=== PATIENT | female | born 1990 | race Caucasian/White ===

== ENCOUNTER 2016-08-24 02:24 | Emergency (ER) | payer MEDICAID ==
[~2016-08-24] VITALS: Ht 157.5 cm; Wt 104.3 kg
[~2016-08-24 02:24] MED LIST: AMPH20TA2 PO; BUSP15TA60 PO; CHOL10007 PO; DIPH25CA79 PO; GABA-486 PO; HYDR-3820 PO; HYDR-87 PO; PRAZ2CAP2 PO; QUET100T PO; RT-ALBUINH IH; SERT100T PO
--- OUTSIDE RECORDS SUMMARY | 2016-08-24 02:33 | XMS REPORT | Continuity of Care Document ---
Author Author [facility] Organization [facility] Address Unknown Phone Unavailable Care Team Providers Care Associate Marketing Manager Name Role Phone NO, LOCAL PHYSICIAN PCP Unavailable Insurance Providers Payer Name Policy Number Subscriber Name Relationship Medicaid Out Of State [id number] Arvind Bowie 17 Self / Same As Patient Advance Directives Directive Response Recorded Date/Time Advance Directives No 08/03/16 8:25am Organ Donor Yes 08/03/16 8:25am Resuscitation Status Full Code 08/03/16 8:25am Chief Complaint and Reason for Visit Chief Complaint -Female Reason for Visit [id number] Chronic pelvic pain in female [id number] Problems Active Problems Medical Problem Onset Date Status Chronic pelvic pain in female Unknown Acute IUD (intrauterine device) in place Unknown Acute Pilonidal fistula Unknown Acute Medications Current Home Medications Medication Dose Units Route Directions Days/Qty Instructions Start Date Quetiapine Fumarate 100 Mg 100 Mg Oral Bedtime 07/31/16 Cholecalciferol (Vitamin D3) 1,000 Unit 1,000 Unit Oral Twice A Day 07/31/16 Diphenhydramine Hcl 25 Mg 25 Mg Oral Twice A Day 07/31/16 Buspirone Hcl 15 Mg 15 Mg Oral Three Times A Day 07/31/16 Sertraline Hcl 100 Mg 150 Mg Oral Daily TAKES 1 & 1/2 (100MG) TABLET 07/31/16 Gabapentin 100 Mg 100 Mg Oral Three Times A Day 07/31/16 Albuterol Sulfate 18 Gm 1-2 Puff Inhalation As Needed 07/31/16 Dextroamphetamine/Amphetamine 20 Mg 20 Mg Oral Daily 07/31/16 Dextroamphetamine/Amphetamine 20 Mg 30 Mg Oral 1500 07/31/16 Prazosin Hcl 2 Mg 2 Mg Oral Bedtime as needed for Nightmares Hydrocodone/Acetaminophen 1 Each 1 Tab Oral Every 6 Hours for Pain 30 08/01/16 Hydrocodone/Ibuprofen 1 Each 1 Each Oral Every 4HRS as needed for Pelvic Pain 20 08/03/16 Social History Social History Problem Response Recorded Date/Time Alcohol Use Denies Use 08/03/2016 8:25am Recreational Drug Use No 08/03/2016 8:25am Recent Foreign Travel No 08/03/2016 8:10am Recent Infectious Disease Exposure No 08/03/2016 8:10am Hospitalization with Isolation Denies 08/03/2016 8:10am Smoking Status Current Everyday Smoker 08/03/2016 8:25am Type Used Cigarettes 08/03/2016 8:25am Recent Hopitalizations No 08/03/2016 8:25am Hospitalization with Isolation Denies 08/03/2016 8:10am Query Response Start Date Stop Date Smoking Status Current Everyday Smoker Hospital Discharge Instructions No hospital discharge instructions. Plan of Care Discharge Date 08/03/16 10:55am Disposition 01 HOME, SELF-CARE Condition at Discharge Stable Instructions/Education Provided Constipation, Adult (DC) Chronic Pelvic Pain (DC) Pilonidal Cyst (DC) Prescriptions See Medication Section Referrals AYSHA RODRIGUEZ ERIC B DO - Additional Instructions/Education NEED TO FOLLOW UP WITH COPY HOLDER RICHARD FOR DEFINITIVE TREATMENT OF YOUR CONDITION. Functional Status No functional status results. Allergies, Adverse Reactions, Alerts Allergen Type Severity Reaction Status Last Updated Prochlorperazine Adverse Reaction Unknown Active 07/31/16 Tramadol Adverse Reaction Unknown Active 07/31/16 ketorolac ([id number]) Adverse Reaction Unknown Active 07/31/16 Immunizations No immunization records. Vital Signs Acute Vital Signs Vital Response Date/Time Temperature (Fahrenheit) 97.8 degrees F (97.6 - 99.5) 08/03/2016 8:10am Temperature (Calculated Celsius) 36.46775 degrees C (36.4 - 37.5) 08/03/2016 8:10am Temperature Source Temporal 08/03/2016 8:10am Pulse Rate (adult) 80 bpm (60 - 90) 08/03/2016 8:10am Respiratory Rate 18 bpm (12 - 24) 08/03/2016 8:10am O2 Sat by Pulse Oximetry 94 % (88 - 100) 08/03/2016 8:10am Blood Pressure 128/86 mm Hg 08/03/2016 8:10am Blood Pressure Mean 100 mm Hg 08/03/2016 8:10am Pain Numeric Pain Scale 8 08/03/2016 10:41am Pain Intensity 4 08/01/2016 8:35am Height (Feet) 5 feet 08/03/2016 8:10am Height (Inches) 0.00 inches 07/31/2016 10:30pm Height (Calculated Centimeters) 152.478738 cm 08/03/2016 8:10am Weight (Pounds) 245 pounds 08/03/2016 8:10am Weight (Ounces) 0.0 oz 07/31/2016 10:30pm Weight (Calculated Grams) 842692.72 gm 07/31/2016 10:30pm Weight (Calculated Kilograms) 111.595015 kilograms 08/03/2016 8:10am Calculated BMI 48.0 07/31/2016 10:30pm Capillary Refill Capillary Refill Less Than 3 Seconds 08/03/2016 8:10am Results Laboratory Results Test Name Result Units Flags Reference Collection Date/Time Result Date/ Time Comments White Blood Count 11.6 10^3/uL H 4.3-11.0 08/01/2016 4:25am 08/01/2016 5: 17am Red Blood Count 4.64 10^6/uL 4.35-5.85 08/01/2016 4:2508/01/2016 5: 17am Hemoglobin 14.6 G/DL 11.5-16.0 08/01/2016 4:2508/01/2016 5:17am Hematocrit 44 % 35-52 08/01/2016 4:2508/01/2016 5:17am Mean Corpuscular Volume 94 FL 80-99 08/01/2016 4:2508/01/2016 5: 17am Mean Corpuscular Hemoglobin 32 PG 25-34 08/01/2016 4:2508/01/2016 5: 17am Mean Corpuscular Hemoglobin Concent 33 G/DL 32-36 08/01/2016 4:25 5:17am Red Cell Distribution Width 13.1 % 10.0-14.5 08/01/2016 4:2015 5:17am Platelet Count 290 10^3/uL 130-400 08/01/2016 4:08/01/2016 5:17am Mean Platelet Volume 10.8 FL H 7.4-10.4 08/01/2016 4:08/01/2016 5: 17am Neutrophils (%) (Auto) 56 % 42-75 08/01/2016 4:08/01/2016 5:17am Lymphocytes (%) (Auto) 34 % 12-44 08/01/2016 4:08/01/2016 5:17am Monocytes (%) (Auto) 6 % 0-12 08/01/2016 4:08/01/2016 5:17am Eosinophils (%) (Auto) 3 % 0-10 08/01/2016 4:08/01/2016 5:17am Basophils (%) (Auto) 0 % 0-10 08/01/2016 4:08/01/2016 5:17am Neutrophils # (Auto) 6.5 X 10^3 1.8-7.8 08/01/2016 4:08/01/2016 5: 17am Lymphocytes # (Auto) 4.0 X 10^3 1.0-4.0 08/01/2016 4:08/01/2016 5: 17am Monocytes # (Auto) 0.7 X 10^3 0.0-1.0 08/01/2016 4:08/01/2016 5: 17am Eosinophils # (Auto) 0.3 10^3/uL 0.0-0.3 08/01/2016 4:08/01/2016 5 :17am Basophils # (Auto) 0.1 10^3/uL 0.0-0.1 08/01/2016 4:08/01/2016 5: 17am Urine Color YELLOW 07/31/2016 7:25pm 07/31/2016 7:48pm Urine Clarity SLIGHTLY CLOUDY 07/31/2016 7:2507/31/2016 7:48pm Urine pH 5 5-9 07/31/2016 7:2507/31/2016 7:48pm Urine Specific [place] 1.030 * 1.016-1.022 07/31/2016 7:2015 7:48pm Urine Protein 2+ * NEGATIVE 07/31/2016 7:07/31/2016 7:48pm Urine Glucose (UA) NEGATIVE NEGATIVE 07/31/2016 7:07/31/2016 7: 48pm Urine RBC (Auto) 2+ * NEGATIVE 07/31/2016 7:07/31/2016 7:48pm Urine Ketones NEGATIVE NEGATIVE 07/31/2016 7:07/31/2016 7:48pm Urine Nitrite NEGATIVE NEGATIVE 07/31/2016 7:07/31/2016 7:48pm Urine Bilirubin NEGATIVE NEGATIVE 07/31/2016 7:07/31/2016 7: 48pm Urine Urobilinogen 1 MG/DL NORMAL 07/31/2016 7:07/31/2016 7:48pm Urine Leukocyte Esterase NEGATIVE NEGATIVE 07/31/2016 7:2015 7:48pm Urine RBC 2-5 /HPF * 07/31/2016 7:07/31/2016 7:48pm Urine WBC RARE /HPF 07/31/2016 7:07/31/2016 7:48pm Urine Bacteria NEGATIVE /HPF 07/31/2016 7:07/31/2016 7:48pm Urine Squamous Epithelial Cells 10-25 /HPF * 07/31/2016 7:2015 7:48pm Urine Crystals NONE /LPF 07/31/2016 7:07/31/2016 7:48pm Urine Casts NONE /LPF 07/31/2016 7:07/31/2016 7:48pm Urine Mucus LARGE /LPF * 07/31/2016 7:07/31/2016 7:48pm Urine Culture Indicated NO 07/31/2016 7:07/31/2016 7:48pm Sodium Level 140 MMOL/L 135-145 08/01/2016 4:am 08/01/2016 5:40am Potassium Level 4.0 MMOL/L 3.6-5.0 08/01/2016 4:08/01/2016 5:40am Chloride Level 107 MMOL/L 98-107 08/01/2016 4:08/01/2016 5:40am Carbon Dioxide Level 24 MMOL/L 21-32 08/01/2016 4:08/01/2016 5: 40am Anion Gap 9 MMOL/L 5-14 08/01/2016 4:08/01/2016 5:40am Blood Urea Nitrogen 9 MG/DL 7-18 08/01/2016 4:08/01/2016 5:40am Creatinine 0.73 MG/DL 0.60-1.30 08/01/2016 4:08/01/2016 5:40am BUN/Creatinine Ratio 08/01/2016 4:08/01/2016 5:40am Estimat Glomerular Filtration Rate > 60 08/01/2016 4:2015 5:40am GFR INTERPRETIVE DATA UNITS FOR ESTIMATED GFR (eGFR): mL/min/1.73 M2 REFERENCE RANGE FOR ESTIMATED GFR (eGFR) eGFR NORMAL eGFR >60 MODERATELY DECREASED eGFR 30-59 SEVERLY DECREASED eGFR 15-29 KIDNEY FAILURE <15 (OR DIALYSIS) Glucose Level 92 MG/DL 70-105 08/01/2016 4:08/01/2016 5:40am Calcium Level 8.7 MG/DL 8.5-10.1 08/01/2016 4:08/01/2016 5:40am Total Bilirubin 0.3 MG/DL 0.1-1.0 08/01/2016 4:08/01/2016 5:40am Alkaline Phosphatase 69 U/L 40-136 08/01/2016 4:08/01/2016 5:40am Aspartate Amino Transf (AST/SGOT) 14 U/L 5-34 08/01/2016 4:2015 5:40am Alanine Aminotransferase (ALT/SGPT) 17 U/L 0-55 08/01/2016 4:08/01 5:40am Total Protein 6.3 G/DL L 6.4-8.2 08/01/2016 4:08/01/2016 5:40am Albumin 3.9 G/DL 3.2-4.5 08/01/2016 4:08/01/2016 5:40am Amylase Level 29 U/L 25-125 08/01/2016 4:08/01/2016 5:40am Lipase 14 U/L 8-78 08/01/2016 4:25am 08/01/2016 5:40am Pending Laboratory Results Test Name Collection Date/Time Procedures No known history of procedures. Encounters Encounter Location Arrival/Admit Date Discharge/Depart Date Attending Provider Departed Emergency Room [facility] 08/03/16 8:05am 08/03 10:55am APRIL CROOK DO Discharged Inpatient (obs) [facility] 07/31/16 10:00pm 08/01/16 12:36pm PEDRO IRWIN DO Recent Diagnosis
[2016-08-24 02:45] LABS: BILIRUBIN,URINE NEGATIVE (NEGATIVE); KETONES,URINE NEGATIVE (NEGATIVE); LEUKOCYTE ESTERASE ,URINE 3+ (NEGATIVE); NITRITE,URINE NEGATIVE (NEGATIVE); PH,URINE 6 (5-9); PROTEIN,URINE 2+ (NEGATIVE); UROBILINOGEN,URINE NORMAL (NORMAL)
[2016-08-24] MEDS ORDERED: IBUPROFEN TABLET 200 MG TAB PO ONE (03:00)
[2016-08-24 03:18] LABS: BASOPHILS # (AUTO) 0.1 10^3/uL (0.0-0.1); BASOPHILS % (AUTO) 1 % (0-10); EOSINOPHILS # (AUTO) 0.3 10^3/uL (0.0-0.3); EOSINOPHILS % (AUTO) 3 % (0-10); LYMPHOCYTES # (AUTO) 3.7 X 10^3 (1.0-4.0); LYMPHOCYTES % (AUTO) 42 % (12-44); MEAN CORPUSCULAR HEMOGLOBIN 32 PG (25-34); MEAN CORPUSCULAR HGB CONC 34 G/DL (32-36); MEAN CORPUSCULAR VOLUME 92 FL (80-99); MEAN PLATELET VOLUME 10.6 FL (7.4-10.4); MONOCYTES # (AUTO) 0.5 X 10^3 (0.0-1.0); MONOCYTES % (AUTO) 6 % (0-12); NEUTROPHILS # (AUTO) 4.3 X 10^3 (1.8-7.8); NEUTROPHILS % (AUTO) 48 % (42-75); PLATELET COUNT 294 10^3/uL (130-400); RED BLOOD COUNT 4.69 10^6/uL (4.35-5.85); RED CELL DISTRIBUTION WIDTH 12.9 % (10.0-14.5); WHITE BLOOD COUNT 8.9 10^3/uL (4.3-11.0)
[2016-08-24 03:37] LABS: ALANINE AMINOTRANSFERASE 16 U/L (0-55); ALBUMIN 3.9 G/DL (3.2-4.5); ANION GAP 10 MMOL/L (5-14); ASPARTATE AMINO TRANSFERASE 12 U/L (5-34); BILIRUBIN,TOTAL 0.2 MG/DL (0.1-1.0); BLOOD UREA NITROGEN 9 MG/DL (7-18); BUN/CREATININE RATIO 13; CALCIUM 8.8 MG/DL (8.5-10.1); CARBON DIOXIDE 22 MMOL/L (21-32); CHLORIDE 106 MMOL/L (98-107); GFR ESTIMATED > 60; GLUCOSE 87 MG/DL (70-105); SODIUM 138 MMOL/L (135-145); TOTAL PROTEIN 6.1 G/DL (6.4-8.2); hs C REACTIVE PROTEIN 0.29 MG/DL (0.00-0.50)
[2016-08-24] MEDS ORDERED: CEPHALEXIN 250 MG (KEFLEX) CAP PO ONE (04:00)
[2016-08-24] MEDS ORDERED: CEPH-507 PO (04:03)
--- NOTE | 2016-08-24 04:03 | ED Abdominal Pain ---
General Chief Complaint: Abdominal/GI Problems Stated Complaint: RT SIDE PAIN Nursing Triage Note: pt reports that at approx 2300 she had severe right lower quadrant abd pain, felt as if a cyst on her ovary was bursting. states hx of pcos. also reports she passed a large blood clot vaginally a couple of days ago. Sepsis Screen: No Definite Risk Source of Information: Patient Exam Limitations: No Limitations History of Present Illness Time Seen By Provider: 02:30 Initial Comments This 26-year-old woman presents to the emergency room with complaints of fairly sudden onset of right lower quadrant pain that started around 23:00. She states this pain is similar to pain she experienced with ruptured ovarian cyst in the past. She denies any vaginal symptoms, constipation, or diarrhea. She had some more mild pain in this location yesterday for which she took Vicodin. Tonight however she had a "bursting sensation" that led to the ER visit. She took 200 mg of ibuprofen at 22:30. She took Tylenol earlier in the day. She still has pain. No fever. Allergies and Home Medications Allergies Coded Allergies: ketorolac (Unverified Adverse Reaction, Unknown, 07/31/16) prochlorperazine (Unverified Adverse Reaction, Unknown, 07/31/16) tramadol (Unverified Adverse Reaction, Unknown, 07/31/16) Home Medications Albuterol Sulfate 18 Gm Hfa.aer.ad 1-2 PUFF IH PRN (Reported) Buspirone HCl 15 Mg Tablet 15 MG PO TID (Reported) Cephalexin 500 Mg Capsule #28 500 MG PO QID Prescribed by: ANGY MARTINS on 08/24/16 0403 Cholecalciferol (Vitamin D3) 1,000 Unit Capsule 1,000 UNIT PO BID (Reported) Dextroamphetamine/Amphetamine 20 Mg Tablet 20 MG PO DAILY (Reported) Dextroamphetamine/Amphetamine 20 Mg Tablet 30 MG PO 1500 (Reported) Diphenhydramine HCl 25 Mg Capsule 25 MG PO BID (Reported) Gabapentin 100 Mg Capsule 100 MG PO TID (Reported) Hydrocodone/Acetaminophen 1 Each Tablet #30 1 TAB PO q6 Prescribed by: PEDRO IRWIN on 08/01/16 1236 Hydrocodone/Ibuprofen 1 Each Tablet #20 1 EACH PO Q4H PRN PRN pelvic pain Prescribed by: APRIL CROOK on 08/03/16 1039 Prazosin HCl 2 Mg Capsule 2 MG PO HS PRN PRN NIGHTMARES (Reported) Quetiapine Fumarate 100 Mg Tablet 100 MG PO HS (Reported) Sertraline HCl 100 Mg Tablet 150 MG PO DAILY (Reported) TAKES 1 & 1/2 (100MG) TABLET Review of Systems Constitutional: no symptoms reported EENTM: No Symptoms Reported Respiratory: No Symptoms Reported Cardiovascular: No Symptoms Reported Gastrointestinal: See HPI Genitourinary: See HPI Musculoskeletal: no symptoms reported Skin: no symptoms reported Psychiatric/Neurological: No Symptoms Reported Endocrine: No Symptoms Reported Past Fsmndes-Jldkzz-Brtpna Hx Patient Social History Alcohol Use: Rarely Uses Recreational Drug Use: No Smoking Status: Current Everyday Smoker Type Used: Cigarettes Recent Foreign Travel: No Contact w/Someone Who Travel: No Recent Infectious Disease Expo: No Recent Hopitalizations: No Physical Abuse Screen: No Sexual Abuse: No Immunizations Up To Date Tetanus Booster (TDap): Unknown Date of Influenza Vaccine: May 20, 2016 Seasonal Allergies Seasonal Allergies: Yes Surgeries HX Surgeries: Yes ( X --07/2013) Surgeries: Section, Tonsillectomy Respiratory Hx Respiratory Disorders: Yes Respiratory Disorders: Asthma Cardiovascular Hx Cardiac Disorders: Yes Neurological Hx Neurological Disorders: No Reproductive System Hx Reproductive Disorders: Yes Female Reproductive Disorders: Menstrual Problems, Ovarian Cyst, Polycystic Ovarian Dis 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 Genitourinary Hx Genitourinary Disorders: Yes Genitourinary Disorders: Bladder Infection, UTI-Chronic Gastrointestinal Hx Gastrointestinal Disorders: Yes Gastrointestinal Disorders: Gastroesophageal Reflux Musculoskeletal Hx Musculoskeletal Disorders: Yes Musculoskeletal Disorders: Fibromyalgia Endocrine Hx Endocrine Disorders: Yes (VITAMIN D DEFICIENCY; OBESITY) HEENT HX ENT Disorders: No Cancer Hx Cancer: No Psychosocial Hx Psychiatric Problems: Yes (EXTENSIVE PSYCH ISSUES) Behavioral Health Disorders: ADD/ADHD, Sleep Difficulties, Anxiety, PTSD, Bipolar, Personality Disorder, Depression Integumentary HX Skin/Integumentary Disorder: No Blood Transfusions Hx Blood Disorders: No Family Medical History Significant Family History: Hypertension Family Medial History: Alcoholism 19 FATHER Asthma 19 MOTHER Completed stroke 19 FATHER DVT 19 FATHER Dementia 19 FATHER Diabetes mellitus 19 MOTHER FH: multiple sclerosis G8 SISTER Headache disorder G8 BROTHER Hypertension 19 FATHER 19 MOTHER Myocardial infarction 19 FATHER Seizure disorder 19 FATHER Physical Exam Vital Signs Capillary Refill : Less Than 3 Seconds General Appearance: WD/WN no apparent distress obese HEENT: PERRL/EOMI normal ENT inspection Respiratory: lungs clear normal breath sounds no respiratory distress no accessory muscle use Cardiovascular: regular rate, rhythm no edema no murmur Gastrointestinal: normal bowel sounds softNo distended, No guarding, No rebound, tenderness (Mild tenderness in the right lower quadrant) Extremities: normal inspection no pedal edema Neurologic/Psychiatric: special education teachers II-XII nml as tested no motor/sensory deficits alert normal mood/affect oriented x 3 Skin: normal color warm/dry Progress/Results/Core Measures Results/Orders Lab Results Laboratory Tests Test 08/24/16 02:35 08/24/16 03:10 Range/Units Urine Bacteria MODERATE H /HPF Urine Bilirubin NEGATIVE NEGATIVE Urine Casts NONE /LPF Urine Clarity SLIGHTLY CLOUDY Urine Color YELLOW Urine Crystals NONE /LPF Urine Culture Indicated YES Urine Glucose (UA) NEGATIVE NEGATIVE Urine Ketones NEGATIVE NEGATIVE Urine Leukocyte Esterase 3+ H NEGATIVE Urine Mucus NEGATIVE /LPF Urine Nitrite NEGATIVE NEGATIVE Urine Protein 2+ H NEGATIVE Urine RBC 2-5 H /HPF Urine RBC (Auto) NEGATIVE NEGATIVE Urine Specific [place] 1.020 1.016-1.022 Urine Squamous Epithelial Cells 10-25 H /HPF Urine Urobilinogen NORMAL NORMAL MG/DL Urine WBC 5-10 H /HPF Urine pH 6 5-9 Alanine Aminotransferase (ALT/SGPT) 16 0-55 U/L Albumin 3.9 3.2-4.5 G/DL Alkaline Phosphatase 68 40-136 U/L Anion Gap 10 5-14 MMOL/L Aspartate Amino Transf (AST/SGOT) 12 5-34 U/L BUN/Creatinine Ratio 13 Basophils # (Auto) 0.1 0.0-0.1 10^3/uL Basophils (%) (Auto) 1 0-10 % Blood Urea Nitrogen 9 7-18 MG/DL C-Reactive Protein High Sensitivity 0.29 0.00-0.50 MG/DL Calcium Level 8.8 8.5-10.1 MG/DL Carbon Dioxide Level 22 21-32 MMOL/L Chloride Level 106 98-107 MMOL/L Creatinine 0.70 0.60-1.30 MG/DL Eosinophils # (Auto) 0.3 0.0-0.3 10^3/uL Eosinophils (%) (Auto) 3 0-10 % Estimat Glomerular Filtration Rate > 60 Glucose Level 87 70-105 MG/DL Hematocrit 43 35-52 % Hemoglobin 14.8 11.5-16.0 G/DL Lymphocytes # (Auto) 3.7 1.0-4.0 X 10^3 Lymphocytes (%) (Auto) 42 12-44 % Mean Corpuscular Hemoglobin 32 25-34 PG Mean Corpuscular Hemoglobin Concent 34 32-36 G/DL Mean Corpuscular Volume 92 80-99 FL Mean Platelet Volume 10.6 H 7.4-10.4 FL Monocytes # (Auto) 0.5 0.0-1.0 X 10^3 Monocytes (%) (Auto) 6 0-12 % Neutrophils # (Auto) 4.3 1.8-7.8 X 10^3 Neutrophils (%) (Auto) 48 42-75 % Platelet Count 294 130-400 10^3/uL Potassium Level 4.0 3.6-5.0 MMOL/L Red Blood Count 4.69 4.35-5.85 10^6/uL Red Cell Distribution Width 12.9 10.0-14.5 % Sodium Level 138 135-145 MMOL/L Total Bilirubin 0.2 0.1-1.0 MG/DL Total Protein 6.1 L 6.4-8.2 G/DL White Blood Count 8.9 4.3-11.0 10^3/uL Micro Results Microbiology 08/24/16 Urine Culture - Final, Complete My Orders Orders-ANGY WOLF MD Ua Culture If Indicated (08/24/16 02:26) Ibuprofen Tablet (Motrin Tablet) (08/24/16 03:00) Cbc With Automated Diff (08/24/16 02:48) Comprehensive Metabolic Panel (08/24/16 02:48) Hs C Reactive Protein (08/24/16 02:48) Urine Culture (08/24/16 02:35) Cephalexin Capsule (Keflex Capsule) (08/24/16 04:00) Medications Given in ED Vital Signs/I&O Blood Pressure Mean: 108 Progress Note : Progress Note Workup was unremarkable except for urinary tract infection. Patient was treated with ibuprofen and Keflex. Departure Impression Impression: Primary Impression: Lower abdominal pain Additional Impression: Urinary tract infection Qualified Code: N39.0 - Urinary tract infection, site not specified Disposition: 01 HOME, SELF-CARE Condition: Improved Departure-Patient Inst. Decision time for Depature: 03:45 Referrals: NO,LOCAL PHYSICIAN (PCP/Family) Primary Care Physician Patient Instructions: Acute Abdomen (Belly Pain), Adult (DC), Ovarian Cysts, Urinary Tract Infections in Adults Add. Discharge Instructions: You may take ibuprofen up to 800 mg every 8 hours as needed for pain. Add Tylenol (acetaminophen) up to 1000 mg every 6 hours for additional pain relief. Return to emergency room if symptoms worsen. Follow up with your primary care provider or gynecologic provider. Complete the antibiotics as prescribed. Follow-up with your primary care provider after 48 hours to review urine culture and ensure the antibiotics prescribed are appropriate for the type of infection you have. All discharge instructions reviewed with patient and/or family. Voiced understanding. Scripts Cephalexin (Keflex)500 Mg [id number] Mg PO QID #28 CAP Prov:ANGY WOLF MD 08/24/16 ANGY WOLF MD Aug 24, 2016 04:03
[2016-08-24 04:06] VITALS: BP 134/82
[2016-10-23] MEDS ORDERED: DOCU-143 PO (07:35)
[2016-10-23] MEDS ORDERED: IBUP-1773 PO (07:35)
[2016-10-23] MEDS ORDERED: ACET-789 PO (07:35)
== END 2016-08-24 04:08 | disposition home or self-care (01) ==
LOC: EDUNIT# 02:24 → ER 02:28
DX: R10.30 Lower abdominal pain, unspecified (principal); N39.0 Urinary tract infection, site not specified; E28.2 Polycystic ovarian syndrome; F17.210 Nicotine dependence, cigarettes, uncomplicated
CPT/HCPCS: 36415; 80053; 81000; 85025; 86141; 87088; 99283

== ENCOUNTER 2016-10-11 14:35 | Outpatient (CLI) | payer SELFPAY ==
[~2016-10-11] VITALS: Ht 157.5 cm; Wt 108.9 kg
[~2016-10-11 14:35] MED LIST changes: +CEPH-507 PO
--- OUTSIDE RECORDS SUMMARY | 2016-10-11 14:39 | XMS REPORT | Continuity of Care Document ---
Author Author [facility] Organization [facility] Address Unknown Phone Unavailable Care Team Providers Care Catalyst Concentration Operator Name Role Phone NO, LOCAL PHYSICIAN PCP Unavailable Insurance Providers Payer Name Policy Number Subscriber Name Relationship Medicaid Out Of State [id number] Arvind Bowie 18 Self / Same As Patient Advance Directives Directive Response Recorded Date/Time Advance Directives No 08/24/16 2:49am Organ Donor Yes 08/24/16 2:49am Resuscitation Status Full Code 08/24/16 2:49am Chief Complaint and Reason for Visit Chief Complaint Abdominal/GI Problems Reason for Visit Urinary tract infection Lower abdominal pain Problems Active Problems Medical Problem Onset Date Status Chronic pelvic pain in female Unknown Acute IUD (intrauterine device) in place Unknown Acute Lower abdominal pain Unknown Acute Pilonidal fistula Unknown Acute Urinary tract infection Unknown Acute Medications Current Home Medications Medication [...] as needed for Pelvic Pain 20 08/03/16 Cephalexin 500 Mg 500 Mg Oral Four Times Daily 28 08/24/16 Social History Social History Problem Response Recorded Date/Time Alcohol Use Rarely Uses 08/24/2016 2:49am Recreational Drug Use No 08/24/2016 2:49am Recent Foreign Travel No 08/24/2016 2:30am Recent Infectious Disease Exposure No 08/24/2016 2:30am Smoking Status Current Everyday Smoker 08/24/2016 2:49am Type Used Cigarettes 08/24/2016 2:49am Recent Hopitalizations No 08/24/2016 2:49am Query Response Start Date Stop Date Smoking Status Current Everyday Smoker Hospital Discharge Instructions No hospital discharge instructions. Plan of Care Discharge Date 08/24/16 4:08am Disposition 01 HOME, SELF-CARE Condition at Discharge Improved Instructions/Education Provided Urinary Tract Infections in Adults Ovarian Cysts Acute Abdomen (Belly Pain), Adult (DC) Prescriptions See Medication Section Referrals NO,LOCAL PHYSICIAN - Primary Care Physician Additional Instructions/Education You may take ibuprofen up to 800 mg every 8 hours as needed for pain. Add Tylenol (acetaminophen) up to 1000 mg every 6 hours for additional pain relief. Return to emergency room if symptoms worsen. Follow up with your primary care provider or gynecologic provider. Complete the antibiotics as prescribed. Follow-up with your primary care provider after 48 hours to review urine culture and ensure the antibiotics prescribed are appropriate for the type of infection you have. All discharge instructions reviewed with patient and/or family. Voiced understanding. Functional Status No functional status results. Allergies, Adverse Reactions, Alerts Allergen Type Severity Reaction Status Last Updated Prochlorperazine Adverse Reaction Unknown Active 07/31/16 Tramadol Adverse Reaction Unknown Active 07/31/16 ketorolac ([id number]) Adverse Reaction Unknown Active 07/31/16 Immunizations No immunization records. Vital Signs Acute Vital Signs Vital Response Date/Time Temperature (Fahrenheit) 97.9 degrees F (97.6 - 99.5) 08/24/2016 2:30am Temperature (Calculated Celsius) 36.58536 degrees C (36.4 - 37.5) 08/24/2016 2:30am Temperature Source Temporal 08/24/2016 2:30am Pulse Rate (adult) 97 bpm (60 - 90) 08/24/2016 2:30am Respiratory Rate 18 bpm (12 - 24) 08/24/2016 2:30am O2 Sat by Pulse Oximetry 98 % (88 - 100) 08/03/2016 10:51am Blood Pressure 139/92 mm Hg 08/24/2016 2:30am Blood Pressure Mean 108 mm Hg 08/24/2016 2:30am Pain Numeric Pain Scale 8 08/24/2016 3:13am Pain Intensity 4 08/01/2016 8:35am Height (Feet) 5 feet 08/24/2016 2:30am Height (Inches) 2 inches 08/24/2016 2:30am Height (Calculated Centimeters) 157.311286 cm 08/24/2016 2:30am Weight (Pounds) 230 pounds 08/24/2016 2:30am Weight (Ounces) 0.0 oz 07/31/2016 10:30pm Weight (Calculated Grams) 524952.72 gm 07/31/2016 10:30pm Weight (Calculated Kilograms) 104.373677 kilograms 08/24/2016 2:30am Calculated BMI 48.0 07/31/2016 10:30pm Capillary Refill Capillary Refill Less Than 3 Seconds 08/24/2016 2:30am Results Laboratory Results Test Name Result Units Flags Reference Collection Date/Time Result Date/ Time Comments White Blood Count 11.6 10^3/uL H 4.3-11.0 08/01/2016 4:25am 08/01/2016 5: 17am Red Blood Count 4.64 10^6/uL 4.35-5.85 08/01/2016 4:25am 08/01/2016 5: 17am Hemoglobin 14.6 G/DL 11.5-16.0 08/01/2016 4:25am 08/01/2016 5:17am Hematocrit 44 % 35-52 08/01/2016 4:25am 08/01/2016 5:17am Mean Corpuscular Volume 94 FL 80-99 08/01/2016 4:25am 08/01/2016 5: 17am Mean Corpuscular Hemoglobin 32 PG 25-34 08/01/2016 4:08/01/2016 5: 17am Mean Corpuscular Hemoglobin Concent 33 G/DL 32-36 08/01/2016 4: 5:17am Red Cell Distribution Width 13.1 % [...] 4:08/01/2016 5: 17am Urine Color YELLOW 07/31/2016 7:07/31/2016 7:48pm Urine Clarity SLIGHTLY CLOUDY 07/31/2016 7:07/31/2016 7:48pm Urine pH 5 5-9 07/31/2016 7:07/31/2016 7:48pm Urine Specific [place] 1.030 * 1.016-1.022 07/31/2016 7:2015 7:48pm Urine [...] 7:48pm Sodium Level 140 MMOL/L 135-145 08/01/2016 4:08/01/2016 5:40am Potassium Level 4.0 MMOL/L 3.6-5.0 08/01/2016 [...] 4:08/01/2016 5:40am Albumin 3.9 G/DL 3.2-4.5 08/01/2016 4:25am 08/01/2016 5:40am Amylase Level 29 U/L 25-125 08/01/2016 4:25am 08/01/2016 5:40am Lipase 14 U/L 8-78 08/01/2016 4:25am 08/01/2016 5:40am Pending Laboratory Results Test Name Collection Date/Time Procedures No known history of procedures. Encounters Encounter Location Arrival/Admit Date Discharge/Depart Date Attending Provider Departed Emergency Room [facility] 08/24/16 2:28am 08/24 4:08am ANGY WOLF MD Departed Emergency Room [facility] 08/03/16 8:05am 08/03 10:55am APRIL CROOK DO Discharged Inpatient (obs) [facility] 07/31/16 10:00pm 08/01/16 12:36pm PEDRO IRWIN DO Recent Diagnosis
[2016-10-11] MEDS ORDERED: CINN500C2 PO (14:44)
[2016-10-11] MEDS ORDERED: CRAN500T2 PO (14:44)
[2016-10-11 14:46] VITALS: BP 127/85
== END 2016-10-11 15:12 | disposition home or self-care (01) ==
LOC: PREOP 14:35
PROVIDERS: ATTEND Obstetrics & Gynecology
DX: Z01.818 Encounter for other preprocedural examination (principal); Z11.2 Encounter for screening for other bacterial diseases; Z30.432 Encounter for removal of intrauterine contraceptive device
CPT/HCPCS: 87081

== ENCOUNTER 2016-10-23 07:25 | Day surgery (SDC) | payer OTHER ==
[~2016-10-23] VITALS: Ht 157.5 cm; Wt 108.9 kg
[~2016-10-23 07:25] MED LIST changes: +CINN500C2 PO; +CRAN500T2 PO
--- OUTSIDE RECORDS SUMMARY | 2016-10-23 07:28 | XMS REPORT | Continuity of Care Document ---
Author Author [facility] Organization [facility] Address Unknown Phone Unavailable Care Team Providers Care Polysomnographic Technologist Name Role Phone NO, LOCAL PHYSICIAN PCP Unavailable Insurance Providers Payer Name Policy Number Subscriber Name Relationship Medicaid Out Of State [id number] Arvind Bowie 17 Self / Same As [...] Tramadol Adverse Reaction Unknown Active 07/31/16 ketorolac ([id number]) Adverse Reaction Unknown Active 07/31/16 Immunizations No immunization records. Vital Signs Acute Vital Signs Vital Response Date/Time Temperature (Fahrenheit) 97.9 degrees F (97.6 - 99.5) 08/24/2016 2:30am Temperature (Calculated Celsius) 36.20334 degrees C (36.4 - 37.5) 08/24/2016 2:30am [...] 2 inches 08/24/2016 2:30am Height (Calculated Centimeters) 157.085975 cm 08/24/2016 2:30am Weight (Pounds) 230 pounds 08/24/2016 2:30am Weight (Ounces) 0.0 oz 07/31/2016 10:30pm Weight (Calculated Grams) 043110.72 gm 07/31/2016 10:30pm Weight (Calculated Kilograms) 104.460534 kilograms 08/24/2016 2:30am Calculated BMI 48.0 07/31/2016 [...] 5 5-9 07/31/2016 7:07/31/2016 7:48pm Urine Specific [place] 1.030 * 1.016-1.022 07/31/2016 7:2015 7:48pm Urine [...] Date Attending Provider Departed Emergency Room [facility] 08/24/16 2:28am 08/24 4:08am ANGY WOLF MD Departed Emergency Room [facility] 08/03/16 8:05am 08/03 10:55am APRIL CROOK DO Discharged Inpatient (obs) [facility] 07/31/16 10:00pm 08/01/16 12:36pm PEDRO IRWIN DO Recent Diagnosis
--- OUTSIDE RECORDS SUMMARY | 2016-10-23 07:30 | XMS REPORT | Continuity of Care Document ---
Author Author [facility] Organization [facility] Address Unknown Phone Unavailable Care Team Providers Care Hospital Unit Clerk Name Role Phone NO, LOCAL PHYSICIAN PCP Unavailable Insurance Providers Payer Name Policy Number Subscriber Name Relationship Medicaid Out Of State [id number] Arvind Bowie 17 Self / Same As [...] Tramadol Adverse Reaction Unknown Active 07/31/16 ketorolac ([id number]) Adverse Reaction Unknown Active 07/31/16 Immunizations No immunization records. Vital Signs Acute Vital Signs Vital Response Date/Time Temperature (Fahrenheit) 97.9 degrees F (97.6 - 99.5) 08/24/2016 2:30am Temperature (Calculated Celsius) 36.54528 degrees C (36.4 - 37.5) 08/24/2016 2:30am [...] 2 inches 08/24/2016 2:30am Height (Calculated Centimeters) 157.753176 cm 08/24/2016 2:30am Weight (Pounds) 230 pounds 08/24/2016 2:30am Weight (Ounces) 0.0 oz 07/31/2016 10:30pm Weight (Calculated Grams) 864133.72 gm 07/31/2016 10:30pm Weight (Calculated Kilograms) 104.914545 kilograms 08/24/2016 2:30am Calculated BMI 48.0 07/31/2016 [...] 5 5-9 07/31/2016 7:07/31/2016 7:48pm Urine Specific [place] 1.030 * 1.016-1.022 07/31/2016 7:2015 7:48pm Urine [...] Date Attending Provider Departed Emergency Room [facility] 08/24/16 2:28am 08/24 4:08am ANGY WOLF MD Departed Emergency Room [facility] 08/03/16 8:05am 08/03 10:55am APRIL CROOK DO Discharged Inpatient (obs) [facility] 07/31/16 10:00pm 08/01/16 12:36pm PEDRO IRWIN DO Recent Diagnosis
--- NOTE | 2016-10-23 07:32 | Progress Note-Pre Operative ---
Pre-Operative Progress Note H&P Reviewed The H&P was reviewed, patient examined and no changes noted. Date H&P Reviewed: Oct 23, 2016 Time H&P Reviewed: 07:30 Pre-Operative Diagnosis: Malpositioned intrauterine device, abnormal uterine bleeding AILYN VERGARA MD Oct 23, 2016 07:31
[2016-10-23] MEDS ORDERED: DOCU-143 PO (07:35)
[2016-10-23] MEDS ORDERED: ACET-789 PO (07:35)
[2016-10-23] MEDS ORDERED: IBUP-1773 PO (07:35)
--- NOTE | 2016-10-23 07:36 | Discharge Inst-Women's Service ---
Discharge Inst-Women's Serv Depart Medication/Instructions New, Converted or Re-Newed RX: RX on Chart (and transmitted to pharmacy) Final Diagnosis Malpositioned intrauterine device ([place] of state [place] another provider), abnormal uterine bleeding, chronic pelvic pain Consults/Follow Up Additional Follow Up: Yes Orders/Referrals 3-[address] Thrasher Activity Activity: Activity as Tolerated Driving Instructions: No Driving for 24 Hours (or while taking narcotic pain medications) NO SMOKING: NO SMOKING Nothing Inside Vagina: No Douching, No [place], No Tampons Other Activity Nothing in the vagina for 2 weeks Diet Discharge Diet: No Restrictions Symptoms to Report to : Bleeding Excessive, Pain Increased, Fever Over 101 Degrees F, Pain/Pressure in Chest, Vaginal Bleeding Increase, Dizziness/Fainting , Nausea/Vomiting, Shortness of Breath For Any Problems or Questions: Contact Your Physician, Go to Emergency Room AILYN THRASHER MD Oct 23, 2016 07:36
--- NOTE | 2016-10-23 07:43 | OB/GYN Operative Report ---
Operative Report Date of Procedure: October 23, 2016 Preoperative Diagnosis: Abnormal uterine bleeding, chronic pelvic pain, malpositioned intrauterine device Postoperative Diagnosis: Same plus likely expelled intrauterine device Procedure: Hysteroscopy, removal of retained intrauterine device Surgeon: Ailyn Thrasher MD Anesthesia: General Estimated Blood Loss: None Specimens: None Indications for Procedure: This is a 26 y/o female who had an intrauterine device placed by another provider out of state. She complained of pelvic pain and an ultrasound was performed showing a malpositioned intrauterine device and she presented to [place]. Due to her abnormal uterine bleeding, chronic pelvic pain and request for removal, we attempted this in office, however she was unable to tolerate this despite a paracervical block. She was counseled on risks/benefits /alternatives to proceeding to the OR for removal. She had a CT scan as well as ultrasound which showed intrauterine placement of the intrauterine device less than three months ago. Findings: Normal appearing endometrial cavity with bilateral tubal ostia visualized, no intrauterine device seen. Procedure: The patient was taken to the operating room where sequential compression devices were placed on the bilateral lower extremities. Intravenous fluids were running. General anesthesia was obtained without difficulty. She was repositioned in the dorsal lithotomy position with the use of Yellofin stirrups. She was prepped and draped in the typical sterile fashion. The bladder was emptied with a straight catheterization yielding 200 cc of clear yellow urine. A weighted speculum was placed in the vagina. A right angle was utilized to elevate the vaginal tissue anteriorly. An Allis was placed on the anterior lip of the cervix. The uterus was sounded to 8cm. Humphreys dilators were used to dilate the cervix to 17mm. The Truclear 5 mm hysteroscope was then advanced into the uterine cavity under direct visualization. The aforementioned findings were noted; no intrinsic lesions were seen. The hysteroscope was removed. A KUB was performed and no intrauterine device was seen; Dr. Brown agreed with this finding via phone consultation. All instruments were removed from the vagina; the anterior lip of the cervix was hemostatic after Allis removal. The patient tolerated the procedure well. Instrument counts were correct. The patient was taken to recovery in stable condition. Complications: None Disposition: Home, stable AILYN THRASHER MD Oct 23, 2016 07:43
[2016-10-23] MEDS ORDERED: MIDAZOLAM 2 MG/2 ML (VERSED) VIAL ONE (07:45)
[2016-10-23] MEDS ORDERED: FAMOTIDINE 20MG/2ML IV (PEPCID) IV ONE (07:45)
[2016-10-23] MEDS ORDERED: fentaNYL INJECTION 100 MCG/2 ML AMP ONE (07:45)
[2016-10-23] MEDS ORDERED: LACTATED RINGERS 1,000 ML IV PRN (07:45)
[2016-10-23] MEDS ORDERED: LIDOCAINE 1% 10 MG/ML 0.2 ML SYR (FOR IV START) ONE ×2 (07:55→08:06)
[2016-10-23 08:00] VITALS: BP 128/94
[2016-10-23] MEDS ORDERED: proPOfol 200 MG/20 ML (DIPRIVAN) VIAL IV ONE (08:50)
[2016-10-23] MEDS ORDERED: DEXAMETHASONE PF 10 MG/ML (DECADRON) VIAL ONE (08:50)
[2016-10-23] MEDS ORDERED: LIDOCAINE PF 2% 10 ML (XYLOCAINE) AMP ONE (08:50)
[2016-10-23] MEDS ORDERED: SEVOFLURANE (ULTANE) 15 ML INHAL SOLN ONE (08:50)
[2016-10-23] MEDS ORDERED: D5 LR IV SOLUTION 1,000 ML IV SCH (08:51)
--- NOTE | 2016-10-23 08:53 | Diagnostic Imaging Report ---
Portable supine KUB at 8:42 AM. INDICATION: IUD check. The previous CT abdomen/pelvis exam of 08/03/2016, noted that there was an IUD in place. The IUD appeared to be near the cervix. On this study the IUD is not identified. There is a metallic surgical instrument overlying the pubic symphysis. There is some gas in both the large and small bowel in a nonspecific fashion. There is no mass or organomegaly identified. The osseous structures are intact. IMPRESSION: 1. The IUD seen on the previous exam cannot be identified on this study. 2. These results were discussed with Dr. Kimo Thrasher. Dictated by: Dictated on workstation # [id number]
[2016-10-23] MEDS ORDERED: ONDANSETRON 4 MG/2 ML (SDV) Z0FRAN IVP PRN (09:00)
[2016-10-23] MEDS ORDERED: fentaNYL INJECTION 100 MCG/2 ML AMP IV PRN (09:15)
[2016-10-23] MEDS ORDERED: morphine INJ 10 MG/ML 1ML (SYR OR VIAL) IV PRN (09:15)
[2016-10-23] MEDS ORDERED: ONDANSETRON 4 MG/2 ML (SDV) Z0FRAN IV ONE (09:15)
[2016-10-23 09:50] VITALS: BP 111/75
[2016-10-23 10:20] VITALS: BP 112/80
[2016-10-23 10:45] VITALS: BP 112/80
== END 2016-10-23 10:45 | disposition home or self-care (01) ==
LOC: SDC 07:25
PROVIDERS: ATTEND Obstetrics & Gynecology
DX: N93.9 Abnormal uterine and vaginal bleeding, unspecified (principal); R10.2 Pelvic and perineal pain
CPT/HCPCS: 74000; 84703

== ENCOUNTER 2017-04-21 08:32 | Emergency (ER) | payer OTHER ==
[~2017-04-21] VITALS: Ht 152.4 cm; Wt 112.5 kg
[~2017-04-21 08:32] MED LIST changes: +ACET-789 PO; +DOCU-143 PO; +IBUP-1773 PO
--- OUTSIDE RECORDS SUMMARY | 2017-04-21 08:36 | XMS REPORT ---
Author [facility] Address [address] [place] [address] Care Team Providers Care Headlight Assembler Name Role Phone BETTYE HUMPHREY Unavailable PROBLEMS Type Condition ICD9-CM Code QCY66-JM Code Onset Dates Condition Status SNOMED Code Problem Mild intermittent asthma without complication J45.20 Active 936586766 Problem Reflux gastritis K29.60 Active 07651821 Problem Morbid obesity due to excess calories E66.01 Active 488921282 Problem Non morbid obesity due to excess calories E66.09 Active 390098230 Problem IUD (intrauterine device) in place Z97.5 Active 344756301 Problem Severe episode of recurrent major depressive disorder, without psychotic features F33.2 Active 18988069 Problem PCOS (polycystic ovarian syndrome) E28.2 Active 31986622 Problem Borderline personality disorder F60.3 Active 36167683 ALLERGIES Substance Reaction Event Type Date Status Compazine Unknown Drug Allergy Jul, Active Triaminic Cold Unknown Drug Allergy Jul, Active Tramadol HCl Unknown Drug Allergy Jul, Active Ketorolac Tromethamine Unknown Drug Allergy Jul, Active [place] Dye in medications Unknown Non Drug Allergy Jul, Active SOCIAL HISTORY No smoking Hx information available PLAN OF CARE Activity Details Follow Up 4 Weeks Reason: VITAL SIGNS Height 60 in 2016-08-04 Weight 242.3 lbs 2016-08-04 Heart Rate 92 bpm 2016-08-04 Respiratory Rate 20 2016-08-04 BMI 47.32 kg/m2 2016-08-04 Blood pressure systolic 130 mmHg 2016-08-04 Blood pressure diastolic 71 mmHg 2016-08-04 MEDICATIONS Medication Instructions Dosage Frequency Start Date End Date Duration Status Prazosin HCl 1 MG Orally Once a day 1 capsule at bedtime 24h Active Seroquel 100 MG Orally Once a day 1 tablet 24h Active Sertraline HCl 100 MG Orally twice a day 1 tablet 12h Active Benadryl Allergy 25 MG Orally 2 times a day 12h Active Famotidine 20 mg Orally 2 times a day 1 tablet 12h 1 month Active Advair Diskus 250-50 MCG/DOSE Inhalation Twice a day 1 puff 12h 1 month Active Vicoprofen 7.5-200 MG Orally every 4-6 hours as needed 1 tablet as needed Active Gabapentin 100 MG Orally 3 times a day 1 tab 8h 1 month Active Albuterol Sulfate HFA 108 (90 Base) MCG/ACT Inhalation every 4 hrs 2 puffs as needed 4h 1 month Active BusPIRone HCl 15 MG Orally 3 times a day 1 tablet 8h Active Vitamin D 1000 UNIT Orally twice a day 1 tablet 12h Active RESULTS Name Result Date Reference Range TEST, URINE (IN HOUSE) 2016-08-04 RESULTS Negative Lot # [id number] Control + Exp date URINE DRUG SCREEN (IN HOUSE) 2016-08-04 Lot # [id number] Exp date 02/2018 Control + COCAINE NEG AMPH NEG MTD THC NEG OPIATE POS BENZO NEG PCP NEG BAR NEG OXY POS MAMP POS TCA NEG BUP NEG MDMA NEG PROCEDURES Procedure Date Ordered Related Diagnosis Body Site DRUG SCREEN NON TLC DEVICES Aug 04, 2016 URINE TEST Aug 04, 2016 Office Visit, Est Pt., Level 3 Aug 04, 2016 IMMUNIZATIONS No Known Immunizations
--- OUTSIDE RECORDS SUMMARY | 2017-04-21 08:37 | XMS REPORT ---
Author Author HERON JOE [facility] [place] [employer] Address Unknown Phone Unavailable Care Team Providers Care Dry Ice Maker Name Role Phone HERON JOE CP Unavailable Allergies, Adverse Reactions, Alerts Substance Reaction Event Type N.K.D.A. Info Not Available Non Drug Allergy Problems Problem Type Condition Code Onset Dates Condition Status Problem Severe episode of recurrent major depressive disorder, without psychotic features F33.2 Active Problem Mild intermittent asthma without complication J45.20 Active Problem IUD (intrauterine device) in place Z97.5 Active Assessment Mild intermittent asthma without complication J45.20 Active Assessment Reflux gastritis K29.60 Active Problem Reflux gastritis K29.60 Active Assessment Severe episode of recurrent major depressive disorder, without psychotic features F33.2 Active Medications Medication Code System Code Instructions Start Date End Date Status Dosage Advair Diskus [facility] [address]-51 250-50 MCG/DOSE Inhalation Twice a day 1 puff Gabapentin [facility] [address]-13 100 MG Orally 3 times a day 1 tab Adderall [facility] [address]-68 20 mg Orally 1.5 tablet in the morning and 1 tablet in the afternoon Benadryl Allergy [facility] [address]-05 25 MG Orally 2 times a day not defined Albuterol Sulfate HFA [facility] [address]-69 108 (90 Base) MCG/ACT Inhalation every 4 hrs 2 puffs as needed Sertraline HCl [facility] [address]-30 100 MG Orally twice a day 1 tablet Prazosin HCl [facility] [address]-39 1 MG Orally Once a day 1 capsule at bedtime Vitamin D [facility] [address]-58 Orally twice a day 1 tablet BusPIRone HCl [facility] [address]-22 15 MG Orally 3 times a day 1 tablet Clonazepam [facility] [address]-27 1 MG Orally Twice a day 1 tablet Famotidine [facility] [address]-61 20 mg Orally 2 times a day 1 tablet Seroquel [facility] [address]-40 100 MG Orally Once a day 1 tablet Procedures Procedure Coding System Code Date Office Visit, New Pt., Level 3 CPT-4 67694 Jul 18, 2016 Vital Signs Date/Time: Jul 18, 2016 Cardiac Monitoring Heart Rate 82 bpm Weight 238.3 lbs Height 60 in BMI 46.53 Index Blood Pressure Diastolic 76 mmHg Blood Pressure Systolic 124 mmHg Results No Known Results Summary Purpose eClinicalWorks Submission
[2017-04-21] MEDS ORDERED: NS IV 1000 ML 1,000 ML IV ONE (08:47)
[2017-04-21] MEDS ORDERED: HYDR-87 (08:47)
[2017-04-21 08:54] LABS: BILIRUBIN,URINE 1+ (NEGATIVE); KETONES,URINE 1+ (NEGATIVE); LEUKOCYTE ESTERASE ,URINE 1+ (NEGATIVE); NITRITE,URINE NEGATIVE (NEGATIVE); PH,URINE 5 (5-9); PROTEIN,URINE 3+ (NEGATIVE); UROBILINOGEN,URINE 1 MG/DL (NORMAL)
[2017-04-21] MEDS ORDERED: ONDANSETRON 4 MG/2 ML (SDV) Z0FRAN IVP ONE (09:00)
[2017-04-21] MEDS ORDERED: fentaNYL INJECTION 100 MCG/2 ML AMP IVP ONE ×2 (09:00→10:00)
[2017-04-21 09:04] LABS: SQUAMOUS EPITHELIAL CELL,UR 0-2 /HPF
[2017-04-21 09:31] LABS: ALANINE AMINOTRANSFERASE 13 U/L (0-55); ALBUMIN 3.6 GM/DL (3.2-4.5); ANION GAP 10 MMOL/L (5-14); ASPARTATE AMINO TRANSFERASE 11 U/L (5-34); BILIRUBIN,TOTAL 0.3 MG/DL (0.1-1.0); BLOOD UREA NITROGEN 10 MG/DL (7-18); BUN/CREATININE RATIO 14; CALCIUM 8.9 MG/DL (8.5-10.1); CARBON DIOXIDE 23 MMOL/L (21-32); CHLORIDE 106 MMOL/L (98-107); CREATININE SERUM 0.71 MG/DL (0.60-1.30); GFR ESTIMATED > 60; GLUCOSE 127 MG/DL (70-105); POTASSIUM 3.9 MMOL/L (3.6-5.0); SODIUM 139 MMOL/L (135-145); TOTAL PROTEIN 5.9 GM/DL (6.4-8.2)
[2017-04-21 09:35] LABS: BASOPHILS # (AUTO) 0.1 10^3/uL (0.0-0.1); BASOPHILS % (AUTO) 1 % (0-10); EOSINOPHILS # (AUTO) 0.4 10^3/uL (0.0-0.3); EOSINOPHILS % (AUTO) 4 % (0-10); LYMPHOCYTES # (AUTO) 2.5 X 10^3 (1.0-4.0); LYMPHOCYTES % (AUTO) 29 % (12-44); MEAN CORPUSCULAR HEMOGLOBIN 31 PG (25-34); MEAN CORPUSCULAR HGB CONC 34 G/DL (32-36); MEAN CORPUSCULAR VOLUME 93 FL (80-99); MEAN PLATELET VOLUME 10.4 FL (7.4-10.4); MONOCYTES # (AUTO) 0.5 X 10^3 (0.0-1.0); MONOCYTES % (AUTO) 6 % (0-12); NEUTROPHILS # (AUTO) 5.1 X 10^3 (1.8-7.8); NEUTROPHILS % (AUTO) 60 % (42-75); PLATELET COUNT 307 10^3/uL (130-400); RED BLOOD COUNT 4.64 10^6/uL (4.35-5.85); RED CELL DISTRIBUTION WIDTH 12.6 % (10.0-14.5); WHITE BLOOD COUNT 8.5 10^3/uL (4.3-11.0)
[2017-04-21] MEDS ORDERED: NS 100 ML (IVPB) BAG IV ONE (09:45)
[2017-04-21] MEDS ORDERED: IOHEXOL 350 MG/ML 100 ML (OMNIPAQUE 350) VIAL IV ONE (09:45)
--- NOTE | 2017-04-21 10:37 | Diagnostic Imaging Report ---
Clinical indication: Patient complains right lower quadrant pain radiating to back approximately 1 week. Patient's history of 4 years ago. Exam: CT scan of the abdomen and pelvis performed with 100 cc of Omnipaque 350 IV contrast. Portal venous and delayed phase were obtained. Coronal reformatted images were created. Comparison: CT scan abdomen and pelvis without contrast dated 08/03/2016. Findings: There is mild atelectasis in both lung bases. There is slight increased bronchiectasis of a bronchial tree the medial right lung base. Bones show no significant abnormality. The liver, spleen, pancreas and adrenal glands are unremarkable. Gallbladder is decompressed with no significant abnormality as visualized. Both kidneys are unremarkable with no mass, stones, or hydronephrosis. There is excretion of contrast from both kidneys which would limit evaluation for stones. There is no intra-abdominal free air or free fluid. There is subcentimeter multiple mesenteric lymph nodes seen. The appendix is unremarkable. There are no enlarged lymph nodes in the periappendiceal region. A few sigmoid colon diverticula are seen. The stomach, small bowel, and colon are otherwise unremarkable. There is no intestinal obstruction. There is no CT evidence of diverticulitis. The bladder is partially fluid distended with no gross abnormality. The uterus and bilateral adnexa regions are unremarkable. The extra abdominal and extrapelvic soft tissue structures are unremarkable. Impression: 1: There is no evidence of acute abdominal or pelvic process. The appendix is unremarkable. 2: There is nonspecific multiple subcentimeter mesenteric lymph nodes seen. 3: Several sigmoid colon diverticula with no CT evidence of diverticulitis. Dictated by: Dictated on workstation # [id number]
--- NOTE | 2017-04-21 10:48 | ED Abdominal Pain ---
General Chief Complaint: Abdominal/GI Problems Stated Complaint: R LOWER ABD/BACK PAIN Nursing Triage Note: AMB TO ROOM C/O R FLANK PAIN X 1 WEEK Sepsis Screen: No Definite Risk Source of Information: Patient Exam Limitations: No Limitations History of Present Illness Time Seen By Provider: 08:35 Initial Comments This 26-year-old young lady presents to the emergency room with complaints of right flank pain 1 week. It has been worsening and she now is quite tender. She first thought the pain was likely related to a ruptured ovarian cyst because she has PCOS and has experienced several ruptured cysts in the past. She also has a history of an ovarian torsion. Pain radiates to the lower back. LMP was 2 days ago. She denies any dysuria or hematuria. She has experienced nausea without vomiting. Pain is rated as 8/10. It is constant. It hurts to walk. Patient is obviously uncomfortable. She is afebrile. Allergies and Home Medications Allergies Coded Allergies: ketorolac (Unverified Adverse Reaction, Unknown, 07/31/16) prochlorperazine (Unverified Adverse Reaction, Unknown, 07/31/16) tramadol (Unverified Adverse Reaction, Unknown, 07/31/16) Home Medications Acetaminophen with Codeine 1 Each Tablet, 1 EACH PO Q4H PRN for PAIN, #15 Prescribed by: AILYN VERGARA on 10/23/16 0735 Albuterol Sulfate 18 Gm Hfa.aer.ad, 1-2 PUFF IH PRN, (Reported) Buspirone HCl 15 Mg Tablet, 15 MG PO TID, (Reported) Cholecalciferol (Vitamin D3) 1,000 Unit Capsule, 1,000 UNIT PO BID, (Reported) Cinnamon Bark 500 Mg Capsule, 500 MG PO BID, (Reported) Cranberry Extract 500 Mg Tablet, 1,000 MG PO BID, (Reported) Diphenhydramine HCl 25 Mg Capsule, 25 MG PO BID, (Reported) Docusate Sodium 100 Mg Capsule, 100 MG PO BID PRN for CONSTIPATION, #60 Prescribed by: AILYN VERGARA on 10/23/16 0735 Hydrocodone/Acetaminophen 1 Each Tablet, 1 EACH PO Q4H PRN for PAIN, #8 Prescribed by: ANGY MARTINS on 04/21/17 1100 Hydrocodone/Ibuprofen 1 Each Tablet, (Reported) Ibuprofen 600 Mg Tablet, 600 MG PO Q6H, #30 Prescribed by: AILYN VERGARA on 10/23/16 0735 Ondansetron 4 Mg Tab.rapdis, 4 MG SL Q4H, #10 Prescribed by: ANGY MARTINS on 04/21/17 1100 Prazosin HCl 2 Mg Capsule, 2 MG PO HS PRN for NIGHTMARES, (Reported) Quetiapine Fumarate 100 Mg Tablet, 100 MG PO HS, (Reported) Sertraline HCl 100 Mg Tablet, 100 MG PO BID, (Reported) TAKES 1 & 1/2 (100MG) TABLET Review of Systems Constitutional: no symptoms reported EENTM: No Symptoms Reported Respiratory: No Symptoms Reported Cardiovascular: No Symptoms Reported Gastrointestinal: See HPI Genitourinary: See HPI Musculoskeletal: no symptoms reported Skin: no symptoms reported Psychiatric/Neurological: No Symptoms Reported Endocrine: No Symptoms Reported Hematologic/Lymphatic: No Symptoms Reported Past Qrkreww-Izebsd-Ezgsta Hx Patient Social History Alcohol Use: Denies Use Recreational Drug Use: No Smoking Status: Current Everyday Smoker Type Used: Cigarettes Recent Foreign Travel: No Contact w/Someone Who Travel: No Recent Infectious Disease Expo: No Recent Hopitalizations: Yes (THIS FALL-PELVIC PAIN) Immunizations Up To Date Tetanus Booster (TDap): Unknown Date of Influenza Vaccine: May 20, 2016 Seasonal Allergies Seasonal Allergies: Yes Surgeries History of Surgeries: Yes ( X 1 --07/2013, dental) Surgeries: Section, Tonsillectomy Respiratory History of Respiratory Disorde: Yes Respiratory Disorders: Asthma Cardiovascular History of Cardiac Disorders: No Neurological History of Neurological Disord: No Reproductive System Hx Reproductive Disorders: Yes (RETAINED IUD) Sexually Transmitted Disease: No HIV/AIDS: No Female Reproductive Disorders: Menstrual Problems, Ovarian Cyst, Polycystic Ovarian Dis 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 Genitourinary History of Genitourinary Disor: Yes Genitourinary Disorders: Bladder Infection, UTI-Chronic Gastrointestinal History of Gastrointestinal Di: Yes Gastrointestinal Disorders: Gastroesophageal Reflux, Chronic Diarrhea Musculoskeletal History of Musculoskeletal Dis: Yes Musculoskeletal Disorders: Fibromyalgia Endocrine History of Endocrine Disorders: Yes (VITAMIN D DEFICIENCY; OBESITY) HEENT History of HEENT Disorders: Yes Loss of Vision: Bilateral Hearing Impairment: Denies Cancer History of Cancer: No Psychosocial History of Psychiatric Problem: Yes (EXTENSIVE PSYCH ISSUES-PT STABLE ) Behavioral Health Disorders: ADD/ADHD, Sleep Difficulties, Anxiety, PTSD, Bipolar, Personality Disorder, Depression Integumentary History of Skin or Integumenta: No Blood Transfusions History of Blood Disorders: No Adverse Reaction to a Blood Tr: No Family Medical History Significant Family History: Hypertension Family Medial History: Alcoholism 19 FATHER Asthma 19 MOTHER Completed stroke 19 FATHER DVT 19 FATHER Dementia 19 FATHER Diabetes mellitus 19 MOTHER FH: multiple sclerosis G8 SISTER Headache disorder G8 BROTHER Hypertension 19 FATHER 19 MOTHER Myocardial infarction 19 FATHER Seizure disorder 19 FATHER Physical Exam Vital Signs VS - Last 72 Hours, by Label 04/21/17 04/21/17 08:33 11:10 Temp 98.2 Pulse 109 91 Resp 18 18 B/P (MAP) 142/98 Pulse Ox 92 98 O2 Delivery Room Air Room Air Capillary Refill : Less Than 3 Seconds General Appearance: WD/WN, no apparent distress HEENT: PERRL/EOMI, normal ENT inspection, pharynx normal Neck: normal inspection Respiratory: lungs clear, normal breath sounds, no respiratory distress, no accessory muscle use Cardiovascular: regular rate, rhythm, no edema, no murmur Gastrointestinal: normal bowel sounds, soft, guarding, rebound, tenderness ( Right lower quadrant), other (Positive Rovsing, positive psoas) Extremities: normal inspection, no pedal edema Back: CVA tenderness (R) Neurologic/Psychiatric: hazardous substances engineer II-XII nml as tested, no motor/sensory deficits, alert, normal mood/affect, oriented x 3 Skin: normal color, warm/dry Progress/Results/Core Measures Results/Orders Lab Results Laboratory Tests Test 04/21/17 08:41 04/21/17 09:05 Range/Units Urine Color YELLOW Urine Clarity CLEAR Urine pH 5 5-9 Urine Specific [place] 1.030 H 1.016-1.022 Urine Protein 3+ H NEGATIVE Urine Glucose (UA) NEGATIVE NEGATIVE Urine Ketones 1+ H NEGATIVE Urine Nitrite NEGATIVE NEGATIVE Urine Bilirubin 1+ H NEGATIVE Urine Urobilinogen 1 NORMAL MG/DL Urine Leukocyte Esterase 1+ H NEGATIVE Urine RBC (Auto) 5+ H NEGATIVE Urine RBC TNTC H /HPF Urine WBC NONE /HPF Urine Squamous Epithelial Cells 0-2 /HPF Urine Crystals NONE /LPF Urine Bacteria LARGE H /HPF Urine Casts NONE /LPF Urine Mucus NEGATIVE /LPF Urine Culture Indicated NO White Blood Count 8.5 4.3-11.0 10^3/uL Red Blood Count 4.64 4.35-5.85 10^6/uL Hemoglobin 14.5 11.5-16.0 G/DL Hematocrit 43 35-52 % Mean Corpuscular Volume 93 80-99 FL Mean Corpuscular Hemoglobin 31 25-34 PG Mean Corpuscular Hemoglobin Concent 34 32-36 G/DL Red Cell Distribution Width 12.6 10.0-14.5 % Platelet Count 307 130-400 10^3/uL Mean Platelet Volume 10.4 7.4-10.4 FL Neutrophils (%) (Auto) 60 42-75 % Lymphocytes (%) (Auto) 29 12-44 % Monocytes (%) (Auto) 6 0-12 % Eosinophils (%) (Auto) 4 0-10 % Basophils (%) (Auto) 1 0-10 % Neutrophils # (Auto) 5.1 1.8-7.8 X 10^3 Lymphocytes # (Auto) 2.5 1.0-4.0 X 10^3 Monocytes # (Auto) 0.5 0.0-1.0 X 10^3 Eosinophils # (Auto) 0.4 H 0.0-0.3 10^3/uL Basophils # (Auto) 0.1 0.0-0.1 10^3/uL Sodium Level 139 135-145 MMOL/L Potassium Level 3.9 3.6-5.0 MMOL/L Chloride Level 106 98-107 MMOL/L Carbon Dioxide Level 23 21-32 MMOL/L Anion Gap 10 5-14 MMOL/L Blood Urea Nitrogen 10 7-18 MG/DL Creatinine 0.71 0.60-1.30 MG/DL Estimat Glomerular Filtration Rate > 60 BUN/Creatinine Ratio 14 Glucose Level 127 H 70-105 MG/DL Calcium Level 8.9 8.5-10.1 MG/DL Total Bilirubin 0.3 0.1-1.0 MG/DL Aspartate Amino Transf (AST/SGOT) 11 5-34 U/L Alanine Aminotransferase (ALT/SGPT) 13 0-55 U/L Alkaline Phosphatase 79 40-136 U/L Total Protein 5.9 L 6.4-8.2 GM/DL Albumin 3.6 3.2-4.5 GM/DL Serum Test, Qualitative NEGATIVE NEGATIVE My Orders Orders - ANGY WOLF MD Ua Culture If Indicated (04/21/17 08:32) Cbc With Automated Diff (04/21/17 08:47) Comprehensive Metabolic Panel (04/21/17 08:47) Hcg,Qualitative Serum (04/21/17 08:47) Ondansetron Injection (Zofran Injectio (04/21/17 09:00) Fentanyl Injection (Sublimaze Injection (04/21/17 09:00) Saline Lock/Iv-Start (04/21/17 08:47) Ns Iv 1000 Ml (Sodium Chloride 0.9%) (04/21/17 08:47) Ct Abd/Pelv W (Appendicitis) (04/21/17 09:30) Iohexol Injection (Omnipaque 350 Mg/Ml 1 (04/21/17 09:45) Ns (Ivpb) (Sodium Chloride 0.9% Ivpb Bag (04/21/17 09:45) Fentanyl Injection (Sublimaze Injection (04/21/17 10:00) Medications Given in ED Vital Signs/I&O Vital Sign - Last 12Hours 04/21/17 04/21/17 08:33 11:10 Temp 98.2 Pulse 109 91 Resp 18 18 B/P (MAP) 142/98 Pulse Ox 92 98 O2 Delivery Room Air Room Air Blood Pressure Mean: 113 Progress Note #1: Time: 09:30 Progress Note Patient's workup was relatively unremarkable. Blood in the urine is likely due to menstruation. Because of the signs of peritonitis, CT of the abdomen and pelvis was ordered. Risks and benefits were discussed with the patient and she is a agreeable to CT imaging. Fentanyl and Zofran have been administered for symptom management. IV fluids are infusing. Progress Note #2: Time: 10:[address] report reviewed. Mesenteric adenitis is suspected based on CT results. Toradol is being ordered for additional pain management. Diagnostic Imaging Diagonstic Imaging: CT Plain Films/CT/US/NM/MRI: abdomen, pelvis Comments CT abdomen and pelvis viewed by me and report reviewed. See report below: NAME: ARVIND BOWIE [facility] REC#: [id number] PT STATUS: REG ER : 1990 PHYSICIAN: ANGY WOLF MD ADMIT DATE: 09/02/17/ER Draft Date of Exam:04/21/17 CT ABD/PELV W (APPENDICITIS) Clinical indication: Patient complains right lower quadrant pain radiating to back approximately 1 week. Patient's history of 4 years ago. Exam: CT scan of the abdomen and pelvis performed with 100 cc of Omnipaque 350 IV contrast. Portal venous and delayed phase were obtained. Coronal reformatted images were created. Comparison: CT scan abdomen and pelvis without contrast dated 08/03/2016. Findings: There is mild atelectasis in both lung bases. There is slight increased bronchiectasis of a bronchial tree the medial right lung base. Bones show no significant abnormality. The liver, spleen, pancreas and adrenal glands are unremarkable. Gallbladder is decompressed with no significant abnormality as visualized. Both kidneys are unremarkable with no mass, stones, or hydronephrosis. There is excretion of contrast from both kidneys which would limit evaluation for stones. There is no intra-abdominal free air or free fluid. There is subcentimeter multiple mesenteric lymph nodes seen. The appendix is unremarkable. There are no enlarged lymph nodes in the periappendiceal region. A few sigmoid colon diverticula are seen. The stomach, small bowel, and colon are otherwise unremarkable. There is no intestinal obstruction. There is no CT evidence of diverticulitis. The bladder is partially fluid distended with no gross abnormality. The uterus and bilateral adnexa regions are unremarkable. The extra abdominal and extrapelvic soft tissue structures are unremarkable. Impression: 1: There is no evidence of acute abdominal or pelvic process. The appendix is unremarkable. 2: There is nonspecific multiple subcentimeter mesenteric lymph nodes seen. 3: Several sigmoid colon diverticula with no CT evidence of diverticulitis. Dictated on workstation # [id number] Dict: 04/21/17 0959 Trans: 04/21/17 1039 JIMMY [id number] Interpreted by: SHASHNAK RUELAS MD Departure Impression Impression: Primary Impression: Right lower quadrant pain Additional Impressions: Nausea Mesenteric adenitis Disposition: 01 HOME, SELF-CARE Condition: Improved Departure-Patient Inst. Decision time for Depature: 10:58 Referrals: [facility] (PCP/Family) Primary Care Physician Patient Instructions: Acute Abdomen (Belly Pain), Adult (DC) Add. Discharge Instructions: You may take ibuprofen up to 800 mg every 8 hours as needed for pain. Add Tylenol (acetaminophen) or hydrocodone as prescribed for pain not relieved by ibuprofen. Drink plenty of clear liquids. Gradually advance your diet with small quantities of bland food as tolerated. Return to care if symptoms worsen. All discharge instructions reviewed with patient and/or family. Voiced understanding. Scripts Hydrocodone/Acetaminophen (Hydrocodon -Acetaminophen 5-325) 1 Each Tablet 1 EACH PO Q4H Y for PAIN, #8 TAB Prov: ANGY WOLF MD 04/21/17 Ondansetron (Zofran Odt) 4 Mg Tab.rapdis 4 MG SL Q4H, #10 TAB Prov: ANGY WOLF MD 04/21/17 ANGY WOLF MD Apr 21, 2017 10:48
[2017-04-21] MEDS ORDERED: ONDA4TAB8 SL (11:00)
[2017-04-21] MEDS ORDERED: HYDR-3812 PO (11:00)
[2017-04-21 11:10] VITALS: BP 145/105
== END 2017-04-21 11:10 | disposition home or self-care (01) ==
LOC: ER 08:32
DX: I88.0 Nonspecific mesenteric lymphadenitis (principal); J45.909 Unspecified asthma, uncomplicated; E66.9 Obesity, unspecified; F90.9 Attention-deficit hyperactivity disorder, unspecified type; F41.9 Anxiety disorder, unspecified; F43.10 Post-traumatic stress disorder, unspecified; F31.9 Bipolar disorder, unspecified; K21.9 Gastro-esophageal reflux disease without esophagitis; F17.210 Nicotine dependence, cigarettes, uncomplicated; Z68.42 Body mass index [BMI] 45.0-49.9, adult; Z97.5 Presence of (intrauterine) contraceptive device; Z82.49 Family history of ischemic heart disease and other diseases of the circulatory system; Z87.448 Personal history of other diseases of urinary system; Z90.89 Acquired absence of other organs; Z87.440 Personal history of urinary (tract) infections
CPT/HCPCS: 36415; 74177; 80053; 81000; 84703; 85025; 96361; 96374; 96375; 96376

== ENCOUNTER 2017-05-31 13:09 | Emergency (ER) | payer OTHER ==
[~2017-05-31] VITALS: Ht 157.5 cm; Wt 112.5 kg
[~2017-05-31 13:09] MED LIST changes: +HYDR-3812 PO; +HYDR-87; +ONDA4TAB8 SL
--- OUTSIDE RECORDS SUMMARY | 2017-05-31 13:15 | XMS REPORT ---
Author Author HERON JOE Organization [facility] Address [address] [place] [address] Care Team Providers Care Fiber Picker Name Role Phone HERON JOE Unavailable PROBLEMS Type Condition ICD9-CM Code [id number] Code Onset Dates Condition Status SNOMED Code Problem Severe episode of recurrent major depressive disorder, without psychotic features F33.2 Active 70663008 Problem Reflux gastritis K29.60 Active 21707305 Problem Mild intermittent asthma without complication J45.20 Active 073456978 Problem Mild intermittent asthma with acute exacerbation J45.21 Active 510883922 Problem Morbid obesity due to excess calories E66.01 Active 517264277 Problem Borderline personality disorder F60.3 Active 96076182 Problem IUD (intrauterine device) in place Z97.5 Active 890067161 Problem Non morbid obesity due to excess calories E66.09 Active 212564114 Problem PCOS (polycystic ovarian syndrome) E28.2 Active 66404620 ALLERGIES Unknown Allergies SOCIAL HISTORY No smoking Hx information available PLAN OF CARE VITAL SIGNS MEDICATIONS Unknown Medications RESULTS No Results PROCEDURES No Known procedures IMMUNIZATIONS No Known Immunizations
--- OUTSIDE RECORDS SUMMARY | 2017-05-31 13:15 | XMS REPORT ---
Author Author [facility] Address [address] [place] [address] Care Team Providers Care Drafter Topographical Name Role Phone MARTINEZ HUMPHREYJUAN CARLOS Unavailable PROBLEMS Type Condition ICD9-CM Code [id number] Code Onset Dates Condition Status SNOMED Code Problem Severe episode of recurrent major depressive disorder, without psychotic features F33.2 Active 71713589 Problem Reflux gastritis K29.60 Active 28418485 Problem Mild intermittent asthma without complication J45.20 Active 901258068 Problem Mild intermittent asthma with acute exacerbation J45.21 Active 642359603 Problem Morbid obesity due to excess calories E66.01 Active 210965745 Problem Borderline personality disorder F60.3 Active 53654794 Problem IUD (intrauterine device) in place Z97.5 Active 642699211 Problem Non morbid obesity due to excess calories E66.09 Active 043939941 Problem PCOS (polycystic ovarian syndrome) E28.2 Active 59944406 ALLERGIES Substance Reaction Event Type Date Status Compazine Unknown Drug Allergy Aug, Active Triaminic Cold Unknown Drug Allergy Aug, Active Tramadol HCl Unknown Drug Allergy Aug, Active Ketorolac Tromethamine Unknown Drug Allergy Aug, Active [place]ye in medications Unknown Non Drug Allergy Aug, Active SOCIAL HISTORY No smoking Hx information available PLAN OF CARE Activity Details Follow Up 2 Months Reason: VITAL SIGNS Height 60 in 2016-09-05 Weight 244.1 lbs 2016-09-05 Heart Rate 108 bpm 2016-09-05 Respiratory Rate 20 2016-09-05 BMI 47.67 kg/m2 2016-09-05 Blood pressure systolic 139 mmHg 2016-09-05 Blood pressure diastolic 90 mmHg 2016-09-05 MEDICATIONS Medication Instructions Dosage Frequency Start Date End Date Duration Status Vitamin D 1000 UNIT Orally twice a day 1 tablet 12h Active Famotidine 20 mg Orally 2 times a day 1 tablet 12h 1 month Active Albuterol Sulfate HFA 108 (90 Base) MCG/ACT Inhalation every 4 hrs 2 puffs as needed 4h 1 month Active Seroquel 100 MG Orally Once a day 1 tablet 24h Active Benadryl Allergy 25 MG Orally 2 times a day 12h Active Advair Diskus 250-50 MCG/DOSE Inhalation Twice a day 1 puff 12h 1 month Active Sertraline HCl 100 MG Orally twice a day 1 tablet 12h Active Gabapentin 100 MG Orally 3 times a day 1 tab 8h 1 month Active Vicoprofen 7.5-200 MG Orally every 6 hrs 1 tablet as needed 6h 10 Aug, 2016 Active Prazosin HCl 1 MG Orally Once a day 1 capsule at bedtime 24h Active BusPIRone HCl 15 MG Orally 3 times a day 1 tablet 8h Active RESULTS No Results PROCEDURES Procedure Date Ordered Related Diagnosis Body Site Office Visit, Est Pt., Level 2 Sep 05, 2016 IMMUNIZATIONS No Known Immunizations
--- OUTSIDE RECORDS SUMMARY | 2017-05-31 13:15 | XMS REPORT ---
Author Author HERON JOE Organization [facility] Address [address] [place] [address] Care Team Providers Care Pt Escort Name Role Phone HERON JOE Unavailable PROBLEMS Type Condition ICD9-CM Code [id number] Code Onset Dates Condition Status SNOMED Code Problem Severe episode of recurrent major depressive disorder, without psychotic features F33.2 Active 32004293 Problem Reflux gastritis K29.60 Active 49635811 Problem Mild intermittent asthma without complication J45.20 Active 027080837 Problem Mild intermittent asthma with acute exacerbation J45.21 Active 013118675 Problem Morbid obesity due to excess calories E66.01 Active 649695836 Problem Borderline personality disorder F60.3 Active 12792457 Problem IUD (intrauterine device) in place Z97.5 Active 854593477 Problem Non morbid obesity due to excess calories E66.09 Active 772969732 Problem PCOS (polycystic ovarian syndrome) E28.2 Active 71241000 ALLERGIES Unknown Allergies SOCIAL HISTORY No smoking Hx information available PLAN OF CARE VITAL SIGNS MEDICATIONS Medication Instructions Dosage Frequency Start Date End Date Duration Status Vicoprofen 7.5-200 MG Orally every 6 hrs 1 tablet as needed 6h 10 Aug, 2016 Active RESULTS No Results PROCEDURES No Known procedures IMMUNIZATIONS No Known Immunizations
--- OUTSIDE RECORDS SUMMARY | 2017-05-31 13:15 | XMS REPORT ---
Author Author HERON JOE Organization [facility] Address [address] [place] [address] Care Team Providers Care Physical Therapy Resident Name Role Phone HERON JOE Unavailable PROBLEMS Type Condition ICD9-CM Code GUZ38-SI Code Onset Dates Condition Status SNOMED Code Problem Severe episode of recurrent major depressive disorder, without psychotic features F33.2 Active 36015356 Problem Reflux gastritis K29.60 Active 39654532 Problem Mild intermittent asthma without complication J45.20 Active 024123983 Problem Mild intermittent asthma with acute exacerbation J45.21 Active 019845073 Problem Morbid obesity due to excess calories E66.01 Active 434390471 Problem Borderline personality disorder F60.3 Active 57634255 Problem IUD (intrauterine device) in place Z97.5 Active 916066899 Problem Non morbid obesity due to excess calories E66.09 Active 329452034 Problem PCOS (polycystic ovarian syndrome) E28.2 Active 71246393 ALLERGIES No Information SOCIAL HISTORY Never Assessed PLAN OF CARE VITAL SIGNS MEDICATIONS Medication Instructions Dosage Frequency Start Date End Date Duration Status Vicoprofen 7.5-200 MG Orally every 6 hrs PRN 1 tablet as needed Aug, Active RESULTS No Results PROCEDURES No Known procedures IMMUNIZATIONS No Known Immunizations MEDICAL (GENERAL) HISTORY Type Description Date Medical History Bipolar Disorder Medical History ADHD Medical History Fibromyalgia Medical History Asthma Medical History Anxiety/Depression Medical History Borderline Personality Disorder Medical History Acid Reflux Medical History Vitamin D Deficient Medical History PCOS Surgical History tonsillectomy Surgical History wisdom teeth extraction Surgical History section Surgical History IUD removal Hospitalization History 72 Hour Holds (Suicidal Ideation) x5 Hospitalization History [facility] Cysts on Ovaries 07/2016
--- OUTSIDE RECORDS SUMMARY | 2017-05-31 13:15 | XMS REPORT ---
Author Author HERON JOE Organization [facility] Address [address] [place] [address] Care Team Providers Care Inspector Cold Working Name Role Phone HERON JOE Unavailable PROBLEMS Type Condition ICD9-CM Code [id number] Code Onset Dates Condition Status SNOMED Code Problem Severe episode of recurrent major depressive disorder, without psychotic features F33.2 Active 88231211 Problem Reflux gastritis K29.60 Active 05773334 Problem Mild intermittent asthma without complication J45.20 Active 747809645 Problem Mild intermittent asthma with acute exacerbation J45.21 Active 623102534 Problem Morbid obesity due to excess calories E66.01 Active 094705644 Problem Borderline personality disorder F60.3 Active 70366185 Problem IUD (intrauterine device) in place Z97.5 Active 054095785 Problem Non morbid obesity due to excess calories E66.09 Active 631418669 Problem PCOS (polycystic ovarian syndrome) E28.2 Active 26849433 ALLERGIES Substance Reaction Event Type Date Status Compazine Unknown Drug Allergy Aug, Active Triaminic Cold Unknown Drug Allergy Aug, Active Tramadol HCl Unknown Drug Allergy Aug, Active Ketorolac Tromethamine Unknown Drug Allergy Aug, Active [place] Dye in medications Unknown Non Drug Allergy Aug, Active SOCIAL HISTORY Never Assessed PLAN OF CARE Activity Details Follow Up after 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 Reason: VITAL SIGNS Height 60 in 2016-08-29 Weight 245 lbs 2016-08-29 Temperature 97.9 degrees Fahrenheit 2016-08-29 Heart Rate 80 bpm 2016-08-29 Respiratory Rate 20 2016-08-29 BMI 47.84 kg/m2 2016-08-29 Blood pressure systolic 110 mmHg 2016-08-29 Blood pressure diastolic 80 mmHg 2016-08-29 MEDICATIONS Medication Instructions Dosage Frequency Start Date End Date Duration Status Albuterol Sulfate HFA 108 (90 Base) MCG/ACT Inhalation every 4 hrs 2 puffs as needed 4h 1 month Active Gabapentin 100 MG Orally 3 times a day 1 tab 8h 1 month Active Famotidine 20 mg Orally 2 times a day 1 tablet 12h 1 month Active BusPIRone HCl 15 MG Orally 3 times a day 1 tablet 8h Active Benadryl Allergy 25 MG Orally 2 times a day 12h Active Vitamin D 1000 UNIT Orally twice a day 1 tablet 12h Active Advair Diskus 250-50 MCG/DOSE Inhalation Twice a day 1 puff 12h 1 month Active Prazosin HCl 1 MG Orally Once a day 1 capsule at bedtime 24h Active Vicoprofen 7.5-200 MG Orally every 6 hrs 1 tablet as needed 6h 10 Aug, 2016 Active Seroquel 100 MG Orally Once a day 1 tablet 24h Active Sertraline HCl 100 MG Orally twice a day 1 tablet 12h Active RESULTS No Results PROCEDURES No Known [...]
[2017-05-31 13:36] LABS: BILIRUBIN,URINE NEGATIVE (NEGATIVE); KETONES,URINE NEGATIVE (NEGATIVE); LEUKOCYTE ESTERASE ,URINE 1+ (NEGATIVE); NITRITE,URINE NEGATIVE (NEGATIVE); PH,URINE 5 (5-9); PROTEIN,URINE 2+ (NEGATIVE); UROBILINOGEN,URINE NORMAL (NORMAL)
[2017-05-31 13:44] LABS: SQUAMOUS EPITHELIAL CELL,UR TNTC /HPF; WBC,URINE RARE /HPF
[2017-05-31 13:44] LABS: BASOPHILS % (AUTO) 0 % (0-10); EOSINOPHILS # (AUTO) 0.1 10^3/uL (0.0-0.3); EOSINOPHILS % (AUTO) 1 % (0-10); LYMPHOCYTES # (AUTO) 2.8 X 10^3 (1.0-4.0); LYMPHOCYTES % (AUTO) 30 % (12-44); MEAN CORPUSCULAR HEMOGLOBIN 31 PG (25-34); MEAN CORPUSCULAR HGB CONC 34 G/DL (32-36); MEAN CORPUSCULAR VOLUME 93 FL (80-99); MEAN PLATELET VOLUME 10.6 FL (7.4-10.4); MONOCYTES # (AUTO) 0.4 X 10^3 (0.0-1.0); MONOCYTES % (AUTO) 5 % (0-12); NEUTROPHILS # (AUTO) 5.8 X 10^3 (1.8-7.8); NEUTROPHILS % (AUTO) 63 % (42-75); PLATELET COUNT 309 10^3/uL (130-400); RED BLOOD COUNT 5.04 10^6/uL (4.35-5.85); RED CELL DISTRIBUTION WIDTH 12.9 % (10.0-14.5); WHITE BLOOD COUNT 9.2 10^3/uL (4.3-11.0)
[2017-05-31] MEDS: NS IV 1000 ML 1,000 ML IV ONE (13:45)
[2017-05-31 14:02] LABS: ALANINE AMINOTRANSFERASE 15 U/L (0-55); ANION GAP 7 MMOL/L (5-14); ASPARTATE AMINO TRANSFERASE 12 U/L (5-34); BILIRUBIN,TOTAL 0.2 MG/DL (0.1-1.0); BLOOD UREA NITROGEN 9 MG/DL (7-18); BUN/CREATININE RATIO 11; CALCIUM 9.2 MG/DL (8.5-10.1); CARBON DIOXIDE 25 MMOL/L (21-32); CHLORIDE 105 MMOL/L (98-107); GFR ESTIMATED > 60; GLUCOSE 115 MG/DL (70-105); POTASSIUM 3.8 MMOL/L (3.6-5.0); SODIUM 137 MMOL/L (135-145); TOTAL PROTEIN 7.1 GM/DL (6.4-8.2)
[2017-05-31] MEDS: HYDROcodone/APAP 7.5 MG/325 MG (LORTAB, LORCET PLUS) TABLET PO STA (14:47)
[2017-05-31] MEDS: ONDANSETRON 4 MG/2 ML (SDV) Z0FRAN IVP ONE (14:47)
[2017-05-31] MEDS ORDERED: HYDR-3812 PO (15:01)
--- NOTE | 2017-05-31 15:01 | ED Abdominal Pain ---
General Chief Complaint: Abdominal/GI Problems Stated Complaint: LOWER ABD PAIN Nursing Triage Note: C/O LOW ABD PAIN ONSET YESTERDAY. Sepsis Screen: No Definite Risk History of Present Illness Time Seen By Provider: 13:20 Initial Comments Evaluation for right lower quadrant pain. The patient states it's similar to the symptoms she had April 21, 2017 when evaluated in the emergency department. She attempted be seen at [facility] but was told she could not be seen by Braden Conner APRN until June. They are referring her to a REGIONAL CLINICAL DIRECTOR, she has an appointment next week for that. She also reports that she cannot afford the co-pay at the [facility] walk-in clinic. Timing/Duration: Intermittent Severity/Quality: Mild Radiation: RLQ Activities at Onset: None Modifying Factors: Improves With Analgesics, Improves With Resting Associated Symptoms: Denies Symptoms Allergies and Home Medications Allergies Coded Allergies: ketorolac (Unverified Adverse Reaction, Unknown, 07/31/16) prochlorperazine (Unverified Adverse Reaction, Unknown, 07/31/16) tramadol (Unverified Adverse Reaction, Unknown, 07/31/16) Home Medications Acetaminophen with Codeine 1 Each Tablet, 1 EACH PO Q4H PRN for PAIN, #15 Prescribed by: AILYN VERGARA on 10/23/16 0735 Albuterol Sulfate 18 Gm Hfa.aer.ad, 1-2 PUFF IH PRN, (Reported) Buspirone HCl 15 Mg Tablet, 15 MG PO TID, (Reported) Cholecalciferol (Vitamin D3) 1,000 Unit Capsule, 1,000 UNIT PO BID, (Reported) Cinnamon Bark 500 Mg Capsule, 500 MG PO BID, (Reported) Cranberry Extract 500 Mg Tablet, 1,000 MG PO BID, (Reported) Diphenhydramine HCl 25 Mg Capsule, 25 MG PO BID, (Reported) Docusate Sodium 100 Mg Capsule, 100 MG PO BID PRN for CONSTIPATION, #60 Prescribed by: AILYN VERGARA on 10/23/16 0735 Hydrocodone/Acetaminophen 1 Each Tablet, 1 EACH PO Q4H PRN for PAIN, #8 Prescribed by: ANGY MARTINS on 04/21/17 1100 Hydrocodone/Acetaminophen 1 Each Tablet, 1 EACH PO Q6H PRN for PAIN, #12 Ref 0 Prescribed by: YENNIFER HAMLIN on 05/31/17 1501 Hydrocodone/Ibuprofen 1 Each Tablet, (Reported) Ibuprofen 600 Mg Tablet, 600 MG PO Q6H, #30 Prescribed by: AILYN VERGARA on 10/23/16 0735 Ondansetron 4 Mg Tab.rapdis, 4 MG SL Q4H, #10 Prescribed by: ANGY MARTINS on 04/21/17 1100 Prazosin HCl 2 Mg Capsule, 2 MG PO HS PRN for NIGHTMARES, (Reported) Quetiapine Fumarate 100 Mg Tablet, 100 MG PO HS, (Reported) Sertraline HCl 100 Mg Tablet, 100 MG PO BID, (Reported) TAKES 1 & 1/2 (100MG) TABLET Review of Systems Constitutional: no symptoms reported, see HPI Gastrointestinal: See HPI, Abdominal Pain All Other Systems Reviewed Negative Unless Noted: Yes Past Epevtvc-Nnczlq-Bwdpky Hx Patient Social History Alcohol Use: Denies Use Recreational Drug Use: No Smoking Status: Current Everyday Smoker Type Used: Cigarettes 2nd Hand Smoke Exposure: No Recent Foreign Travel: No Contact w/Someone Who Travel: No Recent Infectious Disease Expo: No Recent Hopitalizations: Yes (THIS FALL-PELVIC PAIN) Immunizations Up To Date Tetanus Booster (TDap): Unknown Date of Influenza Vaccine: May 20, 2016 Seasonal Allergies Seasonal Allergies: Yes Surgeries History of Surgeries: Yes ( X 1 --07/2013, dental) Surgeries: Section, Tonsillectomy Respiratory History of Respiratory Disorde: Yes Respiratory Disorders: Asthma Cardiovascular History of Cardiac Disorders: No Neurological History of Neurological Disord: No Reproductive System Hx Reproductive Disorders: Yes (RETAINED IUD) Sexually Transmitted Disease: No HIV/AIDS: No Female Reproductive Disorders: Menstrual Problems, Ovarian Cyst, Polycystic Ovarian Dis REGIONAL CLINICAL DIRECTOR History: IUD Genitourinary History of Genitourinary Disor: Yes Genitourinary Disorders: Bladder Infection, UTI-Chronic Gastrointestinal History of Gastrointestinal Di: Yes Gastrointestinal Disorders: Gastroesophageal Reflux, Chronic Diarrhea Musculoskeletal History of Musculoskeletal Dis: Yes Musculoskeletal Disorders: Fibromyalgia Endocrine History of Endocrine Disorders: Yes (VITAMIN D DEFICIENCY; OBESITY) HEENT History of HEENT Disorders: Yes Loss of Vision: Bilateral Hearing Impairment: Denies Cancer History of Cancer: No Psychosocial History of Psychiatric Problem: Yes (EXTENSIVE PSYCH ISSUES-PT STABLE ) Behavioral Health Disorders: ADD/ADHD, Sleep Difficulties, Anxiety, PTSD, Bipolar, Personality Disorder, Depression Integumentary History of Skin or Integumenta: No Blood Transfusions History of Blood Disorders: No Adverse Reaction to a Blood Tr: No Reviewed Nursing Assessment Reviewed/Agree w Nursing PMH: Yes Family Medical History Significant Family History: Hypertension Family Medial History: Alcoholism 19 FATHER Asthma 19 MOTHER Completed stroke 19 FATHER DVT 19 FATHER Dementia 19 FATHER Diabetes mellitus 19 MOTHER FH: multiple sclerosis G8 SISTER Headache disorder G8 BROTHER Hypertension 19 FATHER 19 MOTHER Myocardial infarction 19 FATHER Seizure disorder 19 FATHER Physical Exam Vital Signs VS - Last 72 Hours, by Label 05/31/17 05/31/17 13:19 15:11 Temp 96.7 96.7 Pulse 100 100 Resp 18 18 B/P (MAP) 140/101 Pulse Ox 9 9 O2 Delivery Room Air Capillary Refill : Less Than 3 Seconds General Appearance: WD/WN, no apparent distress Neck: non-tender, full range of motion, supple, normal inspection Respiratory: chest non-tender, lungs clear, normal breath sounds Cardiovascular: normal peripheral pulses, regular rate, rhythm Gastrointestinal: normal bowel sounds, soft, distended, No guarding, No rebound , tenderness (right lower quadrant, almost to the anterior iliac crest. Negative psoas and obturator sign.), No mass Extremities: normal range of motion, non-tender, normal inspection Back: normal inspection, no CVA tenderness, no vertebral tenderness Neurologic/Psychiatric: no motor/sensory deficits, alert, normal mood/affect, oriented x 3 Skin: normal color, warm/dry Progress/Results/Core Measures Results/Orders Lab Results Laboratory Tests Test 05/31/17 13:25 05/31/17 13:27 Range/Units White Blood Count 9.2 4.3-11.0 10^3/uL Red Blood Count 5.04 4.35-5.85 10^6/uL Hemoglobin 15.8 11.5-16.0 G/DL Hematocrit 47 35-52 % Mean Corpuscular Volume 93 80-99 FL Mean Corpuscular Hemoglobin 31 25-34 PG Mean Corpuscular Hemoglobin Concent 34 32-36 G/DL Red Cell Distribution Width 12.9 10.0-14.5 % Platelet Count 309 130-400 10^3/uL Mean Platelet Volume 10.6 H 7.4-10.4 FL Neutrophils (%) (Auto) 63 42-75 % Lymphocytes (%) (Auto) 30 12-44 % Monocytes (%) (Auto) 5 0-12 % Eosinophils (%) (Auto) 1 0-10 % Basophils (%) (Auto) 0 0-10 % Neutrophils # (Auto) 5.8 1.8-7.8 X 10^3 Lymphocytes # (Auto) 2.8 1.0-4.0 X 10^3 Monocytes # (Auto) 0.4 0.0-1.0 X 10^3 Eosinophils # (Auto) 0.1 0.0-0.3 10^3/uL Basophils # (Auto) 0.0 0.0-0.1 10^3/uL Sodium Level 137 135-145 MMOL/L Potassium Level 3.8 3.6-5.0 MMOL/L Chloride Level 105 98-107 MMOL/L Carbon Dioxide Level 25 21-32 MMOL/L Anion Gap 7 5-14 MMOL/L Blood Urea Nitrogen 9 7-18 MG/DL Creatinine 0.80 0.60-1.30 MG/DL Estimat Glomerular Filtration Rate > 60 BUN/Creatinine Ratio 11 Glucose Level 115 H 70-105 MG/DL Calcium Level 9.2 8.5-10.1 MG/DL Total Bilirubin 0.2 0.1-1.0 MG/DL Aspartate Amino Transf (AST/SGOT) 12 5-34 U/L Alanine Aminotransferase (ALT/SGPT) 15 0-55 U/L Alkaline Phosphatase 78 40-136 U/L Total Protein 7.1 6.4-8.2 GM/DL Albumin 4.0 3.2-4.5 GM/DL Urine Color YELLOW Urine Clarity SLIGHTLY CLOUDY Urine pH 5 5-9 Urine Specific [place] 1.020 1.016-1.022 Urine Protein 2+ H NEGATIVE Urine Glucose (UA) NEGATIVE NEGATIVE Urine Ketones NEGATIVE NEGATIVE Urine Nitrite NEGATIVE NEGATIVE Urine Bilirubin NEGATIVE NEGATIVE Urine Urobilinogen NORMAL NORMAL MG/DL Urine Leukocyte Esterase 1+ H NEGATIVE Urine RBC (Auto) NEGATIVE NEGATIVE Urine RBC NONE /HPF Urine WBC RARE /HPF Urine Squamous Epithelial Cells TNTC H /HPF Urine Crystals NONE /LPF Urine Bacteria FEW H /HPF Urine Casts NONE /LPF Urine Mucus LARGE H /LPF Urine Culture Indicated NO My Orders Orders - YENNIFER HAMLIN Cbc With Automated Diff (05/31/17 13:27) Comprehensive Metabolic Panel (05/31/17 13:27) Ua Culture If Indicated (05/31/17 13:27) Urine Bedside (05/31/17 13:27) Saline Lock/Iv-Start (05/31/17 13:27) Ns Iv 1000 Ml (Sodium Chloride 0.9%) (05/31/17 13:27) Ondansetron Injection (Zofran Injectio (05/31/17 14:15) Hydrocodone/Apap 7.5/325 Tab (Lortab 7. (05/31/17 14:12) Medications Given in ED Current Medications Medications Dose Ordered Sig/Hina Route Start Time Stop Time Status Last Admin Dose Admin Ondansetron HCl 4 mg ONCE ONCE IVP 05/31/17 14:15 05/31/17 14:16 DC 05/31/17 14:47 4 MG Sodium Chloride 1,000 ml @ 0 mls/hr Q0M ONCE IV 05/31/17 13:27 05/31/17 13:30 DC 05/31/17 13:45 1,000 MLS/HR Vital Signs/I&O Vital Sign - Last 12Hours 05/31/17 05/31/17 13:19 15:11 Temp 96.7 96.7 Pulse 100 100 Resp 18 18 B/P (MAP) 140/101 Pulse Ox 9 9 O2 Delivery Room Air Intake and Output 06/01/17 00:00 Intake Total 1000 ml Balance 1000 ml Blood Pressure Mean: 114 Point of Care Testing Urine -Bedside: Negative Progress Note : Time: 13:20 Progress Note Initial evaluation completed, recommended CBC, CMP and UA. Pending those results will determine if any diagnostic studies need to be completed. 1400 labs essentially normal with no elevation of the WBC. Recommended normal saline 1 L IV, Zofran 4 mg IV for nausea and hydrocodone/APAP 7.5/325 mg. 1445 patient reports that her pain and nausea are improved. Discussed the importance with her to follow up with REGIONAL CLINICAL DIRECTOR next week for her PCOS. She verbalized understanding of this and precautions of when to return to the emergency department. Departure Impression Impression: Primary Impression: Polycystic ovarian syndrome Additional Impression: Pain, abdominal, RLQ Disposition: 01 HOME, SELF-CARE Condition: Improved Departure-Patient Inst. Decision time for Depature: 14:50 Referrals: NO,LOCAL PHYSICIAN (PCP/Family) Primary Care Physician Patient Instructions: Acute Abdomen (Belly Pain), Adult (DC), Polycystic Ovary Syndrome Add. Discharge Instructions: Clear liquid fluids for 4 hours then progress diet as tolerated with bland food. Keep appointment with REGIONAL CLINICAL DIRECTOR for next week. Follow-up at [facility] if symptoms are not improving. Return to emergency department for symptoms not resolved with medication, fever greater than 101, nausea and vomiting, or new problems. All discharge instructions reviewed with patient and/or family. Voiced understanding. Scripts Hydrocodone/Acetaminophen (Hydrocodon -Acetaminophen 5-325) 1 Each Tablet 1 EACH PO Q6H Y for PAIN, #12 TAB 0 Refills Prov: YENNIFER HAMLIN 05/31/17 YENNIFER HAMLIN May 31, 2017 15:01
[2017-05-31 15:11] VITALS: BP 134/101
== END 2017-05-31 15:10 | disposition home or self-care (01) ==
LOC: EDUNIT# 13:09 → ER 13:11
DX: E28.2 Polycystic ovarian syndrome (principal); J45.909 Unspecified asthma, uncomplicated; E66.9 Obesity, unspecified; F90.9 Attention-deficit hyperactivity disorder, unspecified type; F31.9 Bipolar disorder, unspecified; F43.10 Post-traumatic stress disorder, unspecified; F41.9 Anxiety disorder, unspecified; K21.9 Gastro-esophageal reflux disease without esophagitis; F17.210 Nicotine dependence, cigarettes, uncomplicated; Z97.5 Presence of (intrauterine) contraceptive device; Z87.19 Personal history of other diseases of the digestive system; Z87.440 Personal history of urinary (tract) infections; Z87.448 Personal history of other diseases of urinary system; Z87.59 Personal history of other complications of pregnancy, childbirth and the puerperium; Z82.49 Family history of ischemic heart disease and other diseases of the circulatory system; Z90.89 Acquired absence of other organs; Z68.41 Body mass index [BMI] 40.0-44.9, adult
CPT/HCPCS: 36415; 80053; 81000; 84703; 85025

== ENCOUNTER 2017-08-09 22:02 | Emergency (ER) | payer SELFPAY ==
[~2017-08-09] VITALS: Ht 157.5 cm; Wt 106.6 kg
--- OUTSIDE RECORDS SUMMARY | 2017-08-09 22:09 | XMS REPORT ---
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 Phone BETTYE HUMPHREY Unavailable PROBLEMS Type Condition ICD9-CM Code [id number] Code Onset Dates Condition Status SNOMED Code Problem Severe episode of recurrent major depressive disorder, without psychotic features F33.2 Active 15484892 Problem Reflux gastritis K29.60 Active 47153522 Problem Mild intermittent asthma without complication J45.20 Active 408810350 Problem Mild intermittent asthma with acute exacerbation J45.21 Active 323116326 Problem Morbid obesity due to excess calories E66.01 Active 448528137 Problem Borderline personality disorder F60.3 Active 00974306 Problem IUD (intrauterine device) in place Z97.5 Active 540950482 Problem Non morbid obesity due to excess calories E66.09 Active 825612288 Problem PCOS (polycystic ovarian syndrome) E28.2 Active 90316486 ALLERGIES No Information SOCIAL HISTORY Never Assessed PLAN OF CARE VITAL SIGNS MEDICATIONS Unknown [...]
--- OUTSIDE RECORDS SUMMARY | 2017-08-09 22:09 | XMS REPORT ---
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 Name Role Phone HERON JOE Unavailable PROBLEMS Type Condition ICD9-CM Code [id number] Code Onset Dates Condition Status SNOMED Code Problem Severe episode of recurrent major depressive disorder, without psychotic features F33.2 Active 68618682 Problem Reflux gastritis K29.60 Active 07472975 Problem Mild intermittent asthma without complication J45.20 Active 171939611 Problem Mild intermittent asthma with acute exacerbation J45.21 Active 050845275 Problem Morbid obesity due to excess calories E66.01 Active 358073680 Problem Borderline personality disorder F60.3 Active 12735871 Problem IUD (intrauterine device) in place Z97.5 Active 261505576 Problem Non morbid obesity due to excess calories E66.09 Active 474609551 Problem PCOS (polycystic ovarian syndrome) E28.2 Active 56959066 ALLERGIES Substance Reaction Event Type Date Status Compazine Unknown Drug Allergy Sep, Active Triaminic Cold Unknown Drug Allergy Sep, Active Tramadol HCl Unknown Drug Allergy Sep, Active Ketorolac Tromethamine Unknown Drug Allergy Sep, Active [place] Dye in medications Unknown Non Drug Allergy Sep, Active SOCIAL HISTORY Never Assessed PLAN OF CARE Activity Details Follow Up 3 Months with Jakob f/monserrat diarrhea Reason: VITAL SIGNS Height 60 in 2016-10-02 Weight 242.7 lbs 2016-10-02 Temperature 98.4 degrees Fahrenheit 2016-10-02 Heart Rate 88 bpm 2016-10-02 Respiratory Rate 20 2016-10-02 BMI 47.39 kg/m2 2016-10-02 Blood pressure systolic 112 mmHg 2016-10-02 Blood pressure diastolic 84 mmHg 2016-10-02 MEDICATIONS Medication Instructions Dosage Frequency Start Date End Date Duration Status Seroquel 100 MG Orally Once a day 1 tablet 24h Active Benadryl Allergy 25 MG Orally 2 times a day 12h Active Vitamin D 1000 UNIT Orally twice a day 1 tablet 12h Active Famotidine 20 mg Orally 2 times a day 1 tablet 12h 1 month Active Cinnamon 500 MG Orally 2 times a day 1 tablet 12h Active Cranberry Active Vicoprofen 7.5-200 MG Orally every 6 hrs PRN 1 tablet as needed Aug, Oct, 28 days Active Sertraline HCl 100 MG Orally twice a day 1 tablet 12h Active Albuterol Sulfate HFA 108 (90 Base) MCG/ACT Inhalation every 4 hrs 2 puffs as needed 4h 1 month Active BusPIRone HCl 15 MG Orally 3 times a day 1 tablet 8h Active Combivent Respimat 20-100 MCG/ACT 1 puff Sep, Active Advair Diskus 250-50 MCG/DOSE Inhalation Twice a day 1 puff 12h 1 month Active Prazosin HCl 1 MG Orally Once a day 1 capsule at bedtime 24h Active RESULTS Name Result Date Reference Range A1C 2016-10-02 Hemoglobin A1c 5.7 4.8-5.6 TSH 2016-10-02 TSH 2.780 0.450-4.500 CBC 2016-10-02 WBC 10.2 3.4-10.8 RBC 4.67 3.77-5.28 Hemoglobin 14.4 11.1-15.9 Hematocrit 42.6 34.0-46.6 MCV 91 79-97 MCH 30.8 26.6-33.0 MCHC 33.8 31.5-35.7 RDW 13.2 12.3-15.4 Platelets 329 150-379 Neutrophils 61 Lymphs 32 Monocytes 4 Eos 2 Basos 1 Neutrophils (Absolute) 6.3 1.4-7.0 Lymphs (Absolute) 3.3 0.7-3.1 Monocytes(Absolute) 0.4 0.1-0.9 Eos (Absolute) 0.2 0.0-0.4 Baso (Absolute) 0.1 0.0-0.2 Immature Granulocytes 0 Immature Grans (Abs) 0.0 0.0-0.1 LIPID PANEL 2016-10-02 Cholesterol, Total 192 100-199 Triglycerides 180 0-149 HDL Cholesterol 44 >39 VLDL Cholesterol Kris 36 5-40 LDL Cholesterol Calc 112 0-99 CMP 2016-10-02 Glucose, Serum 98 65-99 BUN 8 6-20 Creatinine, Serum 0.78 0.57-1.00 eGFR If NonAfricn Am 105 >59 eGFR If Africn Am 120 >59 BUN/Creatinine Ratio 10 8-20 Sodium, Serum 140 134-144 Potassium, Serum 4.5 3.5-5.2 Chloride, Serum 100 96-106 Carbon Dioxide, Total 21 18-29 Calcium, Serum 9.1 8.7-10.2 Protein, Total, Serum 6.9 6.0-8.5 Albumin, Serum 4.3 3.5-5.5 Globulin, Total 2.6 1.5-4.5 A/G Ratio 1.7 1.1-2.5 Bilirubin, Total <0.2 0.0-1.2 Alkaline Phosphatase, S 74 39-117 AST (SGOT) 11 0-40 ALT (SGPT) 12 0-32 URINE DRUG SCREEN (IN HOUSE) 2016-10-02 Lot # [id number] Exp date Control + COCAINE Negative AMPH Negative MTD Negative THC Negative OPIATE Positive` BENZO Negative PCP Negative BAR Negative OXY Positive MAMP Negative TCA Negative BUP Negative MDMA Negative PROCEDURES Procedure Date Ordered Result Body Site ASSAY THYROID STIM HORMONE Oct 02, 2016 COMPLETE CBC W/AUTO DIFF WBC Oct 02, 2016 VENIPUNCT, ROUTINE* Oct 02, 2016 COMPREHEN METABOLIC PANEL Oct 02, 2016 LIPID PANEL Oct 02, 2016 DRUG TEST PRSMV DIR OPT OBS Oct 02, 2016 GLYCATED HEMOGLOBIN TEST Oct 02, 2016 IMMUNIZATIONS No Known Immunizations MEDICAL (GENERAL) HISTORY [...]
--- NOTE | 2017-08-09 22:49 | ED General ---
General Chief Complaint: Cough/Cold/Flu Symptoms Stated Complaint: CHILLS,CONGESTION Nursing Triage Note: Pt c/o head/sinus pressure, productive cough, body aches and chills. Nursing Sepsis Screen: No Definite Risk Source of Information: Patient Exam Limitations: No Limitations History of Present Illness Time Seen by Provider: 22:05 Initial Comments Patient presents with several days of flulike symptoms including myalgias, cough , congestion, and chest discomfort with inspiration and cough. She is afebrile and vital signs are stable. Allergies and Home Medications Allergies Coded Allergies: ketorolac (Unverified Adverse Reaction, Unknown, 07/31/16) prochlorperazine (Unverified Adverse Reaction, Unknown, 07/31/16) tramadol (Unverified Adverse Reaction, Unknown, 07/31/16) Home Medications Acetaminophen with Codeine 1 Each Tablet, 1 EACH PO Q4H PRN for PAIN, #15 Prescribed by: AILYN VERGARA on 10/23/16 0735 Albuterol Sulfate 18 Gm Hfa.aer.ad, 1-2 PUFF IH PRN, (Reported) Buspirone HCl 15 Mg Tablet, 15 MG PO TID, (Reported) Cholecalciferol (Vitamin D3) 1,000 Unit Capsule, 1,000 UNIT PO BID, (Reported) Cinnamon Bark 500 Mg Capsule, 500 MG PO BID, (Reported) Cranberry Extract 500 Mg Tablet, 1,000 MG PO BID, (Reported) Diphenhydramine HCl 25 Mg Capsule, 25 MG PO BID, (Reported) Docusate Sodium 100 Mg Capsule, 100 MG PO BID PRN for CONSTIPATION, #60 Prescribed by: AILYN VERGARA on 10/23/16 0735 Hydrocodone/Acetaminophen 1 Each Tablet, 1 EACH PO Q4H PRN for PAIN, #8 Prescribed by: ANGY MARTINS on 04/21/17 1100 Hydrocodone/Acetaminophen 1 Each Tablet, 1 EACH PO Q6H PRN for PAIN, #12 Ref 0 Prescribed by: YENNIFER HAMLIN on 05/31/17 1501 Hydrocodone/Ibuprofen 1 Each Tablet, (Reported) Ibuprofen 600 Mg Tablet, 600 MG PO Q6H, #30 Prescribed by: AILYN VERGARA on 10/23/16 0735 Ondansetron 4 Mg Tab.rapdis, 4 MG SL Q4H, #10 Prescribed by: ANGY MARTINS on 04/21/17 1100 Prazosin HCl 2 Mg Capsule, 2 MG PO HS PRN for NIGHTMARES, (Reported) Quetiapine Fumarate 100 Mg Tablet, 100 MG PO HS, (Reported) Sertraline HCl 100 Mg Tablet, 100 MG PO BID, (Reported) TAKES 1 & 1/2 (100MG) TABLET Constitutional: no symptoms reported EENTM: see HPI Respiratory: see HPI Cardiovascular: no symptoms reported Gastrointestinal: no symptoms reported Genitourinary: no symptoms reported : No Musculoskeletal: see HPI, muscle pain Skin: no symptoms reported Psychiatric/Neurological: No Symptoms Reported Hematologic/Lymphatic: No Symptoms Reported Immunological/Allergic: no symptoms reported Past Mljsfsm-Cgxknc-Pzcquc Hx Patient Social History Alcohol Use: Denies Use Recreational Drug Use: No Smoking Status: Current Everyday Smoker Type Used: Cigarettes 2nd Hand Smoke Exposure: No Recent Foreign Travel: No Contact w/Someone Who Travel: No Recent Infectious Disease Expo: No Recent Hopitalizations: No Physical Abuse: No Sexual Abuse: No Mistreated: No Fear: No Immunizations Up To Date Tetanus Booster (TDap): Unknown Date of Influenza Vaccine: May 20, 2016 Seasonal Allergies Seasonal Allergies: Yes Surgeries History of Surgeries: Yes ( X --07/2013, dental) Surgeries: Section, Tonsillectomy Respiratory History of Respiratory Disorde: Yes (Tobaccoism) Respiratory Disorders: Asthma, Pneumonia Cardiovascular History of Cardiac Disorders: No Neurological History of Neurological Disord: No Reproductive System Last Menstrual Period: Jul 31, 2017 Hx Reproductive Disorders: Yes (RETAINED IUD) Sexually Transmitted Disease: No HIV/AIDS: No Female Reproductive Disorders: Menstrual Problems, Ovarian Cyst, 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 Genitourinary History of Genitourinary Disor: Yes Genitourinary Disorders: Bladder Infection, UTI-Chronic Gastrointestinal History of Gastrointestinal Di: Yes Gastrointestinal Disorders: Gastroesophageal Reflux, Chronic Diarrhea Musculoskeletal History of Musculoskeletal Dis: Yes Musculoskeletal Disorders: Fibromyalgia Endocrine History of Endocrine Disorders: Yes (VITAMIN D DEFICIENCY; OBESITY) HEENT History of HEENT Disorders: Yes Loss of Vision: Bilateral Hearing Impairment: Denies Cancer History of Cancer: No Psychosocial History of Psychiatric Problem: Yes (EXTENSIVE PSYCH ISSUES-PT STABLE ) Behavioral Health Disorders: ADD/ADHD, Sleep Difficulties, Anxiety, PTSD, Bipolar, Personality Disorder, Depression Suicide Risk Score: 1 Integumentary History of Skin or Integumenta: No Blood Transfusions History of Blood Disorders: No Adverse Reaction to a Blood Tr: No Family Medical History Significant Family History: Hypertension Family Medial History: Alcoholism 19 FATHER Asthma 19 MOTHER Completed stroke 19 FATHER DVT 19 FATHER Dementia 19 FATHER Diabetes mellitus 19 MOTHER FH: multiple sclerosis G8 SISTER Headache disorder G8 BROTHER Hypertension 19 FATHER 19 MOTHER Myocardial infarction 19 FATHER Seizure disorder 19 FATHER Physical Exam Vital Signs Vital Sign - Last 12Hours 08/09/17 22:06 Temp 98.2 Pulse 93 Resp 18 B/P (MAP) 144/125 (131) Pulse Ox 98 O2 Delivery Room Air Capillary Refill : Less Than 3 Seconds General Appearance: No Apparent Distress, WD/WN HEENT: PERRL/EOMI, TMs Normal, Normal ENT Inspection, Pharynx Normal Neck: Normal Inspection Respiratory: Lungs Clear, Normal Breath Sounds, No Accessory Muscle Use, No Respiratory Distress Cardiovascular: Regular Rate, Rhythm, No Edema, No Murmur Gastrointestinal: Non Tender, Soft Extremity: Normal Inspection, No Pedal Edema Neurologic/Psychiatric: Alert, Oriented x3, No Motor/Sensory Deficits, Normal 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/Affect, 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 Norm as Tested Skin: Normal Color, Warm/Dry Progress/Results/Core Measures Suspected Sepsis Recent Fever Within 48 Hours: No Infection Criteria Present: Suspected New Infection New/Unexplained Altered Menta: No Sepsis Screen: No Definite Risk Sepsis Diagnosis: SIRS Temperature:98.2 Pulse: 93 Respiratory Rate: 18 Blood Pressure 144 /125 Mean: 131 Results/Orders Micro Results Microbiology 08/09/17 Influenza Types A,B Antigen (GALINA) - Final, Complete My Orders Orders - ANGY WOLF MD Chest Pa/Lat (2 View) (08/09/17 22:12) Influenza A And B Antigens (08/09/17 22:12) Vital Signs/I&O Capillary Refill : Less Than 3 Seconds Blood Pressure Mean: 131 Progress Note : Progress Note Chest x-ray and influenza screen were negative. Patient was advised symptomatic management. Diagnostic Imaging Diagonstic Imaging: Xray Plain Films/CT/US/NM/MRI: chest Comments Two-view chest x-ray viewed by me. Report not yet available. No acute abnormalities appreciated. Departure Impression Impression: Primary Impression: Viral syndrome Additional Impression: Upper respiratory infection Qualified Codes: J06.9 - Acute upper respiratory infection, unspecified; B97.89 - Other viral agents as the cause of diseases classified elsewhere Disposition: 01 HOME, SELF-CARE Condition: Stable Departure-Patient Inst. Decision time for Depature: 22:40 Referrals: [facility] (PCP/Family) Primary Care Physician Patient Instructions: Viral Upper Respiratory Infection, Adult (DC) Add. Discharge Instructions: Drink plenty of clear liquids. Avoid cigarette smoke. You may take ibuprofen up to 600 mg every 6 hours as needed for pain or fever. Add Tylenol ( acetaminophen) up to 1000 mg every 6 hours as needed for additional relief. Jhxb-cdu-usqlzwn cough and cold medications are also acceptable. Look at the active ingredients to ensure you are not taking too much of any particular ingredient when taking multiple medications. If symptoms persist beyond 10 days , follow-up with your primary care provider. You may return if symptoms worsen. All discharge instructions reviewed with patient and/or family. Voiced understanding. Work/School Note: Work Release Form Date Seen in the Emergency Department: Aug 09, 2017 Return to Work: Aug 11, 2017 Restrictions: No Restrictions ANGY WOLF MD Aug 09, 2017 22:49
[2017-08-09 22:55] VITALS: BP 138/86
--- NOTE | 2017-08-14 10:57 | Diagnostic Imaging Report ---
PA and lateral views of the chest Indication: Cough and congestion Findings: The lungs are clear. The heart size is normal. There is no effusion or pneumothorax The mediastinum and altaf appear unremarkable. Impression: Unremarkable study. Dictated by: Dictated on workstation # [id number]
== END 2017-08-09 22:54 | disposition home or self-care (01) ==
LOC: EDUNIT# 22:02 → ER 22:04
DX: J06.9 Acute upper respiratory infection, unspecified (principal); J45.909 Unspecified asthma, uncomplicated; K21.9 Gastro-esophageal reflux disease without esophagitis; E66.9 Obesity, unspecified; F90.9 Attention-deficit hyperactivity disorder, unspecified type; F41.9 Anxiety disorder, unspecified; F43.10 Post-traumatic stress disorder, unspecified; F31.9 Bipolar disorder, unspecified; F17.210 Nicotine dependence, cigarettes, uncomplicated; Z87.01 Personal history of pneumonia (recurrent); Z87.448 Personal history of other diseases of urinary system; Z97.5 Presence of (intrauterine) contraceptive device; Z82.49 Family history of ischemic heart disease and other diseases of the circulatory system; Z87.440 Personal history of urinary (tract) infections; Z87.19 Personal history of other diseases of the digestive system; Z87.59 Personal history of other complications of pregnancy, childbirth and the puerperium; Z90.89 Acquired absence of other organs
CPT/HCPCS: 71020; 87804; 99282

== ENCOUNTER 2017-08-20 10:46 | Emergency (ER) | payer SELFPAY ==
[~2017-08-20] VITALS: Ht 152.4 cm; Wt 108.9 kg
[~2017-08-20 10:46] MED LIST changes: +ACHD5005 PO; -HYDR-3812 PO
[2017-08-20] MEDS ORDERED: DEXAMETHASONE PF 10 MG/ML (DECADRON) VIAL IM STA (14:08)
[2017-08-20] MEDS ORDERED: ONDANSETRON 4 MG (ZOFRAN) ORAL DISSOLVE TAB SL STA (14:08)
[2017-08-20] MEDS ORDERED: IBUPROFEN 800 MG (MOTRIN) TAB PO STA (14:08)
[2017-08-20] MEDS ORDERED: DEXAMETHASONE 10 MG/ML (DECADRON) 1 ML VIAL ONE (14:13)
[2017-08-20] MEDS ORDERED: PRED10TA22 PO (14:46)
--- NOTE | 2017-08-20 14:46 | ED Cough/URI ---
General Chief Complaint: Cough/Cold/Flu Symptoms Stated Complaint: COUGH;CONGESTION Nursing Triage Note: pt c/o cough and congestion x2-3days History of Present Illness Time seen by provider: 14:00 Initial Comments 26-year-old female presents for respiratory congestion. She has a history of asthma and used her albuterol per nebulizer last evening. She reports a productive cough. Timing/Duration: getting worse Severity/Quality: productive cough Prior Episodes/Possible Cause: frequent episodes Modifying Factors: Improves With Albuterol Nebulizer Associated Symptoms: cough, fever/chills, headache, muscle aches, nasal congestion Allergies and Home Medications Allergies Coded Allergies: ketorolac (Unverified Adverse Reaction, Unknown, 07/31/16) prochlorperazine (Unverified Adverse Reaction, Unknown, 07/31/16) tramadol (Unverified Adverse Reaction, Unknown, 07/31/16) Home Medications Acetaminophen with Codeine 1 Each Tablet, 1 EACH PO Q4H PRN for PAIN, #15 Prescribed by: AILYN VERGARA on 10/23/16 0735 Albuterol Sulfate 18 Gm Hfa.aer.ad, 1-2 PUFF IH PRN, (Reported) Buspirone HCl 15 Mg Tablet, 15 MG PO TID, (Reported) Cholecalciferol (Vitamin D3) 1,000 Unit Capsule, 1,000 UNIT PO BID, (Reported) Cinnamon Bark 500 Mg Capsule, 500 MG PO BID, (Reported) Cranberry Extract 500 Mg Tablet, 1,000 MG PO BID, (Reported) Diphenhydramine HCl 25 Mg Capsule, 25 MG PO BID, (Reported) Docusate Sodium 100 Mg Capsule, 100 MG PO BID PRN for CONSTIPATION, #60 Prescribed by: AILYN VERGARA on 10/23/16 0735 Hydrocodone Bit/Acetaminophen 1 Each Tablet, 1 EACH PO Q4H PRN for PAIN, #8 Prescribed by: ANGY MARTINS on 04/21/17 1100 Hydrocodone Bit/Acetaminophen 1 Each Tablet, 1 EACH PO Q6H PRN for PAIN, #12 Ref 0 Prescribed by: YENNIFER HAMLIN on 05/31/17 1501 Hydrocodone/Ibuprofen 1 Each Tablet, (Reported) Ibuprofen 600 Mg Tablet, 600 MG PO Q6H, #30 Prescribed by: AILYN VERGARA on 10/23/16 0735 Ondansetron 4 Mg Tab.rapdis, 4 MG SL Q4H, #10 Prescribed by: ANGY MARTINS on 04/21/17 1100 Prazosin HCl 2 Mg Capsule, 2 MG PO HS PRN for NIGHTMARES, (Reported) Prednisone 10 Mg Tab.ds.pk, 10 MG PO UD, #1 Ref 0 Prescribed by: YENNIFER HAMLIN on 08/20/17 1446 Quetiapine Fumarate 100 Mg Tablet, 100 MG PO HS, (Reported) Sertraline HCl 100 Mg Tablet, 100 MG PO BID, (Reported) TAKES 1 & 1/2 (100MG) TABLET Constitutional: no symptoms reported, see HPI Respiratory: see HPI, cough Gastrointestinal: see HPI, nausea All Other Systems Reviewed Negative Unless Noted: Yes Past Zaxtwlb-Pulqfh-Vrrwda Hx Patient Social History Alcohol Use: Denies Use Recreational Drug Use: No Smoking Status: Current Everyday Smoker Type Used: Cigarettes 2nd Hand Smoke Exposure: No Recent Foreign Travel: No Contact w/Someone Who Travel: No Recent Infectious Disease Expo: No Recent Hopitalizations: No Physical Abuse: No Sexual Abuse: No Immunizations Up To Date Tetanus Booster (TDap): Unknown Date of Influenza Vaccine: May 20, 2016 Seasonal Allergies Seasonal Allergies: Yes Surgeries History of Surgeries: Yes ( X --07/2013, dental) Surgeries: Section, Tonsillectomy Respiratory History of Respiratory Disorde: Yes (Tobaccoism) Respiratory Disorders: Asthma, Pneumonia Cardiovascular History of Cardiac Disorders: No Neurological History of Neurological Disord: No Reproductive System Hx Reproductive Disorders: Yes (RETAINED IUD) Sexually Transmitted Disease: No HIV/AIDS: No Female Reproductive Disorders: Menstrual Problems, Ovarian Cyst, Polycystic Ovarian Dis 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 Genitourinary History of Genitourinary Disor: Yes Genitourinary Disorders: Bladder Infection, UTI-Chronic Gastrointestinal History of Gastrointestinal Di: Yes Gastrointestinal Disorders: Gastroesophageal Reflux, Chronic Diarrhea Musculoskeletal History of Musculoskeletal Dis: Yes Musculoskeletal Disorders: Fibromyalgia Endocrine History of Endocrine Disorders: Yes (VITAMIN D DEFICIENCY; OBESITY) HEENT History of HEENT Disorders: Yes Loss of Vision: Bilateral Hearing Impairment: Denies Cancer History of Cancer: No Psychosocial History of Psychiatric Problem: Yes (EXTENSIVE PSYCH ISSUES-PT STABLE ) Behavioral Health Disorders: ADD/ADHD, Sleep Difficulties, Anxiety, PTSD, Bipolar, Personality Disorder, Depression Suicide Risk Score: 0 Integumentary History of Skin or Integumenta: No Blood Transfusions History of Blood Disorders: No Adverse Reaction to a Blood Tr: No Reviewed Nursing Assessment Reviewed/Agree w Nursing PMH: Yes Family Medical History Significant Family History: Hypertension Family Medial History: Alcoholism 19 FATHER Asthma 19 MOTHER Completed stroke 19 FATHER DVT 19 FATHER Dementia 19 FATHER Diabetes mellitus 19 MOTHER FH: multiple sclerosis G8 SISTER Headache disorder G8 BROTHER Hypertension 19 FATHER 19 MOTHER Myocardial infarction 19 FATHER Seizure disorder 19 FATHER Physical Exam Vital Signs Vital Sign - Last 12Hours 08/20/17 12:01 Temp 97.5 Pulse 80 Resp 16 B/P (MAP) 137/79 (98) Pulse Ox 96 Capillary Refill : Less Than 3 Seconds General Appearance: WD/WN, no apparent distress Eyes: Bilateral Eye Normal Inspection, Bilateral Eye PERRL, Bilateral Eye EOMI HEENT: PERRL/EOMI, normal ENT inspection, TMs normal, pharynx normal Neck: non-tender, full range of motion Respiratory: chest non-tender, lungs clear, normal breath sounds Cardiovascular: normal peripheral pulses, regular rate, rhythm Gastrointestinal: normal bowel sounds, non tender, soft Extremities: normal range of motion, non-tender, no pedal edema, normal capillary refill Neurologic/Psychiatric: no motor/sensory deficits, alert, normal mood/affect, oriented x 3 Skin: normal color, warm/dry Progress/Results/Core Measures Suspected Sepsis Recent Fever Within 48 Hours: No Infection Criteria Present: Suspected New Infection New/Unexplained Altered Menta: No Sepsis Screen: No Definite Risk Sepsis Diagnosis: SIRS Temperature:97.5 Pulse: 80 Respiratory Rate: 16 Blood Pressure 137 /79 Mean: 98 Results/Orders Micro Results Microbiology 08/20/17 Influenza Types A,B Antigen (GALINA) - Final, Complete My Orders Orders - YENNIFER HAMLIN Influenza A And B Antigens (08/20/17 13:56) Ondansetron Oral Dissolve Tab (Zofran (08/20/17 14:08) Dexamethasone Pf Injection (Decadron Pf (08/20/17 14:08) Ibuprofen Tablet (Motrin Tablet) (08/20/17 14:08) Dexamethasone Injection (Decadron Inject (08/20/17 14:13) Medications Given in ED Current Medications Medications Dose Ordered Sig/Hina Route Start Time Stop Time Status Last Admin Dose Admin Dexamethasone Sodium Phosphate 10 mg STK-MED ONCE .ROUTE 08/20/17 14:13 08/20/17 14:16 DC 08/20/17 14:18 10 MG Vital Signs/I&O Vital Sign - Last 12Hours 08/20/17 08/20/17 12:01 14:49 Temp 97.5 97.5 Pulse 80 82 Resp 16 16 B/P (MAP) 137/79 (98) Pulse Ox 96 96 Capillary Refill : Less Than 3 Seconds Blood Pressure Mean: 98 Departure Impression Impression: Primary Impression: Upper respiratory infection Qualified Codes: J06.9 - Acute upper respiratory infection, unspecified; B97.89 - Other viral agents as the cause of diseases classified elsewhere Disposition: HOME, SELF-CARE Condition: Stable Departure-Patient Inst. Decision time for Depature: 14:45 Referrals: [facility] (PCP/Family) Primary Care Physician Patient Instructions: Cough, Adult (DC), Viral Upper Respiratory Infection, Adult (DC) Add. Discharge Instructions: Use breathing treatments every 4 hours. Alternate Tylenol 650 mg and ibuprofen 600 mg every 4 hours for fever or pain. Start Mucinex intake one tablet twice daily with a full glass of water. Take Prednisone as directed. Follow-up with your primary care provider in 2-3 days if symptoms are not improving or worsen. Return to emergency department for difficulty breathing, fever greater than 101 not relieved with ibuprofen and Tylenol, new problems or concerns. All discharge instructions reviewed with patient and/or family. Voiced understanding. Scripts Prednisone (Prednisone) 10 Mg Tab.ds.pk 10 MG PO UD, #1 PKG 0 Refills Prov: YENNIFER HAMLIN 08/20/17 Work/School Note: Work Release Form Date Seen in the Emergency Department: Aug 20, 2017 Return to Work: Aug 21, 2017 Restrictions: No Restrictions YENNIFER HAMLIN Aug 20, 2017 14:46
[2017-08-20 14:49] VITALS: BP 135/76
== END 2017-08-20 14:49 | disposition home or self-care (01) ==
LOC: EDUNIT# 10:46 → ER 10:48
DX: J06.9 Acute upper respiratory infection, unspecified (principal); J45.909 Unspecified asthma, uncomplicated; F17.210 Nicotine dependence, cigarettes, uncomplicated; K21.9 Gastro-esophageal reflux disease without esophagitis; E66.9 Obesity, unspecified; F41.9 Anxiety disorder, unspecified; F31.9 Bipolar disorder, unspecified; F90.9 Attention-deficit hyperactivity disorder, unspecified type; F43.10 Post-traumatic stress disorder, unspecified; F60.9 Personality disorder, unspecified; Z82.49 Family history of ischemic heart disease and other diseases of the circulatory system; Z68.42 Body mass index [BMI] 45.0-49.9, adult
CPT/HCPCS: 87804; 99284

== ENCOUNTER 2017-08-24 18:58 | Emergency (ER) | payer SELFPAY ==
[~2017-08-24] VITALS: Ht 152.4 cm; Wt 110.2 kg
[~2017-08-24 18:58] MED LIST changes: +PRED10TA22 PO
[2017-08-24 19:29] LABS: BILIRUBIN,URINE NEGATIVE (NEGATIVE); CLARITY,URINE CLEAR; COLOR,URINE YELLOW; GLUCOSE, URINE (UA) NEGATIVE (NEGATIVE); KETONES,URINE NEGATIVE (NEGATIVE); LEUKOCYTE ESTERASE ,URINE 1+ (NEGATIVE); NITRITE,URINE NEGATIVE (NEGATIVE); PH,URINE 6 (5-9); PROTEIN,URINE 2+ (NEGATIVE); UROBILINOGEN,URINE NORMAL (NORMAL)
[2017-08-24 19:35] LABS: BACTERIA,URINE NEGATIVE /HPF; RBC,URINE RARE /HPF; WBC,URINE RARE /HPF
[2017-08-24 19:36] LABS: SQUAMOUS EPITHELIAL CELL,UR 25-50 /HPF
[2017-08-24 19:50] LABS: AMPHETAMINE SCREEN, URINE NEGATIVE (NEGATIVE); BARBITURATE SCREEN URINE NEGATIVE (NEGATIVE); BENZODIAZEPINES SCREEN URINE NEGATIVE (NEGATIVE); CANNABINOID SCREEN, URINE NEGATIVE (NEGATIVE); COCAINE SCREEN URINE NEGATIVE (NEGATIVE); METHADONE STAT NEGATIVE (NEGATIVE); METHAMPHETAMINE SCREEN URINE S NEGATIVE (NEGATIVE); OPIATE SCREEN URINE POSITIVE (NEGATIVE); OXYCODONE STAT NEGATIVE (NEGATIVE); PROPOXYPHENE STAT NEGATIVE (NEGATIVE); TRICYCLIC ANTIDEPRESSANTS SCRE NEGATIVE (NEGATIVE)
[2017-08-24 20:10] LABS: BASOPHILS # (AUTO) 0.1 10^3/uL (0.0-0.1); BASOPHILS % (AUTO) 0 % (0-10); EOSINOPHILS # (AUTO) 0.1 10^3/uL (0.0-0.3); EOSINOPHILS % (AUTO) 0 % (0-10); HEMATOCRIT 39 % (35-52); HEMOGLOBIN 14.9 G/DL (11.5-16.0); LYMPHOCYTES # (AUTO) 3.9 X 10^3 (1.0-4.0); LYMPHOCYTES % (AUTO) 21 % (12-44); MEAN CORPUSCULAR HEMOGLOBIN 32 PG (25-34); MEAN CORPUSCULAR HGB CONC 38 G/DL (32-36); MEAN CORPUSCULAR VOLUME 84 FL (80-99); MEAN PLATELET VOLUME 9.6 FL (7.4-10.4); MONOCYTES % (AUTO) 5 % (0-12); NEUTROPHILS # (AUTO) 13.9 X 10^3 (1.8-7.8); NEUTROPHILS % (AUTO) 73 % (42-75); PLATELET COUNT 389 10^3/uL (130-400); RED BLOOD COUNT 4.69 10^6/uL (4.35-5.85); RED CELL DISTRIBUTION WIDTH 12.3 % (10.0-14.5); WHITE BLOOD COUNT 18.9 10^3/uL (4.3-11.0)
[2017-08-24 20:25] LABS: BAND NEUTROPHILS 0 %; BASOPHILS % (MANUAL) 1 %; EOSINOPHILS % (MANUAL) 1 %; LYMPHOCYTES % (MANUAL) 31 %; MONOCYTES % (MANUAL) 5 %; NEUTROPHILS % (MANUAL) 62 %; RBC MORPH NORMAL
--- NOTE | 2017-08-24 20:29 | Diagnostic Imaging Report ---
PROCEDURE: CT urinary tract, rule out kidney stone. TECHNIQUE: Multiple contiguous axial images were obtained through the abdomen and pelvis without the use of intravenous contrast. INDICATION: Hematuria and nausea. Comparison is made with prior CT from 04/21/2017. FINDINGS: The visualized lung bases demonstrates no focal infiltrate or effusion. Noncontrast appearance of the liver unremarkable. The gallbladder is nondistended. There is no radiodense gallstone or biliary dilatation. The spleen is normal in size. Pancreas unremarkable. There is no adrenal mass. There is no evidence of hydronephrosis. There is no stone evident within the urinary bladder or within the ureters. There are no renal calculi evident. Small and large bowel normal in caliber without obstruction. There is moderate stool within the colon. There is no abnormal bowel thickening. There are a few uncomplicated diverticula. The appendix is normal. The uterus and adnexa had an unremarkable CT appearance. There are some tiny mesenteric lymph nodes. No pathologic lymph node enlargement demonstrated. There is no acute or suspicious osseous abnormality. IMPRESSION: 1. No CT evidence of an acute inflammatory or obstructive process within the abdomen or pelvis. 2. No evidence of hydronephrosis or urolithiasis. Dictated by: Dictated on workstation # [id number]
[2017-08-24 20:32] LABS: ALANINE AMINOTRANSFERASE 20 U/L (0-55); ALBUMIN 3.8 GM/DL (3.2-4.5); ALKALINE PHOSPHATASE 57 U/L (40-136); AMYLASE 40 U/L (25-125); BILIRUBIN,TOTAL 0.1 MG/DL (0.1-1.0); BUN/CREATININE RATIO 18; CALCIUM 8.9 MG/DL (8.5-10.1); CARBON DIOXIDE 23 MMOL/L (21-32); CHLORIDE 105 MMOL/L (98-107); CREATININE SERUM 0.68 MG/DL (0.60-1.30); GFR ESTIMATED > 60; GLUCOSE 103 MG/DL (70-105); LIPASE 37 U/L (8-78); POTASSIUM 4.2 MMOL/L (3.6-5.0); SODIUM 139 MMOL/L (135-145); TOTAL PROTEIN 6.4 GM/DL (6.4-8.2)
--- NOTE | 2017-08-24 20:34 | Diagnostic Imaging Report ---
INDICATION: Hematuria. FINDINGS: Bowel gas pattern appears nonobstructed. There is moderate stool within the colon. There are no abdominal calcifications evident. There is no osseous abnormality. IMPRESSION: Unremarkable radiographs of the abdomen and pelvis. Dictated by: Dictated on workstation # [id number]
--- NOTE | 2017-08-24 22:02 | Diagnostic Imaging Report ---
EXAMINATION: Right-sided pelvic pain. COMPARISON: Correlation made with a CT examination performed earlier the same day. FINDINGS: The uterus is normal in size without evidence of a focal myometrial abnormality. There is no abnormal thickening of the endometrial bilayer or fluid within the endometrial canal. Both ovaries are normal in size and contain small follicles. Both ovaries demonstrate normal Doppler flow. There is no torsion. There is no free fluid. There is no adnexal mass. IMPRESSION: Unremarkable pelvic sonogram. Dictated by: Dictated on workstation # [id number]
[2017-08-24] MEDS ORDERED: NITR-65 PO (22:06)
[2017-08-24] MEDS ORDERED: MELO15TA14 PO (22:06)
--- NOTE | 2017-08-24 22:06 | ED Abdominal Pain ---
General Chief Complaint: -Female Stated Complaint: PAIN FROM OVARIAN CYSTS Nursing Triage Note: pt presents to ed with complaint of right side ovary pain. states she has pcos and has pain on and off. states the last time her pain was this severe, she was "admitted to the hospital for ovary twisted". Sepsis Screen: No Definite Risk Source of Information: Patient History of Present Illness Time Seen By Provider: 19:25 Initial Comments C/O RIGHT PELVIC/GROIN PAIN THAT RADIATES TO GENITAL AREA X 2 HOURS,BUT HAS HAD IT OFF AND ON FOR A FEW DAYS, BUT NOT THIS BAD, AND NOT LASTED THIS LONG PT STATES PAIN IS SEVERE AND SHARP THIS IS A FREQUENT PROBLEM, STATES SHE HAS PCOS AND WAS ADMITTED ONCE FOR QUESTIONABLE TORSION, BUT SYMPTOMS SELF-RESOLVED AND NO SURGERY WAS DONE PT STATES SHE HAS ONLY TAKEN TYLENOL AND MOTRIN FOR PAIN NO URINARY SYMPTOMS NO VAGINAL DISCHARGE LMP 2 WEEKS AGO, NORMAL. ON OCP'S PT MOVED HERE 07/2016 AND HAS HAD 9 VISITS FOR THIS SAME/SIMILAR COMPLAINTS Allergies and Home Medications Allergies Coded Allergies: ketorolac (Unverified Adverse Reaction, Unknown, 08/24/17) prochlorperazine (Unverified Adverse Reaction, Unknown, 08/24/17) tramadol (Unverified Adverse Reaction, Unknown, 08/24/17) Home Medications Acetaminophen with Codeine 1 Each Tablet, 1 EACH PO Q4H PRN for PAIN, #15 Prescribed by: AILYN VERGARA on 10/23/16 0735 Albuterol Sulfate 18 Gm Hfa.aer.ad, 1-2 PUFF IH PRN, (Reported) Buspirone HCl 15 Mg Tablet, 15 MG PO TID, (Reported) Cholecalciferol (Vitamin D3) 1,000 Unit Capsule, 1,000 UNIT PO BID, (Reported) Cinnamon Bark 500 Mg Capsule, 500 MG PO BID, (Reported) Cranberry Extract 500 Mg Tablet, 1,000 MG PO BID, (Reported) Diphenhydramine HCl 25 Mg Capsule, 25 MG PO BID, (Reported) Docusate Sodium 100 Mg Capsule, 100 MG PO BID PRN for CONSTIPATION, #60 Prescribed by: AILYN VERGARA on 10/23/16 0735 Hydrocodone Bit/Acetaminophen 1 Each Tablet, 1 EACH PO Q4H PRN for PAIN, #8 Prescribed by: ANGY MARTINS on 04/21/17 1100 Hydrocodone Bit/Acetaminophen 1 Each Tablet, 1 EACH PO Q6H PRN for PAIN, #12 Ref 0 Prescribed by: YENNIFER HAMLIN on 05/31/17 1501 Hydrocodone/Ibuprofen 1 Each Tablet, (Reported) Ibuprofen 600 Mg Tablet, 600 MG PO Q6H, #30 Prescribed by: AILYN VERGARA on 10/23/16 0735 Meloxicam 15 Mg Tablet, 15 MG PO DAILY, #10 Prescribed by: THOMPSON FITCH on 08/24/17 2206 Nitrofurantoin Monohyd/M-Cryst 100 Mg Capsule, 100 MG PO BID, #20 Prescribed by: THOMPSON FITCH on 08/24/17 2206 Ondansetron 4 Mg Tab.rapdis, 4 MG SL Q4H, #10 Prescribed by: ANGY MARTINS on 04/21/17 1100 Prazosin HCl 2 Mg Capsule, 2 MG PO HS PRN for NIGHTMARES, (Reported) Prednisone 10 Mg Tab.ds.pk, 10 MG PO UD, #1 Ref 0 Prescribed by: YENNIFER HAMLIN on 08/20/17 1446 Quetiapine Fumarate 100 Mg Tablet, 100 MG PO HS, (Reported) Sertraline HCl 100 Mg Tablet, 100 MG PO BID, (Reported) TAKES 1 & 1/2 (100MG) TABLET Review of Systems Constitutional: no symptoms reported Cardiovascular: No Symptoms Reported Gastrointestinal: See HPI Genitourinary: See HPI Musculoskeletal: no symptoms reported, No back pain Skin: no symptoms reported Psychiatric/Neurological: No Symptoms Reported Past Tekmglo-Lyruvi-Prbkbn Hx Patient Social History Alcohol Use: Denies Use Recreational Drug Use: No Smoking Status: Current Everyday Smoker Type Used: Cigarettes 2nd Hand Smoke Exposure: No Recent Foreign Travel: No Contact w/Someone Who Travel: No Recent Infectious Disease Expo: No Recent Hopitalizations: No Physical Abuse: No Sexual Abuse: No Immunizations Up To Date Tetanus Booster (TDap): Unknown Date of Influenza Vaccine: May 20, 2016 Seasonal Allergies Seasonal Allergies: Yes Surgeries History of Surgeries: Yes ( X 1 --07/2013, DENTAL l) Surgeries: Section, Tonsillectomy Respiratory History of Respiratory Disorde: Yes (Tobaccoism) Respiratory Disorders: Asthma, Pneumonia Cardiovascular History of Cardiac Disorders: No Neurological History of Neurological Disord: No Reproductive System Hx Reproductive Disorders: Yes (RETAINED IUD) Sexually Transmitted Disease: No HIV/AIDS: No Female Reproductive Disorders: Menstrual Problems, Ovarian Cyst, 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 Genitourinary History of Genitourinary Disor: Yes Genitourinary Disorders: Bladder Infection, UTI-Chronic Gastrointestinal History of Gastrointestinal Di: Yes Gastrointestinal Disorders: Gastroesophageal Reflux, Chronic Diarrhea Musculoskeletal History of Musculoskeletal Dis: Yes Musculoskeletal Disorders: Fibromyalgia Endocrine History of Endocrine Disorders: Yes (VITAMIN D DEFICIENCY; OBESITY) HEENT History of HEENT Disorders: Yes Loss of Vision: Bilateral Hearing Impairment: Denies Cancer History of Cancer: No Psychosocial History of Psychiatric Problem: Yes (EXTENSIVE PSYCH ISSUES-PT STABLE ) Behavioral Health Disorders: ADD/ADHD, Sleep Difficulties, Anxiety, PTSD, Bipolar, Personality Disorder, Depression Suicide Risk Score: 0 Integumentary History of Skin or Integumenta: No Blood Transfusions History of Blood Disorders: No Adverse Reaction to a Blood Tr: No Family Medical History Significant Family History: Hypertension Family Medial History: Alcoholism 19 FATHER Asthma 19 MOTHER Completed stroke 19 FATHER DVT 19 FATHER Dementia 19 FATHER Diabetes mellitus 19 MOTHER FH: multiple sclerosis G8 SISTER Headache disorder G8 BROTHER Hypertension 19 FATHER 19 MOTHER Myocardial infarction 19 FATHER Seizure disorder 19 FATHER Physical Exam Vital Signs VS - Last 72 Hours, by Label 08/24/17 08/24/17 19:22 22:19 Temp 97.1 98.0 Pulse 92 90 Resp 20 20 B/P (MAP) 129/91 (104) Pulse Ox 95 97 O2 Delivery Room Air Room Air Capillary Refill : Less Than 3 Seconds General Appearance: no apparent distress, obese, other (DRAMATIC, REEKS OF CIGARETTES) Respiratory: normal breath sounds, no respiratory distress, no accessory muscle use Cardiovascular: regular rate, rhythm, no murmur Gastrointestinal: normal bowel sounds, soft, no organomegaly, no pulsatile mass , No distended, No guarding, No rebound, tenderness (RIGHT LOWER ABDOMEN/GROIN AREA) Extremities: normal inspection Back: no CVA tenderness 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, no motor/sensory deficits, alert, oriented x 3 Skin: normal color, warm/dry Progress/Results/Core Measures Results/Orders Lab Results Laboratory Tests Test 08/24/17 19:16 08/24/17 20:04 Range/Units Urine Color YELLOW Urine Clarity CLEAR Urine pH 6 5-9 Urine Specific [place] 1.020 1.016-1.022 Urine Protein 2+ H NEGATIVE Urine Glucose (UA) NEGATIVE NEGATIVE Urine Ketones NEGATIVE NEGATIVE Urine Nitrite NEGATIVE NEGATIVE Urine Bilirubin NEGATIVE NEGATIVE Urine Urobilinogen NORMAL NORMAL MG/DL Urine Leukocyte Esterase 1+ H NEGATIVE Urine RBC (Auto) 1+ H NEGATIVE Urine RBC RARE /HPF Urine WBC RARE /HPF Urine Squamous Epithelial Cells 25-50 H /HPF Urine Crystals NONE /LPF Urine Bacteria NEGATIVE /HPF Urine Casts NONE /LPF Urine Mucus NEGATIVE /LPF Urine Culture Indicated NO Urine Opiates Screen POSITIVE H NEGATIVE Urine Oxycodone Screen NEGATIVE NEGATIVE Urine Methadone Screen NEGATIVE NEGATIVE Urine Propoxyphene Screen NEGATIVE NEGATIVE Urine Barbiturates Screen NEGATIVE NEGATIVE Ur Tricyclic Antidepressants Screen NEGATIVE NEGATIVE Urine Phencyclidine Screen NEGATIVE NEGATIVE Urine Amphetamines Screen NEGATIVE NEGATIVE Urine Methamphetamines Screen NEGATIVE NEGATIVE Urine Benzodiazepines Screen NEGATIVE NEGATIVE Urine Cocaine Screen NEGATIVE NEGATIVE Urine Cannabinoids Screen NEGATIVE NEGATIVE White Blood Count 18.9 H 4.3-11.0 10^3/uL Red Blood Count 4.69 4.35-5.85 10^6/uL Hemoglobin 14.9 11.5-16.0 G/DL Hematocrit 39 35-52 % Mean Corpuscular Volume 84 80-99 FL Mean Corpuscular Hemoglobin 32 25-34 PG Mean Corpuscular Hemoglobin Concent 38 H 32-36 G/DL Red Cell Distribution Width 12.3 10.0-14.5 % Platelet Count 389 130-400 10^3/uL Mean Platelet Volume 9.6 7.4-10.4 FL Neutrophils (%) (Auto) 73 42-75 % Lymphocytes (%) (Auto) 21 12-44 % Monocytes (%) (Auto) 5 0-12 % Eosinophils (%) (Auto) 0 0-10 % Basophils (%) (Auto) 0 0-10 % Neutrophils # (Auto) 13.9 H 1.8-7.8 X 10^3 Lymphocytes # (Auto) 3.9 1.0-4.0 X 10^3 Monocytes # (Auto) 1.0 0.0-1.0 X 10^3 Eosinophils # (Auto) 0.1 0.0-0.3 10^3/uL Basophils # (Auto) 0.1 0.0-0.1 10^3/uL Neutrophils % (Manual) 62 % Lymphocytes % (Manual) 31 % Monocytes % (Manual) 5 % Eosinophils % (Manual) 1 % Basophils % (Manual) 1 % Band Neutrophils 0 % Blood Morphology Comment NORMAL Sodium Level 139 135-145 MMOL/L Potassium Level 4.2 3.6-5.0 MMOL/L Chloride Level 105 98-107 MMOL/L Carbon Dioxide Level 23 21-32 MMOL/L Anion Gap 11 5-14 MMOL/L Blood Urea Nitrogen 12 7-18 MG/DL Creatinine 0.68 0.60-1.30 MG/DL Estimat Glomerular Filtration Rate > 60 BUN/Creatinine Ratio 18 Glucose Level 103 70-105 MG/DL Calcium Level 8.9 8.5-10.1 MG/DL Total Bilirubin 0.1 0.1-1.0 MG/DL Aspartate Amino Transf (AST/SGOT) 11 5-34 U/L Alanine Aminotransferase (ALT/SGPT) 20 0-55 U/L Alkaline Phosphatase 57 40-136 U/L Total Protein 6.4 6.4-8.2 GM/DL Albumin 3.8 3.2-4.5 GM/DL Amylase Level 40 25-125 U/L Lipase 37 8-78 U/L My Orders Orders - THOMPSON FITCH DO Urine Bedside (08/24/17 19:24) Ua Culture If Indicated (08/24/17 19:24) Drug Screen Stat (Urine) (08/24/17 19:28) Saline Lock/Iv-Start (08/24/17 19:53) Ct Abd/Pelvis Wo(Kidney Stone) (08/24/17 19:53) Amylase (08/24/17 19:53) Cbc With Automated Diff (08/24/17 19:53) Comprehensive Metabolic Panel (08/24/17 19:53) Lipase (08/24/17 19:53) Abdomen/Kub 1view (08/24/17 19:53) Manual Differential (08/24/17 20:04) Us Non Ob Transvaginal [id number] (08/24/17 20:34) Vital Signs/I&O Vital Sign - Last 12Hours 08/24/17 08/24/17 19:22 22:19 Temp 97.1 98.0 Pulse 92 90 Resp 20 20 B/P (MAP) 129/91 (104) Pulse Ox 95 97 O2 Delivery Room Air Room Air Blood Pressure Mean: 104 Point of Care Testing Urine -Bedside: Negative Diagnostic Imaging Comments KUB--NO ACUTE PROCESS CT ABDOMEN/PELVIS--NO ACUTE PROCESS PER RADIOLOGIST REPORTS ULTRASOUND--NORMAL, NO SIGNIFICANT CYSTS--PER TECH REPORT @ 2206 AND LATER BY RADIOLOGIST REPORT Reviewed: Reviewed by Me Departure Impression Impression: Primary Impression: RLQ abdominal pain Additional Impressions: Chronic pelvic pain in female Urinary tract infection Disposition: HOME, SELF-CARE Condition: Stable Departure-Patient Inst. Referrals: [facility] (PCP/Family) Primary Care Physician Patient Instructions: Acute Abdomen (Belly Pain), Adult (DC), Chronic Pelvic Pain (DC), Urinary Tract Infection, Adult (DC) Add. Discharge Instructions: FOLLOW UP WITH [facility] AND / OR YOUR [facility]ER THIS WEEK FOR FURTHER CARE All discharge instructions reviewed with patient and/or family. Voiced understanding. Scripts Meloxicam (Mobic) 15 Mg Tablet 15 MG PO DAILY, #10 TAB Prov: THOMPSON FITCH DO 08/24/17 Nitrofurantoin Monohyd/M-Cryst (Macrobid 100 mg Capsule) 100 Mg Capsule 100 MG PO BID, #20 CAP Prov: THOMPSON FITCH DO 08/24/17 THOMPSON FITCH DO Aug 24, 2017 22:06
[2017-08-24 22:19] VITALS: BP 134/92
== END 2017-08-24 22:19 | disposition home or self-care (01) ==
LOC: EDUNIT# 18:58 → ER 19:00
DX: N39.0 Urinary tract infection, site not specified (principal); J45.909 Unspecified asthma, uncomplicated; K21.9 Gastro-esophageal reflux disease without esophagitis; E66.9 Obesity, unspecified; F90.9 Attention-deficit hyperactivity disorder, unspecified type; F41.9 Anxiety disorder, unspecified; F43.10 Post-traumatic stress disorder, unspecified; F31.9 Bipolar disorder, unspecified; Z87.19 Personal history of other diseases of the digestive system; Z97.5 Presence of (intrauterine) contraceptive device; Z87.440 Personal history of urinary (tract) infections; Z82.49 Family history of ischemic heart disease and other diseases of the circulatory system; Z87.59 Personal history of other complications of pregnancy, childbirth and the puerperium; Z90.89 Acquired absence of other organs; Z87.01 Personal history of pneumonia (recurrent)
CPT/HCPCS: 36415; 74018; 74176; 76830; 80053; 80306; 81000; 82150; 83690; 84703; 85007; 85027

== ENCOUNTER 2017-11-20 18:46 | Emergency (ER) | payer SELFPAY ==
[~2017-11-20] VITALS: Ht 152.4 cm; Wt 115.2 kg
[~2017-11-20 18:46] MED LIST changes: +MELO15TA14 PO; +NITR-65 PO
--- NOTE | 2017-11-20 19:39 | ED GU-Female ---
General Chief Complaint: Abdominal/GI Problems Stated Complaint: PELVIC PAIN Nursing Triage Note: PT REPORTS LOWER PELVIC PAIN SINCE LAST NIGHT. REPORTS HX OF PCOS. PT ALSO REPORTS BLOOD ON TISSUE WHEN SHE WIPES AFTER USING RR. Nursing Sepsis Screen: No Definite Risk Source: patient Exam Limitations: no limitations History of Present Illness Date Seen by Provider: Nov 20, 2017 Time Seen by Provider: 19:30 Initial Comments The patient presents to the ER by private conveyance with a chief complaint of 24 hours progressively worsening pain in her suprapubic and right inguinal region. She has a history of ovarian torsion that spontaneously reduced a few months ago on the right side. She also has polycystic ovarian syndrome which she describes as being a very bad variant because as many cysts on her ovaries. She is not diabetic. She had an IUD they became displaced spontaneously so she is now on Sprintec and she says she's been taking it appropriately and has not missed any doses recently. She says her pain was not bothering her since she's had cysts and pelvic pain in the past but when she wiped tonight she noticed some blood on the toilet paper from the vagina that concerned her. She has used Tylenol at 4:00 and she's been using Mobic twice a day as well as ibuprofen twice a day for chronic issues. The patient states she has a appointment coming up in the next week with Dr. ANDRADE, gynecology. Allergies and Home Medications Allergies Coded Allergies: ketorolac (Unverified Adverse Reaction, Unknown, 08/24/17) prochlorperazine (Unverified Adverse Reaction, Unknown, 08/24/17) tramadol (Unverified Adverse Reaction, Unknown, 08/24/17) Home Medications Acetaminophen with Codeine 1 Each Tablet, 1 EACH PO Q4H PRN for PAIN Prescribed by: AILYN VERGARA on 10/23/16 0735 Albuterol Sulfate 18 Gm Hfa.aer.ad, 1-2 PUFF IH PRN, (Reported) Buspirone HCl 15 Mg Tablet, 15 MG PO TID, (Reported) Cholecalciferol (Vitamin D3) 1,000 Unit Capsule, 1,000 UNIT PO BID, (Reported) Cinnamon Bark 500 Mg Capsule, 500 MG PO BID, (Reported) Cranberry Extract 500 Mg Tablet, 1,000 MG PO BID, (Reported) Diphenhydramine HCl 25 Mg Capsule, 25 MG PO BID, (Reported) Docusate Sodium 100 Mg Capsule, 100 MG PO BID PRN for CONSTIPATION Prescribed by: AILYN VERGARA on 10/23/16 0735 Hydrocodone Bit/Acetaminophen 1 Each Tablet, 1 EACH PO Q4H PRN for PAIN Prescribed by: ANGY MARTINS on 04/21/17 1100 Hydrocodone Bit/Acetaminophen 1 Each Tablet, 1 EACH PO Q6H PRN for PAIN Prescribed by: YENNIFER HAMLIN on 05/31/17 1501 Ibuprofen 600 Mg Tablet, 600 MG PO Q6H Prescribed by: AILYN VERGARA on 10/23/16 0735 Meloxicam 15 Mg Tablet, 15 MG PO DAILY Prescribed by: THOMPSON FITCH on 08/24/17 220 Nitrofurantoin Monohyd/M-Cryst 100 Mg Capsule, 100 MG PO BID Prescribed by: THOMPSON FITCH on 08/24/17 220 Ondansetron 4 Mg Tab.rapdis, 4 MG SL Q4H Prescribed by: ANGY MARTINS on 04/21/17 1100 Prazosin HCl 2 Mg Capsule, 2 MG PO HS PRN for NIGHTMARES, (Reported) Prednisone 10 Mg Tab.ds.pk, 10 MG PO UD Prescribed by: YENNIFER HAMLIN on 08/20/17 1446 Quetiapine Fumarate 100 Mg Tablet, 100 MG PO HS, (Reported) Sertraline HCl 100 Mg Tablet, 100 MG PO BID, (Reported) TAKES 1 & 1/2 (100MG) TABLET Patient Home Medication List Home Medication List Reviewed: Yes Constitutional: No chills, diaphoresis, No fever, No malaise EENTM: No ear discharge, No ear pain Respiratory: No cough, No phlegm, No short of breath Cardiovascular: No chest pain, No palpitations Gastrointestinal: see HPI, abdominal pain, nausea, No vomiting Genitourinary: denies discharge, denies dysuria : No (Sprintec) Musculoskeletal: No back pain, No joint pain Past Dfvdqik-Zmuiom-Apspbc Hx Patient Social History Alcohol Use: Denies Use Number of Drinks Today: AA Recreational Drug Use: No Smoking Status: Current Everyday Smoker Type Used: Cigarettes 2nd Hand Smoke Exposure: No Recent Foreign Travel: No Contact w/Someone Who Travel: No Recent Infectious Disease Expo: No Recent Hopitalizations: No Physical Abuse: No Sexual Abuse: No Mistreated: No Fear: No Immunizations Up To Date Tetanus Booster (TDap): Unknown Date of Influenza Vaccine: May 20, 2016 Seasonal Allergies Seasonal Allergies: Yes Surgeries History of Surgeries: Yes ( X 1 --07/2013, DENTAL l) Surgeries: Section, Tonsillectomy Respiratory History of Respiratory Disorde: Yes (Tobaccoism) Respiratory Disorders: Asthma, Pneumonia Cardiovascular History of Cardiac Disorders: No Neurological History of Neurological Disord: No Reproductive System Hx Reproductive Disorders: Yes (RETAINED IUD) Sexually Transmitted Disease: No HIV/AIDS: No Female Reproductive Disorders: Menstrual Problems, Ovarian Cyst, Polycystic Ovarian Dis 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 Genitourinary History of Genitourinary Disor: Yes Genitourinary Disorders: Bladder Infection, UTI-Chronic Gastrointestinal History of Gastrointestinal Di: Yes Gastrointestinal Disorders: Gastroesophageal Reflux, Chronic Diarrhea Musculoskeletal History of Musculoskeletal Dis: Yes Musculoskeletal Disorders: Fibromyalgia Endocrine History of Endocrine Disorders: Yes (VITAMIN D DEFICIENCY; OBESITY) HEENT History of HEENT Disorders: Yes Loss of Vision: Bilateral Hearing Impairment: Denies Cancer History of Cancer: No Psychosocial History of Psychiatric Problem: Yes (EXTENSIVE PSYCH ISSUES-PT STABLE ) Behavioral Health Disorders: ADD/ADHD, Sleep Difficulties, Anxiety, PTSD, Bipolar, Personality Disorder, Depression Suicide Risk Score: 0 Integumentary History of Skin or Integumenta: No Blood Transfusions History of Blood Disorders: No Adverse Reaction to a Blood Tr: No Family Medical History Significant Family History: Hypertension Family Medial History: Alcoholism 19 FATHER Asthma 19 MOTHER Completed stroke 19 FATHER DVT 19 FATHER Dementia 19 FATHER Diabetes mellitus 19 MOTHER FH: multiple sclerosis G8 SISTER Headache disorder G8 BROTHER Hypertension 19 FATHER 19 MOTHER Myocardial infarction 19 FATHER Seizure disorder 19 FATHER Physical Exam Vital Signs Vital Signs - First Documented 11/20/17 19:05 Temp 97.6 Pulse 98 Resp 18 B/P (MAP) 177/120 (139) Pulse Ox 97 Capillary Refill : Less Than 3 Seconds General Appearance: WD/WN, mild distress HEENT: PERRL/EOMI, pharynx normal Neck: non-tender, normal inspection Cardiovascular: normal peripheral pulses, regular rate, rhythm Respiratory: chest non-tender, lungs clear, normal breath sounds, no respiratory distress, no accessory muscle use Gastrointestinal: normal bowel sounds, soft, No guarding, No rebound, tenderness (and right lower quadrant), No mass, other (no tenderness over McBurney's point.) Back: normal inspection, no CVA tenderness, no vertebral tenderness Extremities: normal range of motion, non-tender Neurologic/Psychiatric: alert, oriented x 3 Skin: normal color, warm/dry Progress/Results/Core Measures Suspected Sepsis Recent Fever Within 48 Hours: No Infection Criteria Present: None New/Unexplained Altered Menta: No Sepsis Screen: No Definite Risk Sepsis Diagnosis: SIRS Temperature:97.6 Pulse: 98 Respiratory Rate: 18 Laboratory Tests 11/20/17 19:57: White Blood Count 11.9H Blood Pressure 177 /120 Mean: 139 Laboratory Tests 11/20/17 19:57: Creatinine 0.79, Platelet Count 294, Total Bilirubin 0.1 Results/Orders Lab Results Laboratory Tests Test 11/20/17 19:12 11/20/17 19:57 Range/Units Urine Color YELLOW Urine Clarity CLEAR Urine pH 6 5-9 Urine Specific [place] 1.025 H 1.016-1.022 Urine Protein 2+ H NEGATIVE Urine Glucose (UA) NEGATIVE NEGATIVE Urine Ketones NEGATIVE NEGATIVE Urine Nitrite NEGATIVE NEGATIVE Urine Bilirubin NEGATIVE NEGATIVE Urine Urobilinogen 1 NORMAL MG/DL Urine Leukocyte Esterase 2+ H NEGATIVE Urine RBC (Auto) 5+ H NEGATIVE Urine RBC 5-10 H /HPF Urine WBC 5-10 H /HPF Urine Squamous Epithelial Cells 10+-25 /HPF Urine Crystals NONE /LPF Urine Bacteria MODERATE H /HPF Urine Casts NONE /LPF Urine Mucus SMALL H /LPF Urine Yeast FEW H /HPF Urine Culture Indicated YES Urine Test NEGATIVE NEGATIVE White Blood Count 11.9 H 4.3-11.0 10^3/uL Red Blood Count 4.57 4.35-5.85 10^6/uL Hemoglobin 14.8 11.5-16.0 G/DL Hematocrit 43 35-52 % Mean Corpuscular Volume 93 80-99 FL Mean Corpuscular Hemoglobin 32 25-34 PG Mean Corpuscular Hemoglobin Concent 35 32-36 G/DL Red Cell Distribution Width 12.9 10.0-14.5 % Platelet Count 294 130-400 10^3/uL Mean Platelet Volume 10.4 7.4-10.4 FL Neutrophils (%) (Auto) 61 42-75 % Lymphocytes (%) (Auto) 31 12-44 % Monocytes (%) (Auto) 6 0-12 % Eosinophils (%) (Auto) 2 0-10 % Basophils (%) (Auto) 1 0-10 % Neutrophils # (Auto) 7.2 1.8-7.8 X 10^3 Lymphocytes # (Auto) 3.7 1.0-4.0 X 10^3 Monocytes # (Auto) 0.7 0.0-1.0 X 10^3 Eosinophils # (Auto) 0.2 0.0-0.3 10^3/uL Basophils # (Auto) 0.1 0.0-0.1 10^3/uL Sodium Level 141 135-145 MMOL/L Potassium Level 4.0 3.6-5.0 MMOL/L Chloride Level 110 H 98-107 MMOL/L Carbon Dioxide Level 21 21-32 MMOL/L Anion Gap 10 5-14 MMOL/L Blood Urea Nitrogen 10 7-18 MG/DL Creatinine 0.79 0.60-1.30 MG/DL Estimat Glomerular Filtration Rate > 60 BUN/Creatinine Ratio 13 Glucose Level 82 70-105 MG/DL Calcium Level 9.1 8.5-10.1 MG/DL Total Bilirubin 0.1 0.1-1.0 MG/DL Aspartate Amino Transf (AST/SGOT) 9 5-34 U/L Alanine Aminotransferase (ALT/SGPT) 9 0-55 U/L Alkaline Phosphatase 54 40-136 U/L C-Reactive Protein High Sensitivity 0.79 H 0.00-0.50 MG/DL Total Protein 6.5 6.4-8.2 GM/DL Albumin 3.8 3.2-4.5 GM/DL Lipase 39 8-78 U/L My Orders Orders - GARY LIMON Cbc With Automated Diff (11/20/17 19:36) Comprehensive Metabolic Panel (11/20/17 19:36) Hs C Reactive Protein (11/20/17 19:36) Hcg,Qualitative Urine (11/20/17 19:36) Lipase (11/20/17 19:36) Ua Culture If Indicated (11/20/17 19:36) Us Non Ob Transvaginal [id number] (11/20/17 19:36) Fentanyl Injection (Sublimaze Injection (11/20/17 19:45) Ondansetron Injection (Zofran Injectio (11/20/17 19:45) Urine Culture (11/20/17 19:12) Rx-Cephalexin Capsule (Rx-Keflex Capsule (11/20/17 20:26) Hydrocodone/Apap 5/325 Tablet (Lortab 5 (11/20/17 20:45) Medications Given in ED Current Medications Medications Dose Ordered Sig/Hina Route Start Time Stop Time Status Last Admin Dose Admin Acetaminophen/ Hydrocodone Bitart 1 tab ONCE ONCE PO 11/20/17 20:45 11/20/17 20:46 DC 11/20/17 20:54 1 TAB Fentanyl Citrate 50 mcg ONCE ONCE IVP 11/20/17 19:45 11/20/17 19:46 DC 11/20/17 19:55 50 MCG Ondansetron HCl 4 mg ONCE ONCE IVP 11/20/17 19:45 11/20/17 19:46 DC 11/20/17 19:55 4 MG Vital Signs/I&O Vital Sign - Last 12Hours 11/20/17 19:05 Temp 97.6 Pulse 98 Resp 18 B/P (MAP) 177/120 (139) Pulse Ox 97 Capillary Refill : Less Than 3 Seconds Blood Pressure Mean: 139 Progress Note : Time: 20:42 Progress Note Disorganized uterine bleeding with PCO S. We'll check a CBC and get an ultrasound for possible polyp or other concerning features. Her urine was negative and she does appear to have either a UTI or some contamination on the urinalysis. We will see anything worrisome on the ultrasound such as a tubular torsion we will treat her UTI and have her keep her follow-up appointment with Dr. ANDRADE. Diagnostic Imaging Diagonstic Imaging: Ultrasound Plain Films/CT/US/NM/MRI: pelvis (non-OB, transvaginal) Comments VIA [facility]. [place], [place] NAME: ARVIND BOWIE [facility] REC#: [id number] PT STATUS: REG ER : 1990 PHYSICIAN: GARY LIMON MD ADMIT DATE: 11/20/17/ER Draft Date of Exam:11/20/17 US NON OB TRANSVAGINAL [id number] EXAM: US NON OB TRANSVAGINAL [id number] INDICATION: Pelvic pain. COMPARISON: Pelvic ultrasound 08/24/2017. FINDINGS: The uterus is normal in echogenicity and measures 8.1 x 3.7 x 3.7 cm. Normal appearing endometrium measuring up to 0.4 cm. The right ovary measures 2.3 x 2.5 x 1.7 cm. There is normal flow by color Doppler within the right ovary. No right ovarian mass or cyst. The left ovary is not seen. No free fluid in the pelvis. IMPRESSION: The left ovary is not identified. Pelvic ultrasound is otherwise normal. Dictated on workstation # [id number] Dict: 11/20/172039 Trans: 11/20/172050 [facility] [id number] Interpreted by: JAMESON MILLIGAN MD Electronically signed by: Reviewed: Reviewed by Me Departure Impression Impression: Primary Impression: Urinary tract infection Qualified Codes: N30.01 - Acute cystitis with hematuria Additional Impression: Abnormal uterine and vaginal bleeding, unspecified Disposition: HOME, SELF-CARE Condition: Stable Departure-Patient Inst. Decision time for Depature: 20:57 Referrals: [facility] [place] (PCP/Family) Primary Care Physician Patient Instructions: Acute Cystitis (DC) Add. Discharge Instructions: You can use Tylenol 1000 mg every 8 hours for your pain. Heating pad to help. The pain from a UTI can also be treated for 2-3 days using Pyridium which is available [id number] as needed. Go to the pharmacy and chart picker the Keflex and complete the course for 7 days minimum. Follow-up with your cultural anthropology professor/primary care provider. All discharge instructions reviewed with patient and/or family. Voiced understanding. Scripts Cephalexin (Cephalexin) 500 Mg Tablet 500 MG PO BID for 6 Days, #12 TAB 0 Refills Prov: GARY LIMON 11/20/17 Copy Copies To 1: AYSHA RODRIGUEZ DO; NICKY ANDRADE TITUS J Nov 20, 2017 19:39
[2017-11-20 19:43] LABS: BILIRUBIN,URINE NEGATIVE (NEGATIVE); COLOR,URINE YELLOW; GLUCOSE, URINE (UA) NEGATIVE (NEGATIVE); KETONES,URINE NEGATIVE (NEGATIVE); LEUKOCYTE ESTERASE ,URINE 2+ (NEGATIVE); NITRITE,URINE NEGATIVE (NEGATIVE); PH,URINE 6 (5-9); PROTEIN,URINE 2+ (NEGATIVE); UROBILINOGEN,URINE 1 MG/DL (NORMAL)
[2017-11-20] MEDS ORDERED: fentaNYL INJECTION 100 MCG/2 ML AMP IVP ONE (19:45)
[2017-11-20] MEDS ORDERED: ONDANSETRON 4 MG/2 ML (SDV) Z0FRAN IVP ONE (19:45)
[2017-11-20 19:58] LABS: BACTERIA,URINE MODERATE /HPF; SQUAMOUS EPITHELIAL CELL,UR 10+-25 /HPF; YEAST,URINE FEW /HPF
[2017-11-20 20:04] LABS: BASOPHILS # (AUTO) 0.1 10^3/uL (0.0-0.1); BASOPHILS % (AUTO) 1 % (0-10); EOSINOPHILS # (AUTO) 0.2 10^3/uL (0.0-0.3); EOSINOPHILS % (AUTO) 2 % (0-10); HEMATOCRIT 43 % (35-52); HEMOGLOBIN 14.8 G/DL (11.5-16.0); LYMPHOCYTES # (AUTO) 3.7 X 10^3 (1.0-4.0); LYMPHOCYTES % (AUTO) 31 % (12-44); MEAN CORPUSCULAR HEMOGLOBIN 32 PG (25-34); MEAN CORPUSCULAR HGB CONC 35 G/DL (32-36); MEAN CORPUSCULAR VOLUME 93 FL (80-99); MEAN PLATELET VOLUME 10.4 FL (7.4-10.4); MONOCYTES # (AUTO) 0.7 X 10^3 (0.0-1.0); MONOCYTES % (AUTO) 6 % (0-12); NEUTROPHILS # (AUTO) 7.2 X 10^3 (1.8-7.8); NEUTROPHILS % (AUTO) 61 % (42-75); PLATELET COUNT 294 10^3/uL (130-400); RED BLOOD COUNT 4.57 10^6/uL (4.35-5.85); RED CELL DISTRIBUTION WIDTH 12.9 % (10.0-14.5); WHITE BLOOD COUNT 11.9 10^3/uL (4.3-11.0)
[2017-11-20 20:14] LABS: CLARITY,URINE CLEAR
[2017-11-20] MEDS ORDERED: RX-CEPHALEXIN (KEFLEX) 250 MG CAP PPK#4 PO STA (20:26)
[2017-11-20 20:27] LABS: ALANINE AMINOTRANSFERASE 9 U/L (0-55); ALBUMIN 3.8 GM/DL (3.2-4.5); ALKALINE PHOSPHATASE 54 U/L (40-136); BILIRUBIN,TOTAL 0.1 MG/DL (0.1-1.0); BUN/CREATININE RATIO 13; CALCIUM 9.1 MG/DL (8.5-10.1); CARBON DIOXIDE 21 MMOL/L (21-32); CHLORIDE 110 MMOL/L (98-107); CREATININE SERUM 0.79 MG/DL (0.60-1.30); GFR ESTIMATED > 60; GLUCOSE 82 MG/DL (70-105); LIPASE 39 U/L (8-78); SODIUM 141 MMOL/L (135-145); TOTAL PROTEIN 6.5 GM/DL (6.4-8.2)
[2017-11-20] MEDS ORDERED: HYDROcodone/APAP 5 MG/325 MG (LORTAB) TAB PO ONE (20:45)
--- NOTE | 2017-11-20 20:52 | Diagnostic Imaging Report ---
EXAM: US NON OB TRANSVAGINAL [id number] INDICATION: Pelvic pain. COMPARISON: Pelvic ultrasound 08/24/2017. FINDINGS: The uterus is normal in echogenicity and measures 8.1 x 3.7 x 3.7 cm. Normal appearing endometrium measuring up to 0.4 cm. The right ovary measures 2.3 x 2.5 x 1.7 cm. There is normal flow by color Doppler within the right ovary. No right ovarian mass or cyst. The left ovary is not seen. No free fluid in the pelvis. IMPRESSION: The left ovary is not identified. Pelvic ultrasound is otherwise normal. Dictated by: Dictated on workstation # [id number]
[2017-11-20] MEDS ORDERED: CEPH500T PO (20:58)
[2017-11-20 21:08] VITALS: BP 162/91
== END 2017-11-20 21:08 | disposition home or self-care (01) ==
LOC: EDUNIT# 18:46 → ER 18:47
DX: N39.0 Urinary tract infection, site not specified (principal); N93.9 Abnormal uterine and vaginal bleeding, unspecified; J45.909 Unspecified asthma, uncomplicated; F90.9 Attention-deficit hyperactivity disorder, unspecified type; F41.9 Anxiety disorder, unspecified; F43.10 Post-traumatic stress disorder, unspecified; F31.9 Bipolar disorder, unspecified; K21.9 Gastro-esophageal reflux disease without esophagitis; F17.210 Nicotine dependence, cigarettes, uncomplicated; Z87.448 Personal history of other diseases of urinary system; Z82.49 Family history of ischemic heart disease and other diseases of the circulatory system; Z87.19 Personal history of other diseases of the digestive system; Z87.01 Personal history of pneumonia (recurrent); Z87.59 Personal history of other complications of pregnancy, childbirth and the puerperium; Z90.89 Acquired absence of other organs; Z97.5 Presence of (intrauterine) contraceptive device; Z88.6 Allergy status to analgesic agent; Z88.8 Allergy status to other drugs, medicaments and biological substances; Z79.51 Long term (current) use of inhaled steroids; Z79.52 Long term (current) use of systemic steroids
CPT/HCPCS: 36415; 76830; 80053; 81000; 83690; 84703; 85025; 86141; 87088; 96374; 96375

== ENCOUNTER → 2017-12-25 | Outpatient (CLI) | payer SELFPAY ==
[~2017-12-25] MED LIST changes: +CEPH500T PO; +OXYC-197 PO; +PHEN-640 PO
--- NOTE | 2017-12-25 10:25 | Diagnostic Imaging Report ---
PROCEDURE: MRI lumbar spine. TECHNIQUE: Multiplanar, multisequence MRI of the lumbar spine was performed without contrast. Chronic back pain, right leg numbness. There are no prior studies available for comparison. The T2 sagittal images show the vertebral body heights and alignment to be within normal limits. The intervertebral spaces are fairly well-maintained. The thecal sac is generous. There is no evidence for spinal stenosis or nerve encroachment at any level. There is a small 4 mm cyst in the posterolateral recess on the right at L5-S1. This may represent small perineural cyst. This finding is unlikely to be clinically significant. There is no abnormal signal arising from the osseous structures to suggest bone edema or fracture. There is no sign of a cord lesion either. There is no paraspinal mass visualized. IMPRESSION: 1. There is no evidence for spinal stenosis or nerve encroachment at any level. 2. There is no sign of acute bony abnormality or of a cord lesion. Dictated by: Dictated on workstation # [id number]
== END ==
LOC: RAD 08:35
PROVIDERS: ATTEND Nurse Practitioner Community Health
DX: M54.41 Lumbago with sciatica, right side (principal)
CPT/HCPCS: 72148

== ENCOUNTER 2018-01-06 18:29 | Emergency (ER) | payer SELFPAY ==
[~2018-01-06] VITALS: Ht 152.4 cm; Wt 112.5 kg
[~2018-01-06 18:29] MED LIST changes: -OXYC-197 PO; -PHEN-640 PO
[2018-01-06 20:08] LABS: BASOPHILS % (AUTO) 0 % (0-10); EOSINOPHILS # (AUTO) 0.2 10^3/uL (0.0-0.3); EOSINOPHILS % (AUTO) 3 % (0-10); HEMATOCRIT 46 % (35-52); HEMOGLOBIN 16.2 G/DL (11.5-16.0); LYMPHOCYTES # (AUTO) 2.9 X 10^3 (1.0-4.0); LYMPHOCYTES % (AUTO) 39 % (12-44); MEAN CORPUSCULAR HEMOGLOBIN 32 PG (25-34); MEAN CORPUSCULAR HGB CONC 35 G/DL (32-36); MEAN CORPUSCULAR VOLUME 92 FL (80-99); MEAN PLATELET VOLUME 10.2 FL (7.4-10.4); MONOCYTES # (AUTO) 0.5 X 10^3 (0.0-1.0); MONOCYTES % (AUTO) 7 % (0-12); NEUTROPHILS # (AUTO) 3.7 X 10^3 (1.8-7.8); NEUTROPHILS % (AUTO) 51 % (42-75); PLATELET COUNT 321 10^3/uL (130-400); RED BLOOD COUNT 5.07 10^6/uL (4.35-5.85); WHITE BLOOD COUNT 7.4 10^3/uL (4.3-11.0)
[2018-01-06 20:25] LABS: ALANINE AMINOTRANSFERASE 24 U/L (0-55); ALBUMIN 4.1 GM/DL (3.2-4.5); ALKALINE PHOSPHATASE 67 U/L (40-136); BILIRUBIN,TOTAL 0.3 MG/DL (0.1-1.0); BUN/CREATININE RATIO 8; CALCIUM 9.3 MG/DL (8.5-10.1); CARBON DIOXIDE 25 MMOL/L (21-32); CHLORIDE 106 MMOL/L (98-107); CREATININE SERUM 0.76 MG/DL (0.60-1.30); GFR ESTIMATED > 60; GLUCOSE 80 MG/DL (70-105); POTASSIUM 4.3 MMOL/L (3.6-5.0); SODIUM 140 MMOL/L (135-145); TOTAL PROTEIN 6.9 GM/DL (6.4-8.2)
--- NOTE | 2018-01-06 21:15 | ED GU-Female ---
General Chief Complaint: -Female Stated Complaint: PELVIC PAIN,PASSING BLOOD CLOTS Nursing Triage Note: PATIENT STATES THAT SHE HAS PCOS AND HAS IRREGAULR PERIODS, HOWEVER SHE STARTED BLEEDING HEAVILY YESTERDAY AND PASSING THICK BLOOD CLOTS. SHE STATES THAT YESTERDAY SHE "FELT A POP" ON HER LEFT SIDE AND HAS BEEN IN PAIN EVER SINCE. Nursing Sepsis Screen: No Definite Risk Source: patient, family Exam Limitations: no limitations History of Present Illness Date Seen by Provider: January 06, 2018 Time Seen by Provider: 21:15 Allergies and Home Medications Allergies Coded Allergies: ketorolac (Unverified Adverse Reaction, Unknown, 08/24/17) prochlorperazine (Unverified Adverse Reaction, Unknown, 08/24/17) tramadol (Unverified Adverse Reaction, Unknown, 08/24/17) Home Medications Acetaminophen with Codeine 1 Each Tablet, 1 EACH PO Q4H PRN for PAIN Prescribed by: AILYN VERGARA on 10/23/16 0735 Albuterol Sulfate 18 Gm Hfa.aer.ad, 1-2 PUFF IH PRN, (Reported) Buspirone HCl 15 Mg Tablet, 15 MG PO TID, (Reported) Cephalexin 500 Mg Tablet, 500 MG PO BID Prescribed by: GARY LIMON on 11/20/172057 Cholecalciferol (Vitamin D3) 1,000 Unit Capsule, 1,000 UNIT PO BID, (Reported) Cinnamon Bark 500 Mg Capsule, 500 MG PO BID, (Reported) Cranberry Extract 500 Mg Tablet, 1,000 MG PO BID, (Reported) Diphenhydramine HCl 25 Mg Capsule, 25 MG PO BID, (Reported) Docusate Sodium 100 Mg Capsule, 100 MG PO BID PRN for CONSTIPATION Prescribed by: AILYN VERGARA on 10/23/16 0735 Hydrocodone Bit/Acetaminophen 1 Each Tablet, 1 EACH PO Q4H PRN for PAIN Prescribed by: ANGY MARTINS on 04/21/17 1100 Hydrocodone Bit/Acetaminophen 1 Each Tablet, 1 EACH PO Q6H PRN for PAIN Prescribed by: YENNIFER HAMLIN on 05/31/17 1501 Ibuprofen 600 Mg Tablet, 600 MG PO Q6H Prescribed by: AILYN VERGARA on 10/23/16 0735 Meloxicam 15 Mg Tablet, 15 MG PO DAILY Prescribed by: THOMPSON FITCH on 08/24/172205 Nitrofurantoin Monohyd/M-Cryst 100 Mg Capsule, 100 MG PO BID Prescribed by: THOMPSON FITCH on 08/24/172205 Ondansetron 4 Mg Tab.rapdis, 4 MG SL Q4H Prescribed by: ANGY MARTINS on 04/21/17 1100 Prazosin HCl 2 Mg Capsule, 2 MG PO HS PRN for NIGHTMARES, (Reported) Prednisone 10 Mg Tab.ds.pk, 10 MG PO UD Prescribed by: YENNIFER HAMLIN on 08/20/17 1446 Quetiapine Fumarate 100 Mg Tablet, 100 MG PO HS, (Reported) Sertraline HCl 100 Mg Tablet, 100 MG PO BID, (Reported) TAKES 1 & 1/2 (100MG) TABLET Past Wqjqdpo-Fyhdow-Bbdyxu Hx Patient Social History Type Used: Cigarettes 2nd Hand Smoke Exposure: No Recent Foreign Travel: No Contact w/Someone Who Travel: No Recent Infectious Disease Expo: No Recent Hopitalizations: No Immunizations Up To Date Tetanus Booster (TDap): Unknown Date of Influenza Vaccine: May 20, 2016 Seasonal Allergies Seasonal Allergies: Yes Past Medical History Surgeries: Yes ( X --07/2013, DENTAL l) Section, Tonsillectomy Respiratory: Yes (Tobaccoism) Asthma, Pneumonia Cardiac: No Neurological: No Reproductive Disorders: Yes (RETAINED IUD) Female Reproductive Disorders: Menstrual Problems, Ovarian Cyst, Polycystic 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 Dis 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 Sexually Transmitted Disease: No HIV/AIDS: No Genitourinary: Yes Bladder Infection, UTI-Chronic Gastrointestinal: Yes Gastroesophageal Reflux, Chronic Diarrhea Musculoskeletal: Yes Fibromyalgia Endocrine: Yes (VITAMIN D DEFICIENCY; OBESITY) HEENT: Yes Loss of Vision: Bilateral Hearing Impairment: Denies Cancer: No Psychosocial: Yes (EXTENSIVE PSYCH ISSUES-PT STABLE ) ADD/ADHD, Sleep Difficulties, Anxiety, PTSD, Bipolar, Personality Disorder, Depression Integumentary: No Blood Disorders: No Adverse Reaction/Blood Tranf: No Family Medical History Alcoholism 19 FATHER Asthma 19 MOTHER Completed stroke 19 FATHER DVT 19 FATHER Dementia 19 FATHER Diabetes mellitus 19 MOTHER FH: multiple sclerosis G8 SISTER Headache disorder G8 BROTHER Hypertension 19 FATHER 19 MOTHER Myocardial infarction 19 FATHER Seizure disorder 19 FATHER Hypertension Physical Exam Vital Signs Vital Signs - First Documented 01/06/18 19:34 Temp 98.5 Pulse 85 Resp 18 B/P (MAP) 114/91 (99) Pulse Ox 98 Capillary Refill : Less Than 3 Seconds Progress/Results/Core Measures Suspected Sepsis Recent Fever Within 48 Hours: No Infection Criteria Present: None New/Unexplained Altered Menta: No Sepsis Screen: No Definite Risk SIRS Temperature:98.5 Pulse: 85 Respiratory Rate: 18 Laboratory Tests 01/06/18 20:00: White Blood Count 7.4 Blood Pressure 114 /91 Mean: 99 Laboratory Tests 01/06/18 20:00: Creatinine 0.76, Platelet Count 321, Total Bilirubin 0.3 Results/Orders Lab Results Laboratory Tests Test 01/06/18 19:40 01/06/18 20:00 Range/Units Urine Color RED H Urine Clarity SLIGHTLY CLOUDY Urine pH 7 5-9 Urine Specific [place] 1.005 L 1.016-1.022 Urine Protein 2+ H NEGATIVE Urine Glucose (UA) NEGATIVE NEGATIVE Urine Ketones NEGATIVE NEGATIVE Urine Nitrite NEGATIVE NEGATIVE Urine Bilirubin NEGATIVE NEGATIVE Urine Urobilinogen NORMAL NORMAL MG/DL Urine Leukocyte Esterase 1+ H NEGATIVE Urine RBC (Auto) 5+ H NEGATIVE Urine RBC >100 H /HPF Urine WBC 2-5 /HPF Urine Squamous Epithelial Cells 10-25 H /HPF Urine Crystals NONE /LPF Urine Bacteria TRACE /HPF Urine Casts NONE /LPF Urine Mucus NEGATIVE /LPF Urine Culture Indicated NO White Blood Count 7.4 4.3-11.0 10^3/uL Red Blood Count 5.07 4.35-5.85 10^6/uL Hemoglobin 16.2 H 11.5-16.0 G/DL Hematocrit 46 35-52 % Mean Corpuscular Volume 92 80-99 FL Mean Corpuscular Hemoglobin 32 25-34 PG Mean Corpuscular Hemoglobin Concent 35 32-36 G/DL Red Cell Distribution Width 13.0 10.0-14.5 % Platelet Count 321 130-400 10^3/uL Mean Platelet Volume 10.2 7.4-10.4 FL Neutrophils (%) (Auto) 51 42-75 % Lymphocytes (%) (Auto) 39 12-44 % Monocytes (%) (Auto) 7 0-12 % Eosinophils (%) (Auto) 3 0-10 % Basophils (%) (Auto) 0 0-10 % Neutrophils # (Auto) 3.7 1.8-7.8 X 10^3 Lymphocytes # (Auto) 2.9 1.0-4.0 X 10^3 Monocytes # (Auto) 0.5 0.0-1.0 X 10^3 Eosinophils # (Auto) 0.2 0.0-0.3 10^3/uL Basophils # (Auto) 0.0 0.0-0.1 10^3/uL Sodium Level 140 135-145 MMOL/L Potassium Level 4.3 3.6-5.0 MMOL/L Chloride Level 106 98-107 MMOL/L Carbon Dioxide Level 25 21-32 MMOL/L Anion Gap 9 5-14 MMOL/L Blood Urea Nitrogen 6 L 7-18 MG/DL Creatinine 0.76 0.60-1.30 MG/DL Estimat Glomerular Filtration Rate > 60 BUN/Creatinine Ratio 8 Glucose Level 80 70-105 MG/DL Calcium Level 9.3 8.5-10.1 MG/DL Total Bilirubin 0.3 0.1-1.0 MG/DL Aspartate Amino Transf (AST/SGOT) 22 5-34 U/L Alanine Aminotransferase (ALT/SGPT) 24 0-55 U/L Alkaline Phosphatase 67 40-136 U/L C-Reactive Protein High Sensitivity 0.50 0.00-0.50 MG/DL Total Protein 6.9 6.4-8.2 GM/DL Albumin 4.1 3.2-4.5 GM/DL Serum Test, Qualitative NEGATIVE NEGATIVE My Orders Orders - MARIA C SWARTZ Cbc With Automated Diff (01/06/18 19:46) Comprehensive Metabolic Panel (01/06/18 19:46) Hs C Reactive Protein (01/06/18 19:46) Hcg,Qualitative Serum (01/06/18 19:46) Saline Lock/Iv-Start (01/06/18 19:46) Ua Culture If Indicated (01/06/18 21:57) Us Non Ob Pelvis Comp/Transvag (01/06/18 21:23) Morphine Injection (Morphine Injection (01/06/18 22:22) Ns Iv 1000 Ml (Sodium Chloride 0.9%) (01/06/18 22:25) Rx-Hydrocodone/Apap 5-325 Mg (Rx-Vicodin (01/06/18 23:45) Medications Given in ED Current Medications Medications Dose Ordered Sig/Hina Route Start Time Stop Time Status Last Admin Dose Admin Sodium Chloride 1,000 ml @ 0 mls/hr Q0M ONCE IV 01/06/18 22:25 01/06/18 22:26 DC 01/06/18 22:45 0 MLS/HR Vital Signs/I&O 01/06/18 19:34 Temp 98.5 Pulse 85 Resp 18 B/P (MAP) 114/91 (99) Pulse Ox 98 Capillary Refill : Less Than 3 Seconds Blood Pressure Mean: 99 Point of Care Testing Urine -Bedside: Negative Departure Communication (Admissions) 2320d/w dr aguiar Impression Primary Impression: Menorrhagia with irregular cycle Additional Impression: History of PCOS Disposition: HOME, SELF-CARE Condition: Improved Departure-Patient Inst. Decision time for Depature: 23:28 Referrals: APRIL AMBROSE (PCP) Primary Care Physician JOSEPHINE AGUIAR DO Patient Instructions: Acute Abdomen (Belly Pain), Adult (DC) Add. Discharge Instructions: All discharge instructions reviewed with patient and/or family. Voiced understanding. Ibuprofen 800 mg by mouth every 8 hours as needed for pain. Tylenol extra strength [id number] as directed for pain. Follow-up with Dr. Aguiar as an outpatient for recheck. Call Sunday for appointment time. Return to the emergency department for worsened symptoms or any other concerns. MARIA C SWARTZ January 06, 2018 21:15
[2018-01-06 22:03] LABS: BILIRUBIN,URINE NEGATIVE (NEGATIVE); CLARITY,URINE SLIGHTLY CLOUDY; COLOR,URINE RED; GLUCOSE, URINE (UA) NEGATIVE (NEGATIVE); KETONES,URINE NEGATIVE (NEGATIVE); LEUKOCYTE ESTERASE ,URINE 1+ (NEGATIVE); NITRITE,URINE NEGATIVE (NEGATIVE); PH,URINE 7 (5-9); PROTEIN,URINE 2+ (NEGATIVE); UROBILINOGEN,URINE NORMAL (NORMAL)
[2018-01-06 22:10] LABS: RBC,URINE >100 /HPF
[2018-01-06 22:11] LABS: BACTERIA,URINE TRACE /HPF
[2018-01-06] MEDS ORDERED: morphine INJ 10 MG/ML 1ML (SYR OR VIAL) IVP STA (22:22)
[2018-01-06] MEDS ORDERED: NS IV 1000 ML 1,000 ML IV ONE (22:25)
[2018-01-06] MEDS ORDERED: RX-HYDROCODONE/APAP 5/325 MG #4 TAB PK PO PRN (23:45)
[2018-01-06 23:48] VITALS: BP 114/91
--- NOTE | 2018-01-07 07:07 | Diagnostic Imaging Report ---
Indication: Pelvic pain. Comparison: None. Findings: Transabdominal images are limited. The uterus measures about 7.4 cm x 3.8 cm x 3.5 cm and appears unremarkable. Endometrium measures about 6 mm in thickness. The right ovary measures 2.9 cm x 2.8 cm x 1.8 cm and appears unremarkable. Doppler imaging demonstrates normal blood flow to the right ovary. The left ovary measures 3.1 cm x 2.5 cm x 1.5 cm and appears unremarkable. Blood flow was not detected to the left ovary however this is probably technical. There is no free fluid. Impression: 1. No acute findings are seen in the pelvis. 2. Blood flow is not detected to the left ovary however this is probably technical. The left ovary appears unremarkable and there are no secondary signs of torsion. Agree with [facility] interpretation. Dictated by: Dictated on workstation # [id number]
--- OUTSIDE RECORDS SUMMARY | 2018-01-07 16:45 | XMS REPORT ---
Author Author CARMELO ALTMAN [facility] Address [address] [place] [address] Care Team Providers Care Refrigeration Houseman Name Role Phone CARMELO ALTMAN Unavailable PROBLEMS Type Condition ICD9-CM Code DTV75-FD Code Onset Dates Condition Status SNOMED Code Problem Borderline personality disorder F60.3 Active 38025123 Problem Morbid obesity due to excess calories E66.01 Active 151177642 Problem PCOS (polycystic ovarian syndrome) E28.2 Active 47454941 Problem Severe episode of recurrent major depressive disorder, without psychotic features F33.2 Active 72024167 Problem Mild intermittent asthma without complication J45.20 Active 065499822 Problem Reflux gastritis K29.60 Active 94680034 Problem Panic disorder F41.0 Active 940592227 Problem Mood disorder F39 Active 17755443 Problem Vitamin D deficiency E55.9 Active 77789430 Problem Fibromyalgia M79.7 Active 011585991 Problem Chondromalacia patellae, 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 Active 43228364869517756 Problem Sleep disturbance G47.9 Active 43340284 ALLERGIES Substance Reaction Event Type Date Status Compazine Unknown Drug Allergy Apr, Active Triaminic Cold Unknown Drug Allergy Apr, Active Tramadol HCl Unknown Drug Allergy Apr, Active Ketorolac Tromethamine Unknown Drug Allergy Apr, Active [place] Dye in medications Unknown Non Drug Allergy Apr, Active ENCOUNTERS Encounter Location Date Diagnosis [facility] [address] [facility] [id number] [address] Jan, [facility] [address] [facility] [id number] [address] December, [facility] [address] [id number] [address] December, [facility] [id number] [place] [address]374- 3568 Nov, [place] [id number] [place] [address]50- 0633 Nov, Borderline personality disorder F60.3 ; Panic disorder F41.0 ; Mood disorder F39 and BMI 45.0-49.9, adult Z68.42 [place] [id number] [place] [address]- [address] Nov, [place] [address] [address]- [address] Nov, [place] [id number] [place] [address] 90737- 4226 Nov, [place] [address] 20[address]- 1029 Nov, BMI 50.0-59.9, adult Z68.43 and URI, acute J06.9 [place] [id number] [place] [address] 90445- 1945 Nov, Chondromalacia patellae, 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 and Pain in right knee M25.561 [place] [id number] [place] [address] 41393- 6000 Oct, BMI 50.0-59.9, adult Z68.43 ; Pelvic pain R10.2 and Fibromyalgia M79.7 [place] [id number] [place] [address] 47141- 3039 Oct, Borderline personality disorder F60.3 ; Panic disorder F41.0 and Mood disorder F39 [place] [id number] [place] [address] 75194- 5702 Oct, PCOS (polycystic ovarian syndrome) E28.2 [place] [id number] [place] [address] 53627- 8143 Oct, Annual physical exam Z00.00 ; PCOS (polycystic ovarian syndrome) E28.2 ; Vitamin D deficiency E55.9 ; Mild intermittent asthma without complication J45.20 ; Sleep disturbance G47.9 and BMI 45.0-49.9, adult Z68.42 [place] [address] [address]48- 9664 Sep, Attention deficit hyperactivity disorder (ADHD), other type F90.8 ; Borderline personality disorder F60.3 and Pilonidal cyst with abscess L05.01 [place] [address] 62667- 2703 Sep, [place] [address] 26694- 0285 Sep, Pain in right knee M25.561 [place] [address] 53513- 3656 Aug, Bronchitis J40 ; Other chronic pain G89.29 ; Pain in right knee M25.561 and Fibromyalgia M79.7 [place] [address] 22569- 9616 Aug, [place] [address] 16307- 8234 Aug, [place] [address] 75471- 3143 Aug, Pilonidal cyst with abscess L05.01 [place] [address] 43326- 1774 Aug, [place] [address] 43211- 9143 Aug, BMI 45.0-49.9, adult Z68.42 and Acute nasopharyngitis J00 [place] [address] 71850- 7529 Jul, [place] [address] 19343- 5235 Jul, Pilonidal abscess L05.01 and BMI 45.0-49.9, adult Z68.42 [place] [id number] [place] [address] 90648- 1510 Jul, [place] [id number] [place] [address] 01500- 7055 Jul, Body aches R52 and Acute nasopharyngitis (common cold) J00 [place] [address] 55271- 6369 May, Other viral agents as the cause of diseases classified elsewhere B97.89 and Acute upper respiratory infection, unspecified J06.9 [place] [id number] [place] [address] 72646- 8545 Apr, Jaw pain R68.84 [place] [id number] [place] [address] 52847- 0725 Apr, Mild intermittent asthma with acute exacerbation J45.21 [place] [id number] [place] [address] 52293- 9508 Mar, Mild intermittent asthma without complication J45.20 [facility] [id number] [place] [address] [id number] Mar, Dental caries K02.9 [facility] [address] [id number] Mar, Dental examination Z01.20 [place] [id number] [place] [address] 44753- 2354 Feb, Jaw pain R68.84 [place] [id number] [place] [address] 19543- 0075 Feb, Morbid obesity due to excess calories E66.01 and Jaw pain R68.84 [place] [id number] [place] [address] 64672- 7947 Jan, Attention deficit hyperactivity disorder (ADHD), other type F90.8 and Morbid obesity due to excess calories E66.01 [place] [id number] [place] [address] 65380- 6108 Jan, Severe episode of recurrent major depressive disorder, without psychotic features F33.2 and Borderline personality disorder F60.3 [place] [id number] [place] [address] 12973- 9881 December, [facility] [id number] [place] [address] 17481- 2460 Nov, Severe episode of recurrent major depressive disorder, without psychotic features F33.2 and Borderline personality disorder F60.3 [place] [id number] [place] [address] 93236- 3165 Nov, Thrush B37.0 and Rash R21 [place] [id number] [place] [address] 93436- 3125 Nov, [place] [id number] [place] [address] 65723- 8944 Nov, Acute bronchitis, unspecified J20.9 and Right otitis media with effusion H65.91 [place] [id number] [place] [address] 09358- 3074 Sep, Pelvic pain R10.2 [place] [id number] [place] [address] 61218- 2092 Sep, Loose stools R19.5 ; Mild intermittent asthma without complication J45.20 ; Non morbid obesity due to excess calories E66.09 and Screening for diabetes mellitus (DM) Z13.1 [place] [address] [place] [address] 51091- 7237 Aug, [place] [id number] [place] [address] 42445- 7914 Aug, PCOS (polycystic ovarian syndrome) E28.2 [place] [id number] [place] [address] 34532- 0357 Aug, Severe episode of recurrent major depressive disorder, without psychotic features F33.2 and Borderline personality disorder F60.3 [place] [address] [id number] [address] 10 Aug, 2016 PCOS (polycystic ovarian syndrome) E28.2 [place] [address] [facility] [id number], [place] [address] Jul, Severe episode of recurrent major depressive disorder, without psychotic features F33.2 and Borderline personality disorder F60.3 [place] [address] [facility] [id number], [place] [address] Jun, Severe episode of recurrent major depressive disorder, without psychotic features F33.2 ; Mild intermittent asthma without complication J45.20 and Reflux gastritis K29.60 IMMUNIZATIONS No Known Immunizations SOCIAL HISTORY Never Assessed REASON FOR VISIT Respiratory c/o/Cough---DBennettRN, started with rash in right groin, then became hoarse, cough, congestion, and chest tightness x 2 days, yellow sputum, denies fever, h/o asthma, out of advair, albuterol for nebulizer, and very low on combivent PLAN OF CARE Activity Details Follow Up if not improving with PCP or reg follow up Reason: VITAL SIGNS Height 60 in 2017-04-25 Weight 240 lbs 2017-04-25 Temperature 98.1 degrees Fahrenheit 2017-04-25 Heart Rate 100 bpm 2017-04-25 Respiratory Rate 20 2017-04-25 BMI 46.87 kg/m2 2017-04-25 Blood pressure systolic 120 mmHg 2017-04-25 Blood pressure diastolic 72 mmHg 2017-04-25 MEDICATIONS Medication Instructions Dosage Frequency Start Date End Date Duration Status Albuterol Sulfate (2.5 MG/3ML) 0.083% Inhalation Three times a day 3 ml 8h Apr, Active Benadryl Allergy 25 MG Orally 2 times a day 12h Active PredniSONE 20 mg Orally Once a day 1 tablet 24h Apr, Apr, 07 days Active Albuterol Sulfate HFA 108 (90 Base) MCG/ACT Inhalation 4 times a day 2 puffs as needed 6h Active Cinnamon 500 MG Orally 2 times a day 1 tablet 12h Active Topiramate 50 mg Orally Twice a day 1 tablet 12h 12 Jan, 2017 Active BusPIRone HCl 15 MG Orally 3 times a day 1 tablet 8h Active Cranberry Active Prazosin HCl 1 MG Orally Once a day 1 capsule at bedtime 24h Active Trintellix 20 mg Orally Once a day 1 tablet 24h December, Active Doxycycline Hyclate 100 mg Orally every 12 hrs 1 capsule 12h Apr, Apr, 10 days Active Vitamin D 1000 UNIT Orally twice a day 1 tablet 12h Active Combivent Respimat 20-100 MCG/ACT Inhalation Once a day 1 puff 24h 13 Sep, 2016 Active Ortho Tri-Cyclen (28) Active RESULTS No Results PROCEDURES No Known procedures INSTRUCTIONS MEDICATIONS ADMINISTERED No Known Medications MEDICAL (GENERAL) HISTORY Type Description Date Medical History Bipolar Disorder Medical History ADHD Medical History Fibromyalgia Medical History Asthma Medical History Anxiety/Depression Medical History Borderline Personality Disorder Medical History Acid Reflux Medical History Vitamin D Deficient Medical History PCOS Medical History Mild intermittent asthma with acute exacerbation Medical History Mild intermittent asthma with acute exacerbation Surgical History tonsillectomy Surgical History wisdom teeth extraction Surgical History section Surgical History IUD removal Hospitalization History 72 Hour Holds (Suicidal Ideation) x5 4467-6436 Hospitalization History [facility] Cysts on Ovaries 07/2016
--- OUTSIDE RECORDS SUMMARY | 2018-01-07 16:46 | XMS REPORT ---
Author Author APRIL AMBROSE Organization [facility] Address [address] [place] [address] Care Team Providers Care Electronics System Mechanic Name Role Phone APRIL AMBROSE Unavailable PROBLEMS Type Condition ICD9-CM Code RVT50-LB Code Onset Dates Condition Status SNOMED Code Problem Reflux gastritis K29.60 Active 82034549 Problem PCOS (polycystic ovarian syndrome) E28.2 Active 77880883 Problem Borderline personality disorder F60.3 Active 10019683 Problem Severe episode of recurrent major depressive disorder, without psychotic features F33.2 Active 69226776 Problem Mild intermittent asthma without complication J45.20 Active 032896717 Problem Mood disorder F39 Active 95536970 Problem Panic disorder F41.0 Active 680103530 Problem Fibromyalgia M79.7 Active 450751847 Problem Morbid obesity due to excess calories E66.01 Active 228604393 Problem Vitamin D deficiency E55.9 Active 21321113 Problem Sleep disturbance G47.9 Active 52617920 ALLERGIES No Information ENCOUNTERS Encounter Location Date Diagnosis [facility] [id number] [place] [address] 42267- 2489 December, [facility] [id number] [place] [address] 40998- 9247 Nov, [facility] [id number] [place] [address] 32173- 6879 Nov, [facility] [address] 45902- 8110 Oct, BMI 50.0-59.9, adult Z68.43 ; Pelvic pain R10.2 and Fibromyalgia M79.7 [facility] [id number] [place] [address] 18891- 9201 Oct, Borderline personality disorder F60.3 ; Panic disorder F41.0 and Mood disorder F39 [place] [id number] [place] [address] 53061- 6831 Oct, PCOS (polycystic ovarian syndrome) E28.2 [place] [address] 8[address]15- 1273 Oct, Annual physical exam Z00.00 ; PCOS (polycystic ovarian syndrome) E28.2 ; Vitamin D deficiency E55.9 ; Mild intermittent asthma without complication J45.20 ; Sleep disturbance G47.9 and BMI 45.0-49.9, adult Z68.42 [place] [address] 49070- 5349 Sep, Attention deficit hyperactivity disorder (ADHD), other type F90.8 ; Borderline personality disorder F60.3 and Pilonidal cyst with abscess L05.01 [place] [address] 88961- 7784 Sep, [place] [address] 37578- 6479 Sep, Pain in right knee M25.561 [place] [address] 03837- 9844 Aug, Bronchitis J40 ; Other chronic pain G89.29 ; Pain in right knee M25.561 and Fibromyalgia M79.7 [place] [id number] [place] [address] 44307- 2824 Aug, [place] [address] 92244- 8418 Aug, [place] [address] 61738- 2202 Aug, Pilonidal cyst with abscess L05.01 [place] [address] 42143- 3317 Aug, [place] [address] 78544- 3754 Aug, BMI 45.0-49.9, adult Z68.42 and Acute nasopharyngitis J00 [place] [id number] [place] [address] 27718- 6522 Jul, [place] [address] 64908- 1521 Jul, Pilonidal abscess L05.01 and BMI 45.0-49.9, adult Z68.42 [place] [address] 08545- 4947 Jul, [place] [address] 81494- 0099 Jul, Body aches R52 and Acute nasopharyngitis (common cold) J00 [place] [id number] [place] [address] 67626- 5925 May, Other viral agents as the cause of diseases classified elsewhere B97.89 and Acute upper respiratory infection, unspecified J06.9 [place] [id number] [place] [address] 35458- 1499 Apr, Jaw pain R68.84 [place] [address] 43981- 1766 Apr, Mild intermittent asthma with acute exacerbation J45.21 [place] [id number] [place] [address] 09161- 8826 Mar, Mild intermittent asthma without complication J45.20 [facility] [id number] [place] [address] [id number] Mar, Dental caries K02.9 [facility] [address] [id number] Mar, Dental examination Z01.20 [place] [id number] [place] [address] 78012- 1798 Feb, Jaw pain R68.84 [place] [address] 70275- 9049 Feb, Morbid obesity due to excess calories E66.01 and Jaw pain R68.84 [place] [address] [id number]- 9878 Jan, Attention deficit hyperactivity disorder (ADHD), other type F90.8 and Morbid obesity due to excess calories E66.01 [place] [address] 38329- 6824 Jan, Severe episode of recurrent major depressive disorder, without psychotic features F33.2 and Borderline personality disorder F60.3 [place] [address] 41833- 6725 December, [place] [address] 10248- 5713 Nov, Severe episode of recurrent major depressive disorder, without psychotic features F33.2 and Borderline personality disorder F60.3 [place] [address] 67485- 2627 Nov, Thrush B37.0 and Rash R21 [address] 55328- 8007 Nov, [place] [address] 67492- 7809 Nov, Acute bronchitis, unspecified J20.9 and Right otitis media with effusion H65.91 [place] [address] 45308- 8857 Sep, Pelvic pain R10.[address] 10431- 8378 Sep, Loose stools R19.5 ; Mild intermittent asthma without complication J45.20 ; Non morbid obesity due to excess calories E66.09 and Screening for diabetes mellitus (DM) Z13.[address] 93659- 4757 Aug, [place] [address] [id number] [address]- 6712 Aug, PCOS (polycystic ovarian syndrome) E28.2 [place] [address] [address]- 5[address] 17 Aug, 2016 Severe episode of recurrent major depressive disorder, without psychotic features F33.2 and Borderline personality disorder F60.3 [place] [address] [place] [address] 14189- 2497 10 Aug, 2016 PCOS (polycystic ovarian syndrome) E28.2 [place] [address] [address]- 6272 Jul, Severe episode of recurrent major depressive disorder, without psychotic features F33.2 and Borderline personality disorder F60.3 [place] [address] [address]- 6882 Jun, Severe episode of recurrent major depressive disorder, without psychotic features F33.2 ; Mild intermittent asthma without complication J45.20 and Reflux gastritis K29.60 IMMUNIZATIONS No Known Immunizations SOCIAL HISTORY Never Assessed [facility] CARE VITAL SIGNS MEDICATIONS Medication Instructions Dosage Frequency Start Date End Date Duration Status Hydrocodone-Ibuprofen 7.5-200 MG Orally every 6 hrs 1 tablet as needed 6h Feb, Active RESULTS No Results PROCEDURES No Known [...] History 72 Hour Holds (Suicidal Ideation) x5 0013-8746 Hospitalization History [facility] Cysts on Ovaries 07/2016
--- OUTSIDE RECORDS SUMMARY | 2018-01-07 16:46 | XMS REPORT ---
Author Author CAMERONMELY IMMANUEL Buitrago [facility] Address Unknown Care Team Providers Care Echocardiograph Tech Name Role Phone IMMANUEL CRAVEN Unavailable PROBLEMS Type Condition ICD9-CM Code [id number] Code Onset Dates Condition Status SNOMED Code Problem Borderline personality disorder F60.3 Active 92774422 Problem Morbid obesity due to excess calories E66.01 Active 794633837 Problem PCOS (polycystic ovarian syndrome) E28.2 Active 90616097 Problem Severe episode of recurrent major depressive disorder, without psychotic features F33.2 Active 81138165 Problem Mild intermittent asthma without complication J45.20 Active 878740246 Problem Reflux gastritis K29.60 Active 07836451 Problem Panic disorder F41.0 Active 237716997 Problem Mood disorder F39 Active 91853393 Problem Vitamin D deficiency E55.9 Active 01721709 Problem Fibromyalgia M79.7 Active 676594196 Problem Chondromalacia patellae, 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 Active [id number] Problem Sleep disturbance G47.9 Active 91837080 ALLERGIES Substance Reaction Event Type Date Status Compazine Unknown Drug Allergy Mar, Active Triaminic Cold Unknown Drug Allergy Mar, Active Tramadol HCl Unknown Drug Allergy Mar, Active Ketorolac Tromethamine Unknown Drug Allergy Mar, Active [place] Dye in medications Unknown Non Drug Allergy Mar, Active ENCOUNTERS Encounter Location Date Diagnosis [facility] [address] [facility] [id number] [address] December, [facility] [address] [facility] [id number] [address] Nov, [facility] [address] [id number] [address] Nov, [facility] [address] [facility] [id number], [place] [address] Nov, BMI 50.0-59.9, adult Z68.43 and URI, acute J06.9 [place] [id number] [place] [address] Nov, Chondromalacia patellae, 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 and Pain in right knee M25.561 [place] [address] [address] Oct, BMI 50.0-59.9, adult Z68.43 ; Pelvic pain R10.2 and Fibromyalgia M79.7 [place] [address] [address] Oct, Borderline personality disorder F60.3 ; Panic disorder F41.0 and Mood disorder F39 [place] [address] [address] Oct, PCOS (polycystic ovarian syndrome) E28.2 [place] [address] [address] 09 Oct, 2017 Annual physical exam Z00.00 ; PCOS (polycystic ovarian syndrome) E28.2 ; Vitamin D deficiency E55.9 ; Mild intermittent asthma without complication J45.20 ; Sleep disturbance G47.9 and BMI 45.0-49.9, adult Z68.42 [place] [address] [address] [id number] [place] [address] Sep, Attention deficit hyperactivity disorder (ADHD), other type F90.8 ; Borderline personality disorder F60.3 and Pilonidal cyst with abscess L05.01 [place] [address] [id number] [place] [address] Sep, [place] [address] [address] 05 Sep, 2017 Pain in right knee M25.561 [place] [address] [address] Aug, Bronchitis J40 ; Other chronic pain G89.29 ; Pain in right knee M25.561 and Fibromyalgia M79.7 [place] [id number] [place] [address] Aug, [place] [id number] [place] [address] Aug, [place] [address] [address] Aug, Pilonidal cyst with abscess L05.01 [place] [address] [address] Aug, [place] [address] [address] Aug, BMI 45.0-49.9, adult Z68.42 and Acute nasopharyngitis J00 [place] [address] [address] Jul, [place] [address] [address] Jul, Pilonidal abscess L05.01 and BMI 45.0-49.9, adult Z68.42 [place] [id number] [place] [address] Jul, [place] [id number] [place] [address] Jul, Body aches R52 and Acute nasopharyngitis (common cold) J00 [place] [id number] [place] [address] May, Other viral agents as the cause of diseases classified elsewhere B97.89 and Acute upper respiratory infection, unspecified J06.9 [place] [id number] [place] [address] Apr, Jaw pain R68.[address] [address] Apr, Mild intermittent asthma with acute exacerbation J45.21 [facility] [id number] [place] [address] 17 Mar, 2017 Mild intermittent asthma without complication J45.20 [facility] [address] [place] [id number] 16 Mar, 2017 Dental caries K02.9 [facility] [id number] [place] [id number] Mar, Dental examination Z01.20 [facility] [id number] [place] [address] Feb, Jaw pain R68.84 [place] [address] [address] Feb, Morbid obesity due to excess calories E66.01 and Jaw pain R68.84 [place] [address] [address] Jan, Attention deficit hyperactivity disorder (ADHD), other type F90.8 and Morbid obesity due to excess calories E66.01 [place] [address] [address] Jan, Severe episode of recurrent major depressive disorder, without psychotic features F33.2 and Borderline personality disorder F60.3 [place] [id number] [place] [address] December, [place] [id number] [place] [address] 9[address] Nov, Severe episode of recurrent major depressive disorder, without psychotic features F33.2 and Borderline personality disorder F60.3 [place] [address] [address] Nov, Thrush B37.0 and Rash R21 [facility] [id number] [place] [address] Nov, [place] [address] [place] [address] 12 Nov, 2016 Acute bronchitis, unspecified J20.9 and Right otitis media with effusion H65.91 [place] [address] [address] 24 Sep, 2016 Pelvic pain R10.2 [place] [address] [address] 13 Sep, 2016 Loose stools R19.5 ; Mild intermittent asthma without complication J45.20 ; Non morbid obesity due to excess calories E66.09 and Screening for diabetes mellitus (DM) Z13.1 [place] [address] [address] Aug, [place] [address] [address] Aug, PCOS (polycystic ovarian syndrome) E28.2 [place] [address] [address] Aug, Severe episode of recurrent major depressive disorder, without psychotic features F33.2 and Borderline personality disorder F60.3 [place] [address] [address] 10 Aug, 2016 PCOS (polycystic ovarian syndrome) E28.2 [place] [id number] [place] [address] Jul, Severe episode of recurrent major depressive disorder, without psychotic features F33.2 and Borderline personality disorder F60.3 [place] [id number] [place] [address] Jun, Severe episode of recurrent major depressive disorder, without psychotic features F33.2 ; Mild intermittent asthma without complication J45.20 and Reflux gastritis K29.60 IMMUNIZATIONS No Known Immunizations SOCIAL HISTORY Never Assessed REASON FOR VISIT 1 wk te PLAN OF CARE Activity Details Follow Up prn Reason:hygiene VITAL SIGNS Blood pressure systolic 125 mmHg 2017-04-04 Blood pressure diastolic 86 mmHg 2017-04-04 MEDICATIONS Medication Instructions Dosage Frequency Start Date End Date Duration Status Albuterol Sulfate HFA 108 (90 Base) MCG/ACT Inhalation 4 times a day 2 puffs as needed 6h Active BusPIRone HCl 15 MG Orally 3 times a day 1 tablet 8h Active Vitamin D 1000 UNIT Orally twice a day 1 tablet 12h Active Trintellix 20 mg Orally Once a day 1 tablet 24h December, Active Topiramate 50 mg Orally Twice a day 1 tablet 12h Jan, Active Cranberry Active Benadryl Allergy 25 MG Orally 2 times a day 12h Active Combivent Respimat 20-100 MCG/ACT 1 puff Sep, Active Prazosin HCl 1 MG Orally Once a day 1 capsule at bedtime 24h Active Cinnamon 500 MG Orally 2 times a day 1 tablet 12h Active Advair Diskus 250-50 MCG/DOSE Inhalation Twice a day 1 puff 12h Active Ortho Tri-Cyclen (28) Active RESULTS No Results PROCEDURES Procedure Date Ordered Result Body Site EXTRAC ERUPTED TOOTH/EXPOSED ROOT Apr 04, 2017 INSTRUCTIONS MEDICATIONS ADMINISTERED No Known Medications MEDICAL [...] History 72 Hour Holds (Suicidal Ideation) [phone] Hospitalization History [facility] Cysts on Ovaries 07/2016
== END 2018-01-06 23:48 | disposition home or self-care (01) ==
LOC: EDUNIT# 18:29 → ER 18:31
DX: N92.5 Other specified irregular menstruation (principal); J45.909 Unspecified asthma, uncomplicated; K21.9 Gastro-esophageal reflux disease without esophagitis; E66.9 Obesity, unspecified; F90.9 Attention-deficit hyperactivity disorder, unspecified type; F41.9 Anxiety disorder, unspecified; F43.10 Post-traumatic stress disorder, unspecified; F31.9 Bipolar disorder, unspecified; Z82.49 Family history of ischemic heart disease and other diseases of the circulatory system; Z87.440 Personal history of urinary (tract) infections; Z87.448 Personal history of other diseases of urinary system; Z68.42 Body mass index [BMI] 45.0-49.9, adult; Z87.19 Personal history of other diseases of the digestive system; Z97.5 Presence of (intrauterine) contraceptive device; Z88.6 Allergy status to analgesic agent; Z88.8 Allergy status to other drugs, medicaments and biological substances; Z79.51 Long term (current) use of inhaled steroids; Z79.52 Long term (current) use of systemic steroids; Z87.01 Personal history of pneumonia (recurrent); Z87.59 Personal history of other complications of pregnancy, childbirth and the puerperium; Z90.89 Acquired absence of other organs
CPT/HCPCS: 36415; 76830; 76856; 80053; 81000; 84703; 85025; 86141; 96361; 96374

== ENCOUNTER 2018-01-16 05:56 | Emergency (ER) | payer SELFPAY ==
[~2018-01-16] VITALS: Ht 152.4 cm; Wt 108.9 kg
[2018-01-16] MEDS ORDERED: NS IV 1000 ML 1,000 ML IV ONE (06:13)
[2018-01-16] MEDS ORDERED: ONDANSETRON 4 MG/2 ML (SDV) Z0FRAN IVP ONE (06:15)
[2018-01-16] MEDS ORDERED: fentaNYL INJECTION 100 MCG/2 ML AMP IVP ONE ×2 (06:15→07:00)
[2018-01-16 06:30] LABS: BASOPHILS % (AUTO) 0 % (0-10); EOSINOPHILS # (AUTO) 0.2 10^3/uL (0.0-0.3); EOSINOPHILS % (AUTO) 2 % (0-10); HEMATOCRIT 46 % (35-52); HEMOGLOBIN 16.1 G/DL (11.5-16.0); LYMPHOCYTES # (AUTO) 4.4 X 10^3 (1.0-4.0); LYMPHOCYTES % (AUTO) 37 % (12-44); MEAN CORPUSCULAR HEMOGLOBIN 32 PG (25-34); MEAN CORPUSCULAR HGB CONC 35 G/DL (32-36); MEAN CORPUSCULAR VOLUME 92 FL (80-99); MEAN PLATELET VOLUME 10.4 FL (7.4-10.4); MONOCYTES # (AUTO) 0.6 X 10^3 (0.0-1.0); MONOCYTES % (AUTO) 5 % (0-12); NEUTROPHILS # (AUTO) 6.5 X 10^3 (1.8-7.8); NEUTROPHILS % (AUTO) 55 % (42-75); PLATELET COUNT 349 10^3/uL (130-400); RED BLOOD COUNT 5.03 10^6/uL (4.35-5.85); RED CELL DISTRIBUTION WIDTH 12.9 % (10.0-14.5); WHITE BLOOD COUNT 11.8 10^3/uL (4.3-11.0)
--- NOTE | 2018-01-16 06:52 | ED Abdominal Pain ---
General Chief Complaint: Abdominal/GI Problems Stated Complaint: RT SIDE PAIN COMING AROUND TO FRONT Nursing Triage Note: pt states she was awoken from her sleep this am with severe pain on her right side radiating to the front and back. pt states she became nauseated after arriving to the ed. Sepsis Screen: No Definite Risk Source of Information: Patient Exam Limitations: No Limitations History of Present Illness Date Seen by Provider: January 16, 2018 Time Seen by Provider: 18:06 Initial Comments This 27 year old young lady presents to the ER with complaints of sudden onset of right flank and upper abdominal pain that woke her from sleep just about one hour prior to presentation. She has associated vomiting. She had a normal bowel movement at home after onset of pain but that did not help. She denies and states her last menstrual period was 2 weeks ago. She denies any urinary changes. She has no history of gallbladder problems or kidney stones. She is afebrile. She appears in distress and is crying from this pain. Allergies and Home Medications Allergies Coded Allergies: ketorolac (Unverified Adverse Reaction, Unknown, 08/24/17) prochlorperazine (Unverified Adverse Reaction, Unknown, 08/24/17) tramadol (Unverified Adverse Reaction, Unknown, 08/24/17) Home Medications Acetaminophen with Codeine 1 Each Tablet, 1 EACH PO Q4H PRN for PAIN Prescribed by: AILYN VERGARA on 10/23/16 0735 Albuterol Sulfate 18 Gm Hfa.aer.ad, 1-2 PUFF IH PRN, (Reported) Buspirone HCl 15 Mg Tablet, 15 MG PO TID, (Reported) Cephalexin 500 Mg Tablet, 500 MG PO BID Prescribed by: GARY LIMON on 11/20/172057 Cephalexin 500 Mg Capsule, 500 MG PO QID Prescribed by: ANGY MARTINS on 01/16/18 0915 Cholecalciferol (Vitamin D3) 1,000 Unit Capsule, 1,000 UNIT PO BID, (Reported) Cinnamon Bark 500 Mg Capsule, 500 MG PO BID, (Reported) Cranberry Extract 500 Mg Tablet, 1,000 MG PO BID, (Reported) Diphenhydramine HCl 25 Mg Capsule, 25 MG PO BID, (Reported) Docusate Sodium 100 Mg Capsule, 100 MG PO BID PRN for CONSTIPATION Prescribed by: AILYN VERGARA on 10/23/16 0735 Hydrocodone Bit/Acetaminophen 1 Each Tablet, 1 EACH PO Q4H PRN for PAIN Prescribed by: ANGY MARTINS on 04/21/17 1100 Hydrocodone Bit/Acetaminophen 1 Each Tablet, 1 EACH PO Q6H PRN for PAIN Prescribed by: YENNIFER HAMLIN on 05/31/17 1501 Ibuprofen 600 Mg Tablet, 600 MG PO Q6H Prescribed by: AILYN VERGARA on 10/23/16 0735 Meloxicam 15 Mg Tablet, 15 MG PO DAILY Prescribed by: THOMPSON FITCH on 08/24/172205 Nitrofurantoin Monohyd/M-Cryst 100 Mg Capsule, 100 MG PO BID Prescribed by: THOMPSON FITCH on 08/24/172205 Ondansetron 4 Mg Tab.rapdis, 4 MG SL Q4H Prescribed by: ANGY MARTINS on 04/21/17 1100 Ondansetron 4 Mg Tab.rapdis, 4 MG SL Q4H PRN for NAUSEA/VOMITING-1ST LINE Prescribed by: ANGY MARTINS on 01/16/18 0915 Oxycodone HCl/Acetaminophen 1 Each Tablet, 1-2 EACH PO Q4H Prescribed by: ANGY MARTINS on 01/16/18 09 Phenazopyridine HCl 200 Mg Tablet, 1 TAB PO TID Prescribed by: ANGY MARTINS on 01/16/18 0915 Prazosin HCl 2 Mg Capsule, 2 MG PO HS PRN for NIGHTMARES, (Reported) Prednisone 10 Mg Tab.ds.pk, 10 MG PO UD Prescribed by: YENNIFER HAMLIN on 08/20/17 1446 Quetiapine Fumarate 100 Mg Tablet, 100 MG PO HS, (Reported) Sertraline HCl 100 Mg Tablet, 100 MG PO BID, (Reported) TAKES 1 & 1/2 (100MG) TABLET Patient Home Medication List Home Medication List Reviewed: Yes Review of Systems Constitutional: no symptoms reported EENTM: No Symptoms Reported Respiratory: No Symptoms Reported Cardiovascular: No Symptoms Reported Gastrointestinal: See HPI Genitourinary: No Symptoms Reported Musculoskeletal: no symptoms reported Skin: no symptoms reported Psychiatric/Neurological: No Symptoms Reported Endocrine: No Symptoms Reported Hematologic/Lymphatic: No Symptoms Reported Past Jltkvfc-Rrcckk-Sxepvh Hx Past Med/Social Hx: Reviewed Nursing Past Med/Soc Hx Patient Social History Alcohol Use: Denies Use Recreational Drug Use: No Type Used: Cigarettes 2nd Hand Smoke Exposure: No Recent Foreign Travel: No Contact w/Someone Who Travel: No Recent Infectious Disease Expo: No Recent Hopitalizations: No Immunizations Up To Date Tetanus Booster (TDap): Unknown Date of Influenza Vaccine: May 20, 2016 Seasonal Allergies Seasonal Allergies: Yes Past Medical History Surgeries: Yes ( X --07/2013, DENTAL) Section, Tonsillectomy Respiratory: Yes (Tobaccoism) Asthma, Pneumonia Cardiac: No Neurological: No : No Last Menstrual Period: January 02, 2018 Reproductive Disorders: Yes (RETAINED IUD) Female Reproductive Disorders: Menstrual Problems, Ovarian Cyst, Polycystic Ovarian Dis CAN PUSHER History: IUD Sexually Transmitted Disease: No HIV/AIDS: No Genitourinary: Yes Bladder Infection, UTI-Chronic Gastrointestinal: Yes Gastroesophageal Reflux, Chronic Diarrhea Musculoskeletal: Yes Fibromyalgia Endocrine: Yes (VITAMIN D DEFICIENCY; OBESITY) HEENT: Yes Loss of Vision: Bilateral Hearing Impairment: Denies Cancer: No Psychosocial: Yes (EXTENSIVE PSYCH ISSUES-PT STABLE ) ADD/ADHD, Sleep Difficulties, Anxiety, PTSD, Bipolar, Personality Disorder, Depression Integumentary: No Blood Disorders: No Adverse Reaction/Blood Tranf: No Family Medical History Reviewed and Corrections made Alcoholism 19 FATHER Asthma 19 MOTHER Completed stroke 19 FATHER DVT 19 FATHER Dementia 19 FATHER Diabetes mellitus 19 MOTHER FH: multiple sclerosis G8 SISTER Headache disorder G8 BROTHER Hypertension 19 FATHER 19 MOTHER Myocardial infarction 19 FATHER Seizure disorder 19 FATHER Hypertension, Seizures, Stroke Physical Exam Vital Signs Vital Signs - First Documented 01/16/18 01/16/18 06:01 09:42 Temp 97.7 Pulse 111 Resp 18 B/P (MAP) 145/96 (112) Pulse Ox 98 O2 Delivery Room Air Capillary Refill : Less Than 3 Seconds General Appearance: WD/WN, mild distress HEENT: normal ENT inspection Neck: normal inspection Respiratory: lungs clear, normal breath sounds, no respiratory distress, no accessory muscle use Cardiovascular: no edema, no murmur, tachycardia Gastrointestinal: normal bowel sounds, soft, tenderness (right flank and right upper quadrant) Extremities: normal inspection, no pedal edema Back: normal inspection, CVA tenderness (R) Neurologic/Psychiatric: general agent II-XII nml as tested, no motor/sensory deficits, alert, normal mood/affect, oriented x 3 Skin: normal color, warm/dry Progress/Results/Core Measures Results/Orders Lab Results Laboratory Tests Test 01/16/18 06:22 01/16/18 06:32 Range/Units White Blood Count 11.8 H 4.3-11.0 10^3/uL Red Blood Count 5.03 4.35-5.85 10^6/uL Hemoglobin 16.1 H 11.5-16.0 G/DL Hematocrit 46 35-52 % Mean Corpuscular Volume 92 80-99 FL Mean Corpuscular Hemoglobin 32 25-34 PG Mean Corpuscular Hemoglobin Concent 35 32-36 G/DL Red Cell Distribution Width 12.9 10.0-14.5 % Platelet Count 349 130-400 10^3/uL Mean Platelet Volume 10.4 7.4-10.4 FL Neutrophils (%) (Auto) 55 42-75 % Lymphocytes (%) (Auto) 37 12-44 % Monocytes (%) (Auto) 5 0-12 % Eosinophils (%) (Auto) 2 0-10 % Basophils (%) (Auto) 0 0-10 % Neutrophils # (Auto) 6.5 1.8-7.8 X 10^3 Lymphocytes # (Auto) 4.4 H 1.0-4.0 X 10^3 Monocytes # (Auto) 0.6 0.0-1.0 X 10^3 Eosinophils # (Auto) 0.2 0.0-0.3 10^3/uL Basophils # (Auto) 0.0 0.0-0.1 10^3/uL Sodium Level 139 135-145 MMOL/L Potassium Level 4.5 3.6-5.0 MMOL/L Chloride Level 107 98-107 MMOL/L Carbon Dioxide Level 20 L 21-32 MMOL/L Anion Gap 12 5-14 MMOL/L Blood Urea Nitrogen 7 7-18 MG/DL Creatinine 0.78 0.60-1.30 MG/DL Estimat Glomerular Filtration Rate > 60 BUN/Creatinine Ratio 9 Glucose Level 106 H 70-105 MG/DL Calcium Level 9.2 8.5-10.1 MG/DL Total Bilirubin 0.2 0.1-1.0 MG/DL Aspartate Amino Transf (AST/SGOT) 17 5-34 U/L Alanine Aminotransferase (ALT/SGPT) 20 0-55 U/L Alkaline Phosphatase 63 40-136 U/L Total Protein 7.1 6.4-8.2 GM/DL Albumin 4.2 3.2-4.5 GM/DL Lipase 26 8-78 U/L Serum Test, Qualitative NEGATIVE NEGATIVE Urine Color YELLOW Urine Clarity SLIGHTLY CLOUDY Urine pH 6 5-9 Urine Specific Stollings 1.020 1.016-1.022 Urine Protein 2+ H NEGATIVE Urine Glucose (UA) NEGATIVE NEGATIVE Urine Ketones NEGATIVE NEGATIVE Urine Nitrite NEGATIVE NEGATIVE Urine Bilirubin NEGATIVE NEGATIVE Urine Urobilinogen NORMAL NORMAL MG/DL Urine Leukocyte Esterase 3+ H NEGATIVE Urine RBC (Auto) 4+ H NEGATIVE Urine RBC 50-100 H /HPF Urine WBC 25-50 H /HPF Urine Squamous Epithelial Cells >50 H /HPF Urine Crystals NONE /LPF Urine Bacteria MODERATE H /HPF Urine Casts NONE /LPF Urine Mucus NEGATIVE /LPF Urine Culture Indicated YES Micro Results Microbiology 01/16/18 Urine Culture - Final, Complete See Comments My Orders Orders - ANGY WOLF MD Fentanyl Injection (Sublimaze Injection (01/16/18 06:15) Ondansetron Injection (Zofran Injectio (01/16/18 06:15) Saline Lock/Iv-Start (01/16/18 06:13) Cbc With Automated Diff (01/16/18 06:13) Comprehensive Metabolic Panel (01/16/18 06:13) Hcg,Qualitative Serum (01/16/18 06:13) Lipase (01/16/18 06:13) Ua Culture If Indicated (01/16/18 06:13) Ns Iv 1000 Ml (Sodium Chloride 0.9%) (01/16/18 06:13) Fentanyl Injection (Sublimaze Injection (01/16/18 07:00) Urine Culture (01/16/18 06:32) Ct Abd/Pelvis Wo(Kidney Stone) (01/16/18 07:16) Orphenadrine Injection (Norflex Injectio (01/16/18 07:30) Morphine Injection (Morphine Injection (01/16/18 07:30) Ceftriaxone Injection (Rocephin Injectio (01/16/18 08:30) Hydromorphone Injection (Dilaudid Inje (01/16/18 08:40) Phenazopyridine Tablet (Pyridium Tablet) (01/16/18 09:00) Hydromorphone Injection (Dilaudid Inject (01/16/18 08:47) Abdomen/Kub 1view (01/16/18 09:10) Iv Infusion <= First Hr Ed (01/16/18 ) Medications Given in ED Vital Signs/I&O 01/16/18 01/16/18 06:01 09:42 Temp 97.7 Pulse 111 101 Resp 18 18 B/P (MAP) 145/96 (112) 129/94 Pulse Ox 98 O2 Delivery Room Air Blood Pressure Mean: 112 Progress Progress Note #1: Time: 06:52 Progress Note Patient was seen and examined. Fentanyl and Zofran were ordered for symptom management. IV fluids are infusing. Labs and urine are pending. Progress Note #2: Time: 07:16 Progress Note Patient has required a second dose of fentanyl for pain control. Pain has again rebounded. Toradol will be tried next. Urine showed significant red cells and white cells. Rocephin will be given for treatment of suspected UTI. A stone search CT has been ordered as well. Progress Note #3: Time: 08:[address] demonstrated a small ureteral stone at the right UVJ. Patient was treated accordingly. Diagnostic Imaging Diagonstic Imaging: CT Plain Films/CT/US/NM/MRI: abdomen, pelvis Comments CT abdomen and pelvis viewed by me and report reviewed. See report below: NAME: ARVIND BOWIE [employer] REC#: [id number] PT STATUS: REG ER : 1990 PHYSICIAN: ANGY WOLF MD ADMIT DATE: 01/16/18/ER Signed Date of Exam: 01/16/18 CT ABD/PELVIS WO(KIDNEY STONE) PROCEDURE: CT urinary tract, rule out kidney stone. TECHNIQUE: Multiple contiguous axial images were obtained through the abdomen and pelvis without the use of intravenous contrast. DATE: 01/16/2018. COMPARISON: CT abdomen and pelvis 08/24/2017. INDICATION: 27-year-old female, right-sided abdominal pain. Unable to urinate. FINDINGS: There are limitations for evaluation of the abdominal organs, neoplastic processes, abscess, and limited evaluation of the vasculature relating to the lack of intravenous contrast. There is a focal area of peripheral bronchiectasis in the right lower lobe. There are areas of mosaic lung attenuation which may reflect small airways disease and air-trapping. This appearance is similar to the prior exam. The heart is not enlarged. There is no identified pericardial effusion. The liver is normal in size and contour. The gallbladder is unremarkable. There is no intrahepatic or extrahepatic bile duct dilation. The main pancreatic duct is not abnormally dilated. Unremarkable noncontrast evaluation of the pancreatic parenchyma. There is a small accessory splenule on axial image 46. The spleen is not enlarged. The adrenal glands are unremarkable. There is a 1-2 mm stone in the right distal ureter at the ureterovesical junction on axial image 139. There is mild dilation of the right upstream ureter and very mild right hydronephrosis. The left urinary collecting system is not distended. There is no left ureteral stone. The urinary bladder is underdistended and not well evaluated. There is a left ovarian cyst or follicle on axial image 127. There is a fat-containing umbilical hernia. The intestinal tract is nondistended. The appendix is well seen on axial image 103 and adjacent sequential images. There is no evidence of acute appendicitis. There is no free intraperitoneal air. There is no drainable fluid collection. There is no free pelvic fluid. There is no identified abnormally enlarged lymph node within the abdomen or pelvis which meets CT size criteria for adenopathy. There is no identified acute bony abnormality. IMPRESSION: CT ABDOMEN AND PELVIS. 1. A 1-2 mm stone in the right distal ureter at the ureterovesical junction with mild dilation of the upstream right ureter and very mild right hydronephrosis. Dictated by: Dictated on workstation # [id number] Dict: 01/16/18 0748 Trans: 01/16/18920 Interpreted by: MACI RODRIGUEZ MD Electronically signed by: MACI RODRIGUEZ MD 01/16/18920 Departure Impression Primary Impression: Right ureteral stone Additional Impressions: Urinary tract infection Qualified Codes: N39.0 - Urinary tract infection, site not specified; R31.9 - Hematuria, unspecified Nausea and vomiting Qualified Codes: R11.2 - Nausea with vomiting, unspecified Disposition: 01 HOME, SELF-CARE Condition: Improved Departure-Patient Inst. Decision time for Depature: 08:40 Referrals: [facility] (PCP) Primary Care Physician APRIL AMBROSE (Family) Primary Care Physician Patient Instructions: Kidney Stones in Adults, Urinary Tract Infection, Adult ( DC) Add. Discharge Instructions: Drink plenty of clear liquids. You may use ibuprofen up to 600 mg every 6 hours as needed for pain. Add Percocet as prescribed for pain not controlled by ibuprofen. Pyridium may also be used for additional pain relief and cramping. Please note that Pyridium may cause your urine to be reddish or or injection color. Use Zofran (ondansetron) as prescribed for nausea and vomiting. Strain your urine and bring any stones collected to your follow-up appointment. Please schedule a follow-up appointment with your doctor as soon as possible. Return to the emergency room or contact your doctor if symptoms are worsening. All discharge instructions reviewed with patient and/or family. Voiced understanding. Scripts Phenazopyridine HCl (Pyridium) 200 Mg Tablet 1 TAB PO TID, #10 TAB Prov: ANGY WOLF MD 01/16/18 Oxycodone HCl/Acetaminophen (Percocet 5-325 mg Tablet) 1 Each Tablet 1-2 EACH PO Q4H, #14 TAB Prov: ANGY WOLF MD 01/16/18 Ondansetron (Zofran Odt) 4 Mg Tab.rapdis 4 MG SL Q4H PRN for NAUSEA/VOMITING-1ST LINE, #10 TAB Prov: ANGY WOLF MD 01/16/18 Cephalexin (Keflex) 500 Mg Capsule 500 MG PO QID, #28 CAP Prov: ANGY WOLF MD 01/16/18 Copy Copies To 1: AYSHA RODRIGUEZ JOSHUA T MD January 16, 2018 06:52
[2018-01-16 06:57] LABS: BILIRUBIN,URINE NEGATIVE (NEGATIVE); CLARITY,URINE SLIGHTLY CLOUDY; COLOR,URINE YELLOW; GLUCOSE, URINE (UA) NEGATIVE (NEGATIVE); KETONES,URINE NEGATIVE (NEGATIVE); LEUKOCYTE ESTERASE ,URINE 3+ (NEGATIVE); NITRITE,URINE NEGATIVE (NEGATIVE); PH,URINE 6 (5-9); PROTEIN,URINE 2+ (NEGATIVE); UROBILINOGEN,URINE NORMAL (NORMAL)
[2018-01-16 06:59] LABS: ALANINE AMINOTRANSFERASE 20 U/L (0-55); ALBUMIN 4.2 GM/DL (3.2-4.5); ALKALINE PHOSPHATASE 63 U/L (40-136); BILIRUBIN,TOTAL 0.2 MG/DL (0.1-1.0); BUN/CREATININE RATIO 9; CALCIUM 9.2 MG/DL (8.5-10.1); CARBON DIOXIDE 20 MMOL/L (21-32); CHLORIDE 107 MMOL/L (98-107); CREATININE SERUM 0.78 MG/DL (0.60-1.30); GFR ESTIMATED > 60; GLUCOSE 106 MG/DL (70-105); LIPASE 26 U/L (8-78); POTASSIUM 4.5 MMOL/L (3.6-5.0); SODIUM 139 MMOL/L (135-145); TOTAL PROTEIN 7.1 GM/DL (6.4-8.2)
[2018-01-16 07:12] LABS: BACTERIA,URINE MODERATE /HPF; RBC,URINE 50-100 /HPF; SQUAMOUS EPITHELIAL CELL,UR >50 /HPF; WBC,URINE 25-50 /HPF
[2018-01-16] MEDS ORDERED: ORPHENADRINE 60 MG/2 ML (NORFLEX) AMP IV ONE (07:30)
[2018-01-16] MEDS ORDERED: morphine INJ 10 MG/ML 1ML (SYR OR VIAL) IVP ONE (07:30)
[2018-01-16] MEDS ORDERED: cefTRIAXone INJECTION 1,000 MG in NS (IVPB) 50 ML IV ONE (08:30)
--- NOTE | 2018-01-16 08:33 | Diagnostic Imaging Report ---
PROCEDURE: CT urinary tract, rule out kidney stone. TECHNIQUE: Multiple contiguous axial images were obtained through the abdomen and pelvis without the use of intravenous contrast. DATE: 01/16/2018. COMPARISON: CT abdomen and pelvis 08/24/2017. INDICATION: 27-year-old female, right-sided abdominal pain. Unable to urinate. FINDINGS: There are limitations for evaluation of the abdominal organs, neoplastic processes, abscess, and limited evaluation of the vasculature relating to the lack of intravenous contrast. There is a focal area of peripheral bronchiectasis in the right lower lobe. There are areas of mosaic lung attenuation which may reflect small airways disease and air-trapping. This appearance is similar to the prior exam. The heart is not enlarged. There is no identified pericardial effusion. The liver is normal in size and contour. The gallbladder is unremarkable. There is no intrahepatic or extrahepatic bile duct dilation. The main pancreatic duct is not abnormally dilated. Unremarkable noncontrast evaluation of the pancreatic parenchyma. There is a small accessory splenule on axial image 46. The spleen is not enlarged. The adrenal glands are unremarkable. There is a 1-2 mm stone in the right distal ureter at the ureterovesical junction on axial image 139. There is mild dilation of the right upstream ureter and very mild right hydronephrosis. The left urinary collecting system is not distended. There is no left ureteral stone. The urinary bladder is underdistended and not well evaluated. There is a left ovarian cyst or follicle on axial image 127. There is a fat-containing umbilical hernia. The intestinal tract is nondistended. The appendix is well seen on axial image 103 and adjacent sequential images. There is no evidence of acute appendicitis. There is no free intraperitoneal air. There is no drainable fluid collection. There is no free pelvic fluid. There is no identified abnormally enlarged lymph node within the abdomen or pelvis which meets CT size criteria for adenopathy. There is no identified acute bony abnormality. IMPRESSION: CT ABDOMEN AND PELVIS. 1. A 1-2 mm stone in the right distal ureter at the ureterovesical junction with mild dilation of the upstream right ureter and very mild right hydronephrosis. Dictated by: Dictated on workstation # [id number]
[2018-01-16] MEDS ORDERED: HYDROmorphone 1 MG/ML (DILAUDID) 1 ML SYRINGE IV STA (08:40)
[2018-01-16] MEDS ORDERED: HYDROmorphone 2 MG/ML VIAL (DILAUDID) ONE (08:47)
[2018-01-16] MEDS ORDERED: PHENAZOPYRIDINE 100 MG (PYRIDIUM) TABLET PO ONE (09:00)
[2018-01-16] MEDS ORDERED: CEPH-507 PO (09:15)
[2018-01-16] MEDS ORDERED: OXYC-197 PO (09:15)
[2018-01-16] MEDS ORDERED: PHEN-640 PO (09:15)
[2018-01-16] MEDS ORDERED: ONDA4TAB8 SL (09:15)
--- NOTE | 2018-01-16 09:37 | Diagnostic Imaging Report ---
INDICATION: Right ureteral stone KUB obtained at 939 hours a.m. Abdominal bowel gas pattern is unremarkable. There are no radiopaque calculi over the renal shadows. A faint calcification over the right pelvis is seen which correlates with the stone seen at the right UVJ on recent CT study. IMPRESSION: Unremarkable bowel gas pattern. Faint calcification overlying the right side of the pelvis corresponds to the small stone visualized at the right UVJ on recent CT study. No other calcifications are visualized. Dictated by: Dictated on workstation # [id number]
[2018-01-16 09:42] VITALS: BP 129/94
== END 2018-01-16 09:42 | disposition home or self-care (01) ==
LOC: EDUNIT# 05:56 → ER 05:59
DX: N20.1 Calculus of ureter (principal); N39.0 Urinary tract infection, site not specified; J45.909 Unspecified asthma, uncomplicated; K21.9 Gastro-esophageal reflux disease without esophagitis; E66.9 Obesity, unspecified; F90.9 Attention-deficit hyperactivity disorder, unspecified type; F41.9 Anxiety disorder, unspecified; F43.10 Post-traumatic stress disorder, unspecified; F31.9 Bipolar disorder, unspecified; Z87.440 Personal history of urinary (tract) infections; Z87.19 Personal history of other diseases of the digestive system; Z68.42 Body mass index [BMI] 45.0-49.9, adult; Z82.49 Family history of ischemic heart disease and other diseases of the circulatory system; Z97.5 Presence of (intrauterine) contraceptive device; Z88.6 Allergy status to analgesic agent; Z88.8 Allergy status to other drugs, medicaments and biological substances; Z79.51 Long term (current) use of inhaled steroids; Z79.52 Long term (current) use of systemic steroids; Z87.59 Personal history of other complications of pregnancy, childbirth and the puerperium; Z90.89 Acquired absence of other organs; Z87.01 Personal history of pneumonia (recurrent)
CPT/HCPCS: 36415; 74018; 74176; 80053; 81000; 83690; 84703; 85025; 87088; 96361; 96365; 96375

== ENCOUNTER 2018-02-28 23:11 | Emergency (ER) | payer SELFPAY ==
[~2018-02-28] VITALS: Ht 152.4 cm; Wt 115.2 kg
[~2018-02-28 23:11] MED LIST changes: +OXYC-197 PO; +PHEN-640 PO
--- NOTE | 2018-03-01 00:05 | ED Abdominal Pain ---
General Chief Complaint: Abdominal/GI Problems Stated Complaint: POSS KIDNEY STONE Nursing Triage Note: PT PRESENTS TO ER WITH COMPLAINT OF RIGHT SIDE ABD/FLANK PAIN. STATES IT FEELS LIKE THE SAME PAIN SHE HAD WHENEVER SHE HAD A KIDNEY STONE BEFORE. Sepsis Screen: No Definite Risk (STEPHANIE MONTES MED STUDENT) History of Present Illness Date Seen by Provider: Feb 28, 2018 Time Seen by Provider: 11:47 Initial Comments This is a 27 y/o female presenting to the ED with chief complaint of R sided abdominal pain with radiation to the back that started suddenly 1 hour ago. Patient was recently seen in the ED on January 16 for a R sided kidney stone that was confirmed on CT. Patient states she was instructed to strain her urine for the stone, she states she never saw the stone but her symptoms went completely away. She believes she has another stone. Patient is complaining of nausea and feeling hot, denies chills, vomiting and constipation. Patient states she does have diarrhea, but this is a chronic issue that has been going on for years. Pt reports frequency with urination and small voids with difficulty initiating urination, denies urgency or burning. LMP started 3 days ago. (STEPHANIE MONTES MED STUDENT) Allergies and Home Medications Allergies Coded Allergies: ketorolac (Unverified Adverse Reaction, Unknown, 08/24/17) prochlorperazine (Unverified Adverse Reaction, Unknown, 08/24/17) tramadol (Unverified Adverse Reaction, Unknown, 08/24/17) Home Medications Acetaminophen with Codeine 1 Each Tablet, 1 EACH PO Q4H PRN for PAIN Prescribed by: AILYN VERGARA on 10/23/16 0735 Albuterol Sulfate 18 Gm Hfa.aer.ad, 1-2 PUFF IH PRN, (Reported) Buspirone HCl 15 Mg Tablet, 15 MG PO TID, (Reported) Cephalexin 500 Mg Tablet, 500 MG PO BID Prescribed by: GARY LIMON on 11/20/172057 Cephalexin 500 Mg Capsule, 500 MG PO QID Prescribed by: ANGY MARTINS on 01/16/18 0915 Cholecalciferol (Vitamin D3) 1,000 Unit Capsule, 1,000 UNIT PO BID, (Reported) Cinnamon Bark 500 Mg Capsule, 500 MG PO BID, (Reported) Cranberry Extract 500 Mg Tablet, 1,000 MG PO BID, (Reported) Diphenhydramine HCl 25 Mg Capsule, 25 MG PO BID, (Reported) Docusate Sodium 100 Mg Capsule, 100 MG PO BID PRN for CONSTIPATION Prescribed by: AILYN VERGARA on 10/23/16 0735 Hydrocodone Bit/Acetaminophen 1 Each Tablet, 1 EACH PO Q4H PRN for PAIN Prescribed by: ANGY MARTINS on 04/21/17 1100 Hydrocodone Bit/Acetaminophen 1 Each Tablet, 1 EACH PO Q6H PRN for PAIN Prescribed by: YENNIFER HAMLIN on 05/31/17 1501 Ibuprofen 600 Mg Tablet, 600 MG PO Q6H Prescribed by: AILYN VERGARA on 10/23/16 07 Meloxicam 15 Mg Tablet, 15 MG PO DAILY Prescribed by: THOMPSON FITCH on 08/24/172205 Nitrofurantoin Monohyd/M-Cryst 100 Mg Capsule, 100 MG PO BID Prescribed by: THOMPSON FITCH on 08/24/172205 Ondansetron 4 Mg Tab.rapdis, 4 MG SL Q4H Prescribed by: ANGY MARTINS on 04/21/17 1100 Ondansetron 4 Mg Tab.rapdis, 4 MG SL Q4H PRN for NAUSEA/VOMITING-1ST LINE Prescribed by: ANGY MARTINS on 01/16/18 09 Ondansetron 4 Mg Tab.rapdis, 4 MG SL Q4H PRN for NAUSEA/VOMITING-1ST LINE Prescribed by: ANGY MARTINS on 03/01/18 020 Oxycodone HCl/Acetaminophen 1 Each Tablet, 1-2 EACH PO Q4H Prescribed by: ANGY MARTINS on 01/16/18914 Oxycodone HCl/Acetaminophen 1 Each Tablet, 1 EACH PO Q4H PRN for PAIN-MODERATE TO SEVERE Prescribed by: ANGY MARTINS on 03/01/18 020 Phenazopyridine HCl 200 Mg Tablet, 1 TAB PO TID Prescribed by: ANGY MARTINS on 01/16/18 09 Prazosin HCl 2 Mg Capsule, 2 MG PO HS PRN for NIGHTMARES, (Reported) Prednisone 10 Mg Tab.ds.pk, 10 MG PO UD Prescribed by: YENNIFER HAMLIN on 08/20/17 1446 Quetiapine Fumarate 100 Mg Tablet, 100 MG PO HS, (Reported) Sertraline HCl 100 Mg Tablet, 100 MG PO BID, (Reported) TAKES 1 & 1/2 (100MG) TABLET Patient Home Medication List Home Medication List Reviewed: Yes (STEPHANIE MONTES) Review of Systems Constitutional: see HPI; No chills, No diaphoresis; fever EENTM: No Symptoms Reported Respiratory: No Symptoms Reported Cardiovascular: No Symptoms Reported Gastrointestinal: Abdominal Pain; Denies Blood Streaked Stools, Denies Constipated; Diarrhea (chronic ), Nausea; Denies Vomiting Genitourinary: See HPI; Denies Burning; Frequency, Flank Pain; Denies Hematuria , Denies Pain, Denies Urgency Musculoskeletal: back pain Skin: no symptoms reported (STEPHANIE MONTES) Past Uboijio-Iwyjbm-Nnyfge Hx Patient Social History Alcohol Use: Denies Use Recreational Drug Use: No Type Used: Cigarettes 2nd Hand Smoke Exposure: No Recent Foreign Travel: No Contact w/Someone Who Travel: No Recent Infectious Disease Expo: No Recent Hopitalizations: No (STEPHANIE MONTES) Immunizations Up To Date Tetanus Booster (TDap): Unknown Date of Influenza Vaccine: May 20, 2016 (STEPHANIE MONTES) Seasonal Allergies Seasonal Allergies: Yes (STEPHANIE MONTES) Past Medical History Surgeries: Yes ( X 1 --07/2013, DENTAL) Section, Tonsillectomy Respiratory: Yes (Tobaccoism) Asthma, Pneumonia Cardiac: No Neurological: No Reproductive Disorders: Yes (RETAINED IUD) Female Reproductive Disorders: Menstrual Problems, Ovarian Cyst, Polycystic Ovarian Dis [employer]ATOR History: 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 Sexually Transmitted Disease: No HIV/AIDS: No Genitourinary: Yes Bladder Infection, UTI-Chronic Gastrointestinal: Yes Gastroesophageal Reflux, Chronic Diarrhea Musculoskeletal: Yes Fibromyalgia Endocrine: Yes (VITAMIN D DEFICIENCY; OBESITY) HEENT: Yes Loss of Vision: Bilateral Hearing Impairment: Denies Cancer: No Psychosocial: Yes (EXTENSIVE PSYCH ISSUES-PT STABLE ) ADD/ADHD, Sleep Difficulties, Anxiety, PTSD, Bipolar, Personality Disorder, Depression Integumentary: No Blood Disorders: No Adverse Reaction/Blood Tranf: No (SPRESSER,STEPHANIE MED STUDENT) Family Medical History Alcoholism 19 FATHER Asthma 19 MOTHER Completed stroke 19 FATHER DVT 19 FATHER Dementia 19 FATHER Diabetes mellitus 19 MOTHER FH: multiple sclerosis G8 SISTER Headache disorder G8 BROTHER Hypertension 19 FATHER 19 MOTHER Myocardial infarction 19 FATHER Seizure disorder 19 FATHER Hypertension, Seizures, Stroke (STEPHANIE MONTES STUDENT) Physical Exam Vital Signs Vital Signs - First Documented 02/28/18 23:33 Temp 98.1 Pulse 88 Resp 20 B/P (MAP) 139/113 (122) Pulse Ox 97 O2 Delivery Room Air (ANGY WOLF MD) Vital Signs Capillary Refill : Less Than 3 Seconds (STEPHANIE MONTES STUDENT) Height/Weight/BMI Height: 5'0" Weight: 254lbs. 0oz. 115.267457ju; 43.9 BMI Method:Stated General Appearance: WD/WN, no apparent distress Respiratory: chest non-tender, lungs clear, normal breath sounds, no respiratory distress, no accessory muscle use Cardiovascular: normal peripheral pulses, regular rate, rhythm, no edema, no gallop, no JVD, no murmur Gastrointestinal: normal bowel sounds, soft, no organomegaly, no pulsatile mass ; No guarding, No rebound; tenderness (diffuse abdominal tenderness with RLQ being most tender) Back: normal inspection, CVA tenderness (R) Neurologic/Psychiatric: alert, normal mood/affect, oriented x 3 Skin: normal color, warm/dry (STEPHANIE MONTES) Progress/Results/Core Measures Results/Orders Lab Results Laboratory Tests Test 02/28/18 23:46 03/01/18 00:15 Range/Units Urine Color KODI H Urine Clarity VERY CLOUDY H Urine pH 5 5-9 Urine Specific [place] 1.025 H 1.016-1.022 Urine Protein 2+ H NEGATIVE Urine Glucose (UA) NEGATIVE NEGATIVE Urine Ketones NEGATIVE NEGATIVE Urine Nitrite NEGATIVE NEGATIVE Urine Bilirubin NEGATIVE NEGATIVE Urine Urobilinogen NORMAL NORMAL MG/DL Urine Leukocyte Esterase 1+ H NEGATIVE Urine RBC (Auto) 5+ H NEGATIVE Urine RBC 10-25 H /HPF Urine WBC 0-2 /HPF Urine Squamous Epithelial Cells 25-50 H /HPF Urine Crystals NONE /LPF Urine Bacteria LARGE H /HPF Urine Casts NONE /LPF Urine Mucus LARGE H /LPF Urine Culture Indicated YES White Blood Count 7.2 4.3-11.0 10^3/uL Red Blood Count 4.60 4.35-5.85 10^6/uL Hemoglobin 14.7 11.5-16.0 G/DL Hematocrit 42 35-52 % Mean Corpuscular Volume 92 80-99 FL Mean Corpuscular Hemoglobin 32 25-34 PG Mean Corpuscular Hemoglobin Concent 35 32-36 G/DL Red Cell Distribution Width 13.0 10.0-14.5 % Platelet Count 293 130-400 10^3/uL Mean Platelet Volume 10.3 7.4-10.4 FL Neutrophils (%) (Auto) 45 42-75 % Lymphocytes (%) (Auto) 45 H 12-44 % Monocytes (%) (Auto) 7 0-12 % Eosinophils (%) (Auto) 3 0-10 % Basophils (%) (Auto) 1 0-10 % Neutrophils # (Auto) 3.2 1.8-7.8 X 10^3 Lymphocytes # (Auto) 3.2 1.0-4.0 X 10^3 Monocytes # (Auto) 0.5 0.0-1.0 X 10^3 Eosinophils # (Auto) 0.2 0.0-0.3 10^3/uL Basophils # (Auto) 0.0 0.0-0.1 10^3/uL Sodium Level 140 135-145 MMOL/L Potassium Level 4.0 3.6-5.0 MMOL/L Chloride Level 106 98-107 MMOL/L Carbon Dioxide Level 24 21-32 MMOL/L Anion Gap 10 5-14 MMOL/L Blood Urea Nitrogen 11 7-18 MG/DL Creatinine 0.72 0.60-1.30 MG/DL Estimat Glomerular Filtration Rate > 60 BUN/Creatinine Ratio 15 Glucose Level 104 70-105 MG/DL Calcium Level 9.1 8.5-10.1 MG/DL Total Bilirubin 0.1 0.1-1.0 MG/DL Aspartate Amino Transf (AST/SGOT) 16 5-34 U/L Alanine Aminotransferase (ALT/SGPT) 21 0-55 U/L Alkaline Phosphatase 60 40-136 U/L Total Protein 6.1 L 6.4-8.2 GM/DL Albumin 3.7 3.2-4.5 GM/DL Serum Test, Qualitative NEGATIVE NEGATIVE (ANGY WOLF MD) Micro Results Microbiology 02/28/18 Urine Culture - Preliminary, Resulted Sent To [facility] (ANGY WOLF MD) My Orders Orders - ANGY WOLF MD Cbc With Automated Diff (03/01/18 00:13) Comprehensive Metabolic Panel (03/01/18 00:13) Ua Culture If Indicated (03/01/18 00:13) Saline Lock/Iv-Start (03/01/18 00:13) Ns Iv 1000 Ml (Sodium Chloride 0.9%) (03/01/18 00:13) Hcg,Qualitative Serum (03/01/18 00:13) Ondansetron Injection (Zofran Injectio (03/01/18 00:15) Ketorolac Injection (Toradol Injection) (03/01/18 00:15) Urine Culture (02/28/18 23:46) Abdomen/Kub 1view (03/01/18 00:52) Fentanyl Injection (Sublimaze Injection (03/01/18 01:15) Oxycodone/Apap 5/325mg Tablet (Percocet (03/01/18 02:00) (ANGY WOLF MD) Medications Given in ED (ANGY WOLF MD) Vital Signs/I&O 02/28/18 03/01/18 23:33 02:16 Temp 98.1 Pulse 88 96 Resp 20 20 B/P (MAP) 139/113 (122) 130/95 Pulse Ox 97 97 O2 Delivery Room Air (ANGY WOLF MD) Blood Pressure Mean: 122 Progress Progress Note : Time: 00:56 Progress Note IV fluids are running. Pt states the Toradol did not help her pain very much. There is an allergy listed to Toradol, discussed this with patient, she states does not have an allergy to Toradol, she had an adverse reaction in 2007 with jaw grinding. Last stone was visible on x-ray will repeat KUB series to look for stone. (STEPHANIE MONTES MED STUDENT) Progress Note : Progress Note This patient was seen, examined, and interviewed by me along with Stephanie Montes, PA student. I agree with her history, exam, assessment, and plan with the following additions. Patient states her onset and characteristics of pain are very similar to when she was diagnosed with the ureteral stone the end of December. Her urinalysis is convoluted by contamination and her present menstrual cycle. X-rays from prior visit and today were compared. No definite calcification was seen on today's x-ray. Patient may have finally passed the stone identified in December. Patient was treated with IV fluids, Toradol, and fentanyl. She is being given one dose of Percocet to help her get through the night. She is advised to follow-up with her primary care provider and possibly seek referral to a urologist if symptoms continue. Gen.: Alert, oriented, no acute distress, obese, HEENT: normocephalic and atraumatic, Heart: Regular rate and rhythm without murmur Lungs: Clear to auscultation bilaterally with normal effort Back: No CVA tenderness Abdomen: Soft, normal bowel sounds, nondistended, tenderness in the right lower abdomen, negative Rovsing, negative psoas, no pain to percussion. Extremities: normal Skin: Warm and dry Neuro/psych: Alert and oriented, normal mood and affect (ANGY WOLF MD) Diagnostic Imaging Diagonstic Imaging: Xray Plain Films/CT/US/NM/MRI: abdomen Comments X-rays reviewed by me, report not yet available. No acute abnormalities seen. Image was compared to previous x-rays, previous stone is not seen on x-ray, no new stones appreciated. (STEPHANIE MONTES MED STUDENT) Departure Impression Primary Impression: Right lower quadrant pain Additional Impression: Nausea Disposition: 01 HOME, SELF-CARE Condition: Improved Departure-Patient Inst. Referrals: [facility] (PCP) Primary Care Physician APRIL AMBROSE (Family) Primary Care Physician Patient Instructions: Acute Abdomen (Belly Pain), Kidney Stones in Adults Add. Discharge Instructions: Drink plenty of clear liquids. For pain you may take ibuprofen up to 600 mg every 6 hours as needed. Add Percocet as prescribed for pain not controlled by ibuprofen. Use Zofran (ondansetron) as prescribed for nausea and vomiting. Please follow-up with your primary care provider and/or a urologist as soon as possible. Return to care if symptoms are worsening or if you develop new symptoms such as fever over 100. All discharge instructions reviewed with patient and/or family. Voiced understanding. Scripts Ondansetron (Zofran Odt) 4 Mg Tab.rapdis 4 MG SL Q4H PRN for NAUSEA/VOMITING-1ST LINE, #10 TAB Prov: ANGY WOLF MD 03/01/18 Oxycodone HCl/Acetaminophen (Percocet 5-325 mg Tablet) 1 Each Tablet 1 EACH PO Q4H PRN for PAIN-MODERATE TO SEVERE, #10 TAB Prov: ANGY WOLF MD 03/01/18 Copy Copies To 1: AYSHA RODRIGUEZ MCKENZIE MED STUDENT Mar 01, 2018 00:05 ANGY WOLF MD Mar 01, 2018 02:05
[2018-03-01] MEDS ORDERED: NS IV 1000 ML 1,000 ML IV ONE (00:13)
[2018-03-01] MEDS ORDERED: KETOROLAC 30 MG/ML VIAL IVP ONE (00:15)
[2018-03-01] MEDS ORDERED: ONDANSETRON 4 MG/2 ML (SDV) Z0FRAN IVP ONE (00:15)
[2018-03-01 00:21] LABS: BILIRUBIN,URINE NEGATIVE (NEGATIVE); CLARITY,URINE VERY CLOUDY; COLOR,URINE AMBER; GLUCOSE, URINE (UA) NEGATIVE (NEGATIVE); KETONES,URINE NEGATIVE (NEGATIVE); LEUKOCYTE ESTERASE ,URINE 1+ (NEGATIVE); NITRITE,URINE NEGATIVE (NEGATIVE); PH,URINE 5 (5-9); PROTEIN,URINE 2+ (NEGATIVE); UROBILINOGEN,URINE NORMAL (NORMAL)
[2018-03-01 00:37] LABS: BASOPHILS % (AUTO) 1 % (0-10); EOSINOPHILS # (AUTO) 0.2 10^3/uL (0.0-0.3); EOSINOPHILS % (AUTO) 3 % (0-10); HEMATOCRIT 42 % (35-52); HEMOGLOBIN 14.7 G/DL (11.5-16.0); LYMPHOCYTES # (AUTO) 3.2 X 10^3 (1.0-4.0); LYMPHOCYTES % (AUTO) 45 % (12-44); MEAN CORPUSCULAR HEMOGLOBIN 32 PG (25-34); MEAN CORPUSCULAR HGB CONC 35 G/DL (32-36); MEAN CORPUSCULAR VOLUME 92 FL (80-99); MEAN PLATELET VOLUME 10.3 FL (7.4-10.4); MONOCYTES # (AUTO) 0.5 X 10^3 (0.0-1.0); MONOCYTES % (AUTO) 7 % (0-12); NEUTROPHILS # (AUTO) 3.2 X 10^3 (1.8-7.8); NEUTROPHILS % (AUTO) 45 % (42-75); PLATELET COUNT 293 10^3/uL (130-400); WHITE BLOOD COUNT 7.2 10^3/uL (4.3-11.0)
[2018-03-01 00:46] LABS: BACTERIA,URINE LARGE /HPF; SQUAMOUS EPITHELIAL CELL,UR 25-50 /HPF; WBC,URINE 0-2 /HPF
[2018-03-01 00:55] LABS: ALANINE AMINOTRANSFERASE 21 U/L (0-55); ALBUMIN 3.7 GM/DL (3.2-4.5); ALKALINE PHOSPHATASE 60 U/L (40-136); BILIRUBIN,TOTAL 0.1 MG/DL (0.1-1.0); BUN/CREATININE RATIO 15; CALCIUM 9.1 MG/DL (8.5-10.1); CARBON DIOXIDE 24 MMOL/L (21-32); CHLORIDE 106 MMOL/L (98-107); CREATININE SERUM 0.72 MG/DL (0.60-1.30); GFR ESTIMATED > 60; GLUCOSE 104 MG/DL (70-105); SODIUM 140 MMOL/L (135-145); TOTAL PROTEIN 6.1 GM/DL (6.4-8.2)
[2018-03-01] MEDS ORDERED: fentaNYL INJECTION 100 MCG/2 ML AMP IVP ONE (01:15)
[2018-03-01] MEDS ORDERED: oxyCODONE/APAP 5/325MG (PERCOCET 5) TABLET PO ONE (02:00)
[2018-03-01] MEDS ORDERED: ONDA4TAB8 SL (02:08)
[2018-03-01] MEDS ORDERED: OXYC-197 PO (02:08)
[2018-03-01 02:16] VITALS: BP 130/95
--- NOTE | 2018-03-01 06:11 | Diagnostic Imaging Report ---
INDICATION: Right-sided flank pain. History of kidney stones. COMPARISON: 01/16/2018 FINDINGS: Multiple supine radiographic views of the abdomen demonstrate nonobstructive small bowel gas pattern. Mild amount of air and stool are seen scattered throughout the colon. No large collection of free intraperitoneal air is seen. No abnormal extraosseous calcifications or radiopaque foreign bodies are identified. Bony structures are age-appropriate. IMPRESSION: 1. Nonobstructive small bowel gas pattern. Dictated by: Dictated on workstation # [id number]
== END 2018-03-01 02:16 | disposition home or self-care (01) ==
LOC: EDUNIT# 23:11 → ER 23:13
DX: R10.31 Right lower quadrant pain (principal); R11.0 Nausea; J45.909 Unspecified asthma, uncomplicated; E66.9 Obesity, unspecified; F90.9 Attention-deficit hyperactivity disorder, unspecified type; G47.30 Sleep apnea, unspecified; F41.9 Anxiety disorder, unspecified; F43.10 Post-traumatic stress disorder, unspecified; F31.9 Bipolar disorder, unspecified; K21.9 Gastro-esophageal reflux disease without esophagitis; Z87.19 Personal history of other diseases of the digestive system; Z87.440 Personal history of urinary (tract) infections; Z87.442 Personal history of urinary calculi; Z82.49 Family history of ischemic heart disease and other diseases of the circulatory system; Z97.5 Presence of (intrauterine) contraceptive device; Z88.8 Allergy status to other drugs, medicaments and biological substances; Z88.6 Allergy status to analgesic agent; Z79.51 Long term (current) use of inhaled steroids; Z68.42 Body mass index [BMI] 45.0-49.9, adult; Z79.52 Long term (current) use of systemic steroids; Z87.59 Personal history of other complications of pregnancy, childbirth and the puerperium; Z90.89 Acquired absence of other organs; Z87.01 Personal history of pneumonia (recurrent)
CPT/HCPCS: 36415; 74018; 80053; 81000; 84703; 85025; 87088; 96361; 96374; 96375

== ENCOUNTER 2018-05-10 21:10 | Emergency (ER) | payer SELFPAY ==
[~2018-05-10] VITALS: Ht 152.4 cm; Wt 115.2 kg
[~2018-05-10 21:10] MED LIST changes: -OXYC-197 PO; +OXYC1TAB87 PO; +SULF-222 PO
[2018-05-10] MEDS ORDERED: fentaNYL INJECTION 100 MCG/2 ML AMP IVP STA (23:43)
[2018-05-10] MEDS ORDERED: NS IV 1000 ML 1,000 ML IV STA (23:43)
[2018-05-10] MEDS ORDERED: ONDANSETRON 4 MG/2 ML (SDV) Z0FRAN IVP ONE (23:45)
[2018-05-10 23:51] LABS: BASOPHILS # (AUTO) 0.1 10^3/uL (0.0-0.1); BASOPHILS % (AUTO) 0 % (0-10); EOSINOPHILS # (AUTO) 0.3 10^3/uL (0.0-0.3); EOSINOPHILS % (AUTO) 2 % (0-10); HEMATOCRIT 47 % (35-52); LYMPHOCYTES # (AUTO) 3.7 X 10^3 (1.0-4.0); LYMPHOCYTES % (AUTO) 27 % (12-44); MEAN CORPUSCULAR HEMOGLOBIN 32 PG (25-34); MEAN CORPUSCULAR HGB CONC 34 G/DL (32-36); MEAN CORPUSCULAR VOLUME 92 FL (80-99); MEAN PLATELET VOLUME 10.6 FL (7.4-10.4); MONOCYTES # (AUTO) 0.9 X 10^3 (0.0-1.0); MONOCYTES % (AUTO) 6 % (0-12); NEUTROPHILS % (AUTO) 65 % (42-75); PLATELET COUNT 340 10^3/uL (130-400); RED BLOOD COUNT 5.03 10^6/uL (4.35-5.85); WHITE BLOOD COUNT 13.8 10^3/uL (4.3-11.0)
[2018-05-10 23:53] LABS: BILIRUBIN,URINE NEGATIVE (NEGATIVE); CLARITY,URINE CLOUDY; COLOR,URINE YELLOW; GLUCOSE, URINE (UA) NEGATIVE (NEGATIVE); KETONES,URINE NEGATIVE (NEGATIVE); LEUKOCYTE ESTERASE ,URINE 3+ (NEGATIVE); NITRITE,URINE NEGATIVE (NEGATIVE); PH,URINE 5 (5-9); PROTEIN,URINE 2+ (NEGATIVE); UROBILINOGEN,URINE NORMAL (NORMAL)
[2018-05-10 23:54] LABS: BACTERIA,URINE MODERATE /HPF; TRICHOMONAS,URINE LARGE /HPF; WBC,URINE 50-100 /HPF
[2018-05-11 00:03] LABS: ALANINE AMINOTRANSFERASE 14 U/L (0-55); ALBUMIN 4.2 GM/DL (3.2-4.5); ALKALINE PHOSPHATASE 75 U/L (40-136); BILIRUBIN,TOTAL 0.2 MG/DL (0.1-1.0); BUN/CREATININE RATIO 16; CARBON DIOXIDE 24 MMOL/L (21-32); CHLORIDE 106 MMOL/L (98-107); GFR ESTIMATED > 60; GLUCOSE 93 MG/DL (70-105); POTASSIUM 4.5 MMOL/L (3.6-5.0); SODIUM 141 MMOL/L (135-145); TOTAL PROTEIN 7.2 GM/DL (6.4-8.2)
--- NOTE | 2018-05-11 00:09 | ED GI ---
General Chief Complaint: Abdominal/GI Problems Stated Complaint: R SIDE ABD PAIN Source of Information: Patient Exam Limitations: No Limitations History of Present Illness Date Seen by Provider: May 10, 2018 Time Seen by Provider: 23:40 Initial Comments Here with report of right flank pain that radiates from her kidney down to her right flank. Has been going on for the last 12 hours and is associated with nausea. Does have chronic diarrhea. Denies blood in her urine or stool. States she's not been elevated eat or drink well due to pain and nausea. Has history of kidney stones and states it feels a little bit like that. Timing/Duration: 12-24 Hours Severity/Quality: Moderate Location: Flank Radiation: RLQ Activities at Onset: None Associated Symptoms: Back Pain; No Chest Pain, No Fever/Chills; Nausea/Vomiting ; No Shortness of Air, No Weakness Allergies and Home Medications Allergies Coded Allergies: ketorolac (Unverified Adverse Reaction, Unknown, 08/24/17) prochlorperazine (Unverified Adverse Reaction, Unknown, 08/24/17) tramadol (Unverified Adverse Reaction, Unknown, 08/24/17) Home Medications Acetaminophen with Codeine 1 Each Tablet, 1 EACH PO Q4H PRN for PAIN Prescribed by: AILYN VERGARA on 10/23/16 0735 Albuterol Sulfate 18 Gm Hfa.aer.ad, 1-2 PUFF IH PRN, (Reported) Buspirone HCl 15 Mg Tablet, 15 MG PO TID, (Reported) Cephalexin 500 Mg Tablet, 500 MG PO BID Prescribed by: GARY LIMON on 11/20/172057 Cephalexin 500 Mg Capsule, 500 MG PO QID Prescribed by: ANGY MARTINS on 01/16/18 0915 Cholecalciferol (Vitamin D3) 1,000 Unit Capsule, 1,000 UNIT PO BID, (Reported) Cinnamon Bark 500 Mg Capsule, 500 MG PO BID, (Reported) Cranberry Extract 500 Mg Tablet, 1,000 MG PO BID, (Reported) Diphenhydramine HCl 25 Mg Capsule, 25 MG PO BID, (Reported) Docusate Sodium 100 Mg Capsule, 100 MG PO BID PRN for CONSTIPATION Prescribed by: AILYN VERGARA on 10/23/16 0735 Hydrocodone Bit/Acetaminophen 1 Each Tablet, 1 EACH PO Q4H PRN for PAIN Prescribed by: ANGY MARTINS on 04/21/17 1100 Hydrocodone Bit/Acetaminophen 1 Each Tablet, 1 EACH PO Q6H PRN for PAIN Prescribed by: YENNIFER HAMLIN on 05/31/17 1501 Hydrocodone Bit/Acetaminophen 1 Tab Tab, 1-2 EACH PO Q6H PRN for PAIN-MODERATE Prescribed by: MAKAYLA POLO on 04/15/18 1643 Ibuprofen 600 Mg Tablet, 600 MG PO Q6H Prescribed by: AILYN VERGARA on 10/23/16 0735 Meloxicam 15 Mg Tablet, 15 MG PO DAILY Prescribed by: THOMPSON FITCH on 08/24/172205 Nitrofurantoin Monohyd/M-Cryst 100 Mg Capsule, 100 MG PO BID Prescribed by: THOMPSON FITCH on 08/24/172205 Ondansetron 4 Mg Tab.rapdis, 4 MG SL Q4H Prescribed by: NAGY MARTINS on 04/21/17 1100 Ondansetron 4 Mg Tab.rapdis, 4 MG SL Q4H PRN for NAUSEA/VOMITING-1ST LINE Prescribed by: ANGY MARTINS on 01/16/18 0915 Ondansetron 4 Mg Tab.rapdis, 4 MG SL Q4H PRN for NAUSEA/VOMITING-1ST LINE Prescribed by: ANGY MARTINS on 03/01/18 0208 Oxycodone HCl/Acetaminophen 1 Each Tablet, 1-2 EACH PO Q4H Prescribed by: ANGY MARTINS on 01/16/18 09 Oxycodone HCl/Acetaminophen 1 Each Tablet, 1 EACH PO Q4H PRN for PAIN-MODERATE TO SEVERE Prescribed by: ANGY MARTINS on 03/01/18 0208 Phenazopyridine HCl 200 Mg Tablet, 1 TAB PO TID Prescribed by: ANGY MARTINS on 01/16/18 09 Prazosin HCl 2 Mg Capsule, 2 MG PO HS PRN for NIGHTMARES, (Reported) Prednisone 10 Mg Tab.ds.pk, 10 MG PO UD Prescribed by: YENNIFER HAMLIN on 08/20/17 1446 Quetiapine Fumarate 100 Mg Tablet, 100 MG PO HS, (Reported) Sertraline HCl 100 Mg Tablet, 100 MG PO BID, (Reported) TAKES 1 & 1/2 (100MG) TABLET Sulfamethoxazole/Trimethoprim 1 Each Tablet, 1 EACH PO BID Prescribed by: MAKAYLA POLO on 04/15/18 8888 Patient Home Medication List Home Medication List Reviewed: Yes Review of Systems Review of Systems Constitutional: see HPI; No chills, No fever EENTM: No Symptoms Reported Respiratory: No Symptoms Reported Cardiovascular: No Symptoms Reported Gastrointestinal: See HPI, Abdominal Pain, Diarrhea, Nausea; Denies Vomiting Genitourinary: See HPI; Denies Discharge; Flank Pain Musculoskeletal: no symptoms reported Skin: no symptoms reported Psychiatric/Neurological: No Symptoms Reported All Other Systems Reviewed Negative Unless Noted: Yes Past Kqsqpsn-Sffhvo-Ovmhos Hx Past Med/Social Hx: Reviewed Nursing Past Med/Soc Hx Patient Social History Alcohol Use: Denies Use Recreational Drug Use: No Smoking Status: Current Everyday Smoker Type Used: Cigarettes 2nd Hand Smoke Exposure: No Recent Foreign Travel: No Contact w/Someone Who Travel: No Recent Hopitalizations: No Immunizations Up To Date Tetanus Booster (TDap): Unknown Date of Influenza Vaccine: May 20, 2016 Seasonal Allergies Seasonal Allergies: Yes Past Medical History Surgeries: Yes ( X --07/2013, DENTAL) Section, Tonsillectomy Respiratory: Yes (Tobaccoism) Asthma, Pneumonia Cardiac: Yes High Cholesterol Neurological: No Reproductive Disorders: Yes (RETAINED IUD) Female Reproductive Disorders: Menstrual Problems, Ovarian Cyst, Polycystic Ovarian Dis [employer] History: IUD Sexually Transmitted Disease: No HIV/AIDS: No Genitourinary: Yes Bladder Infection, UTI-Chronic Gastrointestinal: Yes Gastroesophageal Reflux, Chronic Diarrhea, Irritable Bowel Musculoskeletal: Yes Fibromyalgia Endocrine: Yes (VITAMIN D DEFICIENCY; OBESITY) HEENT: Yes Loss of Vision: Bilateral Hearing Impairment: Denies Cancer: No Psychosocial: Yes (EXTENSIVE PSYCH ISSUES-PT STABLE ) ADD/ADHD, Sleep Difficulties, Anxiety, PTSD, Bipolar, Personality Disorder, Depression Integumentary: No Blood Disorders: No Adverse Reaction/Blood Tranf: No Family Medical History Reviewed Nursing Family Hx Alcoholism 19 FATHER Asthma 19 MOTHER Completed stroke 19 FATHER DVT 19 FATHER Dementia 19 FATHER Diabetes mellitus 19 MOTHER FH: multiple sclerosis G8 SISTER Headache disorder G8 BROTHER Hypertension 19 FATHER 19 MOTHER Myocardial infarction 19 FATHER Seizure disorder 19 FATHER Hypertension, Seizures, Stroke Physical Exam Vital Signs Vital Signs - First Documented 05/10/18 23:21 Temp 97.5 Pulse 92 Resp 10 B/P (MAP) 159/115 (130) Pulse Ox 97 Capillary Refill : Height/Weight/BMI Height: 5'0" Weight: 246lbs. 0oz. [id number]; 43.9 BMI Method:Stated General Appearance: WD/WN, no apparent distress HEENT: PERRL/EOMI, pharynx normal Neck: full range of motion, supple Respiratory: lungs clear, normal breath sounds Cardiovascular: regular rate, rhythm, no murmur Peripheral Pulses: 2+ Dorsalis Pedis (R), 2+ Left Dors-Pedis (L), 2+ Radial Pulses (R), 2+ Radial Pulses (L) Gastrointestinal: soft, tenderness (right flank) Extremities: non-tender, normal inspection Back: normal inspection, no vertebral tenderness, CVA tenderness (R); No CVA tenderness (L) Neurologic/Psychiatric: alert, oriented x 3 Skin: normal color, warm/dry Progress/Results/Core Measures Results/Orders Lab Results Laboratory Tests Test 05/10/18 22:30 05/10/18 23:23 Range/Units White Blood Count 13.8 H 4.3-11.0 10^3/uL Red Blood Count 5.03 4.35-5.85 10^6/uL Hemoglobin 16.0 11.5-16.0 G/DL Hematocrit 47 35-52 % Mean Corpuscular Volume 92 80-99 FL Mean Corpuscular Hemoglobin 32 25-34 PG Mean Corpuscular Hemoglobin Concent 34 32-36 G/DL Red Cell Distribution Width 13.0 10.0-14.5 % Platelet Count 340 130-400 10^3/uL Mean Platelet Volume 10.6 H 7.4-10.4 FL Neutrophils (%) (Auto) 65 42-75 % Lymphocytes (%) (Auto) 27 12-44 % Monocytes (%) (Auto) 6 0-12 % Eosinophils (%) (Auto) 2 0-10 % Basophils (%) (Auto) 0 0-10 % Neutrophils # (Auto) 9.0 H 1.8-7.8 X 10^3 Lymphocytes # (Auto) 3.7 1.0-4.0 X 10^3 Monocytes # (Auto) 0.9 0.0-1.0 X 10^3 Eosinophils # (Auto) 0.3 0.0-0.3 10^3/uL Basophils # (Auto) 0.1 0.0-0.1 10^3/uL Sodium Level 141 135-145 MMOL/L Potassium Level 4.5 3.6-5.0 MMOL/L Chloride Level 106 98-107 MMOL/L Carbon Dioxide Level 24 21-32 MMOL/L Anion Gap 11 5-14 MMOL/L Blood Urea Nitrogen 13 7-18 MG/DL Creatinine 0.80 0.60-1.30 MG/DL Estimat Glomerular Filtration Rate > 60 BUN/Creatinine Ratio 16 Glucose Level 93 70-105 MG/DL Calcium Level 10.0 8.5-10.1 MG/DL Corrected Calcium 9.8 8.5-10.1 MG/DL Total Bilirubin 0.2 0.1-1.0 MG/DL Aspartate Amino Transf (AST/SGOT) 9 5-34 U/L Alanine Aminotransferase (ALT/SGPT) 14 0-55 U/L Alkaline Phosphatase 75 40-136 U/L Total Protein 7.2 6.4-8.2 GM/DL Albumin 4.2 3.2-4.5 GM/DL Urine Color YELLOW Urine Clarity CLOUDY H Urine pH 5 5-9 Urine Specific [place] 1.025 H 1.016-1.022 Urine Protein 2+ H NEGATIVE Urine Glucose (UA) NEGATIVE NEGATIVE Urine Ketones NEGATIVE NEGATIVE Urine Nitrite NEGATIVE NEGATIVE Urine Bilirubin NEGATIVE NEGATIVE Urine Urobilinogen NORMAL NORMAL MG/DL Urine Leukocyte Esterase 3+ H NEGATIVE Urine RBC (Auto) 5+ H NEGATIVE Urine RBC 10-25 H /HPF Urine WBC 50-100 H /HPF Urine Squamous Epithelial Cells 5-10 /HPF Urine Crystals NONE /LPF Urine Bacteria MODERATE H /HPF Urine Casts NONE /LPF Urine Mucus NEGATIVE /LPF Urine Trichomonas LARGE H /HPF Urine Culture Indicated YES Urine Test NEGATIVE NEGATIVE My Orders Orders - MAKAYLA POLO MD Hcg,Qualitative Urine (05/10/18 23:33) Cbc With Automated Diff (05/10/18 23:43) Comprehensive Metabolic Panel (05/10/18 23:43) Ondansetron Injection (Zofran Injectio (05/10/18 23:45) Ns Iv 1000 Ml (Sodium Chloride 0.9%) (05/10/18 23:43) Fentanyl Injection (Sublimaze Injection (05/10/18 23:43) Ct Abd/Pelvis Wo(Kidney Stone) (05/11/18 00:03) Metronidazole Tablet (Flagyl Tablet) (05/11/18 00:45) Ceftriaxone For Iv Use (Rocephin For I (05/11/18 01:00) Fentanyl Injection (Sublimaze Injection (05/11/18 00:49) Medications Given in ED Current Medications Medications Dose Ordered Sig/Hina Route Start Time Stop Time Status Last Admin Dose Admin Ceftriaxone Sodium 1000 mg/ Sodium Chloride 60 ml @ 100 mls/hr ONCE ONCE IV 05/11/18 01:00 05/11/18 01:35 05/11/18 00:59 100 MLS/HR Metronidazole 2,000 mg ONCE ONCE PO 05/11/18 00:45 05/11/18 00:46 DC 05/11/18 00:59 2,000 MG Ondansetron HCl 4 mg ONCE ONCE IVP 05/10/18 23:45 05/10/18 23:46 DC 05/10/18 23:59 4 MG Vital Signs/I&O 05/10/18 23:21 Temp 97.5 Pulse 92 Resp 10 B/P (MAP) 159/115 (130) Pulse Ox 97 Progress Progress Note : Progress Note Seen and evaluated. IV, labs, UA, normal saline 1 L bolus and fentanyl 50 g IV ordered. Zofran 4 mg IV ordered. We will get CT of the abdomen and pelvis kidney stone protocol given her history and a cousin the pain. 0120: UA noted trach. Flagyl 2000 mg by mouth given. There is also concerns for urinary tract infection. Rocephin 1 g IV given. Patient had continuation of pain so fentanyl 75 g IV given. Otherwise no acute findings on CT scan. Discharged home with return precautions. Patient verbalize understanding instructions and agreement with plan. Diagnostic Imaging Diagonstic Imaging: CT Plain Films/CT/US/NM/MRI: abdomen, pelvis Comments No evidence of hydronephrosis or perinephric stranding. No evidence of renal or ureteral stone. Reviewed: [facility] Imp[facility] Primary Impression: Right sided abdominal pain Additional Impressions: Trichomonas infection Urinary tract infection Qualified Codes: N30.00 - Acute cystitis without hematuria Disposition: HOME, SELF-CARE Condition: Improved Departure-Patient Inst. Decision time for Depature: 01:25 Referrals: [facility] (PCP) Primary Care Physician APRIL AMBROSE (Family) Primary Care Physician Patient Instructions: Acute Abdomen (Belly Pain), Adult (DC), Trichomoniasis ( DC), Urinary Tract Infection, Adult (DC) Add. Discharge Instructions: All discharge instructions reviewed with patient and/or family. Voiced understanding. Drink plenty of fluids. You may take ibuprofen 800 mg every 8 hours as needed for pain. You may take Tylenol/acetaminophen 1000 mg every 8 hours as needed for pain. Take other medications as prescribed. Follow-up with your Dr. in a few days for recheck. Return for worse pain, fever, vomiting, weakness, breathing problems or other concerns as needed. Scripts Cephalexin (Cephalexin) 500 Mg Tablet 500 MG PO BID, #10 TAB 0 Refills Prov: MAKAYLA POLO MD 05/11/18 MAKAYLA POLO MD May 11, 2018 00:09
[2018-05-11] MEDS ORDERED: metroNIDAZOLE 500 MG (FLAGYL) TAB PO ONE (00:45)
[2018-05-11] MEDS ORDERED: fentaNYL INJECTION 100 MCG/2 ML AMP IVP STA (00:49)
[2018-05-11] MEDS ORDERED: cefTRIAXone FOR IV USE 1,000 MG in NS (IVPB) 50 ML IV ONE (01:00)
[2018-05-11] MEDS ORDERED: CEPH500T PO (01:29)
[2018-05-11 02:10] VITALS: BP 150/98
--- NOTE | 2018-05-11 06:08 | Diagnostic Imaging Report ---
PROCEDURE: CT urinary tract, rule out kidney stone. TECHNIQUE: Multiple contiguous axial images were obtained through the abdomen and pelvis without the use of intravenous contrast. INDICATION: Right lower back pain. COMPARISON: 01/16/2018 FINDINGS: The lung bases demonstrate no focal consolidation. There is mild stable bronchiectasis with new nodularity at the right lower lobe, measuring up to 5 mm. The heart is normal in size. The liver, spleen, pancreas, and adrenal glands are unremarkable on this noncontrast study. The kidneys demonstrate no calculi or hydronephrosis. There is no perirenal stranding. The bowel loops are nondistended without evidence of obstruction. The appendix is normal. There is no free fluid or free air seen. No acute osseous abnormality is seen. IMPRESSION: 1. No renal calculi or hydronephrosis. 2. Mild bronchiectasis in the right lower lobe with mildly increased associated nodularity. This may represent small infectious or inflammatory reaction. Followup CT in 12 months could be considered. Dictated by: Dictated on workstation # [id number]
== END 2018-05-11 02:10 | disposition home or self-care (01) ==
LOC: ER 21:10
DX: N39.0 Urinary tract infection, site not specified (principal); A07.8 Other specified protozoal intestinal diseases; J45.909 Unspecified asthma, uncomplicated; E78.00 Pure hypercholesterolemia, unspecified; K21.9 Gastro-esophageal reflux disease without esophagitis; E66.9 Obesity, unspecified; F90.9 Attention-deficit hyperactivity disorder, unspecified type; F41.9 Anxiety disorder, unspecified; F31.9 Bipolar disorder, unspecified; F43.10 Post-traumatic stress disorder, unspecified; F17.210 Nicotine dependence, cigarettes, uncomplicated; Z98.890 Other specified postprocedural states; Z82.49 Family history of ischemic heart disease and other diseases of the circulatory system; Z87.01 Personal history of pneumonia (recurrent); Z97.5 Presence of (intrauterine) contraceptive device; Z87.448 Personal history of other diseases of urinary system; Z87.19 Personal history of other diseases of the digestive system; Z79.51 Long term (current) use of inhaled steroids; Z79.52 Long term (current) use of systemic steroids
CPT/HCPCS: 36415; 74176; 80053; 81000; 84703; 85025; 87088; 96361; 96365; 96375; 96376

== ENCOUNTER 2018-07-05 20:27 | Inpatient (IN) | payer OTHER ==
[~2018-07-05] VITALS: Ht 152.4 cm; Wt 108.9 kg
[2018-07-05] MEDS ORDERED: RT-ALBUTEROL/IPRATROPIUM 3 ML (DUONEB) VIAL ONE (20:33)
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
[2018-07-05] MEDS ORDERED: RT-ALBUTEROL SULF 2.5 MG/3 ML PRE-MIX VIAL ONE ×2 (20:37→20:38)
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
[2018-07-05] MEDS ORDERED: RT-IPRATROPIUM (ATROVENT) 0.5MG/2.5ML AMP IH ONE ×2 (20:38→20:45)
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
--- NOTE | 2018-07-05 20:43 | ED Respiratory ---
General Chief Complaint: Respiratory Problems Stated Complaint: SOA Source: patient Exam Limitations: no limitations History of Present Illness Date Seen by Provider: Jul 05, 2018 Time Seen by Provider: 20:41 Initial Comments To ER per EMS from home with reports of shortness of breath. She has a history of asthma. She smokes one half pack of cigarettes per day. She saw her primary care provider Dr. Vásquez 2-3 days ago who started her on steroids and azithromycin. She is still on this. She also has a nebulizer at home and used just before arrival but denies any improvement. She denies fevers or chills. Timing/Duration: this afternoon, getting worse Severity: moderate Prior Episodes/Possible Cause: occasional episodes Associated Symptoms: cough, shortness of breath, wheezing Allergies and Home Medications Allergies Coded Allergies: ketorolac (Unverified Adverse Reaction, Unknown, 08/24/17) prochlorperazine (Unverified Adverse Reaction, Unknown, 08/24/17) tramadol (Unverified Adverse Reaction, Unknown, 08/24/17) Home Medications Acetaminophen with Codeine 1 Each Tablet, 1 EACH PO Q4H PRN for PAIN Prescribed by: AILYN VERGARA on 10/23/16 0735 Albuterol Sulfate 18 Gm Hfa.aer.ad, 1-2 PUFF IH PRN, (Reported) Buspirone HCl 15 Mg Tablet, 15 MG PO TID, (Reported) Cephalexin 500 Mg Tablet, 500 MG PO BID Prescribed by: GARY LIMON on 11/20/172057 Cephalexin 500 Mg Capsule, 500 MG PO QID Prescribed by: ANGY MARTINS on 01/16/18 0915 Cephalexin 500 Mg Tablet, 500 MG PO BID Prescribed by: MAKAYLA POLO on 05/11/18 0129 Cholecalciferol (Vitamin D3) 1,000 Unit Capsule, 1,000 UNIT PO BID, (Reported) Cinnamon Bark 500 Mg Capsule, 500 MG PO BID, (Reported) Cranberry Extract 500 Mg Tablet, 1,000 MG PO BID, (Reported) Diphenhydramine HCl 25 Mg Capsule, 25 MG PO BID, (Reported) Docusate Sodium 100 Mg Capsule, 100 MG PO BID PRN for CONSTIPATION Prescribed by: AILYN VERGARA on 10/23/16 0735 Hydrocodone Bit/Acetaminophen 1 Each Tablet, 1 EACH PO Q4H PRN for PAIN Prescribed by: ANGY MARTINS on 04/21/17 1100 Hydrocodone Bit/Acetaminophen 1 Each Tablet, 1 EACH PO Q6H PRN for PAIN Prescribed by: YENNIFER HAMLIN on 05/31/17 1501 Hydrocodone Bit/Acetaminophen 1 Tab Tab, 1-2 EACH PO Q6H PRN for PAIN-MODERATE Prescribed by: MAKAYLA POLO on 04/15/18 1643 Ibuprofen 600 Mg Tablet, 600 MG PO Q6H Prescribed by: AILYN VERGARA on 10/23/16 0735 Meloxicam 15 Mg Tablet, 15 MG PO DAILY Prescribed by: THOMPSON FITCH on 08/24/172205 Nitrofurantoin Monohyd/M-Cryst 100 Mg Capsule, 100 MG PO BID Prescribed by: THOMPSON FITCH on 08/24/172205 Ondansetron 4 Mg Tab.rapdis, 4 MG SL Q4H Prescribed by: ANGY MARTINS on 04/21/17 1100 Ondansetron 4 Mg Tab.rapdis, 4 MG SL Q4H PRN for NAUSEA/VOMITING-1ST LINE Prescribed by: ANGY MARTINS on 01/16/18 0915 Ondansetron 4 Mg Tab.rapdis, 4 MG SL Q4H PRN for NAUSEA/VOMITING-1ST LINE Prescribed by: ANGY MARTINS on 03/01/18 0208 Oxycodone HCl/Acetaminophen 1 Each Tablet, 1-2 EACH PO Q4H Prescribed by: ANGY MARTINS on 01/16/18 09 Oxycodone HCl/Acetaminophen 1 Each Tablet, 1 EACH PO Q4H PRN for PAIN-MODERATE TO SEVERE Prescribed by: ANGY MARTINS on 03/01/18 0208 Phenazopyridine HCl 200 Mg Tablet, 1 TAB PO TID Prescribed by: ANGY MARTINS on 01/16/18 09 Prazosin HCl 2 Mg Capsule, 2 MG PO HS PRN for NIGHTMARES, (Reported) Prednisone 10 Mg Tab.ds.pk, 10 MG PO UD Prescribed by: YENNIFER HAMLIN on 08/20/17 1446 Quetiapine Fumarate 100 Mg Tablet, 100 MG PO HS, (Reported) Sertraline HCl 100 Mg Tablet, 100 MG PO BID, (Reported) TAKES 1 & 1/2 (100MG) TABLET Sulfamethoxazole/Trimethoprim 1 Each Tablet, 1 EACH PO BID Prescribed by: MAKAYLA POLO on 04/15/18 9993 Patient Home Medication List Home Medication List Reviewed: Yes Review of Systems Review of Systems Constitutional: see HPI EENTM: see HPI Respiratory: see HPI, short of breath, wheezing Cardiovascular: no symptoms reported Genitourinary: no symptoms reported Musculoskeletal: no symptoms reported Skin: no symptoms reported Psychiatric/Neurological: No Symptoms Reported Hematologic/Lymphatic: No Symptoms Reported Past Kwkarms-Dxfniq-Xgnwnu Hx Patient Social History Type Used: Cigarettes 2nd Hand Smoke Exposure: No Recent Foreign Travel: No Contact w/Someone Who Travel: No Recent Hopitalizations: No Immunizations Up To Date Tetanus Booster (TDap): Unknown Date of Influenza Vaccine: May 20, 2016 Seasonal Allergies Seasonal Allergies: Yes Past Medical History Surgeries: Yes ( X --07/2013, DENTAL) Section, Tonsillectomy Respiratory: Yes (Tobaccoism) Asthma, Pneumonia Cardiac: Yes High Cholesterol Neurological: No Reproductive Disorders: Yes (RETAINED IUD) Female Reproductive Disorders: Menstrual Problems, Ovarian Cyst, Polycystic Ovarian Dis AD SETTER History: IUD Sexually Transmitted Disease: No HIV/AIDS: No Genitourinary: Yes Bladder Infection, UTI-Chronic Gastrointestinal: Yes Gastroesophageal Reflux, Chronic Diarrhea, Irritable Bowel Musculoskeletal: Yes Fibromyalgia Endocrine: Yes (VITAMIN D DEFICIENCY; OBESITY) HEENT: Yes Loss of Vision: Bilateral Hearing Impairment: Denies Cancer: No Psychosocial: Yes (EXTENSIVE PSYCH ISSUES-PT STABLE ) ADD/ADHD, Sleep Difficulties, Anxiety, PTSD, Bipolar, Personality Disorder, Depression Integumentary: No Blood Disorders: No Adverse Reaction/Blood Tranf: No Family Medical History Alcoholism 19 FATHER Asthma 19 MOTHER Completed stroke 19 FATHER DVT 19 FATHER Dementia 19 FATHER Diabetes mellitus 19 MOTHER FH: multiple sclerosis G8 SISTER Headache disorder G8 BROTHER Hypertension 19 FATHER 19 MOTHER Myocardial infarction 19 FATHER Seizure disorder 19 FATHER Hypertension, Seizures, Stroke Physical Exam Vital Signs - First Documented 07/05/18 07/05/18 07/05/18 07/05/18 20:30 20:37 20:47 21:31 Temp 99.8 Pulse 132 Resp 30 B/P (MAP) 152/91 (111) Pulse Ox 88 O2 Delivery Room Air O2 Flow Rate 8.00 FiO2 50 Capillary Refill : Height: 5'0" Weight: 254lbs. 0oz. 115.324312ps; 43.9 BMI Method:Stated General Appearance: WD/WN, moderate distress, other (Oxygen saturation 89-90% on room air, tachypneic, tachycardic) Eyes: Bilateral Eye Normal Inspection, Bilateral Eye PERRL, Bilateral Eye EOMI HEENT: PERRL/EOMI, normal ENT inspection Neck: non-tender, full range of motion Respiratory: no respiratory distress, no accessory muscle use, decreased breath sounds, wheezing Cardiovascular: no murmur, tachycardia Gastrointestinal: normal bowel sounds, non tender, soft Extremities: normal range of motion, non-tender Neurologic/Psychiatric: alert, normal mood/affect, oriented x 3 Skin: normal color, warm/dry Focused Exam Lactate Level 07/05/18 21:35: Lactic Acid Level 2.19*H Lactic Acid Level Laboratory Tests Test 07/05/18 21:35 Lactic Acid Level 2.19 MMOL/L (0.50-2.00) *H Progress/Results/Core Measures Suspected Sepsis SIRS Temperature: Pulse: Respiratory Rate: Laboratory Tests 07/05/18 20:35: White Blood Count 20.2H Blood Pressure / Mean: 07/05/18 21:35: Lactic Acid Level 2.19*H Laboratory Tests 07/05/18 20:35: Creatinine 0.89, Platelet Count 378, Total Bilirubin 0.2 Results/Orders Lab Results Laboratory Tests Test 07/05/18 20:35 07/05/18 20:45 07/05/18 21:26 07/05/18 21:35 Range/Units White Blood Count 20.2 H 4.3-11.0 10^3/uL Red Blood Count 4.75 4.35-5.85 10^6/uL Hemoglobin 15.0 11.5-16.0 G/DL Hematocrit 45 35-52 % Mean Corpuscular Volume 94 80-99 FL Mean Corpuscular Hemoglobin 32 25-34 PG Mean Corpuscular Hemoglobin Concent 34 32-36 G/DL Red Cell Distribution Width 13.2 10.0-14.5 % Platelet Count 378 130-400 10^3/uL Mean Platelet Volume 10.0 7.4-10.4 FL Neutrophils (%) (Auto) 88 H 42-75 % Lymphocytes (%) (Auto) 8 L 12-44 % Monocytes (%) (Auto) 4 0-12 % Eosinophils (%) (Auto) 0 0-10 % Basophils (%) (Auto) 0 0-10 % Neutrophils # (Auto) 17.6 H 1.8-7.8 X 10^3 Lymphocytes # (Auto) 1.7 1.0-4.0 X 10^3 Monocytes # (Auto) 0.8 0.0-1.0 X 10^3 Eosinophils # (Auto) 0.0 0.0-0.3 10^3/uL Basophils # (Auto) 0.0 0.0-0.1 10^3/uL Neutrophils % (Manual) 86 % Lymphocytes % (Manual) 7 % Monocytes % (Manual) 1 % Eosinophils % (Manual) 0 % Basophils % (Manual) 0 % Band Neutrophils 6 % Blood Morphology Comment NORMAL D-Dimer < 0.22 0.00-0.49 UG/ML Sodium Level 140 135-145 MMOL/L Potassium Level 4.3 3.6-5.0 MMOL/L Chloride Level 104 98-107 MMOL/L Carbon Dioxide Level 24 21-32 MMOL/L Anion Gap 12 5-14 MMOL/L Blood Urea Nitrogen 13 7-18 MG/DL Creatinine 0.89 0.60-1.30 MG/DL Estimat Glomerular Filtration Rate > 60 BUN/Creatinine Ratio 15 Glucose Level 108 H 70-105 MG/DL Calcium Level 9.7 8.5-10.1 MG/DL Corrected Calcium 9.5 8.5-10.1 MG/DL Magnesium Level 2.5 H 1.8-2.4 MG/DL Total Bilirubin 0.2 0.1-1.0 MG/DL Aspartate Amino Transf (AST/SGOT) 13 5-34 U/L Alanine Aminotransferase (ALT/SGPT) 21 0-55 U/L Alkaline Phosphatase 85 40-136 U/L Total Protein 7.2 6.4-8.2 GM/DL Albumin 4.2 3.2-4.5 GM/DL Serum Test, Qualitative NEGATIVE NEGATIVE Urine Color YELLOW Urine Clarity CLEAR Urine pH 6 5-9 Urine Specific [place] 1.020 1.016-1.022 Urine Protein 2+ H NEGATIVE Urine Glucose (UA) NEGATIVE NEGATIVE Urine Ketones NEGATIVE NEGATIVE Urine Nitrite NEGATIVE NEGATIVE Urine Bilirubin NEGATIVE NEGATIVE Urine Urobilinogen NORMAL NORMAL MG/DL Urine Leukocyte Esterase NEGATIVE NEGATIVE Urine RBC (Auto) 2+ H NEGATIVE Urine RBC 0-2 /HPF Urine WBC 5-10 H /HPF Urine Squamous Epithelial Cells 10-25 H /HPF Urine Crystals NONE /LPF Urine Bacteria LARGE H /HPF Urine Casts NONE /LPF Urine Mucus NEGATIVE /LPF Urine Culture Indicated YES Blood Gas Puncture Site RT RADIAL Blood Gas Patient Temperature 100.4 Arterial Blood pH 7.43 7.37-7.43 Arterial Blood Partial Pressure CO2 40 35-45 MMHG Arterial Blood Partial Pressure O2 64 L 79-93 MMHG Arterial Blood HCO3 26 23-27 MMOL/L Arterial Blood Total CO2 26.9 21.0-31.0 MMOL/L Arterial Blood Oxygen Saturation 93 L 94-100 % Arterial Blood Base Excess 1.9 -2.5-2.5 MMOL/L Ravinder Test YES-POS Blood Gas Ventilator Setting NO Blood Gas Inspired Oxygen 8L Lactic Acid Level 2.19 *H 0.50-2.00 MMOL/L My Orders Orders - ABRAHAM KIRAN APRN Iv Heplock-Insert (Order) (07/05/18 20:37) Cbc With Automated Diff (07/05/18 20:37) Hcg,Qualitative Serum (07/05/18 20:37) Comprehensive Metabolic Panel (07/05/18 20:37) Magnesium (07/05/18 20:37) Ua Culture If Indicated (07/05/18 20:37) Chest 1 View, Ap/Pa Only (07/05/18 20:37) Magnesium 1 Gm/100 Ml Ivpb (Magnesium Smart (07/05/18 20:45) Methylprednisolone Sod Succ (Solu-Medrol (07/05/18 20:45) Albuterol/Ipra Inhalation Soln (Duoneb I (07/05/18 20:45) Albuterol Pre-Mix Nebs (Rt) (Proventil (07/05/18 20:45) Svn Small Volume Nebulizer (07/05/18 20:37) Svn Small Volume Nebulizer (07/05/18 20:37) Influenza A And B Antigens (07/05/18 20:37) Ipratropium 0.02% Neb Solution (Atrovent (07/05/18 20:45) Svn Small Volume Nebulizer (07/05/18 20:39) Albuterol Pre-Mix Nebs (Rt) (Proventil (07/05/18 20:38) Ipratropium 0.02% Neb Solution (Atrovent (07/05/18 20:38) Manual Differential (07/05/18 20:35) Blood Culture (07/05/18 21:04) Lactic Acid Analyzer (07/05/18 21:04) Fibrin Degradation Products (07/05/18 21:07) Urine Culture (07/05/18 20:45) Arterial Blood Gas (07/05/18 21:19) Arterial Blood Draw (07/05/18 ) Hydrocodone/Apap 5/325 Tablet (Lortab 5 (07/05/18 22:15) Medications Given in ED Current Medications Medications Dose Ordered Sig/Hina Route Start Time Stop Time Status Last Admin Dose Admin Acetaminophen/ Hydrocodone Bitart 1 tab ONCE ONCE PO 07/05/18 22:15 07/05/18 22:16 DC 07/05/18 22:34 1 TAB Albuterol/ Ipratropium 3 ml ONCE ONCE INH 07/05/18 20:45 07/05/18 20:46 DC 07/05/18 20:37 3 ML Ipratropium [place] 0.5 mg ONCE ONCE IH 07/05/18 20:45 07/05/18 20:46 DC 07/05/18 20:47 0.5 MG Methylprednisolone Sodium Succinate 125 mg ONCE ONCE IVP 07/05/18 20:45 07/05/18 20:46 DC 07/05/18 20:53 125 MG Vital Signs/I&O 07/05/18 07/05/18 07/05/18 07/05/18 20:30 20:37 20:47 21:31 Temp 99.8 Pulse 132 Resp 30 B/P (MAP) 152/91 (111) Pulse Ox 88 92 O2 Delivery Room Air Nasal Cannula Vapotherm O2 Flow Rate 8.00 12.00 FiO2 50 07/05/18 22:35 Pulse Ox 90 O2 Delivery Vapotherm O2 Flow Rate 25.00 FiO2 70 Capillary Refill : Progress Note : Progress Note She is still on prednisone which may account for some of the leukocytosis. Departure Communication (Admissions) Time/Spoke to Admitting Phy: 22:56 Patient will receive 1 g of magnesium sulfate over 15 minutes as her serum magnesium level came back elevated at 2.5. She received a DuoNeb and an hour- long albuterol treatment. She was then transitioned to a postterm high flow oxygen is 70% FiO2 at 30 L. She is feeling better, her heart rate has reduced to 116, however her oxygen saturation only remains about 91%. She states that she does not want take a deep breath because of the associated pain. I'll give her hydrocodone for pain control and to facilitate deeper breathing. Spoke with Dr. Robert, we will admit the patient to ICU for observation, IV steroids mat protocol and continued Vapotherm. Impression Primary Impression: Asthma exacerbation Qualified Codes: J45.901 - Unspecified asthma with (acute) exacerbation Disposition: 01 HOME, SELF-CARE Condition: Stable Admissions Decision to Admit Reason: Admit from ER (General) Decision to Admit/Date: Jul 05, 2018 Time/Decision to Admit Time: 22:59 Departure-Patient Inst. Referrals: [facility] (PCP) Primary Care Physician APRIL AMBROSE (Family) Primary Care Physician ABRAHAM KIRAN APRN Jul 05, 2018 20:43
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
[2018-07-05] MEDS ORDERED: methylPREDNISolone 125 MG (Solu-MEDROL) VIAL IVP ONE (20:45)
[2018-07-05] MEDS ORDERED: RT-ALBUTEROL/IPRATROPIUM 3 ML (DUONEB) VIAL INH ONE (20:45)
[2018-07-05] MEDS ORDERED: RT-ALBUTEROL SULF 2.5 MG/3 ML PRE-MIX VIAL INH SCH (20:45)
[2018-07-05 20:51] LABS: BASOPHILS % (AUTO) 0 % (0-10); EOSINOPHILS % (AUTO) 0 % (0-10); HEMATOCRIT 45 % (35-52); LYMPHOCYTES # (AUTO) 1.7 X 10^3 (1.0-4.0); LYMPHOCYTES % (AUTO) 8 % (12-44); MEAN CORPUSCULAR HEMOGLOBIN 32 PG (25-34); MEAN CORPUSCULAR HGB CONC 34 G/DL (32-36); MEAN CORPUSCULAR VOLUME 94 FL (80-99); MONOCYTES # (AUTO) 0.8 X 10^3 (0.0-1.0); MONOCYTES % (AUTO) 4 % (0-12); NEUTROPHILS # (AUTO) 17.6 X 10^3 (1.8-7.8); NEUTROPHILS % (AUTO) 88 % (42-75); PLATELET COUNT 378 10^3/uL (130-400); RED BLOOD COUNT 4.75 10^6/uL (4.35-5.85); RED CELL DISTRIBUTION WIDTH 13.2 % (10.0-14.5); WHITE BLOOD COUNT 20.2 10^3/uL (4.3-11.0)
[2018-07-05 20:54] LABS: BILIRUBIN,URINE NEGATIVE (NEGATIVE); CLARITY,URINE CLEAR; COLOR,URINE YELLOW; GLUCOSE, URINE (UA) NEGATIVE (NEGATIVE); KETONES,URINE NEGATIVE (NEGATIVE); LEUKOCYTE ESTERASE ,URINE NEGATIVE (NEGATIVE); NITRITE,URINE NEGATIVE (NEGATIVE); PH,URINE 6 (5-9); PROTEIN,URINE 2+ (NEGATIVE); UROBILINOGEN,URINE NORMAL (NORMAL)
[2018-07-05] MEDS: MAGNESIUM 1 GM/100 ML IVPB 100 ML IV SCH ×2 (20:54→22:13)
[2018-07-05 21:04] LABS: ALANINE AMINOTRANSFERASE 21 U/L (0-55); ALBUMIN 4.2 GM/DL (3.2-4.5); ALKALINE PHOSPHATASE 85 U/L (40-136); BILIRUBIN,TOTAL 0.2 MG/DL (0.1-1.0); BUN/CREATININE RATIO 15; CALCIUM 9.7 MG/DL (8.5-10.1); CARBON DIOXIDE 24 MMOL/L (21-32); CHLORIDE 104 MMOL/L (98-107); CREATININE SERUM 0.89 MG/DL (0.60-1.30); GFR ESTIMATED > 60; GLUCOSE 108 MG/DL (70-105); MAGNESIUM 2.5 MG/DL (1.8-2.4); POTASSIUM 4.3 MMOL/L (3.6-5.0); SODIUM 140 MMOL/L (135-145); TOTAL PROTEIN 7.2 GM/DL (6.4-8.2)
[2018-07-05 21:06] LABS: RBC,URINE 0-2 /HPF
[2018-07-05 21:07] LABS: BACTERIA,URINE LARGE /HPF
[2018-07-05 21:11] LABS: BAND NEUTROPHILS 6 %; BASOPHILS % (MANUAL) 0 %; EOSINOPHILS % (MANUAL) 0 %; LYMPHOCYTES % (MANUAL) 7 %; MONOCYTES % (MANUAL) 1 %; NEUTROPHILS % (MANUAL) 86 %; RBC MORPH NORMAL
[2018-07-05 21:33] LABS: ABG BASE EXCESS 1.9 MMOL/L (-2.5-2.5); ABG OXYGEN SATURATION 93 % (94-100); ABG PCO2 40 MMHG (35-45); ABG PH 7.43 (7.37-7.43); ABG PO2 64 MMHG (79-93); ABG TCO2 26.9 MMOL/L (21.0-31.0)
[2018-07-05 21:34] LABS: ALLENS TEST YES-POS; INSPIRED O2 8L; PATIENT TEMP 100.4; VENTILATOR NO
--- NOTE | 2018-07-05 22:06 | Diagnostic Imaging Report ---
Indication: Shortness of breath Portable chest 8:57 PM Heart size and pulmonary vascularity are normal. Lungs are clear. There are no effusions or pneumothoraces. Impression: Negative chest Dictated by: Dictated on workstation # [id number]
[2018-07-05] MEDS ORDERED: HYDROcodone/APAP 5 MG/325 MG (LORTAB) TAB PO ONE (22:15)
[2018-07-06] VITALS (25 sets, daily range): BP systolic 109–152; BP diastolic 68–115
[2018-07-06] MEDS ORDERED: NS W/KCL 40 MEQ/L 1,000 ML IV ONE (00:12)
[2018-07-06] MEDS ORDERED: cefTRIAXone 1 GM/10 ML for IV (ROCEPHIN) ONE (00:15)
[2018-07-06] MEDS ORDERED: NS (IVPB) 50 ML ONE (00:15)
[2018-07-06] MEDS ORDERED: NS W/KCL 40 MEQ/L 1,000 ML IV SCH (00:45)
[2018-07-06] MEDS ORDERED: RT-ALBUTEROL/IPRATROPIUM 3 ML (DUONEB) VIAL INH PRN (01:30)
[2018-07-06] MEDS: RT-ALBUTEROL/IPRATROPIUM 3 ML (DUONEB) VIAL INH SCH ×6 (02:50→21:28)
[2018-07-06] MEDS: methylPREDNISolone 125 MG (Solu-MEDROL) VIAL IVP SCH ×4 (02:54→20:23)
[2018-07-06 03:37] LABS: BASOPHILS % (AUTO) 0 % (0-10); EOSINOPHILS % (AUTO) 0 % (0-10); HEMATOCRIT 43 % (35-52); LYMPHOCYTES % (AUTO) 5 % (12-44); MEAN CORPUSCULAR HEMOGLOBIN 31 PG (25-34); MEAN CORPUSCULAR HGB CONC 33 G/DL (32-36); MEAN CORPUSCULAR VOLUME 95 FL (80-99); MEAN PLATELET VOLUME 10.3 FL (7.4-10.4); MONOCYTES # (AUTO) 0.2 X 10^3 (0.0-1.0); MONOCYTES % (AUTO) 1 % (0-12); NEUTROPHILS # (AUTO) 17.7 X 10^3 (1.8-7.8); NEUTROPHILS % (AUTO) 94 % (42-75); PLATELET COUNT 301 10^3/uL (130-400); RED BLOOD COUNT 4.51 10^6/uL (4.35-5.85); WHITE BLOOD COUNT 18.9 10^3/uL (4.3-11.0)
[2018-07-06 03:58] LABS: ALANINE AMINOTRANSFERASE 18 U/L (0-55); ALBUMIN 3.9 GM/DL (3.2-4.5); ALKALINE PHOSPHATASE 76 U/L (40-136); BILIRUBIN,TOTAL 0.2 MG/DL (0.1-1.0); BUN/CREATININE RATIO 16; CALCIUM 9.1 MG/DL (8.5-10.1); CARBON DIOXIDE 21 MMOL/L (21-32); CHLORIDE 104 MMOL/L (98-107); CREATININE SERUM 0.89 MG/DL (0.60-1.30); GFR ESTIMATED > 60; GLUCOSE 223 MG/DL (70-105); MAGNESIUM 2.4 MG/DL (1.8-2.4); PHOSPHORUS 2.5 MG/DL (2.3-4.7); POTASSIUM 4.6 MMOL/L (3.6-5.0); SODIUM 137 MMOL/L (135-145); TOTAL PROTEIN 6.8 GM/DL (6.4-8.2)
[2018-07-06] MEDS: MAGNESIUM 1 GM/100 ML IVPB 100 ML IV SCH (05:55)
[2018-07-06] MEDS: POTASSIUM CL 10MEQ/50ML IVPB 50 ML IV SCH (05:55)
[2018-07-06] MEDS: KCL 20 MEQ TAB (K-DUR) PO SCH (05:56)
[2018-07-06] MEDS: RT-BUDESONIDE NEBS 0.5 MG/2ML (PULMICORT) AMP INH SCH ×2 (06:35→18:31)
[2018-07-06] MEDS: IBUPROFEN 600 MG (MOTRIN) TAB PO PRN ×2 (08:46→16:50)
[2018-07-06] MEDS: POTASSIUM CHLORIDE INJ 40 MEQ in NS IV 1000 ML 1,000 ML IV SCH ×2 (08:46→17:38)
[2018-07-06] MEDS ORDERED: FLUT16SP22 NSEACH (10:06)
[2018-07-06] MEDS ORDERED: DEXT10TA9 PO (10:09)
[2018-07-06] MEDS ORDERED: NORG1TAB14 PO (10:09)
[2018-07-06] MEDS ORDERED: DICY20TA10 PO (10:09)
[2018-07-06] MEDS ORDERED: ATOR20TA49 PO (10:09)
[2018-07-06] MEDS ORDERED: FOLI1TAB57 PO (10:09)
[2018-07-06] MEDS ORDERED: BACL10TA PO (10:09)
[2018-07-06] MEDS ORDERED: PRAZ2CAP2 PO (10:43)
[2018-07-06] MEDS ORDERED: QUET200T PO (10:44)
[2018-07-06] MEDS ORDERED: IBUP-1773 PO (10:50)
[2018-07-06] MEDS ORDERED: DIPH25TA31 PO (10:52)
[2018-07-06] MEDS ORDERED: FAMO20TA3 PO (10:53)
[2018-07-06] MEDS ORDERED: IPRA4AER IH (10:54)
[2018-07-06] MEDS ORDERED: PRD10T PO (10:58)
[2018-07-06] MEDS: HYDROcodone/APAP 5 MG/325 MG (LORTAB) TAB PO PRN ×2 (11:37→17:37)
--- NOTE | 2018-07-06 17:16 | History & Physicial (CHS) ---
HPI History of Present Illness: 27 yo F that presented to ER with increasing shortness of breath. Patient was seen in clinic and started on steroids. States that she has been doing breathing treatments every 4-6 hrs for the last 3 days. She denies ever being intubated for her asthma. She has had 1 admission this year for her asthma. has been sick for the last week. Otherwise doing well. Source: patient, family () Exam Limitations: no limitations Date seen by provider: Jul 06, 2018 Time Seen by Provider: 10:15 Attending Physician Serene Robert MD PCP Center/[facility] [place] Consult Date of Admission Jul 05, 2018 at 23:00 Home Medications Home Medications Reviewed patient Home Medication Reconciliation performed by pharmacy medication reconciliations pharmacy technician and/or nursing. Patients Allergies have been reviewed. Allergies Coded Allergies: ketorolac (Unverified Adverse Reaction, Unknown, 08/24/17) prochlorperazine (Unverified Adverse Reaction, Unknown, 08/24/17) tramadol (Unverified Adverse Reaction, Unknown, 08/24/17) [id number] Hx Patient Social History Living Status: Lives with mother and Alcohol Use: Denies Use Recreational Drug Use: No Smoking Status: Current Everyday Smoker Type Used: Cigarettes 2nd Hand Smoke Exposure: No Recent Foreign Travel: No Contact w/other who traveled: No Recent Hopitalizations: No Recent Infectious Disease Expo: No Physical Abuse Screen: No Sexual Abuse: No Immunizations Up To Date Tetanus Booster (TDap): Unknown Date of Influenza Vaccine: Apr 20, 2018 Past Medical History Asthma HLD Anxiety Family Medical History Significant Family History: Hypertension, Seizures, Stroke Family History: Alcoholism 19 FATHER Asthma 19 MOTHER Completed stroke 19 FATHER DVT 19 FATHER Dementia 19 FATHER Diabetes mellitus 19 MOTHER FH: multiple sclerosis G8 SISTER Headache disorder G8 BROTHER Hypertension 19 FATHER 19 MOTHER Myocardial infarction 19 FATHER Seizure disorder 19 FATHER Review of Systems (CHC) Constitutional: no symptoms reported EENTM: no symptoms reported, nose congestion Respiratory: cough, dyspnea on exertion Cardiovascular: no symptoms reported; No chest pain, No edema, No palpitations Gastrointestinal: no symptoms reported; No abdominal pain, No constipation, No diarrhea, No nausea, No vomiting Genitourinary: no symptoms reported; No dysuria, No frequency, No hematuria : No Musculoskeletal: other (rib pain) Skin: no symptoms reported Psychiatric/Neurological: No Symptoms Reported Reviewed Test Results Reviewed Test Results Lab Laboratory Tests Test 07/05/18 20:35 07/05/18 20:45 07/05/18 21:26 07/05/18 21:35 Range/Units White Blood Count 20.2 H 4.3-11.0 10^3/uL Red Blood Count 4.75 4.35-5.85 10^6/uL Hemoglobin 15.0 11.5-16.0 G/DL Hematocrit 45 35-52 % Mean Corpuscular Volume 94 80-99 FL Mean Corpuscular Hemoglobin 32 25-34 PG Mean Corpuscular Hemoglobin Concent 34 32-36 G/DL Red Cell Distribution Width 13.2 10.0-14.5 % Platelet Count 378 130-400 10^3/uL Mean Platelet Volume 10.0 7.4-10.4 FL Neutrophils (%) (Auto) 88 H 42-75 % Lymphocytes (%) (Auto) 8 L 12-44 % Monocytes (%) (Auto) 4 0-12 % Eosinophils (%) (Auto) 0 0-10 % Basophils (%) (Auto) 0 0-10 % Neutrophils # (Auto) 17.6 H 1.8-7.8 X 10^3 Lymphocytes # (Auto) 1.7 1.0-4.0 X 10^3 Monocytes # (Auto) 0.8 0.0-1.0 X 10^3 Eosinophils # (Auto) 0.0 0.0-0.3 10^3/uL Basophils # (Auto) 0.0 0.0-0.1 10^3/uL Neutrophils % (Manual) 86 % Lymphocytes % (Manual) 7 % Monocytes % (Manual) 1 % Eosinophils % (Manual) 0 % Basophils % (Manual) 0 % Band Neutrophils 6 % Blood Morphology Comment NORMAL D-Dimer < 0.22 0.00-0.49 UG/ML Sodium Level 140 135-145 MMOL/L Potassium Level 4.3 3.6-5.0 MMOL/L Chloride Level 104 98-107 MMOL/L Carbon Dioxide Level 24 21-32 MMOL/L Anion Gap 12 5-14 MMOL/L Blood Urea Nitrogen 13 7-18 MG/DL Creatinine 0.89 0.60-1.30 MG/DL Estimat Glomerular Filtration Rate > 60 BUN/Creatinine Ratio 15 Glucose Level 108 H 70-105 MG/DL Calcium Level 9.7 8.5-10.1 MG/DL Corrected Calcium 9.5 8.5-10.1 MG/DL Magnesium Level 2.5 H 1.8-2.4 MG/DL Total Bilirubin 0.2 0.1-1.0 MG/DL Aspartate Amino Transf (AST/SGOT) 13 5-34 U/L Alanine Aminotransferase (ALT/SGPT) 21 0-55 U/L Alkaline Phosphatase 85 40-136 U/L Total Protein 7.2 6.4-8.2 GM/DL Albumin 4.2 3.2-4.5 GM/DL Serum Test, Qualitative NEGATIVE NEGATIVE Urine Color YELLOW Urine Clarity CLEAR Urine pH 6 5-9 Urine Specific [place] 1.020 1.016-1.022 Urine Protein 2+ H NEGATIVE Urine Glucose (UA) NEGATIVE NEGATIVE Urine Ketones NEGATIVE NEGATIVE Urine Nitrite NEGATIVE NEGATIVE Urine Bilirubin NEGATIVE NEGATIVE Urine Urobilinogen NORMAL NORMAL MG/DL Urine Leukocyte Esterase NEGATIVE NEGATIVE Urine RBC (Auto) 2+ H NEGATIVE Urine RBC 0-2 /HPF Urine WBC 5-10 H /HPF Urine Squamous Epithelial Cells 10-25 H /HPF Urine Crystals NONE /LPF Urine Bacteria LARGE H /HPF Urine Casts NONE /LPF Urine Mucus NEGATIVE /LPF Urine Culture Indicated YES Blood Gas Puncture Site RT RADIAL Blood Gas Patient Temperature 100.4 Arterial Blood pH 7.43 7.37-7.43 Arterial Blood Partial Pressure CO2 40 35-45 MMHG Arterial Blood Partial Pressure O2 64 L 79-93 MMHG Arterial Blood HCO3 26 23-27 MMOL/L Arterial Blood Total CO2 26.9 21.0-31.0 MMOL/L Arterial Blood Oxygen Saturation 93 L 94-100 % Arterial Blood Base Excess 1.9 -2.5-2.5 MMOL/L Ravinder Test YES-POS Blood Gas Ventilator Setting NO Blood Gas Inspired Oxygen 8L Lactic Acid Level 2.19 *H 0.50-2.00 MMOL/L Test 07/06/18 00:59 07/06/18 03:15 07/07/18 03:25 Range/Units Lactic Acid Level 2.37 *H 0.50-2.00 MMOL/L White Blood Count 18.9 H 29.4 H 4.3-11.0 10^3/uL Red Blood Count 4.51 4.34 L 4.35-5.85 10^6/uL Hemoglobin 14.0 14.1 11.5-16.0 G/DL Hematocrit 43 41 35-52 % Mean Corpuscular Volume 95 95 80-99 FL Mean Corpuscular Hemoglobin 31 32 25-34 PG Mean Corpuscular Hemoglobin Concent 33 34 32-36 G/DL Red Cell Distribution Width 13.0 13.1 10.0-14.5 % Platelet Count 301 352 130-400 10^3/uL Mean Platelet Volume 10.3 10.1 7.4-10.4 FL Neutrophils (%) (Auto) 94 H 91 H 42-75 % Lymphocytes (%) (Auto) 5 L 6 L 12-44 % Monocytes (%) (Auto) 1 4 0-12 % Eosinophils (%) (Auto) 0 0 0-10 % Basophils (%) (Auto) 0 0 0-10 % Neutrophils # (Auto) 17.7 H 26.6 H 1.8-7.8 X 10^3 Lymphocytes # (Auto) 1.0 1.7 1.0-4.0 X 10^3 Monocytes # (Auto) 0.2 1.0 0.0-1.0 X 10^3 Eosinophils # (Auto) 0.0 0.0 0.0-0.3 10^3/uL Basophils # (Auto) 0.0 0.0 0.0-0.1 10^3/uL Sodium Level 137 138 135-145 MMOL/L Potassium Level 4.6 4.8 3.6-5.0 MMOL/L Chloride Level 104 109 H 98-107 MMOL/L Carbon Dioxide Level 21 19 L 21-32 MMOL/L Anion Gap 12 10 5-14 MMOL/L Blood Urea Nitrogen 14 11 7-18 MG/DL Creatinine 0.89 0.69 0.60-1.30 MG/DL Estimat Glomerular Filtration Rate > 60 > 60 BUN/Creatinine Ratio 16 16 Glucose Level 223 H 156 H 70-105 MG/DL Calcium Level 9.1 9.3 8.5-10.1 MG/DL Corrected Calcium 9.2 8.5-10.1 MG/DL Phosphorus Level 2.5 2.7 2.3-4.7 MG/DL Magnesium Level 2.4 2.4 1.8-2.4 MG/DL Total Bilirubin 0.2 0.1-1.0 MG/DL Aspartate Amino Transf (AST/SGOT) 9 5-34 U/L Alanine Aminotransferase (ALT/SGPT) 18 0-55 U/L Alkaline Phosphatase 76 40-136 U/L Total Protein 6.8 6.4-8.2 GM/DL Albumin 3.9 3.2-4.5 GM/DL Radiology Date of Exam: 07/05/18 CHEST 1 VIEW, AP/PA ONLY Indication: Shortness of breath Portable chest 8:57 PM Heart size and pulmonary vascularity are normal. Lungs are clear. There are no effusions or pneumothoraces. Impression: Negative chest Physical Exam-(CHC) Physical Exam Vital Signs VS - Last 72 Hours, by Label 07/05/18 07/05/18 07/05/18 07/05/18 20:30 20:37 20:47 21:31 Temp 99.8 Pulse 132 Resp 30 B/P (MAP) 152/91 (111) Pulse Ox 88 92 O2 Delivery Room Air Nasal Cannula Vapotherm O2 Flow Rate 8.00 12.00 FiO2 50 07/05/18 07/05/18 07/05/18 07/06/18 22:00 22:35 23:29 00:00 Temp 99.2 99.8 97.0 Pulse 111 112 108 Resp 20 30 32 B/P (MAP) 139/82 139/82 (101) 144/99 (114) Pulse Ox 91 90 90 95 O2 Delivery Vapotherm Vapotherm Vapotherm O2 Flow Rate 12.00 25.00 25.00 70.00 30.00 FiO2 70 07/06/18 07/06/18 07/06/18 07/06/18 00:00 00:00 00:15 01:00 Pulse 109 111 116 Resp 22 B/P (MAP) 127/84 (98) Pulse Ox 95 93 O2 Delivery Vapotherm Vapotherm O2 Flow Rate 30.00 70.00 30.00 FiO2 70 07/06/18 07/06/18 07/06/18 07/06/18 01:00 01:09 02:00 03:00 Pulse 102 101 85 82 Resp 34 32 34 B/P (MAP) 143/92 (109) 136/95 (109) 140/95 (110) Pulse Ox 93 94 93 95 O2 Delivery Vapotherm Vapotherm Vapotherm O2 Flow Rate 70.00 70.00 70.00 30.00 30.00 30.00 FiO2 70 07/06/18 07/06/18 07/06/18 07/06/18 03:21 03:29 03:35 04:00 Temp 97.3 Pulse Ox 94 89 O2 Delivery Vapotherm Vapotherm Vapotherm O2 Flow Rate 75.00 30.00 30.00 30.00 FiO2 70 70 07/06/18 07/06/18 07/06/18 07/06/18 04:00 04:00 05:00 06:00 Pulse 83 79 80 Resp 32 28 26 B/P (MAP) 138/115 (123) 125/96 (106) 109/68 (82) Pulse Ox 89 90 91 92 O2 Delivery Vapotherm Vapotherm Vapotherm Vapotherm O2 Flow Rate 30.00 75.00 75.00 75.00 30.00 30.00 30.00 FiO2 75 07/06/18 07/06/18 07/06/18 07/06/18 06:38 07:00 07:00 08:00 Pulse 88 96 89 B/P (MAP) 145/114 (124) 152/101 (118) Pulse Ox 93 90 92 O2 Delivery Vapotherm Vapotherm Vapotherm O2 Flow Rate 30.00 75.00 65.00 30.00 30.00 FiO2 75 07/06/18 07/06/18 07/06/07/06/18 08:28 08:55 09:00 09:42 Temp 96.4 Pulse 88 Resp 39 B/P (MAP) 145/95 (112) Pulse Ox 96 94 93 O2 Delivery Vapotherm Vapotherm Vapotherm O2 Flow Rate 30.00 65.00 25.00 30.00 FiO2 65 65 07/06/18 07/06/18 07/06/18 07/06/18 10:00 10:30 11:00 11:09 Pulse 102 103 Resp 22 22 B/P (MAP) 150/94 (112) 148/104 (119) Pulse Ox 90 91 93 O2 Delivery Vapotherm Vapotherm Vapotherm Vapotherm O2 Flow Rate 65.00 55.00 55.00 25.00 30.00 30.00 30.00 FiO2 55 07/06/18 07/06/18 07/06/18 07/06/18 11:35 12:00 13:00 13:00 Temp 96.5 Pulse 87 91 91 Resp 32 29 B/P (MAP) 139/90 (106) 140/106 (117) Pulse Ox 94 90 O2 Delivery Vapotherm Vapotherm O2 Flow Rate 55.00 55.00 30.00 30.00 18 07/06/18 07/06/18 07/06/18 14:00 14:08 15:00 16:00 Pulse 92 105 Resp 32 B/P (MAP) 146/95 (112) 141/100 (114) Pulse Ox 95 95 89 93 O2 Delivery Vapotherm Vapotherm Vapotherm Vapotherm O2 Flow Rate 60.00 20.00 60.00 20.00 20.00 20.00 FiO2 60 60 07/06/18 07/06/18 07/06/18 07/06/18 16:00 16:00 17:00 18:00 Temp 97.6 Pulse 93 89 97 Resp 22 37 24 B/P (MAP) 149/95 (113) 134/89 (104) 147/104 (118) Pulse Ox 93 92 90 O2 Delivery Vapotherm Vapotherm Vapotherm O2 Flow Rate 60.00 60.00 60.00 20.00 20.00 20.00 07/06/18 07/06/07/06/18 07/06/18 18:32 18:37 19:00 19:00 Pulse 113 113 Resp 32 B/P (MAP) 139/80 (99) Pulse Ox 96 94 O2 Delivery Vapotherm Vapotherm Vapotherm O2 Flow Rate 20.00 20.00 60.00 20.00 FiO2 60 60 07/06/18 07/06/18 07/06/18 07/06/18 20:00 20:00 21:00 21:28 Temp 98.2 Pulse 92 101 Resp 27 25 B/P (MAP) 135/86 (102) 150/90 (110) Pulse Ox 91 93 91 91 O2 Delivery Vapotherm Vapotherm Vapotherm Vapotherm O2 Flow Rate 60.00 20.00 60.00 20.00 20.00 20.00 FiO2 60 55 18 07/06/18 07/07/18 07/07/18 22:00 23:00 00:00 00:00 Temp 98.0 Pulse 88 97 80 Resp 16 21 22 B/P (MAP) 134/90 (105) 112/71 (85) Pulse Ox 92 90 91 O2 Delivery Vapotherm Vapotherm Vapotherm O2 Flow Rate 60.00 60.00 60.00 20.00 20.00 20.00 07/07/18 07/07/18 07/07/18 07/07/18 00:00 01:00 01:03 01:07 Pulse 123 108 Resp 24 B/P (MAP) 136/99 (111) Pulse Ox 93 92 94 O2 Delivery Vapotherm Vapotherm Vapotherm O2 Flow Rate 20.00 60.00 20.00 20.00 FiO2 60 55 07/07/18 07/07/18 07/07/18 07/07/18 02:00 03:00 04:00 04:00 Pulse 78 77 69 Resp 25 19 25 B/P (MAP) 122/71 (88) 155/97 (116) 140/86 (104) Pulse Ox 94 91 93 96 O2 Delivery Vapotherm Vapotherm Vapotherm Vapotherm O2 Flow Rate 60.00 60.00 20.00 60.00 20.00 20.00 20.00 FiO2 60 07/07/18 07/07/18 07/07/18 07/07/18 04:00 05:00 06:00 06:29 Temp 97.9 Pulse 68 69 Resp 21 22 B/P (MAP) 111/68 (82) 125/88 (100) Pulse Ox 92 94 97 O2 Delivery Vapotherm Vapotherm Vapotherm O2 Flow Rate 60.00 50.00 18.00 20.00 15.00 FiO2 55 07/07/18 07/07/18 07/07/18 07/07/18 07:00 07:00 08:00 08:12 Temp 96.8 Pulse 101 101 109 Resp 22 29 B/P (MAP) 157/106 (123) Pulse Ox 93 93 O2 Delivery Vapotherm Vapotherm O2 Flow Rate 50.00 50.00 15.00 15.00 07/07/18 07/07/18 07/07/18 07/07/18 08:15 09:00 10:00 10:09 Pulse 72 79 Resp 29 23 B/P (MAP) 142/93 (109) 115/70 (85) Pulse Ox 93 94 96 94 O2 Delivery Vapotherm Vapotherm Vapotherm Vapotherm O2 Flow Rate 15.00 50.00 50.00 15.00 15.00 15.00 FiO2 50 07/07/18 07/07/18 07/07/18 07/07/18 11:00 12:00 12:40 12:44 Temp 96.2 Pulse 89 93 Resp 33 33 B/P (MAP) 124/94 (104) 155/111 (126) Pulse Ox 96 92 95 O2 Delivery Vapotherm Nasal Cannula High Flow N/C O2 Flow Rate 50.00 2.00 2.00 15.00 07/07/18 07/07/18 07/07/18 07/07/18 12:45 13:00 13:00 14:26 Pulse 74 79 Pulse Ox 93 97 O2 Delivery Nasal Cannula High Flow N/C O2 Flow Rate 2.00 2.00 07/07/18 07/07/18 15:22 16:31 Temp 96.5 99.1 Pulse 78 79 Resp 20 20 B/P (MAP) 151/99 (116) 154/95 (114) Pulse Ox 92 92 O2 Delivery Nasal Cannula Nasal Cannula O2 Flow Rate 2.00 2.00 Capillary Refill : Less Than 3 Seconds General Appearance: moderate distress Neck: non-tender, supple Respiratory: respiratory distress, wheezing Cardiovascular: regular rate, rhythm, no edema, no murmur Gastrointestinal: normal bowel sounds, non tender, soft Back: no CVA tenderness, no vertebral tenderness Extremities: normal range of motion, non-tender, normal inspection, no pedal edema, no calf tenderness, normal capillary refill Neurologic/Psychiatric: 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 as tested, no motor/sensory deficits, alert, normal mood/affect, oriented x 3 Skin: normal color, warm/dry Lymphatic: no adenopathy Assessment/Plan Assessment/Plan Admission Status: Inpatient Order (span 2 midnights) Reason for Inpatient Admission: Requiring supplemental oxygen and frequent vital signs (1) Status asthmaticus Status: Acute Assessment & Plan: - Vapotherm to keep oxygen saturations above 90%, Titrate as tolerated, MAT protocol, IV Steroids, Normal CXR 07/07- Transition to high flow NC, encourage ambulation, Transition to step down Qualifiers: Qualified Codes: J45.52 - Severe persistent asthma with status asthmaticus (2) Leukocytosis Status: Acute Assessment & Plan: - Likely 2/2 to steroid use Qualifiers: Qualified Codes: D72.829 - Elevated white blood cell count, unspecified (3) DVT prophylaxis Status: Acute Assessment & Plan: Lovenox Clinical Quality Measures DVT/VTE Risk/Contraindication: Risk Factor Score Per Nursin RFS Level Per Nursing on Admit: 2=Moderate Copy Copies To 1: SANDY Taylor HOLLY R MD Jul 06, 2018 17:16
[2018-07-06] MEDS: ATORVASTATIN 20 MG (LIPITOR) TABLET PO SCH (20:23)
[2018-07-06] MEDS: BACLOFEN 10 MG (LIORESAL) TAB PO SCH (20:24)
[2018-07-06] MEDS: DICYCLOMINE 10 MG (BENTYL) CAP PO SCH (20:24)
[2018-07-06] MEDS: busPIRone 15 MG (BUSPAR) TABLET PO SCH (20:24)
[2018-07-06] MEDS: FAMOTIDINE 20 MG (PEPCID) TABLET PO SCH (20:24)
[2018-07-06] MEDS: QUEtiapine 200 MG (SEROquel) TAB IMMEDIATE RELEASE PO SCH (21:00)
[2018-07-06] MEDS ORDERED: PRAZOSIN HCL 6 MG PO SCH (21:00)
[2018-07-07] VITALS (16 sets, daily range): BP systolic 111–157; BP diastolic 68–111
[2018-07-07] MEDS: RT-ALBUTEROL/IPRATROPIUM 3 ML (DUONEB) VIAL INH SCH ×6 (01:07→21:23)
[2018-07-07] MEDS: cefTRIAXone 1 GM/NS 50 ML IVPB IV SCH ×2 (02:05)
[2018-07-07] MEDS: HYDROcodone/APAP 5 MG/325 MG (LORTAB) TAB PO PRN ×4 (02:18→21:01)
[2018-07-07] MEDS: methylPREDNISolone 125 MG (Solu-MEDROL) VIAL IVP SCH ×4 (02:53→21:02)
[2018-07-07 03:45] LABS: BASOPHILS % (AUTO) 0 % (0-10); EOSINOPHILS % (AUTO) 0 % (0-10); HEMATOCRIT 41 % (35-52); HEMOGLOBIN 14.1 G/DL (11.5-16.0); LYMPHOCYTES # (AUTO) 1.7 X 10^3 (1.0-4.0); LYMPHOCYTES % (AUTO) 6 % (12-44); MEAN CORPUSCULAR HEMOGLOBIN 32 PG (25-34); MEAN CORPUSCULAR HGB CONC 34 G/DL (32-36); MEAN CORPUSCULAR VOLUME 95 FL (80-99); MEAN PLATELET VOLUME 10.1 FL (7.4-10.4); MONOCYTES % (AUTO) 4 % (0-12); NEUTROPHILS # (AUTO) 26.6 X 10^3 (1.8-7.8); NEUTROPHILS % (AUTO) 91 % (42-75); PLATELET COUNT 352 10^3/uL (130-400); RED BLOOD COUNT 4.34 10^6/uL (4.35-5.85); RED CELL DISTRIBUTION WIDTH 13.1 % (10.0-14.5); WHITE BLOOD COUNT 29.4 10^3/uL (4.3-11.0)
[2018-07-07 04:09] LABS: BUN/CREATININE RATIO 16; CALCIUM 9.3 MG/DL (8.5-10.1); CARBON DIOXIDE 19 MMOL/L (21-32); CHLORIDE 109 MMOL/L (98-107); CREATININE SERUM 0.69 MG/DL (0.60-1.30); GFR ESTIMATED > 60; GLUCOSE 156 MG/DL (70-105); MAGNESIUM 2.4 MG/DL (1.8-2.4); PHOSPHORUS 2.7 MG/DL (2.3-4.7); POTASSIUM 4.8 MMOL/L (3.6-5.0); SODIUM 138 MMOL/L (135-145)
[2018-07-07] MEDS: POTASSIUM CL 10MEQ/50ML IVPB 50 ML IV SCH (05:04)
[2018-07-07] MEDS: MAGNESIUM 1 GM/100 ML IVPB 100 ML IV SCH (05:04)
[2018-07-07] MEDS: KCL 20 MEQ TAB (K-DUR) PO SCH (05:04)
[2018-07-07] MEDS: RT-BUDESONIDE NEBS 0.5 MG/2ML (PULMICORT) AMP INH SCH ×2 (06:26→18:40)
--- NOTE | 2018-07-07 08:12 | Diagnostic Imaging Report ---
INDICATION: Dyspnea Upright chest shows normal heart size and vascularity. The lungs are clear. There is no effusion or pneumothorax. There is no bony abnormality. IMPRESSION: Normal chest. There is no change from 07/05/2018. Dictated by: Dictated on workstation # [id number]
[2018-07-07] MEDS: FAMOTIDINE 20 MG (PEPCID) TABLET PO SCH ×2 (08:19→21:02)
[2018-07-07] MEDS: DICYCLOMINE 10 MG (BENTYL) CAP PO SCH ×4 (08:19→21:02)
[2018-07-07] MEDS: BACLOFEN 10 MG (LIORESAL) TAB PO SCH ×2 (08:19→21:01)
[2018-07-07] MEDS: busPIRone 15 MG (BUSPAR) TABLET PO SCH ×3 (08:19→21:01)
[2018-07-07] MEDS: POTASSIUM CHLORIDE INJ 40 MEQ in NS IV 1000 ML 1,000 ML IV SCH ×2 (08:57→23:45)
[2018-07-07] MEDS: IBUPROFEN 600 MG (MOTRIN) TAB PO PRN ×2 (12:51→23:44)
--- NOTE | 2018-07-07 19:16 | Progress Note (SOAP) ---
Subjective Subjective/Events-last exam Patient states that she is feeling better this AM. Still requiring Vapotherm. She has not been out of bed since she has been here. Tolerating PO diet. Review of Systems Date Seen by Provider: Jul 07, 2018 Time Seen by Provider: 10:00 Pulmonary: Dyspnea, Cough Cardiovascular: Palpitations; No: Chest Pain Musculoskeletal: other (rib pain) Focused Exam Lactate Level 07/05/18 21:35: Lactic Acid Level 2.19*H 07/06/18 00:59: Lactic Acid Level 2.37*H Objective Exam Last Set of Vital Signs Vital Signs Date Time Temp Pulse Resp B/P (MAP) Pulse Ox O2 Delivery O2 Flow Rate FiO2 07/07/18 16:31 99.1 79 20 154/95 (114) 92 Nasal Cannula 2.00 07/07/18 10:09 50 Capillary Refill : Less Than 3 Seconds I&O Intake and Output 07/07/18 00:00 Intake Total 3990 ml Output Total 700 ml Balance 3290 ml Intake Oral 2190 ml IV Total 1800 ml Output Urine Total 700 ml # Voids 7 Daily Weight Change No General: Alert, Oriented X3, Cooperative, No Acute Distress HEENT: Mucous Memb Moist/[place] Lungs: Other (diffuse wheezing bilatearlly, mild increased work of breathing with minimal activity) Heart: Regular Rate, No Murmurs Abdomen: Normal Bowel Sounds, Soft, No Tenderness Extremities: No Edema, No Tenderness/Swelling Neuro: Strength at 5/5 X4 Ext, Cranial Nerves 3-12 NL Psych/Mental Status: Mental Status NL, Mood NL Results/Procedures Lab Laboratory Tests 07/07/18 03:25: White Blood Count 29.4H, Red Blood Count 4.34L, Hemoglobin 14.1, Hematocrit 41, Mean Corpuscular Volume 95, Mean Corpuscular Hemoglobin 32, Mean Corpuscular Hemoglobin Concent 34, Red Cell Distribution Width 13.1, Platelet Count 352, Mean Platelet Volume 10.1, Neutrophils (%) (Auto) 91H, Lymphocytes (%) (Auto) 6L , Monocytes (%) (Auto) 4, Eosinophils (%) (Auto) 0, Basophils (%) (Auto) 0, Neutrophils # (Auto) 26.6H, Lymphocytes # (Auto) 1.7, Monocytes # (Auto) 1.0, Eosinophils # (Auto) 0.0, Basophils # (Auto) 0.0, Sodium Level 138, Potassium Level 4.8, Chloride Level 109H, Carbon Dioxide Level 19L, Anion Gap 10, Blood Urea Nitrogen 11, Creatinine 0.69, Estimat Glomerular Filtration Rate > 60, BUN/ Creatinine Ratio 16, Glucose Level 156H, Calcium Level 9.3, Phosphorus Level 2.7 , Magnesium Level 2.4 Microbiology 07/05/18 Blood Culture - Preliminary, Resulted No growth 07/05/18 Urine Culture - Final, Complete See Report Radiology Date of Exam: 07/05/18 CHEST 1 VIEW, AP/PA ONLY Indication: Shortness of breath Portable chest 8:57 PM Heart size and pulmonary vascularity are normal. Lungs are clear. There are no effusions or pneumothoraces. Impression: Negative chest Assessment/Plan Assessment/Plan (1) Status asthmaticus Status: Acute Assessment & Plan: - Vapotherm to keep oxygen saturations above 90%, Titrate as tolerated, MAT protocol, IV Steroids, Normal CXR 07/07- Titrating to High flow NC, Encourage ambulation, transition to step down status Qualifiers: Qualified Codes: J45.52 - Severe persistent asthma with status asthmaticus (2) Leukocytosis Status: Acute Assessment & Plan: - Likely 2/2 to steroid use Qualifiers: Qualified Codes: D72.829 - Elevated white blood cell count, unspecified (3) DVT prophylaxis Status: Acute Assessment & Plan: Lovenox Clinical Quality Measures DVT/VTE Risk/Contraindication: Risk Factor Score Per Nursin RFS Level Per Nursing on Admit: 2=Moderate HERON JOE MD Jul 07, 2018 19:16
[2018-07-07] MEDS: QUEtiapine 200 MG (SEROquel) TAB IMMEDIATE RELEASE PO SCH (20:48)
[2018-07-07] MEDS: ATORVASTATIN 20 MG (LIPITOR) TABLET PO SCH (21:01)
[2018-07-08] MEDS: RT-ALBUTEROL/IPRATROPIUM 3 ML (DUONEB) VIAL INH SCH ×3 (01:46→11:03)
[2018-07-08] MEDS: cefTRIAXone 1 GM/NS 50 ML IVPB IV SCH ×2 (02:00)
[2018-07-08] MEDS: methylPREDNISolone 125 MG (Solu-MEDROL) VIAL IVP SCH ×2 (02:02→08:38)
[2018-07-08] MEDS: HYDROcodone/APAP 5 MG/325 MG (LORTAB) TAB PO PRN ×2 (02:03→08:46)
[2018-07-08 04:23] VITALS: BP 140/72
[2018-07-08 05:08] LABS: BASOPHILS % (AUTO) 0 % (0-10); EOSINOPHILS % (AUTO) 0 % (0-10); HEMATOCRIT 40 % (35-52); HEMOGLOBIN 12.9 G/DL (11.5-16.0); LYMPHOCYTES # (AUTO) 1.6 X 10^3 (1.0-4.0); LYMPHOCYTES % (AUTO) 7 % (12-44); MEAN CORPUSCULAR HEMOGLOBIN 31 PG (25-34); MEAN CORPUSCULAR HGB CONC 33 G/DL (32-36); MEAN CORPUSCULAR VOLUME 96 FL (80-99); MEAN PLATELET VOLUME 10.6 FL (7.4-10.4); MONOCYTES # (AUTO) 0.7 X 10^3 (0.0-1.0); MONOCYTES % (AUTO) 3 % (0-12); NEUTROPHILS # (AUTO) 22.3 X 10^3 (1.8-7.8); NEUTROPHILS % (AUTO) 90 % (42-75); PLATELET COUNT 351 10^3/uL (130-400); RED BLOOD COUNT 4.13 10^6/uL (4.35-5.85); WHITE BLOOD COUNT 24.7 10^3/uL (4.3-11.0)
[2018-07-08 05:30] LABS: ALANINE AMINOTRANSFERASE 15 U/L (0-55); ALBUMIN 3.3 GM/DL (3.2-4.5); ALKALINE PHOSPHATASE 66 U/L (40-136); BILIRUBIN,TOTAL < 0.1 MG/DL (0.1-1.0); BUN/CREATININE RATIO 20; CALCIUM 8.7 MG/DL (8.5-10.1); CARBON DIOXIDE 20 MMOL/L (21-32); CHLORIDE 108 MMOL/L (98-107); CREATININE SERUM 0.69 MG/DL (0.60-1.30); GFR ESTIMATED > 60; GLUCOSE 159 MG/DL (70-105); POTASSIUM 4.3 MMOL/L (3.6-5.0); SODIUM 138 MMOL/L (135-145); TOTAL PROTEIN 5.7 GM/DL (6.4-8.2)
[2018-07-08] MEDS: RT-BUDESONIDE NEBS 0.5 MG/2ML (PULMICORT) AMP INH SCH (06:50)
[2018-07-08] MEDS: IBUPROFEN 600 MG (MOTRIN) TAB PO PRN (06:56)
[2018-07-08 08:09] VITALS: BP 156/89
[2018-07-08] MEDS: DICYCLOMINE 10 MG (BENTYL) CAP PO SCH (08:38)
[2018-07-08] MEDS: BACLOFEN 10 MG (LIORESAL) TAB PO SCH (08:38)
[2018-07-08] MEDS: busPIRone 15 MG (BUSPAR) TABLET PO SCH (08:38)
[2018-07-08] MEDS: FAMOTIDINE 20 MG (PEPCID) TABLET PO SCH (08:38)
[2018-07-08] MEDS: POTASSIUM CHLORIDE INJ 40 MEQ in NS IV 1000 ML 1,000 ML IV SCH (11:05)
--- NOTE | 2018-07-08 11:27 | Discharge Summary ---
Diagnosis/Chief Complaint Date of Admission Jul 05, 2018 at 11:00 pm Date of Discharge 07/08/18 Admission Diagnosis Admission Diagnosis Status Asthmaticus Anxiety Tobacco Abuse Discharge Diagnosis See Below Problems/Diagnosis: (1) Status asthmaticus Assessment & Plan: - Vapotherm to keep oxygen saturations above 90%, Titrate as tolerated, MAT protocol, IV Steroids, Normal CXR 07/07- Transition to high flow NC, encourage ambulation, Transition to step down Qualifiers: Qualified Codes: J45.52 - Severe persistent asthma with status asthmaticus Status: Acute (2) Leukocytosis Assessment & Plan: - Likely 2/2 to steroid use Qualifiers: Qualified Codes: D72.829 - Elevated white blood cell count, unspecified Status: Acute (3) DVT prophylaxis Assessment & Plan: Lovenox Status: Acute Chief Complaint/HPI Chief Complaint/HPI 27 yo F that presented to ER with increasing shortness of breath. Patient was seen in clinic and started on steroids. States that she has been doing breathing treatments every 4-6 hrs for the last 3 days. She denies ever being intubated for her asthma. She has had 1 admission this year for her asthma. has been sick for the last week. Otherwise doing well. Discharge Summary-Simple/Stand Consultations Discharge Physical Examination Allergies: Coded Allergies: ketorolac (Unverified Adverse Reaction, Unknown, 08/24/17) prochlorperazine (Unverified Adverse Reaction, Unknown, 08/24/17) tramadol (Unverified Adverse Reaction, Unknown, 08/24/17) Vitals & I&Os Vital Sign - Last 12Hours Date Time Temp Pulse Resp B/P (MAP) Pulse Ox O2 Delivery O2 Flow Rate FiO2 07/08/18 11:03 94 Room Air 07/08/18 08:09 97.2 67 18 156/89 (111) 07/07/18 21:23 21 07/07/18 21:00 1.00 Intake and Output 07/08/18 00:00 Intake Total 2030 ml Output Total 150 ml Balance 1880 ml General Appearance: Alert, Oriented X3, Cooperative, No Acute Distress HEENT: Mucous Memb Moist/[place] Respiratory: Other (basilar wheezing with expiration, normal work of breathing. ) Cardiovascular: Regular Rate, No Murmurs Abdominal: Normal Bowel Sounds, Soft, No Tenderness, No Masses Extremities: No Edema, No Tenderness/Swelling Skin: No Rashes, No Breakdown Neuro: Normal Gait, Normal Speech, Strength at 5/5 X4 Ext, Sensation Intact, Cranial Nerves 3-12 NL Psych/Mental Status: Mental Status NL, Mood NL Hospital Course See final discharge diagnosis. Radiology Reviewed Date of Exam: 07/05/18 CHEST 1 VIEW, AP/PA ONLY Indication: Shortness of breath Portable chest 8:57 PM Heart size and pulmonary vascularity are normal. Lungs are clear. There are no effusions or pneumothoraces. Impression: Negative chest Discussion & Recommendations 27 yo F that presented with status asthmaticus. Patient had minimal improvement with 2 hrs of treatments in the ER and dose of Magnesium. Patient was admitted to ICU for minimal improvement after treatments. Patient remained in the the ICU on vapotherm and was able to be titrated down to NC and transferred to floor. Patient will continue outpatient steroids as she has completed course of antibiotics. Discharge Condition at discharge stable Instructions to patient/family Please see electronic discharge instructions given to patient. Discharge Medications Reviewed and agree with Discharge Medication list on patient's Discharge Instruction sheet Clinical Quality Measures DVT/VTE Risk/Contraindication: Risk Factor Score Per Nursin RFS Level Per Nursing on Admit: 2=Moderate Copy Copies To 1: [facility] HERON Jc MD Jul 08, 2018 11:27
[2018-07-08] MEDS ORDERED: IPRA3AMP31 INH (11:34)
[2018-07-08] MEDS ORDERED: RT-ALBUINH IH (11:34)
[2018-07-08 12:26] VITALS: BP 156/89
== END 2018-07-08 12:25 | disposition home or self-care (01) | DRG 202 ==
LOC: EDUNIT# 20:27 → ER 20:29 → ICU 23:00 → 4TH 07-07 16:26
PROVIDERS: ADMIT Family Medicine; ATTEND Family Medicine
DX: J45.52 Severe persistent asthma with status asthmaticus (principal); E66.9 Obesity, unspecified; Z68.42 Body mass index [BMI] 45.0-49.9, adult; D72.829 Elevated white blood cell count, unspecified; T44.5X5A Adverse effect of predominantly beta-adrenoreceptor agonists, initial encounter; T49.0X5A Adverse effect of local antifungal, anti-infective and anti-inflammatory drugs, initial encounter; F17.210 Nicotine dependence, cigarettes, uncomplicated; E78.00 Pure hypercholesterolemia, unspecified; K21.9 Gastro-esophageal reflux disease without esophagitis; K58.9 Irritable bowel syndrome, unspecified; M79.7 Fibromyalgia; E55.9 Vitamin D deficiency, unspecified; E28.2 Polycystic ovarian syndrome; F90.9 Attention-deficit hyperactivity disorder, unspecified type; G47.9 Sleep disorder, unspecified; F41.9 Anxiety disorder, unspecified; F43.10 Post-traumatic stress disorder, unspecified; F31.9 Bipolar disorder, unspecified; F60.9 Personality disorder, unspecified; Z87.01 Personal history of pneumonia (recurrent)
CPT/HCPCS: 36415; 36600; 71045; 80048; 80053; 81000; 82805; 83605; 83735; 84100; 84703; 85007; 85025; 85027; 85379; 87040; 87077; 87088; 87804; 94640; 94664; 94760

== ENCOUNTER 2018-07-16 18:21 | Emergency (ER) | payer SELFPAY ==
[~2018-07-16] VITALS: Ht 162.6 cm; Wt 112.0 kg
[~2018-07-16 18:21] MED LIST changes: +ATOR20TA49 PO; +BACL10TA PO; +DEXT10TA9 PO; +DICY20TA10 PO; +DIPH25TA31 PO; +FAMO20TA3 PO; +FLUT16SP22 NSEACH; +FOLI1TAB57 PO; +IPRA3AMP31 INH; +IPRA4AER IH; +NORG1TAB14 PO; +PRD10T PO; +QUET200T PO
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
[2018-07-16] MEDS ORDERED: methylPREDNISolone 125 MG (Solu-MEDROL) VIAL IV STA (18:29)
[2018-07-16] MEDS ORDERED: DEXAMETHASONE 4 MG/ML SDV (DECADRON) IH ONE (18:30)
[2018-07-16] MEDS ORDERED: RT-ALBUTEROL/IPRATROPIUM 3 ML (DUONEB) VIAL INH ONE (18:30)
[2018-07-16 18:50] LABS: BASOPHILS % (AUTO) 0 % (0-10); EOSINOPHILS # (AUTO) 0.1 10^3/uL (0.0-0.3); EOSINOPHILS % (AUTO) 1 % (0-10); HEMATOCRIT 49 % (35-52); HEMOGLOBIN 16.5 G/DL (11.5-16.0); LYMPHOCYTES # (AUTO) 4.2 X 10^3 (1.0-4.0); LYMPHOCYTES % (AUTO) 31 % (12-44); MEAN CORPUSCULAR HEMOGLOBIN 32 PG (25-34); MEAN CORPUSCULAR HGB CONC 34 G/DL (32-36); MEAN CORPUSCULAR VOLUME 95 FL (80-99); MEAN PLATELET VOLUME 9.5 FL (7.4-10.4); MONOCYTES # (AUTO) 0.9 X 10^3 (0.0-1.0); MONOCYTES % (AUTO) 7 % (0-12); NEUTROPHILS # (AUTO) 8.3 X 10^3 (1.8-7.8); NEUTROPHILS % (AUTO) 62 % (42-75); PLATELET COUNT 330 10^3/uL (130-400); RED BLOOD COUNT 5.21 10^6/uL (4.35-5.85); RED CELL DISTRIBUTION WIDTH 13.5 % (10.0-14.5); WHITE BLOOD COUNT 13.5 10^3/uL (4.3-11.0)
--- NOTE | 2018-07-16 18:50 | ED Respiratory ---
General Chief Complaint: Respiratory Problems Stated Complaint: SOB Nursing Triage Note: AMB TO ROOM REPORTS WAS DISCHARGED YESTERDAY FROM HOSPITAL WITH RESP PROBLEMS IS NOT ANY BETTER. TOOK [place] [employer]. 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 PT WAS ADMITTED HERE 07/05-07/08 FOR ASTHMA EXACERBATION. STATES SHE "DIDN'T GET FULLY BETTER" STATES SHE STARTED LOSING HER VOICE ON 07/11/18, THEN LAST NIGHT HER BREATHING GOT WORSE STATES SHE HAD FEVER OF 101 YESTERDAY, BUT NONE TODAY PT USED ALBUTEROL INHALER AT 0700 TODAY, AND USED ALBUTEROL NEBULIZER X 2 TODAY- -LAST TIME WAS 1 1/2 HOURS AGO. NO RELIEF STATES SHE HAS HAD A NON-PRODUCTIVE COUGH, AND STATES SHE HAS "CRINKLING IN MY CHEST WHEN I BREATHE" C/O PAIN TO RIGHT LATERAL RIB AREA WITH COUGHING OR DEEP BREATHING PT STATES NO ONE ELSE IN HOME IS ILL. PT HAS NOT FOLLOWED UP WITH ANYONE SINCE SHE WAS DISMISSED FROM HOSPITAL, BUT HAS AN APPOINTMENT THIS Sunday07/18/18 LMP 2 MONTHS AGO, HAS PCOS. QUIT TAKING CONTROL PILLS BEFORE SHE WAS ADMITTED TO HOSPITAL--NO PARTICULAR REASON. STATES SHE IS SUPPOSED TO BE HAVING IUD PLACED AT SOME TIME IN THE FUTURE, BUT IS NOT SCHEDULED YET. STATES SHE HAD A NEGATIVE HOME TEST 3 WEEKS AGO. 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 HAS NOT HAD A BOTTOM FINISHER Allergies and Home Medications Allergies Coded Allergies: ketorolac (Unverified Adverse Reaction, Unknown, 08/24/17) prochlorperazine (Unverified Adverse Reaction, Unknown, 08/24/17) tramadol (Unverified Adverse Reaction, Unknown, 08/24/17) Home Medications Albuterol Sulfate 18 Gm Hfa.aer.ad, 1-2 PUFF IH Q4H PRN for SHORTNESS OF BREATH Prescribed by: HERON JOE on 07/08/181133 Albuterol/Ipratropium 4 Gm Aero, 1 PUFF IH DAILY, (Reported) Atorvastatin Calcium 20 Mg Tablet, 20 MG PO DAILY, (Reported) Baclofen 10 Mg Tablet, 10 MG PO BID, (Reported) Benzonatate 100 Mg Capsule, 1-2 TAB PO TID Prescribed by: THOMPSON FITCH on 07/16/182052 Budesonide 1 Mg/2 Ml Ampul.neb, 1 MG IH BID Prescribed by: THOMPSON FITCH on 07/16/182052 Buspirone HCl 15 Mg Tablet, 15 MG PO TID, (Reported) Cholecalciferol (Vitamin D3) 1,000 Unit Capsule, 1,000 UNIT PO BID, (Reported) Cranberry Extract 500 Mg Tablet, 1,000 MG PO BID, (Reported) Dextroamphetamine/Amphetamine 10 Mg Tablet, 10 MG PO BID, (Reported) Dicyclomine HCl 20 Mg Tablet, 20 MG PO QID, (Reported) Diphenhydramine HCl 25 Mg Tablet, 25 MG PO BID, (Reported) Docusate Sodium 100 Mg Capsule, 100 MG PO BID PRN for CONSTIPATION Prescribed by: AILYN VERGARA on 10/23/16 0735 Doxycycline Monohydrate 100 Mg Capsule, 100 MG PO BID Prescribed by: THOMPSON FITCH on 07/16/182052 Famotidine 20 Mg Tablet, 20 MG PO BID, (Reported) Fluticasone Propionate 16 Gm [place].susp, 1 SPRAY NSEACH HS, (Reported) Guaifenesin/Dextromethorphan 1 Each Tbmp.12hr, 1 EACH PO BID Prescribed by: THOMPSON FITCH on 07/16/182052 Ibuprofen 600 Mg Tablet, 600 MG PO Q6H PRN for PAIN, (Reported) Ipratropium/Albuterol Sulfate 3 Ml Ampul.neb, 3 ML INH Q6H PRN for DYSPNEA Prescribed by: HERON JOE on 07/08/181133 Methylprednisolone 4 Mg Tab.ds.pk, 4 MG PO UD Prescribed by: THOMPSON FITCH on 07/16/182052 Mv,Ca,Min/Iron Fum/FA/Vit K 1 Each Tablet, 1 EACH PO DAILY, (Reported) Ondansetron 4 Mg Tab.rapdis, 4 MG SL Q4H PRN for NAUSEA/VOMITING-1ST LINE Prescribed by: ANGY MARTINS on 03/01/18 0208 Prazosin HCl 2 Mg Capsule, 6 MG PO HS, (Reported) Prednisone 10 Mg Tab, 20 MG PO DAILY, (Reported) FILLED 07/01/18 PATIENT STATES SHE STILL HAS TWO MORE DOSES Quetiapine Fumarate 200 Mg Tablet, 200 MG PO HS, (Reported) Patient Home Medication List Home Medication List Reviewed: Yes Review of Systems Review of Systems Constitutional: see HPI, fever EENTM: nose congestion Respiratory: see HPI, cough, dyspnea on exertion; No phlegm; short of breath, wheezing Cardiovascular: see HPI, chest pain Gastrointestinal: no symptoms reported Genitourinary: no symptoms reported : No Musculoskeletal: see HPI Skin: no symptoms reported Psychiatric/Neurological: No Symptoms Reported Hematologic/Lymphatic: No Symptoms Reported Immunological/Allergic: no symptoms reported Past Sjtynwh-Xvbrwa-Wvaprb Hx Patient Social History Alcohol Use: Denies Use Recreational Drug Use: No Smoking Status: Current Everyday Smoker Type Used: Cigarettes 2nd Hand Smoke Exposure: No Recent Foreign Travel: No Contact w/Someone Who Travel: No Recent Infectious Disease Expo: No Recent Hopitalizations: No Immunizations Up To Date Tetanus Booster (TDap): Unknown Date of Influenza Vaccine: Apr 20, 2018 Seasonal Allergies Seasonal Allergies: Yes Past Medical History Surgeries: Yes ( X 1 --07/2013, WISDOM TEETH; REMOVAL OF RETAINED IUD) Section, Tonsillectomy Respiratory: Yes (Tobaccoism) Asthma, Pneumonia Cardiac: Yes High Cholesterol Neurological: No Reproductive Disorders: Yes (RETAINED IUD) Female Reproductive Disorders: Menstrual Problems, Ovarian Cyst, Polycystic Ovarian Dis GERIATRICS PHYSICIAN History: IUD Sexually Transmitted Disease: No HIV/AIDS: No Genitourinary: Yes Bladder Infection, UTI-Chronic Gastrointestinal: Yes Gastroesophageal Reflux, Chronic Diarrhea, Irritable Bowel Musculoskeletal: Yes Fibromyalgia Endocrine: Yes (VITAMIN D DEFICIENCY; OBESITY) HEENT: Yes Loss of Vision: Bilateral Hearing Impairment: Denies Cancer: No Psychosocial: Yes (EXTENSIVE PSYCH ISSUES-PT STABLE ) ADD/ADHD, Sleep Difficulties, Anxiety, PTSD, Bipolar, Personality Disorder, Depression Integumentary: No Blood Disorders: No Adverse Reaction/Blood Tranf: No Family Medical History Alcoholism 19 FATHER Asthma 19 MOTHER Completed stroke 19 FATHER DVT 19 FATHER Dementia 19 FATHER Diabetes mellitus 19 MOTHER FH: multiple sclerosis G8 SISTER Headache disorder G8 BROTHER Hypertension 19 FATHER 19 MOTHER Myocardial infarction 19 FATHER Seizure disorder 19 FATHER Hypertension, Seizures, Stroke Physical Exam Vital Signs - First Documented 07/16/18 18:24 Temp 98.8 Pulse 116 Resp 18 B/P (MAP) 136/100 (112) Pulse Ox 98 O2 Delivery Room Air Capillary Refill : Less Than 3 Seconds Height: 5'4.00" Weight: 247lbs. 0.0oz. 112.191024cf; 48.2 BMI Method:Stated General Appearance: no apparent distress, obese, other (REEKS OF CIGARETTES, UNKEMPT. DOES NOT APPEAR TO BE IN ANY DISCOMFORT OR DISTRESS. NO COUGH NOTED. ) HEENT: PERRL/EOMI, TMs normal, pharynx normal, other (NASAL MUCOSAL EDEMA AND CLEAR RHINORRHEA, POOR DENTITION) Neck: normal inspection Respiratory: normal breath sounds (EXCEPT MILDLY DIMINISHED IN BASES. ), no respiratory distress, no accessory muscle use; No rales, No rhonchi, No wheezing Cardiovascular: regular rate, rhythm (100'S), no murmur Gastrointestinal: soft Extremities: normal inspection, no pedal edema, normal capillary refill Neurologic/Psychiatric: produce team member II-XII nml as tested, no motor/sensory deficits, alert, normal mood/affect, oriented x 3 Skin: normal color, warm/dry Focused Exam Lactate Level 07/16/18 18:40: Lactic Acid Level 1.39 Lactic Acid Level Laboratory Tests Test 07/16/18 18:40 Lactic Acid Level 1.39 MMOL/L (0.50-2.00) Progress/Results/Core Measures Suspected Sepsis Recent Fever Within 48 Hours: No Infection Criteria Present: None New/Unexplained Altered Menta: No Sepsis Screen: No Definite Risk SIRS Temperature:98.8 Pulse: 116 Respiratory Rate: 18 Laboratory Tests 07/16/18 18:40: White Blood Count 13.5H Blood Pressure 136 /100 Mean: 112 07/16/18 18:40: Lactic Acid Level 1.39 Laboratory Tests 07/16/18 18:40: Creatinine 0.92, Platelet Count 330, Total Bilirubin 0.3 Results/Orders Lab Results Laboratory Tests Test 07/16/18 18:40 07/16/18 18:52 Range/Units White Blood Count 13.5 H 4.3-11.0 10^3/uL Red Blood Count 5.21 4.35-5.85 10^6/uL Hemoglobin 16.5 H 11.5-16.0 G/DL Hematocrit 49 35-52 % Mean Corpuscular Volume 95 80-99 FL Mean Corpuscular Hemoglobin 32 25-34 PG Mean Corpuscular Hemoglobin Concent 34 32-36 G/DL Red Cell Distribution Width 13.5 10.0-14.5 % Platelet Count 330 130-400 10^3/uL Mean Platelet Volume 9.5 7.4-10.4 FL Neutrophils (%) (Auto) 62 42-75 % Lymphocytes (%) (Auto) 31 12-44 % Monocytes (%) (Auto) 7 0-12 % Eosinophils (%) (Auto) 1 0-10 % Basophils (%) (Auto) 0 0-10 % Neutrophils # (Auto) 8.3 H 1.8-7.8 X 10^3 Lymphocytes # (Auto) 4.2 H 1.0-4.0 X 10^3 Monocytes # (Auto) 0.9 0.0-1.0 X 10^3 Eosinophils # (Auto) 0.1 0.0-0.3 10^3/uL Basophils # (Auto) 0.0 0.0-0.1 10^3/uL Sodium Level 138 135-145 MMOL/L Potassium Level 4.4 3.6-5.0 MMOL/L Chloride Level 103 98-107 MMOL/L Carbon Dioxide Level 23 21-32 MMOL/L Anion Gap 12 5-14 MMOL/L Blood Urea Nitrogen 13 7-18 MG/DL Creatinine 0.92 0.60-1.30 MG/DL Estimat Glomerular Filtration Rate > 60 BUN/Creatinine Ratio 14 Glucose Level 105 70-105 MG/DL Lactic Acid Level 1.39 0.50-2.00 MMOL/L Calcium Level 9.5 8.5-10.1 MG/DL Corrected Calcium 9.4 8.5-10.1 MG/DL Magnesium Level 2.2 1.8-2.4 MG/DL Total Bilirubin 0.3 0.1-1.0 MG/DL Aspartate Amino Transf (AST/SGOT) 13 5-34 U/L Alanine Aminotransferase (ALT/SGPT) 28 0-55 U/L Alkaline Phosphatase 62 40-136 U/L Total Protein 7.0 6.4-8.2 GM/DL Albumin 4.1 3.2-4.5 GM/DL Serum Test, Qualitative NEGATIVE NEGATIVE Urine Color YELLOW Urine Clarity CLEAR Urine pH 6.5 5-9 Urine Specific [place] 1.015 L 1.016-1.022 Urine Protein 1+ H NEGATIVE Urine Glucose (UA) NEGATIVE NEGATIVE Urine Ketones NEGATIVE NEGATIVE Urine Nitrite NEGATIVE NEGATIVE Urine Bilirubin NEGATIVE NEGATIVE Urine Urobilinogen NORMAL NORMAL MG/DL Urine Leukocyte Esterase NEGATIVE NEGATIVE Urine RBC (Auto) 1+ H NEGATIVE Urine RBC RARE /HPF Urine WBC 0-2 /HPF Urine Squamous Epithelial Cells 25-50 H /HPF Urine Crystals NONE /LPF Urine Bacteria MODERATE H /HPF Urine Casts NONE /LPF Urine Mucus NEGATIVE /LPF Urine Culture Indicated NO Micro Results Microbiology 07/16/18 Influenza Types A,B Antigen (GALINA) - Final, Complete My Orders Orders - THOMPSON FITCH DO Saline Lock/Iv-Start (07/16/18 18:29) Monitor-Rhythm Ecg Trace Only (07/16/18 18:29) Cbc With Automated Diff (07/16/18 18:29) Comprehensive Metabolic Panel (07/16/18 18:29) Hcg,Qualitative Serum (07/16/18 18:29) Lactic Acid Analyzer (07/16/18 18:29) Magnesium (07/16/18 18:29) Ua Culture If Indicated (07/16/18 18:29) Blood Culture (07/16/18 18:29) Influenza A And B Antigens (07/16/18 18:29) Chest Pa/Lat (2 View) (07/16/18 18:29) Albuterol/Ipra Inhalation Soln (Duoneb I (07/16/18 18:30) Dexamethasone Injection (Decadron Inject (07/16/18 18:30) Methylprednisolone Sod Succ (Solu-Medrol (07/16/18 18:29) Svn Small Volume Nebulizer (07/16/18 18:29) Rx-Doxycycline Tablet (Rx-Vibramycin Tab (07/16/18 20:44) Medications Given in ED Vital Signs/I&O 07/16/18 07/16/18 07/16/18 18:24 18:59 21:01 Temp 98.8 98.8 Pulse 116 87 Resp 18 18 B/P (MAP) 136/100 (112) 125/88 (100) Pulse Ox 98 95 95 O2 Delivery Room Air Room Air Room Air Capillary Refill : Less Than 3 Seconds Blood Pressure Mean: 112 Progress Note : Progress Note GIVEN NEBULIZER TREATMENT WITH INCREASED AERATION NO COUGH NOTED AT ANY TIME NO DYSPNEA OR WHEEZING AT ANY TIME Diagnostic Imaging Comments CXR--NO ACUTE PROCESS, PER RADIOLOGIST REPORT AT 2042 Reviewed: Reviewed by Me Departure Impression Primary Impression: Asthmatic bronchitis with exacerbation Additional Impressions: Smoker Second hand tobacco smoke exposure Disposition: HOME, SELF-CARE Condition: Improved Departure-Patient Inst. Referrals: [facility] (PCP) Primary Care Physician APRIL AMBROSE (Family) Primary Care Physician Patient Instructions: Asthma, Adult (DC), Acute Bronchitis, Adult (DC) Add. Discharge Instructions: NO SMOKING IN HOME OR VEHICLE AT ANY TIME LOTS OF CLEAR LIQUIDS TYLENOL AND MOTRIN NEEDED FOR PAIN USE YOUR ALBUTEROL NEBULIZER EVERY 4 HOURS NEEDED FOR BREATHING KEEP YOUR APPOINTMENT THIS WEEK SCHEDULED All discharge instructions reviewed with patient and/or family. Voiced understanding. Scripts Methylprednisolone (Medrol) 4 Mg Tab.ds.pk 4 MG PO UD, #1 PKG Prov: THOMPSON FITCH DO 07/16/18 Benzonatate (TESSALON PERLES) 100 Mg Capsule 1-2 TAB PO TID for Cough, #30 CAP Prov: THOMPSON FITCH DO 07/16/18 Budesonide (Pulmicort) 1 Mg/2 Ml Ampul.neb 1 MG IH BID, #1 UNIT Prov: THOMPSON FITCH DO 07/16/18 Guaifenesin/Dextromethorphan (Mucinex Dm ER 1,200-60 mg Tab) 1 Each Tbmp.12hr 1 EACH PO BID for 10 Days, #20 EA Prov: THOMPSON FITCH DO 07/16/18 Doxycycline Monohydrate (Doxycycline Monohydrate) 100 Mg Capsule 100 MG PO BID, #20 CAP Prov: THOMPSON FITCH DO 07/16/18 THOMPSON FITCH DO Jul 16, 2018 18:49
[2018-07-16 19:04] LABS: BILIRUBIN,URINE NEGATIVE (NEGATIVE); CLARITY,URINE CLEAR; COLOR,URINE YELLOW; GLUCOSE, URINE (UA) NEGATIVE (NEGATIVE); KETONES,URINE NEGATIVE (NEGATIVE); LEUKOCYTE ESTERASE ,URINE NEGATIVE (NEGATIVE); NITRITE,URINE NEGATIVE (NEGATIVE); PH,URINE 6.5 (5-9); PROTEIN,URINE 1+ (NEGATIVE); UROBILINOGEN,URINE NORMAL (NORMAL)
[2018-07-16 19:08] LABS: ALANINE AMINOTRANSFERASE 28 U/L (0-55); ALBUMIN 4.1 GM/DL (3.2-4.5); ALKALINE PHOSPHATASE 62 U/L (40-136); BILIRUBIN,TOTAL 0.3 MG/DL (0.1-1.0); BUN/CREATININE RATIO 14; CALCIUM 9.5 MG/DL (8.5-10.1); CARBON DIOXIDE 23 MMOL/L (21-32); CHLORIDE 103 MMOL/L (98-107); CREATININE SERUM 0.92 MG/DL (0.60-1.30); GFR ESTIMATED > 60; GLUCOSE 105 MG/DL (70-105); MAGNESIUM 2.2 MG/DL (1.8-2.4); POTASSIUM 4.4 MMOL/L (3.6-5.0); SODIUM 138 MMOL/L (135-145)
[2018-07-16 19:14] LABS: BACTERIA,URINE MODERATE /HPF; RBC,URINE RARE /HPF; SQUAMOUS EPITHELIAL CELL,UR 25-50 /HPF; WBC,URINE 0-2 /HPF
--- NOTE | 2018-07-16 19:38 | Diagnostic Imaging Report ---
INDICATION: Cough. Shortness of air. Chest pain. COMPARISON: 07/07/2018. FINDINGS: Frontal and lateral views of the chest demonstrate normal heart size and pulmonary vascularity. The lungs are clear. There are no signs of infiltrate, pleural effusions or pneumothoraces. The visualized osseous structures show no acute abnormalities. IMPRESSION: 1. No acute process. No signs of infiltrates, effusions or pneumothoraces. Dictated by: Dictated on workstation # [id number]
[2018-07-16] MEDS ORDERED: RX-DOXYCYCLINE 100 MG (VIBRAMYCIN) TAB PPK#2 PO STA (20:44)
[2018-07-16] MEDS ORDERED: BENZ100C18 PO (20:53)
[2018-07-16] MEDS ORDERED: BUDE1AMP IH (20:53)
[2018-07-16] MEDS ORDERED: GUAI1TBM19 PO (20:53)
[2018-07-16] MEDS ORDERED: METH4TAB PO (20:53)
[2018-07-16] MEDS ORDERED: DOXY100C42 PO (20:53)
[2018-07-16 21:01] VITALS: BP 125/88
== END 2018-07-16 21:01 | disposition home or self-care (01) ==
LOC: EDUNIT# 18:21 → ER 18:22
DX: J45.901 Unspecified asthma with (acute) exacerbation (principal); K21.9 Gastro-esophageal reflux disease without esophagitis; E66.9 Obesity, unspecified; F90.9 Attention-deficit hyperactivity disorder, unspecified type; F41.9 Anxiety disorder, unspecified; F43.10 Post-traumatic stress disorder, unspecified; F31.9 Bipolar disorder, unspecified; F17.210 Nicotine dependence, cigarettes, uncomplicated; Z88.4 Allergy status to anesthetic agent; Z82.49 Family history of ischemic heart disease and other diseases of the circulatory system; Z68.42 Body mass index [BMI] 45.0-49.9, adult; Z98.890 Other specified postprocedural states; Z97.5 Presence of (intrauterine) contraceptive device; Z87.440 Personal history of urinary (tract) infections; Z87.19 Personal history of other diseases of the digestive system; Z87.01 Personal history of pneumonia (recurrent); Z90.89 Acquired absence of other organs; Z88.8 Allergy status to other drugs, medicaments and biological substances; Z88.6 Allergy status to analgesic agent; Z79.51 Long term (current) use of inhaled steroids; Z79.52 Long term (current) use of systemic steroids
CPT/HCPCS: 36415; 71046; 80053; 81000; 83605; 83735; 84703; 85025; 87040; 87804; 94640

== ENCOUNTER 2018-08-10 09:34 | Emergency (ER) | payer SELFPAY ==
[~2018-08-10] VITALS: Ht 160 cm; Wt 90.7 kg
[~2018-08-10 09:34] MED LIST changes: +BENZ100C18 PO; +BUDE1AMP IH; +DOXY100C42 PO; +GUAI1TBM19 PO; +METH4TAB PO
[2018-08-10] MEDS ORDERED: RT-ALBUTEROL/IPRATROPIUM 3 ML (DUONEB) VIAL INH ONE (10:00)
[2018-08-10 10:10] LABS: BASOPHILS % (AUTO) 0 % (0-10); EOSINOPHILS % (AUTO) 0 % (0-10); HEMATOCRIT 44 % (35-52); LYMPHOCYTES % (AUTO) 20 % (12-44); MEAN CORPUSCULAR HEMOGLOBIN 32 PG (25-34); MEAN CORPUSCULAR HGB CONC 34 G/DL (32-36); MEAN CORPUSCULAR VOLUME 94 FL (80-99); MEAN PLATELET VOLUME 10.1 FL (7.4-10.4); MONOCYTES # (AUTO) 0.7 X 10^3 (0.0-1.0); MONOCYTES % (AUTO) 7 % (0-12); NEUTROPHILS # (AUTO) 7.4 X 10^3 (1.8-7.8); NEUTROPHILS % (AUTO) 73 % (42-75); PLATELET COUNT 319 10^3/uL (130-400); RED BLOOD COUNT 4.69 10^6/uL (4.35-5.85); WHITE BLOOD COUNT 10.1 10^3/uL (4.3-11.0)
--- NOTE | 2018-08-10 10:28 | Diagnostic Imaging Report ---
Indication: Shortness of breath Comparison made to prior from 07/16/2018. Findings: When compared to the prior examination there is new slight prominence demonstrated of the basilar interstitium which may reflect some minor atelectasis but inflammatory process such as bronchitis cannot be excluded there is no alveolar pneumonia. There is no effusion there is no pneumothorax. The heart appears appropriate. Impression: 1. Slight increased prominence of the basilar interstitial markings may simply reflect some minor atelectasis though an inflammatory process such as bronchitis could not be excluded. Dictated by: Dictated on workstation # [id number]
[2018-08-10 10:30] LABS: ALANINE AMINOTRANSFERASE 15 U/L (0-55); ALBUMIN 3.9 GM/DL (3.2-4.5); ALKALINE PHOSPHATASE 64 U/L (40-136); BILIRUBIN,TOTAL 0.2 MG/DL (0.1-1.0); BUN/CREATININE RATIO 8; CALCIUM 8.9 MG/DL (8.5-10.1); CARBON DIOXIDE 21 MMOL/L (21-32); CHLORIDE 106 MMOL/L (98-107); CREATININE SERUM 0.78 MG/DL (0.60-1.30); GFR ESTIMATED > 60; GLUCOSE 97 MG/DL (70-105); POTASSIUM 3.3 MMOL/L (3.6-5.0); SODIUM 140 MMOL/L (135-145); TOTAL PROTEIN 6.7 GM/DL (6.4-8.2)
[2018-08-10] MEDS ORDERED: RT-ALBUTEROL SULF 2.5 MG/3 ML PRE-MIX VIAL INH STA (11:21)
[2018-08-10] MEDS ORDERED: KETOROLAC 30 MG/ML VIAL IVP STA (11:21)
[2018-08-10] MEDS ORDERED: NS IV 1000 ML 1,000 ML IV ONE (11:21)
[2018-08-10] MEDS ORDERED: ONDANSETRON 4 MG/2 ML (SDV) Z0FRAN IVP ONE (11:30)
--- NOTE | 2018-08-10 11:40 | ED Respiratory ---
General Chief Complaint: Respiratory Problems Stated Complaint: ASTHMA,SOB Nursing Triage Note: PT PRESENTS OT ER WITH COMPLAINT SOA. STATES HER HOME ALBUTEROL TREATMENTS HAVE NOT BEEN HELPING HER. Source: patient, spouse Exam Limitations: no limitations History of Present Illness Date Seen by Provider: Aug 10, 2018 Time Seen by Provider: 11:10 Initial Comments 27-year-old female patient presents to the emergency department with complaints of cough, shortness of air, rhinorrhea, body aches, and fever beginning 3-4 days ago. Patient reports having a fever but 101 last night. Denies taking any Tylenol or ibuprofen today. Patient does have a history of moderate to severe asthma. Significant other reports patient was admitted one month ago for similar symptoms. No improvement with 4 puffs of an albuterol inhaler and one albuterol nebulizer treatment at home. Patient states she has not smoked since she started feeling bad. S.O. states he stops smoking around her when she starts getting sick. Timing/Duration: other (onset 3-4 days) Severity: moderate Prior Episodes/Possible Cause: frequent episodes Modifying Factors: Worse With Activity, Worse With Albuterol Inhaler, Worse With Albuterol Nebulizer, Worse With Coughing Allergies and Home Medications Allergies Coded Allergies: prochlorperazine (Unverified Adverse Reaction, Unknown, 08/24/17) tramadol (Unverified Adverse Reaction, Unknown, 08/24/17) Home Medications Albuterol Sulfate 18 Gm Hfa.aer.ad, 1-2 PUFF IH Q4H PRN for SHORTNESS OF BREATH Prescribed by: HERON JOE on 07/08/18 1134 Albuterol/Ipratropium 4 Gm [place], 1 PUFF IH DAILY, (Reported) Amoxicillin 500 Mg Capsule, 1,000 MG PO BID Prescribed by: MARIA C SWARTZ on 08/10/18 1322 Atorvastatin Calcium 20 Mg Tablet, 20 MG PO DAILY, (Reported) Baclofen 10 Mg Tablet, 10 MG PO BID, (Reported) Benzonatate 100 Mg Capsule, 1-2 TAB PO TID Prescribed by: THOMPSON FITCH on 07/16/182052 Benzonatate 100 Mg Capsule, 1-2 CAP PO HS PRN for COUGH do NOT use during the daytime. you need the cough to keep the lungs open during the daytime. Prescribed by: MARIA C SWARTZ on 08/10/18 1322 Budesonide 1 Mg/2 Ml Ampul.neb, 1 MG IH BID Prescribed by: THOMPSON FITCH on 07/16/182052 Buspirone HCl 15 Mg Tablet, 15 MG PO TID, (Reported) Cholecalciferol (Vitamin D3) 1,000 Unit Capsule, 1,000 UNIT PO BID, (Reported) Ciprofloxacin HCl 500 Mg Tablet, 500 MG PO BID Prescribed by: MARIA C SWARTZ on 08/10/18 132 Cranberry Extract 500 Mg Tablet, 1,000 MG PO BID, (Reported) Dextroamphetamine/Amphetamine 10 Mg Tablet, 10 MG PO BID, (Reported) Dicyclomine HCl 20 Mg Tablet, 20 MG PO QID, (Reported) Diphenhydramine HCl 25 Mg Tablet, 25 MG PO BID, (Reported) Docusate Sodium 100 Mg Capsule, 100 MG PO BID PRN for CONSTIPATION Prescribed by: AILYN VERGARA on 10/23/16 0735 Doxycycline Monohydrate 100 Mg Capsule, 100 MG PO BID Prescribed by: THOMPSON FITCH on 07/16/182052 Famotidine 20 Mg Tablet, 20 MG PO BID, (Reported) Fluticasone Propionate 16 Gm [place].susp, 1 SPRAY NSEACH HS, (Reported) Guaifenesin/Dextromethorphan 1 Each Tbmp.12hr, 1 EACH PO BID Prescribed by: THOMPSON FITCH on 07/16/182052 Ibuprofen 600 Mg Tablet, 600 MG PO Q6H PRN for PAIN, (Reported) Ipratropium/Albuterol Sulfate 3 Ml Ampul.neb, 3 ML INH Q6H PRN for DYSPNEA Prescribed by: HERON JOE on 07/08/18 1134 Methylprednisolone 4 Mg Tab.ds.pk, 4 MG PO UD Prescribed by: THOMPSON FITCH on 07/16/182052 Mv,Ca,Min/Iron Fum/FA/Vit K 1 Each Tablet, 1 EACH PO DAILY, (Reported) Ondansetron 4 Mg Tab.rapdis, 4 MG SL Q4H PRN for NAUSEA/VOMITING-1ST LINE Prescribed by: ANGY MARTINS on 03/01/18 0208 Prazosin HCl 2 Mg Capsule, 6 MG PO HS, (Reported) Prednisone 10 Mg Tab, 20 MG PO DAILY, (Reported) FILLED 07/01/18 PATIENT STATES SHE STILL HAS TWO MORE DOSES Prednisone 20 Mg Tab, 2 TAB PO DAILY Prescribed by: MARIA C SWARTZ on 08/10/18 1322 Quetiapine Fumarate 200 Mg Tablet, 200 MG PO HS, (Reported) Patient Home Medication List Home Medication List Reviewed: Yes Review of Systems Review of Systems Constitutional: see HPI, chills, fever, malaise EENTM: see HPI, nose congestion, throat pain; No ear discharge, No ear pain, No nose pain, No throat swelling Respiratory: see HPI, cough, phlegm, short of breath; No stridor; wheezing, other (rib pain with taking deep breath and coughing) Cardiovascular: No chest pain, No palpitations, No syncope Gastrointestinal: No abdominal pain, No constipation, No diarrhea; loss of appetite, nausea, vomiting (patient does report emesis with coughing episodes) Genitourinary: No decreased output, No dysuria, No frequency Musculoskeletal: other (generalized body aches) Skin: no symptoms reported Psychiatric/Neurological: No Symptoms Reported All Other Systems Reviewed Negative Unless Noted: Yes (Negative excepted noted.) Past [id number]-Dqifkb Hx Past Med/Social Hx: Reviewed Nursing Past Med/Soc Hx Patient Social History Alcohol Use: Denies Use Recreational Drug Use: No Smoking Status: Current Everyday Smoker Type Used: Cigarettes 2nd Hand Smoke Exposure: No Recent Foreign Travel: No Contact w/Someone Who Travel: No Recent Infectious Disease Expo: No Recent Hopitalizations: No Immunizations Up To Date Tetanus Booster (TDap): Unknown Date of Influenza Vaccine: Apr 20, 2018 Seasonal Allergies Seasonal Allergies: Yes Past Medical History Surgeries: Yes ( X --07/2013, WISDOM TEETH; REMOVAL OF RETAINED IUD) Section, Tonsillectomy Respiratory: Yes (Tobaccoism) Asthma, Pneumonia Cardiac: Yes High Cholesterol Neurological: No Reproductive Disorders: Yes (RETAINED IUD) Female Reproductive Disorders: Menstrual Problems, Ovarian Cyst, Polycystic Ovarian Dis 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 Sexually Transmitted Disease: No HIV/AIDS: No Genitourinary: Yes Bladder Infection, UTI-Chronic Gastrointestinal: Yes Gastroesophageal Reflux, Chronic Diarrhea, Irritable Bowel Musculoskeletal: Yes Fibromyalgia Endocrine: Yes (VITAMIN D DEFICIENCY; OBESITY) HEENT: Yes Loss of Vision: Bilateral Hearing Impairment: Denies Cancer: No Psychosocial: Yes (EXTENSIVE PSYCH ISSUES-PT STABLE ) ADD/ADHD, Sleep Difficulties, Anxiety, PTSD, Bipolar, Personality Disorder, Depression Integumentary: No Blood Disorders: No Adverse Reaction/Blood Tranf: No Family Medical History Reviewed Nursing Family Hx Alcoholism 19 FATHER Asthma 19 MOTHER Completed stroke 19 FATHER DVT 19 FATHER Dementia 19 FATHER Diabetes mellitus 19 MOTHER FH: multiple sclerosis G8 SISTER Headache disorder G8 BROTHER Hypertension 19 FATHER 19 MOTHER Myocardial infarction 19 FATHER Seizure disorder 19 FATHER Hypertension, Seizures, Stroke Physical Exam Vital Signs - First Documented 08/10/18 09:50 Pulse 115 Resp 20 B/P (MAP) 113/83 (93) Pulse Ox 87 O2 Delivery Room Air O2 Flow Rate 2.00 Capillary Refill : Less Than 3 Seconds Height: 5'3.00" Weight: 200lbs. 0.0oz. [id number]; 48.2 BMI Method:Stated General Appearance: WD/WN, no apparent distress Eyes: Bilateral Eye Normal Inspection, Bilateral Eye PERRL, Bilateral Eye EOMI HEENT: PERRL/EOMI, pharyngeal erythema, other ((+) nasal congestion and rhinorrhea. No sinus tenderness) Neck: full range of motion, supple, lymphadenopathy (R) (TTP), lymphadenopathy (L) (TTP) Respiratory: no respiratory distress, no accessory muscle use, decreased breath sounds; No crackles, No rales, No rhonchi, No stridor; wheezing, expiration Cardiovascular: no edema, no murmur, tachycardia, other (regular rhythm.) Gastrointestinal: normal bowel sounds, non tender, soft, no organomegaly; No distended Extremities: no pedal edema, no calf tenderness, normal capillary refill Neurologic/Psychiatric: alert, normal mood/affect, oriented x 3 Skin: normal color, warm/dry Progress/Results/Core Measures Suspected Sepsis Recent Fever Within 48 Hours: No Infection Criteria Present: None New/Unexplained Altered Menta: No Sepsis Screen: No Definite Risk SIRS Temperature: Pulse: 115 Respiratory Rate: 20 Laboratory Tests 08/10/18 09:58: White Blood Count 10.1 Blood Pressure 113 /83 Mean: 93 Laboratory Tests 08/10/18 09:58: Creatinine 0.78, Platelet Count 319, Total Bilirubin 0.2 Results/Orders Lab Results Laboratory Tests Test 08/10/18 09:58 Range/Units White Blood Count 10.1 4.3-11.0 10^3/uL Red Blood Count 4.69 4.35-5.85 10^6/uL Hemoglobin 15.0 11.5-16.0 G/DL Hematocrit 44 35-52 % Mean Corpuscular Volume 94 80-99 FL Mean Corpuscular Hemoglobin 32 25-34 PG Mean Corpuscular Hemoglobin Concent 34 32-36 G/DL Red Cell Distribution Width 14.0 10.0-14.5 % Platelet Count 319 130-400 10^3/uL Mean Platelet Volume 10.1 7.4-10.4 FL Neutrophils (%) (Auto) 73 42-75 % Lymphocytes (%) (Auto) 20 12-44 % Monocytes (%) (Auto) 7 0-12 % Eosinophils (%) (Auto) 0 0-10 % Basophils (%) (Auto) 0 0-10 % Neutrophils # (Auto) 7.4 1.8-7.8 X 10^3 Lymphocytes # (Auto) 2.0 1.0-4.0 X 10^3 Monocytes # (Auto) 0.7 0.0-1.0 X 10^3 Eosinophils # (Auto) 0.0 0.0-0.3 10^3/uL Basophils # (Auto) 0.0 0.0-0.1 10^3/uL Sodium Level 140 135-145 MMOL/L Potassium Level 3.3 L 3.6-5.0 MMOL/L Chloride Level 106 98-107 MMOL/L Carbon Dioxide Level 21 21-32 MMOL/L Anion Gap 13 5-14 MMOL/L Blood Urea Nitrogen 6 L 7-18 MG/DL Creatinine 0.78 0.60-1.30 MG/DL Estimat Glomerular Filtration Rate > 60 BUN/Creatinine Ratio 8 Glucose Level 97 70-105 MG/DL Calcium Level 8.9 8.5-10.1 MG/DL Corrected Calcium 9.0 8.5-10.1 MG/DL Total Bilirubin 0.2 0.1-1.0 MG/DL Aspartate Amino Transf (AST/SGOT) 11 5-34 U/L Alanine Aminotransferase (ALT/SGPT) 15 0-55 U/L Alkaline Phosphatase 64 40-136 U/L Total Protein 6.7 6.4-8.2 GM/DL Albumin 3.9 3.2-4.5 GM/DL Serum Test, Qualitative NEGATIVE NEGATIVE Micro Results Microbiology 12/22/18 Influenza Types A,B Antigen (GALINA) - Final, Complete My Orders Orders - MARIA C SWARTZ Influenza A And B Antigens (08/10/18 11:21) Ondansetron Injection (Zofran Injectio (08/10/18 11:30) Ketorolac Injection (Toradol Injection) (08/10/18 11:21) Ns Iv 1000 Ml (Sodium Chloride 0.9%) (08/10/18 11:21) Albuterol Pre-Mix Nebs (Rt) (Proventil (08/10/18 11:21) Svn Small Volume Nebulizer (08/10/18 11:21) Acetaminophen Tablet (Tylenol Tablet) (08/10/18 13:30) Benzonatate Capsule (Tessalon Perles) (08/10/18 13:30) Medications Given in ED Current Medications Medications Dose Ordered Sig/Hina Route Start Time Stop Time Status Last Admin Dose Admin Acetaminophen 1,000 mg ONCE ONCE PO 08/10/18 13:30 08/10/18 13:31 DC 08/10/18 13:37 1,000 MG Albuterol/ Ipratropium 3 ml ONCE ONCE INH 08/10/18 10:00 08/10/18 10:01 DC 08/10/18 09:56 3 ML Benzonatate 200 mg ONCE ONCE PO 08/10/18 13:30 08/10/18 13:31 DC 08/10/18 13:37 200 MG Ondansetron HCl 4 mg ONCE ONCE IVP 08/10/18 11:30 08/10/18 11:31 DC 08/10/18 12:06 4 MG Sodium Chloride 1,000 ml @ 0 mls/hr Q0M ONCE IV 08/10/18 11:21 08/10/18 11:23 DC 08/10/18 12:05 1,000 MLS/HR Vital Signs/I&O 08/10/18 08/10/18 08/10/18 08/10/18 09:50 09:50 09:56 11:39 Pulse 115 Resp 20 B/P (MAP) 113/83 (93) Pulse Ox 87 87 93 95 O2 Delivery Room Air Nasal Cannula Nasal Cannula Nasal Cannula O2 Flow Rate 2.00 2.00 2.00 Capillary Refill : Less Than 3 Seconds Blood Pressure Mean: 93 Diagnostic Imaging Diagonstic Imaging: Xray Plain Films/CT/US/NM/MRI: chest Comments CHEST PA/LAT (2 VIEW) Indication: Shortness of breath Comparison made to prior from 07/16/2018. Findings: When compared to the prior examination there is new slight prominence demonstrated of the basilar interstitium which may reflect some minor atelectasis but inflammatory process such as bronchitis cannot be excluded there is no alveolar pneumonia. There is no effusion there is no pneumothorax. The heart appears appropriate. Impression: 1. Slight increased prominence of the basilar interstitial markings may simply reflect some minor atelectasis though an inflammatory process such as bronchitis could not be excluded. Dictated by: Dictated on workstation # [id number] Reviewed: Reviewed by Me (radiology report reviewed by me) Departure Communication (Admissions) Patient seen and evaluated. Initial labs, chest x-ray, and influenza swab obtained. Patient denies allergy to ibuprofen, Aleve, or Toradol. Patient was given 1 L normal saline, 1 DuoNeb, 12.5 mg albuterol nebulizer, 4 mg zofran, and 30 mg of Toradol. Patient reports overall feeling much better. O2 discontinued and patient noted to keep SaO2 between 94-99 percent on room air. Patient is A/Ox4, NAD. Lungs improved aeration bilaterally with a faint expiratory wheeze in the right lung base. no respiratory distress. CV RRR. Patient reports overall feeling much better, but does still have some rib pain with coughing. Patient given tessalon perles and tylenol prior to dsch. Plan for discharge to home with follow-up as an outpatient with her primary care provider Sunday or Sunday for recheck. Patient to call Sunday morning for appointment time. Patient to return to the emergency department for any worsening symptoms or any other concerns. Impression Primary Impression: Bronchitis with asthma, acute Disposition: HOME, SELF-CARE Condition: Improved Departure-Patient Inst. Decision time for Depature: 13:18 Referrals: [facility]/ (PCP) Primary Care Physician APRIL AMBROSE (Family) Primary Care Physician Patient Instructions: Acute Bronchitis, Adult (DC), Dangers of Secondhand Smoke , Quitting Smoking Add. Discharge Instructions: All discharge instructions reviewed with patient and/or family. Voiced understanding. Medications as instructed. Tylenol Extra Strength over-the- counter as directed for pain or fever. Ibuprofen 800 mg by mouth every 8 hours as needed for pain or fever. Push fluids. Use the albuterol nebulizer every 4 hours as needed for shortness of breath or wheezing. Follow-up with your family practitioner at [facility] Sunday or Sunday for recheck. Call Sunday for appointment time. NO smokine or secondhand smoke. Return in the emergency department for worsened symptoms or any other concerns. Scripts Prednisone (Prednisone) 20 Mg Tab 2 TAB PO DAILY, #10 TAB 0 Refills Prov: MARIA C SWARTZ 08/10/18 Benzonatate (Tessalon Perle) 100 Mg Capsule 1-2 CAP PO HS PRN for COUGH, #14 CAP 0 Refills do NOT use during the daytime. you need the cough to keep the lungs open during the daytime. Prov: MARIA C SWARTZ 08/10/18 Amoxicillin (Amoxicillin) 500 Mg Capsule 1000 MG PO BID, #28 CAP 0 Refills Prov: MARIA C SWARTZ 08/10/18 Ciprofloxacin HCl (Ciprofloxacin HCl) 500 Mg Tablet 500 MG PO BID, #14 TAB 0 Refills Prov: MARIA C SWARTZ 08/10/18 MARIA C SWARTZ Aug 10, 2018 11:40
[2018-08-10] MEDS ORDERED: CIPR500T4 PO (13:22)
[2018-08-10] MEDS ORDERED: PRD20T PO (13:22)
[2018-08-10] MEDS ORDERED: AMOX500C2 PO (13:22)
[2018-08-10] MEDS ORDERED: BENZ-13 PO (13:22)
[2018-08-10] MEDS ORDERED: BENZONATATE 100 MG (TESSALON) CAPSULE PO ONE (13:30)
[2018-08-10] MEDS ORDERED: ACETAMINOPHEN 500 MG TAB (TYLENOL) PO ONE (13:30)
[2018-08-10 13:38] VITALS: BP 112/86
== END 2018-08-10 13:38 | disposition home or self-care (01) ==
LOC: EDUNIT# 09:34 → ER 09:35
DX: J45.909 Unspecified asthma, uncomplicated (principal); E78.00 Pure hypercholesterolemia, unspecified; F17.210 Nicotine dependence, cigarettes, uncomplicated; K21.9 Gastro-esophageal reflux disease without esophagitis; E66.9 Obesity, unspecified; F90.9 Attention-deficit hyperactivity disorder, unspecified type; F41.9 Anxiety disorder, unspecified; F31.9 Bipolar disorder, unspecified; F60.9 Personality disorder, unspecified; Z90.89 Acquired absence of other organs; Z79.51 Long term (current) use of inhaled steroids; Z88.5 Allergy status to narcotic agent; Z88.8 Allergy status to other drugs, medicaments and biological substances; Z87.01 Personal history of pneumonia (recurrent); Z87.440 Personal history of urinary (tract) infections
CPT/HCPCS: 36415; 71046; 80053; 84703; 85025; 87804; 94640

== ENCOUNTER 2018-11-30 17:15 | Emergency (ER) | payer SELFPAY ==
[~2018-11-30] VITALS: Ht 152.4 cm; Wt 111.6 kg
[~2018-11-30 17:15] MED LIST changes: +AMOX500C2 PO; +BENZ-13 PO; +CIPR500T4 PO; +PRD20T PO
[2018-11-30] MEDS ORDERED: ONDANSETRON 4 MG/2 ML (SDV) Z0FRAN ONE (17:36)
[2018-11-30] MEDS ORDERED: KETOROLAC 30 MG/ML VIAL ONE (17:36)
[2018-11-30 17:39] LABS: BASOPHILS # (AUTO) 0.1 10^3/uL (0.0-0.1); BASOPHILS % (AUTO) 1 % (0-10); EOSINOPHILS # (AUTO) 0.3 10^3/uL (0.0-0.3); EOSINOPHILS % (AUTO) 3 % (0-10); HEMATOCRIT 47 % (35-52); HEMOGLOBIN 15.9 G/DL (11.5-16.0); LYMPHOCYTES # (AUTO) 5.8 X 10^3 (1.0-4.0); LYMPHOCYTES % (AUTO) 54 % (12-44); MEAN CORPUSCULAR HEMOGLOBIN 32 PG (25-34); MEAN CORPUSCULAR HGB CONC 34 G/DL (32-36); MEAN CORPUSCULAR VOLUME 93 FL (80-99); MEAN PLATELET VOLUME 9.7 FL (7.4-10.4); MONOCYTES # (AUTO) 0.5 X 10^3 (0.0-1.0); MONOCYTES % (AUTO) 5 % (0-12); NEUTROPHILS # (AUTO) 4.1 X 10^3 (1.8-7.8); NEUTROPHILS % (AUTO) 38 % (42-75); PLATELET COUNT 382 10^3/uL (130-400); RED CELL DISTRIBUTION WIDTH 13.4 % (10.0-14.5); WHITE BLOOD COUNT 10.8 10^3/uL (4.3-11.0)
[2018-11-30] MEDS ORDERED: CATHETER FLUSH 10 ML SYR IV PRN (17:45)
[2018-11-30] MEDS ORDERED: IOHEXOL 350 MG/ML 100 ML (OMNIPAQUE 350) VIAL IV ONE (17:45)
[2018-11-30] MEDS ORDERED: HOLD METFORMIN - RECEIVED CONTRAST 20 ML VIAL IV SCH (17:45)
[2018-11-30 17:55] LABS: BILIRUBIN,URINE NEGATIVE (NEGATIVE); CLARITY,URINE CLEAR; COLOR,URINE YELLOW; GLUCOSE, URINE (UA) NEGATIVE (NEGATIVE); KETONES,URINE NEGATIVE (NEGATIVE); LEUKOCYTE ESTERASE ,URINE 1+ (NEGATIVE); NITRITE,URINE NEGATIVE (NEGATIVE); PH,URINE 5 (5-9); PROTEIN,URINE 2+ (NEGATIVE); UROBILINOGEN,URINE NORMAL (NORMAL)
[2018-11-30 18:01] LABS: ALANINE AMINOTRANSFERASE 26 U/L (0-55); ALBUMIN 3.9 GM/DL (3.2-4.5); ALKALINE PHOSPHATASE 75 U/L (40-136); AMYLASE 31 U/L (25-125); BILIRUBIN,TOTAL 0.2 MG/DL (0.1-1.0); BUN/CREATININE RATIO 12; CALCIUM 9.3 MG/DL (8.5-10.1); CARBON DIOXIDE 24 MMOL/L (21-32); CHLORIDE 104 MMOL/L (98-107); CREATININE SERUM 0.84 MG/DL (0.60-1.30); GFR ESTIMATED > 60; GLUCOSE 103 MG/DL (70-105); LIPASE 22 U/L (8-78); POTASSIUM 3.7 MMOL/L (3.6-5.0); SODIUM 141 MMOL/L (135-145); TOTAL PROTEIN 6.4 GM/DL (6.4-8.2)
[2018-11-30 18:19] LABS: BACTERIA,URINE LARGE /HPF; SQUAMOUS EPITHELIAL CELL,UR 20-30 /HPF
[2018-11-30 18:20] LABS: AMORPHOUS SEDIMENT,UR FEW AMOR URATES /LPF
[2018-11-30] MEDS ORDERED: fentaNYL INJECTION 100 MCG/2 ML AMP IVP ONE (19:00)
[2018-11-30 19:05] VITALS: BP 156/99
--- NOTE | 2018-11-30 19:11 | ED Abdominal Pain ---
General Chief Complaint: Abdominal/GI Problems Stated Complaint: R SIDE PAIN Nursing Triage Note: PT CO OF R LOWER ABD PAIN STARTED LAST WEEK HAD VOMITING LAST WEEK AND HAS SOME NAUSEA AT THIS X. PT HAS HX OF IBS Sepsis Screen: No Definite Risk Source of Information: Patient Exam Limitations: No Limitations History of Present Illness Date Seen by Provider: Nov 30, 2018 Time Seen by Provider: 17:33 Initial Comments 28-year-old female who presents to the emergency room with complaints of right lower quadrant pain for the past week. She has had nausea but denies vomiting. She denies constipation diarrhea. Denies fevers. Timing/Duration: 1 Week Severity/Quality: Sharp Location: RLQ Radiation: No Radiation Associated Symptoms: Nausea/Vomiting Allergies and Home Medications Allergies Coded Allergies: prochlorperazine (Unverified Adverse Reaction, Unknown, 08/24/17) tramadol (Unverified Adverse Reaction, Unknown, 08/24/17) Home Medications Albuterol Sulfate 18 Gm Hfa.aer.ad, 1-2 PUFF IH Q4H PRN for SHORTNESS OF BREATH Prescribed by: HERON JOE on 07/08/18 1134 Albuterol/Ipratropium 4 Gm Aero, 1 PUFF IH DAILY, (Reported) Amoxicillin 500 Mg Capsule, 1,000 MG PO BID Prescribed by: MARIA C SWARTZ on 08/10/18 132 Atorvastatin Calcium 20 Mg Tablet, 20 MG PO DAILY, (Reported) Baclofen 10 Mg Tablet, 10 MG PO BID, (Reported) Benzonatate 100 Mg Capsule, 1-2 TAB PO TID Prescribed by: THOMPSON FITCH on 07/16/182052 Benzonatate 100 Mg Capsule, 1-2 CAP PO HS PRN for COUGH do NOT use during the daytime. you need the cough to keep the lungs open during the daytime. Prescribed by: MARIA C SWARTZ on 08/10/18 132 Budesonide 1 Mg/2 Ml Ampul.neb, 1 MG IH BID Prescribed by: THOMPSON FITCH on 07/16/182052 Buspirone HCl 15 Mg Tablet, 15 MG PO TID, (Reported) Cholecalciferol (Vitamin D3) 1,000 Unit Capsule, 1,000 UNIT PO BID, (Reported) Ciprofloxacin HCl 500 Mg Tablet, 500 MG PO BID Prescribed by: MARIA C SWARTZ on 08/10/18 1322 Cranberry Extract 500 Mg Tablet, 1,000 MG PO BID, (Reported) Dextroamphetamine/Amphetamine 10 Mg Tablet, 10 MG PO BID, (Reported) Dicyclomine HCl 20 Mg Tablet, 20 MG PO QID, (Reported) Diphenhydramine HCl 25 Mg Tablet, 25 MG PO BID, (Reported) Docusate Sodium 100 Mg Capsule, 100 MG PO BID PRN for CONSTIPATION Prescribed by: AILYN VERGARA on 10/23/16 0735 Doxycycline Monohydrate 100 Mg Capsule, 100 MG PO BID Prescribed by: THOMPSON FITCH on 07/16/182052 Famotidine 20 Mg Tablet, 20 MG PO BID, (Reported) Fluticasone Propionate 16 Gm Slick.susp, 1 SPRAY NSEACH HS, (Reported) Guaifenesin/Dextromethorphan 1 Each Tbmp.12hr, 1 EACH PO BID Prescribed by: THOMPSON FITCH on 07/16/182052 Ibuprofen 600 Mg Tablet, 600 MG PO Q6H PRN for PAIN, (Reported) Ipratropium/Albuterol Sulfate 3 Ml Ampul.neb, 3 ML INH Q6H PRN for DYSPNEA Prescribed by: HERON JOE on 07/08/18 1134 Methylprednisolone 4 Mg Tab.ds.pk, 4 MG PO UD Prescribed by: THOMPSON FITCH on 07/16/182052 Mv,Ca,Min/Iron Fum/FA/Vit K 1 Each Tablet, 1 EACH PO DAILY, (Reported) Nitrofurantoin Monohyd/M-Cryst 100 Mg Capsule, 1 TAB PO BID Prescribed by: JUDY LEO on 11/30/181919 Ondansetron 4 Mg Tab.rapdis, 4 MG SL Q4H PRN for NAUSEA/VOMITING-1ST LINE Prescribed by: ANGY MARTINS on 03/01/18 0208 Ondansetron HCl 4 Mg Tab, 4 MG PO Q4H PRN for NAUSEA/VOMITING Prescribed by: JUDY LEO on 11/30/181919 Prazosin HCl 2 Mg Capsule, 6 MG PO HS, (Reported) Prednisone 10 Mg Tab, 20 MG PO DAILY, (Reported) FILLED 07/01/18 PATIENT STATES SHE STILL HAS TWO MORE DOSES Prednisone 20 Mg Tab, 2 TAB PO DAILY Prescribed by: MARIA C SWARTZ on 08/10/18 1322 Quetiapine Fumarate 200 Mg Tablet, 200 MG PO HS, (Reported) Patient Home Medication List Home Medication List Reviewed: Yes Review of Systems Review of Systems Constitutional: see HPI; No chills, No fever Gastrointestinal: See HPI, Abdominal Pain, Nausea All Other Systems Reviewed Negative Unless Noted: Yes Past Cpapixg-Bxdjqi-Pofmwd Hx Past Med/Social Hx: Reviewed Nursing Past Med/Soc Hx Patient Social History Alcohol Use: Denies Use Recreational Drug Use: No Smoking Status: Current Everyday Smoker Type Used: Cigarettes 2nd Hand Smoke Exposure: No Recent Foreign Travel: No Contact w/Someone Who Travel: No Recent Infectious Disease Expo: No Recent Hopitalizations: No Immunizations Up To Date Tetanus Booster (TDap): Unknown Date of Influenza Vaccine: Apr 20, 2018 Seasonal Allergies Seasonal Allergies: Yes Past Medical History Surgeries: Yes ( X --07/2013, WISDOM TEETH; REMOVAL OF RETAINED IUD) Section, Tonsillectomy Respiratory: Yes (Tobaccoism) Asthma, Pneumonia Cardiac: Yes High Cholesterol Neurological: No Reproductive Disorders: Yes (RETAINED IUD) Female Reproductive Disorders: Menstrual Problems, Ovarian Cyst, Polycystic Ovarian Dis [place] History: IUD Sexually Transmitted Disease: No HIV/AIDS: No Genitourinary: Yes Bladder Infection, UTI-Chronic Gastrointestinal: Yes Gastroesophageal Reflux, Chronic Diarrhea, Irritable Bowel Musculoskeletal: Yes Fibromyalgia Endocrine: Yes (VITAMIN D DEFICIENCY; OBESITY) HEENT: Yes Loss of Vision: Bilateral Hearing Impairment: Denies Cancer: No Psychosocial: Yes (EXTENSIVE PSYCH ISSUES-PT STABLE ) ADD/ADHD, Sleep Difficulties, Anxiety, PTSD, Bipolar, Personality Disorder, Depression Integumentary: No Blood Disorders: No Adverse Reaction/Blood Tranf: No Family Medical History Reviewed Nursing Family Hx Alcoholism 19 FATHER Asthma 19 MOTHER Completed stroke 19 FATHER DVT 19 FATHER Dementia 19 FATHER Diabetes mellitus 19 MOTHER FH: multiple sclerosis G8 SISTER Headache disorder G8 BROTHER Hypertension 19 FATHER 19 MOTHER Myocardial infarction 19 FATHER Seizure disorder 19 FATHER Hypertension, Seizures, Stroke Physical Exam Vital Signs Vital Signs - First Documented 11/30/18 11/30/18 17:21 19:05 Temp 97.6 Pulse 93 Resp 16 B/P (MAP) 139/103 (115) Pulse Ox 97 O2 Delivery Room Air Capillary Refill : Less Than 3 Seconds Height/Weight/BMI Height: 5'3.00" Weight: 246lbs. 0.0oz. 111.666758qb; 48.2 BMI Method:Stated General Appearance: WD/WN, no apparent distress HEENT: PERRL/EOMI, normal ENT inspection, TMs normal, pharynx normal Respiratory: chest non-tender, lungs clear, normal breath sounds, no respiratory distress, no accessory muscle use Cardiovascular: normal peripheral pulses, regular rate, rhythm, no edema, no gallop, no JVD, no murmur Gastrointestinal: normal bowel sounds, soft, no organomegaly, no pulsatile mass , tenderness (right lower quadrant tenderness) Extremities: normal capillary refill Neurologic/Psychiatric: alert, normal mood/affect, oriented x 3 Skin: normal color, warm/dry Progress/Results/Core Measures Results/Orders Lab Results Laboratory Tests Test 11/30/18 17:16 11/30/18 17:34 11/30/18 17:45 Range/Units Lab Scanned Report Referred Lab Report [id number] White Blood Count 10.8 4.3-11.0 10^3/uL Red Blood Count 5.04 4.35-5.85 10^6/uL Hemoglobin 15.9 11.5-16.0 G/DL Hematocrit 47 35-52 % Mean Corpuscular Volume 93 80-99 FL Mean Corpuscular Hemoglobin 32 25-34 PG Mean Corpuscular Hemoglobin Concent 34 32-36 G/DL Red Cell Distribution Width 13.4 10.0-14.5 % Platelet Count 382 130-400 10^3/uL Mean Platelet Volume 9.7 7.4-10.4 FL Neutrophils (%) (Auto) 38 L 42-75 % Lymphocytes (%) (Auto) 54 H 12-44 % Monocytes (%) (Auto) 5 0-12 % Eosinophils (%) (Auto) 3 0-10 % Basophils (%) (Auto) 1 0-10 % Neutrophils # (Auto) 4.1 1.8-7.8 X 10^3 Lymphocytes # (Auto) 5.8 H 1.0-4.0 X 10^3 Monocytes # (Auto) 0.5 0.0-1.0 X 10^3 Eosinophils # (Auto) 0.3 0.0-0.3 10^3/uL Basophils # (Auto) 0.1 0.0-0.1 10^3/uL Sodium Level 141 135-145 MMOL/L Potassium Level 3.7 3.6-5.0 MMOL/L Chloride Level 104 98-107 MMOL/L Carbon Dioxide Level 24 21-32 MMOL/L Anion Gap 13 5-14 MMOL/L Blood Urea Nitrogen 10 7-18 MG/DL Creatinine 0.84 0.60-1.30 MG/DL Estimat Glomerular Filtration Rate > 60 BUN/Creatinine Ratio 12 Glucose Level 103 70-105 MG/DL Calcium Level 9.3 8.5-10.1 MG/DL Corrected Calcium 9.4 8.5-10.1 MG/DL Total Bilirubin 0.2 0.1-1.0 MG/DL Aspartate Amino Transf (AST/SGOT) 11 5-34 U/L Alanine Aminotransferase (ALT/SGPT) 26 0-55 U/L Alkaline Phosphatase 75 40-136 U/L Total Protein 6.4 6.4-8.2 GM/DL Albumin 3.9 3.2-4.5 GM/DL Amylase Level 31 25-125 U/L Lipase 22 8-78 U/L Serum Test, Qualitative NEGATIVE NEGATIVE Urine Color YELLOW Urine Clarity CLEAR Urine pH 5 5-9 Urine Specific [place] 1.025 H 1.016-1.022 Urine Protein 2+ H NEGATIVE Urine Glucose (UA) NEGATIVE NEGATIVE Urine Ketones NEGATIVE NEGATIVE Urine Nitrite NEGATIVE NEGATIVE Urine Bilirubin NEGATIVE NEGATIVE Urine Urobilinogen NORMAL NORMAL MG/DL Urine Leukocyte Esterase 1+ H NEGATIVE Urine RBC (Auto) 5+ H NEGATIVE Urine RBC NONE /HPF Urine WBC 5-10 H /HPF Urine Squamous Epithelial Cells 20-30 /HPF Urine Crystals PRESENT H /LPF Urine Amorphous Sediment FEW TURNER URATES H /LPF Urine Bacteria LARGE H /HPF Urine Casts NONE /LPF Urine Mucus NEGATIVE /LPF Urine Culture Indicated YES Micro Results Microbiology 11/30/18 Urine Culture - Final, Complete 3 or more isolates My Orders Orders - JUDY LEO Comprehensive Metabolic Panel (11/30/18 17:32) Lipase (11/30/18 17:32) Amylase (11/30/18 17:32) Ua Culture If Indicated (11/30/18 17:32) Hcg,Qualitative Serum (11/30/18 17:32) Ed Iv/Invasive Line Start (11/30/18 17:32) Cbc With Automated Diff (11/30/18 17:32) Ct Abdomen/Pelvis W (11/30/18 17:32) Iohexol Injection (Omnipaque 350 Mg/Ml 1 (11/30/18 17:45) Received Contrast (Hold Metformin- Contr (11/30/18 17:45) Sodium Chloride Flush (Catheter Flush Sy (11/30/18 17:45) Ondansetron Injection (Zofran Injectio (11/30/18 17:36) Ketorolac Injection (Toradol Injection) (11/30/18 17:36) Urine Culture (11/30/18 17:45) Fentanyl Injection (Sublimaze Injection (11/30/18 19:00) Nitrofurantoin Capsule,Macro (Macrobid C (11/30/18 19:30) Medications Given in ED Vital Signs/I&O 11/30/18 11/30/18 11/30/18 17:21 19:05 19:26 Temp 97.6 97.4 Pulse 93 93 78 Resp 16 18 18 B/P (MAP) 139/103 (115) 156/99 (118) 152/89 (110) Pulse Ox 97 95 99 O2 Delivery Room Air Room Air Blood Pressure Mean: 115 Progress Progress Note : Time: 19:18 Progress Note I have seen and evaluated the patient. I've informed her of her laboratory findings and imaging studies. Her pain is resolved after fentanyl administration. She agrees with plan of care, plans for discharge, return precautions were given. Diagnostic Imaging Diagonstic Imaging: CT Plain Films/CT/US/NM/MRI: abdomen Comments NAME: ARVIND BOWIE [facility] REC#: [id number] PT STATUS: DEP ER : 1990 PHYSICIAN: JUDY LEO ADMIT DATE: 11/30/18/ER Signed Date of Exam: 11/30/18 CT ABDOMEN/PELVIS W PROCEDURE: CT abdomen and pelvis with contrast. TECHNIQUE: Multiple contiguous axial images were obtained through the abdomen and pelvis after administration of intravenous contrast. Auto Exposure Controls were utilized during the CT exam to meet ALARA standards for radiation dose reduction. INDICATION: Right lower quadrant pain with nausea and vomiting. COMPARISON: Multiple priors, most recent performed on 05/11/2018. FINDINGS: Focal cystic bronchiectasis in the right lower lobe inferiorly is unchanged. Mild subsegmental atelectasis is demonstrated in the lung bases. No pleural effusion. The visualized heart is normal in size. No pericardial effusion. The liver, gallbladder, spleen, pancreas, and adrenal glands are normal. No biliary or pancreatic ductal dilatation is demonstrated. The kidneys are symmetric in size and enhance normally, without evidence of renal calculus, hydronephrosis, or suspicious renal mass. The visualized ureters are normal. The stomach and duodenum are normal. The small bowel and colon are normal in course and caliber, without evidence of wall thickening or obstruction. The appendix is normal. No pneumoperitoneum, abdominal free fluid, or loculated collection. The aorta is nonaneurysmal. No evidence of venous thrombosis. An IUD is demonstrated in the uterus, appearing to be in good location. The bladder is normal, within limits of underdistention. No adnexal mass or pelvic free fluid is demonstrated. No lymphadenopathy is identified. The abdominal wall is unremarkable. No acute osseous abnormality is noted. IMPRESSION: No acute abdominal or pelvic pathology. Normal appendix is demonstrated in the right lower quadrant. No evidence of obstruction, bowel wall thickening, pneumoperitoneum, or focal fluid collection. Unchanged focal cystic bronchiectasis in the right lower lobe. Dictated by: Dictated on workstation # [id number] Dict: 11/30/18 1902 Trans: 12/02/18 0033 Interpreted by: NICKY SWEET DO Electronically signed by: NICKY SWEET DO 12/02/18 0033 Reviewed: Reviewed by Me Departure Impression Primary Impression: Urinary tract infection Additional Impression: Right lower quadrant abdominal pain Disposition: 01 HOME, SELF-CARE Condition: Stable/Unchanged Departure-Patient Inst. Decision time for Depature: 19:18 Referrals: [facility] [place] (PCP/Family) Primary Care Physician Patient Instructions: Acute Abdomen (Belly Pain), Adult (DC), Urinary Tract Infection, Adult (DC) Add. Discharge Instructions: Take medications as directed. Follow-up with her primary care provider within 1 week for recheck. Return back to the emergency room for worsening symptoms or concerns as needed. You may use ibuprofen and Tylenol as directed by the bottle for pain relief. All discharge instructions reviewed with patient and/or family. Voiced understanding. Scripts Ondansetron HCl (Zofran) 4 Mg Tab 4 MG PO Q4H PRN for NAUSEA/VOMITING, #14 TAB Prov: JUDY LEO 11/30/18 Nitrofurantoin Monohyd/M-Cryst (Macrobid 100 mg Capsule) 100 Mg Capsule 1 TAB PO BID for 7 Days, #14 CAP Prov: JUDY LEO 11/30/18 JUDY LEO Nov 30, 2018 19:11
[2018-11-30] MEDS ORDERED: ONDN4T PO (19:20)
[2018-11-30] MEDS ORDERED: NITR-65 PO (19:20)
[2018-11-30 19:26] VITALS: BP 152/89
[2018-11-30] MEDS ORDERED: NITROFURANTOIN 100 MG (MACROBID) CAPSULE PO ONE (19:30)
== END 2018-11-30 19:29 | disposition home or self-care (01) ==
LOC: EDUNIT# 17:15 → ER 17:16
DX: N39.0 Urinary tract infection, site not specified (principal); J45.909 Unspecified asthma, uncomplicated; K58.9 Irritable bowel syndrome, unspecified; E66.9 Obesity, unspecified; M79.7 Fibromyalgia; F98.8 Other specified behavioral and emotional disorders with onset usually occurring in childhood and adolescence; F90.9 Attention-deficit hyperactivity disorder, unspecified type; F41.9 Anxiety disorder, unspecified; F43.10 Post-traumatic stress disorder, unspecified; F31.9 Bipolar disorder, unspecified; F60.9 Personality disorder, unspecified; K21.9 Gastro-esophageal reflux disease without esophagitis; F17.210 Nicotine dependence, cigarettes, uncomplicated; Z87.448 Personal history of other diseases of urinary system; Z82.49 Family history of ischemic heart disease and other diseases of the circulatory system; Z88.8 Allergy status to other drugs, medicaments and biological substances; Z87.19 Personal history of other diseases of the digestive system; Z97.5 Presence of (intrauterine) contraceptive device; Z88.6 Allergy status to analgesic agent; Z90.89 Acquired absence of other organs; Z98.890 Other specified postprocedural states; Z87.01 Personal history of pneumonia (recurrent); Z79.51 Long term (current) use of inhaled steroids; Z79.52 Long term (current) use of systemic steroids
CPT/HCPCS: 36415; 74177; 80053; 81000; 82150; 83690; 84703; 85025; 87088

== ENCOUNTER 2018-12-16 18:39 | Emergency (ER) | payer SELFPAY ==
[~2018-12-16] VITALS: Ht 152.4 cm; Wt 111.6 kg
[~2018-12-16 18:39] MED LIST changes: +ONDN4T PO
--- NOTE | 2018-12-16 19:01 | ED Abdominal Pain ---
General Chief Complaint: General Problems/Pain Stated Complaint: FELT SOMETHING BURST IN PELVIS/PAIN Nursing Triage Note: PATIENT AMBULATORY TO ER WITH COMPLAINT OF RIGHT LOWER PELVIC PAIN THAT RADIATES INTO UPPER BACK. PATIENT STATES THIS PAIN BEGAN TODAY AND SHE FELT A POP IN HER RIGHT LOWER PELVIS. PATIENT STATES SHE DID VOMIT X 1 AFTER THE PAIN BEGAN. Sepsis Screen: No Definite Risk Source of Information: Patient, Old Records Exam Limitations: No Limitations History of Present Illness Date Seen by Provider: Dec 16, 2018 Time Seen by Provider: 18:45 Initial Comments This 28-year-old woman presents to the emergency room with complaints of a sudden onset of right lower quadrant pain which she describes as a "burst". Pain radiates into the right mid back. She states it feels similar to when she has had ovarian cyst rupture in the past but this episode is much more severe. She had an episode of questionable ovarian torsion that was self-limited in 2015. This was initially brought into question by CT scan. Follow-up ultrasound the next morning showed good blood flow to both ovaries. Patient is concerned about the possibility of an ovarian torsion versus ruptured cyst. She has had numerous imaging studies of the abdomen and pelvis in the last 18 months. She has had 4 CT scans and 3 ultrasound studies since August 2017. The last CT was performed November 30, 2018. This CT was reviewed and demonstrated no evidence of renal calculi or other acute pathology to correlate with her pain today. Patient does have a history of kidney stone in the past. It showed some persistent bronchiectasis in the right lower lung but no new findings. Patient reports no other symptoms aside from the episode of vomiting and some mild residual nausea. Patient reports a history of PCOS. Allergies and Home Medications Allergies Coded Allergies: prochlorperazine (Unverified Adverse Reaction, Unknown, 08/24/17) tramadol (Unverified Adverse Reaction, Unknown, 08/24/17) Home Medications Albuterol Sulfate 18 Gm Hfa.aer.ad, 1-2 PUFF IH Q4H PRN for SHORTNESS OF BREATH Prescribed by: HERON JOE on 07/08/18 1134 Albuterol/Ipratropium 4 Gm Aero, 1 PUFF IH DAILY, (Reported) Amoxicillin 500 Mg Capsule, 1,000 MG PO BID Prescribed by: MARIA C SWARTZ on 08/10/18 1322 Atorvastatin Calcium 20 Mg Tablet, 20 MG PO DAILY, (Reported) Baclofen 10 Mg Tablet, 10 MG PO BID, (Reported) Benzonatate 100 Mg Capsule, 1-2 TAB PO TID Prescribed by: THOMPSON FITCH on 07/16/182052 Benzonatate 100 Mg Capsule, 1-2 CAP PO HS PRN for COUGH do NOT use during the daytime. you need the cough to keep the lungs open during the daytime. Prescribed by: MARIA C SWARTZ on 08/10/181321 Budesonide 1 Mg/2 Ml Ampul.neb, 1 MG IH BID Prescribed by: THOMPSON FITCH on 07/16/182052 Buspirone HCl 15 Mg Tablet, 15 MG PO TID, (Reported) Cholecalciferol (Vitamin D3) 1,000 Unit Capsule, 1,000 UNIT PO BID, (Reported) Ciprofloxacin HCl 500 Mg Tablet, 500 MG PO BID Prescribed by: MARIA C SWARTZ on 08/10/181321 Cranberry Extract 500 Mg Tablet, 1,000 MG PO BID, (Reported) Dextroamphetamine/Amphetamine 10 Mg Tablet, 10 MG PO BID, (Reported) Dicyclomine HCl 20 Mg Tablet, 20 MG PO QID, (Reported) Diphenhydramine HCl 25 Mg Tablet, 25 MG PO BID, (Reported) Docusate Sodium 100 Mg Capsule, 100 MG PO BID PRN for CONSTIPATION Prescribed by: AILYN VERGARA on 10/23/16 0735 Doxycycline Monohydrate 100 Mg Capsule, 100 MG PO BID Prescribed by: THOMPSON FITCH on 07/16/182052 Famotidine 20 Mg Tablet, 20 MG PO BID, (Reported) Fluticasone Propionate 16 Gm [place].susp, 1 SPRAY NSEACH HS, (Reported) Guaifenesin/Dextromethorphan 1 Each Tbmp.12hr, 1 EACH PO BID Prescribed by: THOMPSON FITCH on 07/16/182052 Ibuprofen 600 Mg Tablet, 600 MG PO Q6H PRN for PAIN, (Reported) Ipratropium/Albuterol Sulfate 3 Ml Ampul.neb, 3 ML INH Q6H PRN for DYSPNEA Prescribed by: HERON JOE on 07/08/18 1134 Methylprednisolone 4 Mg Tab.ds.pk, 4 MG PO UD Prescribed by: THOMPSON FITCH on 07/16/182052 Mv,Ca,Min/Iron Fum/FA/Vit K 1 Each Tablet, 1 EACH PO DAILY, (Reported) Nitrofurantoin Monohyd/M-Cryst 100 Mg Capsule, 1 TAB PO BID Prescribed by: JUDY LEO on 11/30/181919 Ondansetron 4 Mg Tab.rapdis, 4 MG SL Q4H PRN for NAUSEA/VOMITING-1ST LINE Prescribed by: ANGY MARTINS on 03/01/18 0208 Ondansetron HCl 4 Mg Tab, 4 MG PO Q4H PRN for NAUSEA/VOMITING Prescribed by: JUDY LEO on 11/30/181919 Prazosin HCl 2 Mg Capsule, 6 MG PO HS, (Reported) Prednisone 10 Mg Tab, 20 MG PO DAILY, (Reported) FILLED 07/01/18 PATIENT STATES SHE STILL HAS TWO MORE DOSES Prednisone 20 Mg Tab, 2 TAB PO DAILY Prescribed by: MARIA C SWARTZ on 08/10/18 1322 Quetiapine Fumarate 200 Mg Tablet, 200 MG PO HS, (Reported) Patient Home Medication List Home Medication List Reviewed: Yes Review of Systems Review of Systems Constitutional: no symptoms reported EENTM: No Symptoms Reported Respiratory: No Symptoms Reported Cardiovascular: No Symptoms Reported Gastrointestinal: See HPI Genitourinary: See HPI Musculoskeletal: no symptoms reported Skin: no symptoms reported Psychiatric/Neurological: No Symptoms Reported Endocrine: No Symptoms Reported Hematologic/Lymphatic: No Symptoms Reported Past Iqxlyqm-Mmvvuo-Lxuqlj Hx Past Med/Social Hx: Reviewed and Corrections made Patient Social History Alcohol Use: Rarely Uses Recreational Drug Use: No Smoking Status: Current Everyday Smoker Type Used: Cigarettes 2nd Hand Smoke Exposure: Yes Recent Foreign Travel: No Contact w/Someone Who Travel: No Recent Infectious Disease Expo: No Recent Hopitalizations: Yes (07-07 BREATHING PROBLEMS) Immunizations Up To Date Tetanus Booster (TDap): Unknown PED Vaccines UTD: Yes Date of Influenza Vaccine: Apr 20, 2018 Seasonal Allergies Seasonal Allergies: Yes Past Medical History Surgeries: Yes ( X --07/2013, WISDOM TEETH; REMOVAL OF RETAINED IUD) Section, Tonsillectomy Respiratory: Yes (Tobaccoism) Asthma, Pneumonia Cardiac: Yes High Cholesterol Neurological: No : No Reproductive Disorders: Yes (RETAINED IUD, hemorrhagic ovarian cysts) Female Reproductive Disorders: Menstrual Problems, Ovarian Cyst, Polycystic 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 Dis 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 Sexually Transmitted Disease: No HIV/AIDS: No Genitourinary: Yes Bladder Infection, Kidney Stones, UTI-Chronic Gastrointestinal: Yes Gastroesophageal Reflux, Chronic Diarrhea, Irritable Bowel Musculoskeletal: Yes Fibromyalgia Endocrine: Yes (VITAMIN D DEFICIENCY; OBESITY) HEENT: Yes Loss of Vision: Bilateral Hearing Impairment: Denies Cancer: No Psychosocial: Yes (EXTENSIVE PSYCH ISSUES-PT STABLE ) ADD/ADHD, Sleep Difficulties, Anxiety, PTSD, Bipolar, Personality Disorder, Depression Integumentary: No Blood Disorders: No Adverse Reaction/Blood Tranf: No Family Medical History Reviewed Nursing Family Hx Alcoholism 19 FATHER Asthma 19 MOTHER Completed stroke 19 FATHER DVT 19 FATHER Dementia 19 FATHER Diabetes mellitus 19 MOTHER FH: multiple sclerosis G8 SISTER Headache disorder G8 BROTHER Hypertension 19 FATHER 19 MOTHER Myocardial infarction 19 FATHER Seizure disorder 19 FATHER Hypertension, Seizures, Stroke Physical Exam Vital Signs Vital Signs - First Documented 12/16/18 18:44 Temp 98.3 Pulse 97 Resp 20 B/P (MAP) 141/87 (105) Pulse Ox 95 O2 Delivery Room Air Capillary Refill : Less Than 3 Seconds Height/Weight/BMI Height: 5'0" Weight: 246lbs. 0.0oz. [id number]; 48.2 BMI Method:Actual General Appearance: WD/WN, no apparent distress HEENT: PERRL/EOMI, normal ENT inspection, pharynx normal Neck: normal inspection Respiratory: lungs clear, normal breath sounds, no respiratory distress, no accessory muscle use Cardiovascular: regular rate, rhythm, no edema, no murmur Gastrointestinal: normal bowel sounds, soft, tenderness (right lower quadrant) Extremities: normal inspection, no pedal edema Back: no CVA tenderness Neurologic/Psychiatric: gunner's mate g II-XII nml as tested, no motor/sensory deficits, alert, normal mood/affect, oriented x 3 Skin: normal color, warm/dry Progress/Results/Core Measures Results/Orders Lab Results Laboratory Tests Test 12/16/18 19:00 12/16/18 19:10 12/16/18 19:18 Range/Units Urine Color YELLOW Urine Clarity VERY CLOUDY H Urine pH 6.5 5-9 Urine Specific [place] 1.020 1.016-1.022 Urine Protein 2+ H NEGATIVE Urine Glucose (UA) NEGATIVE NEGATIVE Urine Ketones NEGATIVE NEGATIVE Urine Nitrite NEGATIVE NEGATIVE Urine Bilirubin NEGATIVE NEGATIVE Urine Urobilinogen NORMAL NORMAL MG/DL Urine Leukocyte Esterase 1+ H NEGATIVE Urine RBC (Auto) 1+ H NEGATIVE Urine RBC NONE /HPF Urine WBC 5-10 H /HPF Urine Squamous Epithelial Cells 10-25 H /HPF Urine Crystals NONE /LPF Urine Bacteria MODERATE H /HPF Urine Casts NONE /LPF Urine Mucus NEGATIVE /LPF Urine Culture Indicated YES White Blood Count 8.9 4.3-11.0 10^3/uL Red Blood Count 5.31 4.35-5.85 10^6/uL Hemoglobin 16.5 H 11.5-16.0 G/DL Hematocrit 49 35-52 % Mean Corpuscular Volume 91 80-99 FL Mean Corpuscular Hemoglobin 31 25-34 PG Mean Corpuscular Hemoglobin Concent 34 32-36 G/DL Red Cell Distribution Width 13.3 10.0-14.5 % Platelet Count 337 130-400 10^3/uL Mean Platelet Volume 10.5 H 7.4-10.4 FL Neutrophils (%) (Auto) 56 42-75 % Lymphocytes (%) (Auto) 33 12-44 % Monocytes (%) (Auto) 7 0-12 % Eosinophils (%) (Auto) 3 0-10 % Basophils (%) (Auto) 1 0-10 % Neutrophils # (Auto) 4.9 1.8-7.8 X 10^3 Lymphocytes # (Auto) 3.0 1.0-4.0 X 10^3 Monocytes # (Auto) 0.7 0.0-1.0 X 10^3 Eosinophils # (Auto) 0.3 0.0-0.3 10^3/uL Basophils # (Auto) 0.0 0.0-0.1 10^3/uL Sodium Level 141 135-145 MMOL/L Potassium Level 3.8 3.6-5.0 MMOL/L Chloride Level 105 98-107 MMOL/L Carbon Dioxide Level 24 21-32 MMOL/L Anion Gap 12 5-14 MMOL/L Blood Urea Nitrogen 9 7-18 MG/DL Creatinine 0.86 0.60-1.30 MG/DL Estimat Glomerular Filtration Rate > 60 BUN/Creatinine Ratio 10 Glucose Level 90 70-105 MG/DL Calcium Level 9.8 8.5-10.1 MG/DL Corrected Calcium 9.7 8.5-10.1 MG/DL Total Bilirubin 0.2 0.1-1.0 MG/DL Aspartate Amino Transf (AST/SGOT) 13 5-34 U/L Alanine Aminotransferase (ALT/SGPT) 16 0-55 U/L Alkaline Phosphatase 74 40-136 U/L Total Protein 6.9 6.4-8.2 GM/DL Albumin 4.1 3.2-4.5 GM/DL Serum Test, Qualitative NEGATIVE NEGATIVE My Orders Orders - ANGY WOLF MD Ua Culture If Indicated (12/16/18 18:48) Cbc With Automated Diff (12/16/18 18:59) Comprehensive Metabolic Panel (12/16/18 18:59) Ed Iv/Invasive Line Start (12/16/18 18:59) Hcg,Qualitative Serum (12/16/18 19:01) Urine Culture (12/16/18 19:00) Ketorolac Injection (Toradol Injection) (12/16/18 19:30) Ondansetron Injection (Zofran Injectio (12/16/18 19:30) Fentanyl Injection (Sublimaze Injection (12/16/18 21:00) Medications Given in ED Current Medications Medications Dose Ordered Sig/Hina Route Start Time Stop Time Status Last Admin Dose Admin Ketorolac Tromethamine 15 mg ONCE ONCE IVP 12/16/18 19:30 12/16/18 19:31 DC 12/16/18 19:24 15 MG Ondansetron HCl 4 mg ONCE ONCE IVP 12/16/18 19:30 12/16/18 19:31 DC 12/16/18 19:22 4 MG Vital Signs/I&O 12/16/18 18:44 Temp 98.3 Pulse 97 Resp 20 B/P (MAP) 141/87 (105) Pulse Ox 95 O2 Delivery Room Air Blood Pressure Mean: 105 Progress Progress Note #1: Time: 20:24 Progress Note Patient was assessed with basic lab work and urinalysis. Urine appeared contaminated. Pain was treated with Toradol and she had modest improvement in pain with that. She still has some residual pain. Nausea was treated with Zofran. She is no longer nauseous. I discussed the case with Dr. Alvarado, [facility] provider government relations analyst. Since ultrasound is not available and will not be available for about 12 hours, we feel it most appropriate to have this patient assessed with ultrasound tonight. Patient [facility] where she has family but they do not have ultrasound capability. She is deciding on a referral facility at this time. CT was not performed because of patient's numerous CT scans in the recent past. She has had four CT scans since August 2017. Minimizing radiation exposures felt to be important at this time and Dr. Alvarado agrees with this decision. Patient does have a history of hemorrhagic cysts and a torsion cannot be ruled out without ultrasound exam. Progress Note #2: Time: 20:47 Progress Note Transfer was accepted by Dr. Toscano at the [place] [facility]. Records will be sent to her. Patient will be transferred by private car. Her will be driving her. A dose of fentanyl 50 g IV will be given prior to release. Departure Impression Primary Impression: Right lower quadrant pain Disposition: XFER SHT-TRM HOSP Condition: Improved Transfer Time Spoke to Accepting Phy: 20:32 Transfer Progress Notes Patient accepted by Dr. Toscano at [facility]. Transfer Facility: [facility] Method of Transfer: Private Vehicle Departure-Patient Inst. Referrals: [facility] (PCP/Family) Primary Care Physician ANGY WOLF MD Dec 16, 2018 19:01
[2018-12-16 19:02] LABS: BILIRUBIN,URINE NEGATIVE (NEGATIVE); CLARITY,URINE VERY CLOUDY; COLOR,URINE YELLOW; GLUCOSE, URINE (UA) NEGATIVE (NEGATIVE); KETONES,URINE NEGATIVE (NEGATIVE); LEUKOCYTE ESTERASE ,URINE 1+ (NEGATIVE); NITRITE,URINE NEGATIVE (NEGATIVE); PH,URINE 6.5 (5-9); PROTEIN,URINE 2+ (NEGATIVE); UROBILINOGEN,URINE NORMAL (NORMAL)
[2018-12-16 19:09] LABS: BACTERIA,URINE MODERATE /HPF
[2018-12-16 19:26] LABS: BASOPHILS % (AUTO) 1 % (0-10); EOSINOPHILS # (AUTO) 0.3 10^3/uL (0.0-0.3); EOSINOPHILS % (AUTO) 3 % (0-10); HEMATOCRIT 49 % (35-52); HEMOGLOBIN 16.5 G/DL (11.5-16.0); LYMPHOCYTES % (AUTO) 33 % (12-44); MEAN CORPUSCULAR HEMOGLOBIN 31 PG (25-34); MEAN CORPUSCULAR HGB CONC 34 G/DL (32-36); MEAN CORPUSCULAR VOLUME 91 FL (80-99); MEAN PLATELET VOLUME 10.5 FL (7.4-10.4); MONOCYTES # (AUTO) 0.7 X 10^3 (0.0-1.0); MONOCYTES % (AUTO) 7 % (0-12); NEUTROPHILS # (AUTO) 4.9 X 10^3 (1.8-7.8); NEUTROPHILS % (AUTO) 56 % (42-75); PLATELET COUNT 337 10^3/uL (130-400); RED CELL DISTRIBUTION WIDTH 13.3 % (10.0-14.5); WHITE BLOOD COUNT 8.9 10^3/uL (4.3-11.0)
[2018-12-16] MEDS ORDERED: ONDANSETRON 4 MG/2 ML (SDV) Z0FRAN IVP ONE (19:30)
[2018-12-16] MEDS ORDERED: KETOROLAC 30 MG/ML VIAL IVP ONE (19:30)
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
[2018-12-16 19:36] LABS: ALANINE AMINOTRANSFERASE 16 U/L (0-55); ALBUMIN 4.1 GM/DL (3.2-4.5); ALKALINE PHOSPHATASE 74 U/L (40-136); BILIRUBIN,TOTAL 0.2 MG/DL (0.1-1.0); BUN/CREATININE RATIO 10; CALCIUM 9.8 MG/DL (8.5-10.1); CARBON DIOXIDE 24 MMOL/L (21-32); CHLORIDE 105 MMOL/L (98-107); CREATININE SERUM 0.86 MG/DL (0.60-1.30); GFR ESTIMATED > 60; GLUCOSE 90 MG/DL (70-105); POTASSIUM 3.8 MMOL/L (3.6-5.0); SODIUM 141 MMOL/L (135-145); TOTAL PROTEIN 6.9 GM/DL (6.4-8.2)
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
--- OUTSIDE RECORDS SUMMARY | 2018-12-16 19:50 | XMS REPORT | Continuity of Care Document ---
Author Organization Unknown Address Unknown Allergies There is no data. Medications There is no data. Problems There is no data. Procedures There is no data. Results Test Result Range CBC - 10/26/17 14:05 WHITE BLOOD CELL COUNT 8.4 Thousand/uL 3.8-10.8 RED BLOOD CELL COUNT 4.85 Million/uL 3.80-5.10 HEMOGLOBIN 15.3 g/dL 11.7-15.5 HEMATOCRIT 44.7 % 35.0-45.0 MCV 92.2 fL 80.0-100.0 MCH 31.5 pg 27.0-33.0 MCHC 34.2 g/dL 32.0-36.0 RDW 12.6 % 11.0-15.0 PLATELET COUNT 336 Thousand/uL 140-400 MPV 10.1 fL 7.5-12.5 ABSOLUTE NEUTROPHILS 4872 cells/uL 7298-6178 ABSOLUTE LYMPHOCYTES 2873 cells/uL 850-3900 ABSOLUTE MONOCYTES 428 cells/uL 200-950 ABSOLUTE EOSINOPHILS 160 cells/uL 15-500 ABSOLUTE BASOPHILS 67 cells/uL 0-200 NEUTROPHILS 58 % NRG LYMPHOCYTES 34.2 % NRG MONOCYTES 5.1 % NRG EOSINOPHILS 1.9 % NRG BASOPHILS 0.8 % NRG TSH - 10/26/17 14:05 TSH 2.23 mIU/L NRG CULTURE, GENITAL - 02/04/18 13:51 CULTURE, GENITAL NRG CULTURE, GENITAL - 02/04/18 13:55 CULTURE, GENITAL SEE NOTE NRG SUREPATH PAP RFX HPV mRNA E6/E7 - 02/04/18 13:55 CLINICAL INFORMATION: NRG LMP: NRG PREV. PAP: NRG PREV. 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 Visit Date/Time Discharge Status Pt. Type Provider Facility Loc./Unit Complaint [id number] 11/25/2018 16:20:00 11/25/2018 23:59:59 [facility] Outpatient [facility] [id number] 04/03/2018 11:00:00 Document Registration [id number] 03/27/2018 13:40:00 Document Registration [id number] 02/04/2018 13:51:00 Document Registration [id number] 02/04/2018 12:20:00 Document Registration [id number] 10/26/2017 13:00:00 Document Registration
[2018-12-16] MEDS ORDERED: fentaNYL INJECTION 100 MCG/2 ML AMP IVP ONE (21:00)
[2018-12-16 21:15] VITALS: BP 106/61
== END 2018-12-16 21:15 | disposition short-term general hospital (02) ==
LOC: EDUNIT# 18:39 → ER 18:40
DX: R10.31 Right lower quadrant pain (principal); J45.909 Unspecified asthma, uncomplicated; K58.9 Irritable bowel syndrome, unspecified; K21.9 Gastro-esophageal reflux disease without esophagitis; M79.7 Fibromyalgia; E66.9 Obesity, unspecified; F98.8 Other specified behavioral and emotional disorders with onset usually occurring in childhood and adolescence; F90.9 Attention-deficit hyperactivity disorder, unspecified type; F41.9 Anxiety disorder, unspecified; F43.10 Post-traumatic stress disorder, unspecified; F31.9 Bipolar disorder, unspecified; F60.9 Personality disorder, unspecified; E78.00 Pure hypercholesterolemia, unspecified; F17.210 Nicotine dependence, cigarettes, uncomplicated; Z87.448 Personal history of other diseases of urinary system; Z87.19 Personal history of other diseases of the digestive system; Z82.49 Family history of ischemic heart disease and other diseases of the circulatory system; Z68.42 Body mass index [BMI] 45.0-49.9, adult; Z87.440 Personal history of urinary (tract) infections; Z98.890 Other specified postprocedural states; Z97.5 Presence of (intrauterine) contraceptive device; Z90.89 Acquired absence of other organs; Z87.01 Personal history of pneumonia (recurrent); Z87.442 Personal history of urinary calculi; Z88.8 Allergy status to other drugs, medicaments and biological substances; Z88.6 Allergy status to analgesic agent; Z79.51 Long term (current) use of inhaled steroids; Z79.52 Long term (current) use of systemic steroids
CPT/HCPCS: 36415; 80053; 81000; 84703; 85025; 87088

== ENCOUNTER 2019-03-03 07:27 | Emergency (ER) | payer OTHER ==
[~2019-03-03] VITALS: Ht 152.4 cm; Wt 108.9 kg
[2019-03-03] MEDS ORDERED: LIDOCAINE 1% INJ 20 ML 20 ML VIAL ONE (07:41)
--- NOTE | 2019-03-03 08:09 | ED Back Pain ---
General Chief Complaint: Back Problems Stated Complaint: LOWER BACK PAIN Nursing Triage Note: Pt ambulates to Rm 7 with complaints of lower back pain. Pt states she got off at work at 0300 this morning and hasn't been able to lay down straight or sleep since. Pt also reports having a history of chronic back pain which she takes a muscle relaxer for but states this pain is "worse than usual". When sacrum was examined, there was an abscess noted. Pt reports pain at a 8/10 at this time and describes it as a sharp pain. Nursing Sepsis Screen: No Definite Risk Source of Information: Patient, Family Exam Limitations: No Limitations History of Present Illness Date Seen by Provider: Mar 03, 2019 Time Seen by Provider: 08:03 Initial Comments This 28-year-old white female presents with a pilonidal abscess that she first appreciated the this morning. Patient has had the abscess drained in the past. No definitive surgery has been performed. Patient denies associated fever, chills, rectal or abdominal pain. Allergies and Home Medications Allergies Coded Allergies: prochlorperazine (Unverified Adverse Reaction, Unknown, 08/24/17) tramadol (Unverified Adverse Reaction, Unknown, 08/24/17) Home Medications Albuterol Sulfate 18 Gm Hfa.aer.ad, 1-2 PUFF IH Q4H PRN for SHORTNESS OF BREATH Prescribed by: HERON JOE on 07/08/18 1134 Albuterol/Ipratropium 4 Gm Aero, 1 PUFF IH DAILY, (Reported) Amoxicillin 500 Mg Capsule, 1,000 MG PO BID Prescribed by: MARIA C SWARTZ on 08/10/18 132 Atorvastatin Calcium 20 Mg Tablet, 20 MG PO DAILY, (Reported) Baclofen 10 Mg Tablet, 10 MG PO BID, (Reported) Benzonatate 100 Mg Capsule, 1-2 TAB PO TID Prescribed by: THOMPSON FITCH on 07/16/182052 Benzonatate 100 Mg Capsule, 1-2 CAP PO HS PRN for COUGH do NOT use during the daytime. you need the cough to keep the lungs open during the daytime. Prescribed by: MARIA C SWARTZ on 08/10/18 132 Budesonide 1 Mg/2 Ml Ampul.neb, 1 MG IH BID Prescribed by: THOMPSON FITCH on 11/27/18 2053 Buspirone HCl 15 Mg Tablet, 15 MG PO TID, (Reported) Cholecalciferol (Vitamin D3) 1,000 Unit Capsule, 1,000 UNIT PO BID, (Reported) Ciprofloxacin HCl 500 Mg Tablet, 500 MG PO BID Prescribed by: MARIA C SWARTZ on 08/10/18 1322 Cranberry Extract 500 Mg Tablet, 1,000 MG PO BID, (Reported) Dextroamphetamine/Amphetamine 10 Mg Tablet, 10 MG PO BID, (Reported) Dicyclomine HCl 20 Mg Tablet, 20 MG PO QID, (Reported) Diphenhydramine HCl 25 Mg Tablet, 25 MG PO BID, (Reported) Docusate Sodium 100 Mg Capsule, 100 MG PO BID PRN for CONSTIPATION Prescribed by: AILYN VERGARA on 10/23/16 0735 Doxycycline Monohydrate 100 Mg Capsule, 100 MG PO BID Prescribed by: THOMPSON FITCH on 07/16/182052 Famotidine 20 Mg Tablet, 20 MG PO BID, (Reported) Fluticasone Propionate 16 Gm [place].susp, 1 SPRAY NSEACH HS, (Reported) Guaifenesin/Dextromethorphan 1 Each Tbmp.12hr, 1 EACH PO BID Prescribed by: THOMPSON FITCH on 07/16/182052 Ibuprofen 600 Mg Tablet, 600 MG PO Q6H PRN for PAIN, (Reported) Ipratropium/Albuterol Sulfate 3 Ml Ampul.neb, 3 ML INH Q6H PRN for DYSPNEA Prescribed by: HERON JOE on 07/08/18 1134 Methylprednisolone 4 Mg Tab.ds.pk, 4 MG PO UD Prescribed by: THOMPSON FITCH on 07/16/182052 Mv,Ca,Min/Iron Fum/FA/Vit K 1 Each Tablet, 1 EACH PO DAILY, (Reported) Nitrofurantoin Monohyd/M-Cryst 100 Mg Capsule, 1 TAB PO BID Prescribed by: JUDY LEO on 11/30/181919 Ondansetron 4 Mg Tab.rapdis, 4 MG SL Q4H PRN for NAUSEA/VOMITING-1ST LINE Prescribed by: ANGY MARTINS on 03/01/18 0208 Ondansetron HCl 4 Mg Tab, 4 MG PO Q4H PRN for NAUSEA/VOMITING Prescribed by: JUDY LEO on 11/30/181919 Prazosin HCl 2 Mg Capsule, 6 MG PO HS, (Reported) Prednisone 10 Mg Tab, 20 MG PO DAILY, (Reported) FILLED 07/01/18 PATIENT STATES SHE STILL HAS TWO MORE DOSES Prednisone 20 Mg Tab, 2 TAB PO DAILY Prescribed by: MARIA C SWARTZ on 08/10/18 1322 Quetiapine Fumarate 200 Mg Tablet, 200 MG PO HS, (Reported) Patient Home Medication List Home Medication List Reviewed: Yes Review of Systems Constitutional: no symptoms reported; No chills, No fever EENTM: no symptoms reported Respiratory: no symptoms reported Cardiovascular: no symptoms reported Gastrointestinal: no symptoms reported Genitourinary: no symptoms reported; No dysuria, No frequency Musculoskeletal: no symptoms reported Skin: see HPI, other (pilonidal abscess) Psychiatric/Neurological: No Symptoms Reported Past Txnntwt-Vztukv-Yaqwsp Hx Past Med/Social Hx: Reviewed Nursing Past Med/Soc Hx Patient Social History Alcohol Use: Denies Use Recreational Drug Use: No Smoking Status: Current Everyday Smoker Type Used: Cigarettes 2nd Hand Smoke Exposure: Yes Recent Foreign Travel: No Contact w/Someone Who Travel: No Recent Infectious Disease Expo: No Recent Hopitalizations: Yes (07-07 BREATHING PROBLEMS) Physical Abuse: No Sexual Abuse: No Immunizations Up To Date Tetanus Booster (TDap): Unknown PED Vaccines UTD: Yes Date of Influenza Vaccine: Apr 20, 2018 Seasonal Allergies Seasonal Allergies: Yes Past Medical History Surgeries: Yes ( X --07/2013, WISDOM TEETH; REMOVAL OF RETAINED IUD) Section, Tonsillectomy Respiratory: Yes (Tobaccoism) Asthma, Pneumonia Cardiac: Yes High Cholesterol Neurological: No : No Reproductive Disorders: Yes (RETAINED IUD, hemorrhagic ovarian cysts) Female Reproductive Disorders: Menstrual Problems, Ovarian Cyst, Polycystic 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 Sexually Transmitted Disease: No HIV/AIDS: No Genitourinary: Yes Bladder Infection, Kidney Stones, UTI-Chronic Gastrointestinal: Yes Gastroesophageal Reflux, Chronic Diarrhea, Irritable Bowel Musculoskeletal: Yes Fibromyalgia Endocrine: Yes (VITAMIN D DEFICIENCY; OBESITY) HEENT: Yes Loss of Vision: Bilateral Hearing Impairment: Denies Cancer: No Psychosocial: Yes (EXTENSIVE PSYCH ISSUES-PT STABLE ) ADD/ADHD, Sleep Difficulties, Anxiety, PTSD, Bipolar, Personality Disorder, Depression Integumentary: No Blood Disorders: No Adverse Reaction/Blood Tranf: No Family Medical History Alcoholism 19 FATHER Asthma 19 MOTHER Completed stroke 19 FATHER DVT 19 FATHER Dementia 19 FATHER Diabetes mellitus 19 MOTHER FH: multiple sclerosis G8 SISTER Headache disorder G8 BROTHER Hypertension 19 FATHER 19 MOTHER Myocardial infarction 19 FATHER Seizure disorder 19 FATHER Hypertension, Seizures, Stroke Physical Exam Vital Signs Vital Signs - First Documented 03/03/19 07:35 Temp 97.9 Pulse 82 Resp 18 B/P (MAP) 124/92 (103) O2 Delivery Room Air Capillary Refill : Less Than 3 Seconds Height, Weight, BMI Height: 5'0" Weight: 240lbs. 0.0oz. 108.974542bh; 48.2 BMI Method:Stated General Appearance: WD/WN, Mild Distress HEENT: Normal ENT Inspection Neck: Normal Inspection Cardiovascular: Regular Rate, Rhythm Respiratory: Lungs Clear Gastrointestinal: Normal Bowel Sounds, Soft Genital/Rectal: Other (there is a pilonidal abscess that is approximately 2-1/2 cm in diameter. The abscess does not appear to track. The inspection of the rectum is normal.) Back: Normal Inspection Extremity: Normal Inspection, Normal Range of Motion Neurologic/Psychiatric: Alert, Oriented x3, No Motor/Sensory Deficits Skin: Normal Color, Warm/Dry, Other (pilonidal abscess) Progress/Results/Core Measures Results/Orders Vital Signs/I&O 03/03/19 07:35 Temp 97.9 Pulse 82 Resp 18 B/P (MAP) 124/92 (103) O2 Delivery Room Air Blood Pressure Mean: 103 Progress Progress Note : Time: 08:06 Progress Note Prior to the procedure I discussed the presentation with Dr. Lind. He recommended I &D with close follow up with him. 1 percent Xylocaine was employed for local anesthesia after permission was obtained from the patient. A number 11 blade was used to incise the abscess area. Approximately 5 mL of grossly purulent material was expressed. Culture and sensitivity was obtained. Packing was placed with 1/2 inch iodoform gauze. Initial ECG Impression Date: Mar 03, 2019 Departure Communication (Admissions) Time/Spoke to Consulting Phy: 08:08 Dr. Lind Impression Primary Impression: Pilonidal abscess Disposition: 01 HOME, SELF-CARE Condition: Improved Departure-Patient Inst. Decision time for Depature: 08:08 Referrals: [facility] (PCP/Family) Primary Care Physician DELMAN,PEDRO B DO Patient Instructions: Boil (DC) Add. Discharge Instructions: Remove the packing tomorrow. Initiate warm soaks in the tub at that point. Call Dr. Lind's office today for close follow-up. Come back if any problems or questions Vicodin for pain. All discharge instructions reviewed with patient and/or family. Voiced understanding. Scripts Hydrocodone Bit/Acetaminophen (Hydrocodone/Acetaminophen 5/325mg Tablet) 1 Tab Tab 1-2 TAB PO Q6H PRN for PAIN-MODERATE for 7 Days, #20 TAB Prov: CHAZ ALANIZ MD 03/03/19 CHAZ ALANIZ MD Mar 03, 2019 08:09
[2019-03-03] MEDS ORDERED: ACHD5005 PO (08:10)
[2019-03-03 08:14] VITALS: BP 117/80
[2019-03-10] MEDS ORDERED: ACHD5005 PO (14:15)
== END 2019-03-03 08:14 | disposition home or self-care (01) ==
LOC: EDUNIT# 07:27 → ER 07:28
DX: L05.01 Pilonidal cyst with abscess (principal); J45.909 Unspecified asthma, uncomplicated; E78.00 Pure hypercholesterolemia, unspecified; K21.9 Gastro-esophageal reflux disease without esophagitis; K58.9 Irritable bowel syndrome, unspecified; M79.7 Fibromyalgia; E66.9 Obesity, unspecified; F90.9 Attention-deficit hyperactivity disorder, unspecified type; F41.9 Anxiety disorder, unspecified; F43.10 Post-traumatic stress disorder, unspecified; F31.9 Bipolar disorder, unspecified; F60.9 Personality disorder, unspecified; F17.210 Nicotine dependence, cigarettes, uncomplicated; Z82.49 Family history of ischemic heart disease and other diseases of the circulatory system; Z87.440 Personal history of urinary (tract) infections; Z87.442 Personal history of urinary calculi; Z90.89 Acquired absence of other organs; Z87.01 Personal history of pneumonia (recurrent); Z88.5 Allergy status to narcotic agent; Z88.8 Allergy status to other drugs, medicaments and biological substances; Z79.51 Long term (current) use of inhaled steroids; Z68.42 Body mass index [BMI] 45.0-49.9, adult

== ENCOUNTER 2019-03-07 13:07 | Emergency (ER) | payer OTHER ==
[~2019-03-07] VITALS: Ht 152.4 cm; Wt 106.6 kg
[2019-03-07] MEDS ORDERED: CLIN300C11 PO (14:02)
[2019-03-07] MEDS ORDERED: HYDR-4226 PO (14:02)
--- NOTE | 2019-03-07 14:02 | ED Integumentary General ---
General Chief Complaint: Skin/Wound Problems Stated Complaint: CYST ON TAILBONE Nursing Triage Note: Pt seen here for cyst on buttocks on Sunday. Pt reports increased drainage of pus and blood. Pt reports pain has increased. Pt reports calling Dr. Lind and has an appointment at 1500 on Sunday. Pt c/o sweats. Source: patient Exam Limitations: no limitations History of Present Illness Date Seen by Provider: Mar 07, 2019 Time Seen by Provider: 13:58 Initial Comments To ER with reports of a pilonidal abscess. Patient was here on Sunday03/03/19 and had this opened and packed. She was given pain medication. She presents today with worsening drainage overnight, increased pain. She is not currently on antibiotic, is scheduled to see surgeon next week. Timing/Duration: just prior to arrival Severity: moderate Location: generalized (buttocks) Associated Symptoms: denies symptoms Allergies and Home Medications Allergies Coded Allergies: prochlorperazine (Unverified Adverse Reaction, Unknown, 08/24/17) tramadol (Unverified Adverse Reaction, Unknown, 08/24/17) Home Medications Albuterol Sulfate 18 Gm Hfa.aer.ad, 1-2 PUFF IH Q4H PRN for SHORTNESS OF BREATH Prescribed by: HERON JOE on 07/08/18 1134 Albuterol/Ipratropium 4 Gm Aero, 1 PUFF IH DAILY, (Reported) Amoxicillin 500 Mg Capsule, 1,000 MG PO BID Prescribed by: MARIA C SWARTZ on 08/10/18 1322 Atorvastatin Calcium 20 Mg Tablet, 20 MG PO DAILY, (Reported) Baclofen 10 Mg Tablet, 10 MG PO BID, (Reported) Benzonatate 100 Mg Capsule, 1-2 TAB PO TID Prescribed by: THOMPSON FITCH on 07/16/182052 Benzonatate 100 Mg Capsule, 1-2 CAP PO HS PRN for COUGH do NOT use during the daytime. you need the cough to keep the lungs open during the daytime. Prescribed by: MARIA C SWARTZ on 08/10/18 1322 Budesonide 1 Mg/2 Ml Ampul.neb, 1 MG IH BID Prescribed by: THOMPSON FITCH on 07/16/182052 Buspirone HCl 15 Mg Tablet, 15 MG PO TID, (Reported) Cholecalciferol (Vitamin D3) 1,000 Unit Capsule, 1,000 UNIT PO BID, (Reported) Ciprofloxacin HCl 500 Mg Tablet, 500 MG PO BID Prescribed by: MARIA C SWARTZ on 08/10/18 1322 Cranberry Extract 500 Mg Tablet, 1,000 MG PO BID, (Reported) Dextroamphetamine/Amphetamine 10 Mg Tablet, 10 MG PO BID, (Reported) Dicyclomine HCl 20 Mg Tablet, 20 MG PO QID, (Reported) Diphenhydramine HCl 25 Mg Tablet, 25 MG PO BID, (Reported) Docusate Sodium 100 Mg Capsule, 100 MG PO BID PRN for CONSTIPATION Prescribed by: AILYN VERGARA on 10/23/16 0735 Doxycycline Monohydrate 100 Mg Capsule, 100 MG PO BID Prescribed by: THOMPSON FITCH on 07/16/182052 Famotidine 20 Mg Tablet, 20 MG PO BID, (Reported) Fluticasone Propionate 16 Gm [place].susp, 1 SPRAY NSEACH HS, (Reported) Guaifenesin/Dextromethorphan 1 Each Tbmp.12hr, 1 EACH PO BID Prescribed by: THOMPSON FITCH on 07/16/182052 Hydrocodone Bit/Acetaminophen 1 Tab Tab, 1-2 TAB PO Q6H PRN for PAIN-MODERATE Prescribed by: CHAZ ALANIZ MD on 03/03/19 0810 Ibuprofen 600 Mg Tablet, 600 MG PO Q6H PRN for PAIN, (Reported) Ipratropium/Albuterol Sulfate 3 Ml Ampul.neb, 3 ML INH Q6H PRN for DYSPNEA Prescribed by: HERON JOE on 07/08/18 1134 Methylprednisolone 4 Mg Tab.ds.pk, 4 MG PO UD Prescribed by: THOMPSON FITCH on 07/16/182052 Mv,Ca,Min/Iron Fum/FA/Vit K 1 Each Tablet, 1 EACH PO DAILY, (Reported) Nitrofurantoin Monohyd/M-Cryst 100 Mg Capsule, 1 TAB PO BID Prescribed by: JUDY LEO on 11/30/181919 Ondansetron 4 Mg Tab.rapdis, 4 MG SL Q4H PRN for NAUSEA/VOMITING-1ST LINE Prescribed by: ANGY MARTINS on 03/01/18 0208 Ondansetron HCl 4 Mg Tab, 4 MG PO Q4H PRN for NAUSEA/VOMITING Prescribed by: JUDY LEO on 11/30/18 1920 Prazosin HCl 2 Mg Capsule, 6 MG PO HS, (Reported) Prednisone 10 Mg Tab, 20 MG PO DAILY, (Reported) FILLED 07/01/18 PATIENT STATES SHE STILL HAS TWO MORE DOSES Prednisone 20 Mg Tab, 2 TAB PO DAILY Prescribed by: MARIA C SWARTZ on 08/10/18 1322 Quetiapine Fumarate 200 Mg Tablet, 200 MG PO HS, (Reported) Patient Home Medication List Home Medication List Reviewed: Yes Review of Systems Review of Systems Constitutional: see HPI; No chills, No fever EENTM: see HPI Respiratory: no symptoms reported Genitourinary: no symptoms reported Skin: see HPI Psychiatric/Neurological: No Symptoms Reported Endocrine: No Symptoms Reported Past Thqrcmi-Nxhzvd-Benjch Hx Patient Social History Alcohol Use: Denies Use Recreational Drug Use: No Smoking Status: Current Everyday Smoker Type Used: Cigarettes 2nd Hand Smoke Exposure: Yes Recent Foreign Travel: No Contact w/Someone Who Travel: No Recent Infectious Disease Expo: No Recent Hopitalizations: Yes (07-07 BREATHING PROBLEMS) Immunizations Up To Date Tetanus Booster (TDap): Unknown PED Vaccines UTD: Yes Date of Influenza Vaccine: Apr 20, 2018 Seasonal Allergies Seasonal Allergies: Yes Past Medical History Surgeries: Yes ( X --07/2013, WISDOM TEETH; REMOVAL OF RETAINED IUD) Section, Tonsillectomy Respiratory: Yes (Tobaccoism) Asthma, Pneumonia Cardiac: Yes High Cholesterol Neurological: No Reproductive Disorders: Yes (RETAINED IUD, hemorrhagic ovarian cysts) Female Reproductive Disorders: Menstrual Problems, Ovarian Cyst, 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 Sexually Transmitted Disease: No HIV/AIDS: No Genitourinary: Yes Bladder Infection, Kidney Stones, UTI-Chronic Gastrointestinal: Yes Gastroesophageal Reflux, Chronic Diarrhea, Irritable Bowel Musculoskeletal: Yes Fibromyalgia Endocrine: Yes (VITAMIN D DEFICIENCY; OBESITY) HEENT: Yes Loss of Vision: Bilateral Hearing Impairment: Denies Cancer: No Psychosocial: Yes (EXTENSIVE PSYCH ISSUES-PT STABLE ) ADD/ADHD, Sleep Difficulties, Anxiety, PTSD, Bipolar, Personality Disorder, Depression Integumentary: No Blood Disorders: No Adverse Reaction/Blood Tranf: No Family Medical History Alcoholism 19 FATHER Asthma 19 MOTHER Completed stroke 19 FATHER DVT 19 FATHER Dementia 19 FATHER Diabetes mellitus 19 MOTHER FH: multiple sclerosis G8 SISTER Headache disorder G8 BROTHER Hypertension 19 FATHER 19 MOTHER Myocardial infarction 19 FATHER Seizure disorder 19 FATHER Hypertension, Seizures, Stroke Physical Exam Vital Signs Vital Signs - First Documented 03/07/19 13:11 Temp 96.0 Pulse 106 Resp 18 B/P (MAP) 144/97 (113) Pulse Ox 95 O2 Delivery Room Air Capillary Refill : Less Than 3 Seconds General Appearance: WD/WN, no apparent distress HEENT: PERRL/EOMI, normal ENT inspection Respiratory: no respiratory distress, no accessory muscle use Neurologic/Psychiatric: alert, normal mood/affect, oriented x 3 Skin: normal color, warm/dry Skin Problem Character: other (to the superior aspect of the gluteal cleft is a 1 cm incision that is open. The dressing was removed, patient states that this dressing was applied last night. Despite that there is smaller than dime-sized amount of drainage on the dressing in about 12 hours. There is no surrounding cellulitis, there is persistent induration around this) Progress/Results/Core Measures Results/Orders My Orders Orders - ABRAHAM KIRAN APRN Cbc With Automated Diff (03/07/19 13:23) Hcg,Qualitative Serum (03/07/19 13:23) Comprehensive Metabolic Panel (03/07/19 13:23) Ed Iv/Invasive Line Start (03/07/19 13:23) Wound Culture (03/07/19 13:34) Vital Signs/I&O 03/07/19 13:11 Temp 96.0 Pulse 106 Resp 18 B/P (MAP) 144/97 (113) Pulse Ox 95 O2 Delivery Room Air Blood Pressure Mean: 113 Departure Impression Primary Impression: Pilonidal abscess Disposition: 01 HOME, SELF-CARE Condition: Stable Departure-Patient Inst. Decision time for Depature: 14:01 Referrals: [facility] (PCP/Family) Primary Care Physician Patient Instructions: Abscess Incision and Drainage (DC) Add. Discharge Instructions: 1. Change dressing as needed at least once a day 2. Pain medication and antibiotics as directed. All discharge instructions reviewed with patient and/or family. Voiced understanding. Scripts Hydrocodone/Acetaminophen ([place] 5-325 Tablet) 1 Each Tablet 1 TAB PO Q6H for Pain MDD 10 TABS for 7 Days, #10 TAB Prov: ABRAHAM KIRAN APRN 03/07/19 Clindamycin HCl (Clindamycin HCl) 300 Mg Capsule 300 MG PO TID, #21 CAP Prov: ABRAHAM KIRAN APRN 03/07/19 Work/School Note: Work Release Form Date Seen in the Emergency Department: Mar 07, 2019 Return to Work: Mar 09, 2019 ABRAHAM KIRAN APRN Mar 07, 2019 14:02
[2019-03-07 14:08] VITALS: BP 160/60
[2019-03-10] MEDS ORDERED: ACHD5005 PO (14:15)
== END 2019-03-07 14:11 | disposition home or self-care (01) ==
LOC: EDUNIT# 13:07 → ER 13:09
DX: L05.01 Pilonidal cyst with abscess (principal); J45.909 Unspecified asthma, uncomplicated; E78.00 Pure hypercholesterolemia, unspecified; K21.9 Gastro-esophageal reflux disease without esophagitis; K58.9 Irritable bowel syndrome, unspecified; M79.7 Fibromyalgia; E66.9 Obesity, unspecified; F43.10 Post-traumatic stress disorder, unspecified; F31.9 Bipolar disorder, unspecified; F60.9 Personality disorder, unspecified; F41.9 Anxiety disorder, unspecified; F90.9 Attention-deficit hyperactivity disorder, unspecified type; F17.210 Nicotine dependence, cigarettes, uncomplicated; Z87.440 Personal history of urinary (tract) infections; Z87.442 Personal history of urinary calculi; Z87.01 Personal history of pneumonia (recurrent); Z90.89 Acquired absence of other organs; Z79.51 Long term (current) use of inhaled steroids; Z88.5 Allergy status to narcotic agent; Z88.8 Allergy status to other drugs, medicaments and biological substances; Z82.49 Family history of ischemic heart disease and other diseases of the circulatory system
CPT/HCPCS: 87070; 87077; 87186; 87205; 99282

== ENCOUNTER 2019-03-10 09:11 | Day surgery (SDC) | payer OTHER ==
[2019-03-10] VITALS (14 sets, daily range): BP systolic 107–190; BP diastolic 65–101
[~2019-03-10] VITALS: Ht 152.4 cm; Wt 106.6 kg
[~2019-03-10 09:11] MED LIST changes: +CLIN300C11 PO; +HYDR-4226 PO
[2019-03-10] MEDS ORDERED: KETOROLAC 30 MG/ML VIAL IVP STA (09:51)
[2019-03-10] MEDS ORDERED: fentaNYL INJECTION 100 MCG/2 ML AMP IVP STA (09:51)
--- NOTE | 2019-03-10 10:04 | ED Integumentary General ---
General Chief Complaint: Skin/Wound Problems Stated Complaint: CYST ON [facility] [place] Nursing Triage Note: pt sttes having cyst between buttock drained last sunday and returned sunday for signs of infection. pt states she is currently still in pain and is concerned of infection. pt states she has been on antibiotics since sunday. pt states appointment with surgeon tomorrow for area of concern. pt denies fever. Source: patient Exam Limitations: no limitations History of Present Illness Date Seen by Provider: Mar 10, 2019 Time Seen by Provider: 09:40 Initial Comments Here with report of systems at the upper area of her buttocks at midline that is still hurting and getting worse in fact. She had it drained last Sunday. She has appointment with the surgeon tomorrow. She is taking her antibiotics. She is currently out of pain medicine. She states the pain is much worse and even wakes her up at night. She still has drainage though. She states that she feels like there is a new area of swelling on the right side of midline. No fevers, chills or vomiting. Timing/Duration: week, getting worse Severity: moderate, severe Location: torso (upper buttocks) Possible Cause: other (pilonidal cyst) Associated Symptoms: change in skin texture, edema; No fever Allergies and Home Medications Allergies Coded Allergies: prochlorperazine (Unverified Adverse Reaction, Unknown, 08/24/17) tramadol (Unverified Adverse Reaction, Unknown, 08/24/17) Home Medications Albuterol Sulfate 18 Gm Hfa.aer.ad, 1-2 PUFF IH Q4H PRN for SHORTNESS OF BREATH Prescribed by: HERON JOE on 07/08/18 1134 Albuterol/Ipratropium 4 Gm Aero, 1 PUFF IH DAILY, (Reported) Amoxicillin 500 Mg Capsule, 1,000 MG PO BID Prescribed by: MARIA C SWARTZ on 08/10/18 1322 Atorvastatin Calcium 20 Mg Tablet, 20 MG PO DAILY, (Reported) Baclofen 10 Mg Tablet, 10 MG PO BID, (Reported) Benzonatate 100 Mg Capsule, 1-2 TAB PO TID Prescribed by: THOMPSON FITCH on 07/16/182052 Benzonatate 100 Mg Capsule, 1-2 CAP PO HS PRN for COUGH do NOT use during the daytime. you need the cough to keep the lungs open during the daytime. Prescribed by: MARIA C SWARTZ on 08/10/18 132 Budesonide 1 Mg/2 Ml Ampul.neb, 1 MG IH BID Prescribed by: THOMPSON FITCH on 07/16/182052 Buspirone HCl 15 Mg Tablet, 15 MG PO TID, (Reported) Cholecalciferol (Vitamin D3) 1,000 Unit Capsule, 1,000 UNIT PO BID, (Reported) Ciprofloxacin HCl 500 Mg Tablet, 500 MG PO BID Prescribed by: MARIA C SWARTZ on 08/10/181321 Clindamycin HCl 300 Mg Capsule, 300 MG PO TID Prescribed by: ABRAHAM KIRAN on 03/07/19 1402 Cranberry Extract 500 Mg Tablet, 1,000 MG PO BID, (Reported) Dextroamphetamine/Amphetamine 10 Mg Tablet, 10 MG PO BID, (Reported) Dicyclomine HCl 20 Mg Tablet, 20 MG PO QID, (Reported) Diphenhydramine HCl 25 Mg Tablet, 25 MG PO BID, (Reported) Docusate Sodium 100 Mg Capsule, 100 MG PO BID PRN for CONSTIPATION Prescribed by: AILYN VERGARA on 10/23/16 0735 Doxycycline Monohydrate 100 Mg Capsule, 100 MG PO BID Prescribed by: THOMPSON FITCH on 07/16/182052 Famotidine 20 Mg Tablet, 20 MG PO BID, (Reported) Fluticasone Propionate 16 Gm [place].susp, 1 SPRAY NSEACH HS, (Reported) Guaifenesin/Dextromethorphan 1 Each Tbmp.12hr, 1 EACH PO BID Prescribed by: THOMPSON FITCH on 07/16/182052 Hydrocodone Bit/Acetaminophen 1 Tab Tab, 1 TAB PO Q6H PRN for PAIN-MODERATE Prescribed by: PEDRO IRWIN on 03/10/19 1415 Ibuprofen 600 Mg Tablet, 600 MG PO Q6H PRN for PAIN, (Reported) Ipratropium/Albuterol Sulfate 3 Ml Ampul.neb, 3 ML INH Q6H PRN for DYSPNEA Prescribed by: HERON JOE on 07/08/18 1134 Methylprednisolone 4 Mg Tab.ds.pk, 4 MG PO UD Prescribed by: THOMPSON FITCH on 07/16/182052 Mv,Ca,Min/Iron Fum/FA/Vit K 1 Each Tablet, 1 EACH PO DAILY, (Reported) Nitrofurantoin Monohyd/M-Cryst 100 Mg Capsule, 1 TAB PO BID Prescribed by: JUDY LEO on 11/30/181919 Ondansetron 4 Mg Tab.rapdis, 4 MG SL Q4H PRN for NAUSEA/VOMITING-1ST LINE Prescribed by: ANGY MARTINS on 03/01/18 0208 Ondansetron HCl 4 Mg Tab, 4 MG PO Q4H PRN for NAUSEA/VOMITING Prescribed by: JUDY LEO on 11/30/181919 Prazosin HCl 2 Mg Capsule, 6 MG PO HS, (Reported) Prednisone 10 Mg Tab, 20 MG PO DAILY, (Reported) FILLED 07/01/18 PATIENT STATES SHE STILL HAS TWO MORE DOSES Prednisone 20 Mg Tab, 2 TAB PO DAILY Prescribed by: MARIA C SWARTZ on 08/10/18 1322 Quetiapine Fumarate 200 Mg Tablet, 200 MG PO HS, (Reported) Patient Home Medication List Home Medication List Reviewed: Yes Review of Systems Review of Systems Constitutional: see HPI; No chills, No fever EENTM: no symptoms reported Respiratory: no symptoms reported Cardiovascular: no symptoms reported Gastrointestinal: no symptoms reported Genitourinary: no symptoms reported Musculoskeletal: No joint pain; muscle pain Skin: change in color, lesions Psychiatric/Neurological: No Symptoms Reported All Other Systems Reviewed Negative Unless Noted: Yes Past Jytxwvx-Eswlat-Sknkua Hx Past Med/Social Hx: Reviewed Nursing Past Med/Soc Hx Patient Social History Alcohol Use: Denies Use Recreational Drug Use: No Smoking Status: Current Everyday Smoker Type Used: Cigarettes 2nd Hand Smoke Exposure: Yes Recent Foreign Travel: No Contact w/Someone Who Travel: No Recent Infectious Disease Expo: No Recent Hopitalizations: No Physical Abuse: No Sexual Abuse: No Mistreated: No Fear: No Immunizations Up To Date Tetanus Booster (TDap): Unknown PED Vaccines UTD: Yes Date of Influenza Vaccine: Apr 20, 2018 Seasonal Allergies Seasonal Allergies: Yes Past Medical History Surgeries: Yes ( X 1 --07/2013, WISDOM TEETH; REMOVAL OF RETAINED IUD) Section, Tonsillectomy Respiratory: Yes (Tobaccoism) Asthma, Pneumonia Cardiac: Yes High Cholesterol Neurological: No Reproductive Disorders: Yes (RETAINED IUD, hemorrhagic ovarian cysts) Female Reproductive Disorders: Menstrual Problems, Ovarian Cyst, Polycystic Ovarian Dis 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 Sexually Transmitted Disease: No HIV/AIDS: No Genitourinary: Yes Bladder Infection, Kidney Stones, UTI-Chronic Gastrointestinal: Yes Gastroesophageal Reflux, Chronic Diarrhea, Irritable Bowel Musculoskeletal: Yes Fibromyalgia Endocrine: Yes (VITAMIN D DEFICIENCY; OBESITY) HEENT: Yes Loss of Vision: Bilateral Hearing Impairment: Denies Cancer: No Psychosocial: Yes (EXTENSIVE PSYCH ISSUES-PT STABLE ) ADD/ADHD, Sleep Difficulties, Anxiety, PTSD, Bipolar, Personality Disorder, Depression Integumentary: No Blood Disorders: No Adverse Reaction/Blood Tranf: No Family Medical History Reviewed Nursing Family Hx Alcoholism 19 FATHER Asthma 19 MOTHER Completed stroke 19 FATHER DVT 19 FATHER Dementia 19 FATHER Diabetes mellitus 19 MOTHER FH: multiple sclerosis G8 SISTER Headache disorder G8 BROTHER Hypertension 19 FATHER 19 MOTHER Myocardial infarction 19 FATHER Seizure disorder 19 FATHER Hypertension, Seizures, Stroke Physical Exam Vital Signs Vital Signs - First Documented 03/10/19 09:22 Temp 97.6 Pulse 96 Resp 18 B/P (MAP) 126/78 (94) Pulse Ox 97 O2 Delivery Room Air Capillary Refill : Less Than 3 Seconds General Appearance: WD/WN, mild distress HEENT: PERRL/EOMI, pharynx normal Neck: full range of motion, supple Cardiovascular: regular rate, rhythm, no murmur Respiratory: lungs clear, normal breath sounds Gastrointestinal: non tender, soft Neurologic/Psychiatric: alert, normal mood/affect Skin: warm/dry, other (erythema to the area of the buttocks) Skin Problem Character: abscess, drainage, erythema, other (to 3 cm fluctuant area to the right upper buttock near midline. There is draining I&D midline that is draining brown foul-smelling drainage.) Progress/Results/Core Measures Results/Orders My Orders Orders - MAKAYLA POLO MD Ed Iv/Invasive Line Start (03/10/19 09:51) Fentanyl Injection (Sublimaze Injection (03/10/19 09:51) Ketorolac Injection (Toradol Injection) (03/10/19 09:51) Vital Signs/I&O 03/10/19 03/10/19 03/10/19 09:22 10:02 10:03 Temp 97.6 97.6 97.6 Pulse 96 Resp 18 B/P (MAP) 126/78 (94) Pulse Ox 97 O2 Delivery Room Air Blood Pressure Mean: 94 Progress Progress Note : Progress Note Seen and evaluated. Due to persistence of cyst and now new cystic structure, I did discuss the case with Dr. Irwin, patient's surgeon. He will see her in the emergency department. IV established. Toradol 30 mg IV and fentanyl 75 g IV ordered. Monitor patient. 1120: Dr. Irwin has seen the patient in the emergency department. He will take her to the OR later. 1230: Patient to the OR. Departure Communication (Admissions) Time/Spoke to Admitting Phy: 11:20 Impression Primary Impression: Pilonidal cyst Disposition: ADMITTED INPATIENT Condition: Stable Admissions Decision to Admit Reason: Admit from ER (General) Decision to Admit/Date: Mar 10, 2019 Time/Decision to Admit Time: 11:20 Departure-Patient Inst. Referrals: [facility] [place] (PCP/Family) Primary Care Physician Scripts Hydrocodone Bit/Acetaminophen (Hydrocodone/Acetaminophen 5/325mg Tablet) 1 Tab Tab 1 TAB PO Q6H PRN for PAIN-MODERATE for 7 Days, #20 TAB Prov: PEDRO IRWIN DO 03/10/19 MAKAYLA POLO MD Mar 10, 2019 10:04
[2019-03-10] MEDS ORDERED: BUP/EPI 0.5% 1:200,000 (MARCAINE) 10ML VIAL IJ ONE (12:13)
[2019-03-10] MEDS: LACTATED RINGERS 1,000 ML IV PRN ×2 (12:15→14:10)
--- NOTE | 2019-03-10 12:41 | Consultation - Surgery ---
History of Present Illness History of Present Illness Patient Consulted On(lilly/time) 03/10/19 12:36 Time Seen by Provider: 11:14 History of Present Illness Surgery asked to consult regarding Pilonidal cyst with abscess. HPI per ED: Here with report of systems at the upper area of her buttocks at midline that is still hurting and getting worse in fact. She had it drained last Sunday. She has appointment with the surgeon tomorrow. She is taking her antibiotics. She is currently out of pain medicine. She states the pain is much worse and even wakes her up at night. She still has drainage though. She states that she feels like there is a new area of swelling on the right side of midline. No fevers, chills or vomiting. Timing/Duration: week, getting worse Severity: moderate, severe Location: torso (upper buttocks) Possible Cause: other (pilonidal cyst) Associated Symptoms: change in skin texture, edema; No fever When I spoke to pt she states the pain has become severe, 10 out of 10 and nothing is making it better. She now has new area causing pain and cannot sit down. Pain is not radiating anywhere. Allergies and Home Medications Allergies Coded Allergies: prochlorperazine (Unverified Adverse Reaction, Unknown, 08/24/17) tramadol (Unverified Adverse Reaction, Unknown, 08/24/17) Home Medications Albuterol Sulfate 18 Gm Hfa.aer.ad, 1-2 PUFF IH Q4H PRN for SHORTNESS OF BREATH Prescribed by: HERON JOE on 07/08/18 1134 Albuterol/Ipratropium 4 Gm Aero, 1 PUFF IH DAILY, (Reported) Amoxicillin 500 Mg Capsule, 1,000 MG PO BID Prescribed by: MARIA C SWARTZ on 08/10/18 1322 Atorvastatin Calcium 20 Mg Tablet, 20 MG PO DAILY, (Reported) Baclofen 10 Mg Tablet, 10 MG PO BID, (Reported) Benzonatate 100 Mg Capsule, 1-2 TAB PO TID Prescribed by: THOMPSON FITCH on 07/16/182052 Benzonatate 100 Mg Capsule, 1-2 CAP PO HS PRN for COUGH do NOT use during the daytime. you need the cough to keep the lungs open during the daytime. Prescribed by: MARIA C SWARTZ on 08/10/18 1322 Budesonide 1 Mg/2 Ml Ampul.neb, 1 MG IH BID Prescribed by: THOMPSON FITCH on 07/16/182052 Buspirone HCl 15 Mg Tablet, 15 MG PO TID, (Reported) Cholecalciferol (Vitamin D3) 1,000 Unit Capsule, 1,000 UNIT PO BID, (Reported) Ciprofloxacin HCl 500 Mg Tablet, 500 MG PO BID Prescribed by: MARIA C SWARTZ on 08/10/181321 Clindamycin HCl 300 Mg Capsule, 300 MG PO TID Prescribed by: ABRAHAM KIRAN on 03/07/19 140 Cranberry Extract 500 Mg Tablet, 1,000 MG PO BID, (Reported) Dextroamphetamine/Amphetamine 10 Mg Tablet, 10 MG PO BID, (Reported) Dicyclomine HCl 20 Mg Tablet, 20 MG PO QID, (Reported) Diphenhydramine HCl 25 Mg Tablet, 25 MG PO BID, (Reported) Docusate Sodium 100 Mg Capsule, 100 MG PO BID PRN for CONSTIPATION Prescribed by: AILYN VERGARA on 10/23/16 0735 Doxycycline Monohydrate 100 Mg Capsule, 100 MG PO BID Prescribed by: THOMPSON FITCH on 07/16/182052 Famotidine 20 Mg Tablet, 20 MG PO BID, (Reported) Fluticasone Propionate 16 Gm [place].susp, 1 SPRAY NSEACH HS, (Reported) Guaifenesin/Dextromethorphan 1 Each Tbmp.12hr, 1 EACH PO BID Prescribed by: THOMPSON FITCH on 07/16/182052 Hydrocodone Bit/Acetaminophen 1 Tab Tab, 1-2 TAB PO Q6H PRN for PAIN-MODERATE Prescribed by: CHAZ ALANIZ MD on 03/03/19 0810 Hydrocodone/Acetaminophen 1 Each Tablet, 1 TAB PO Q6H Prescribed by: ABRAHAM KIRAN on 03/07/19 140 Ibuprofen 600 Mg Tablet, 600 MG PO Q6H PRN for PAIN, (Reported) Ipratropium/Albuterol Sulfate 3 Ml Ampul.neb, 3 ML INH Q6H PRN for DYSPNEA Prescribed by: HERON JOE on 07/08/18 1134 Methylprednisolone 4 Mg Tab.ds.pk, 4 MG PO UD Prescribed by: THOMPSON FITCH on 07/16/182052 Mv,Ca,Min/Iron Fum/FA/Vit K 1 Each Tablet, 1 EACH PO DAILY, (Reported) Nitrofurantoin Monohyd/M-Cryst 100 Mg Capsule, 1 TAB PO BID Prescribed by: JUDY LEO on 11/30/181919 Ondansetron 4 Mg Tab.rapdis, 4 MG SL Q4H PRN for NAUSEA/VOMITING-1ST LINE Prescribed by: ANGY MARTINS on 03/01/18 0208 Ondansetron HCl 4 Mg Tab, 4 MG PO Q4H PRN for NAUSEA/VOMITING Prescribed by: JUDY LEO on 11/30/181919 Prazosin HCl 2 Mg Capsule, 6 MG PO HS, (Reported) Prednisone 10 Mg Tab, 20 MG PO DAILY, (Reported) FILLED 07/01/18 PATIENT STATES SHE STILL HAS TWO MORE DOSES Prednisone 20 Mg Tab, 2 TAB PO DAILY Prescribed by: MARIA C SWARTZ on 08/10/18 1322 Quetiapine Fumarate 200 Mg Tablet, 200 MG PO HS, (Reported) Patient Home Medication List Home Medication List Reviewed: Yes Past Oaqpfts-Empclw-Iybtvf Hx Patient Social History Alcohol Use: Denies Use Recreational Drug Use: No Smoking Status: Current Everyday Smoker Type Used: Cigarettes 2nd Hand Smoke Exposure: Yes Recent Foreign Travel: No Contact w/Someone Who Travel: No Recent Infectious Disease Expo: No Recent Hopitalizations: No Immunizations Up To Date Tetanus Booster (TDap): Unknown PED Vaccines UTD: Yes Date of Influenza Vaccine: Apr 20, 2018 Seasonal Allergies Seasonal Allergies: Yes Surgeries History of Surgeries: Yes ( X 1 --07/2013, WISDOM TEETH; REMOVAL OF RETAINED IUD) Surgeries: Section, Tonsillectomy Respiratory History of Respiratory Disorde: Yes (Tobaccoism) Respiratory Disorders: Asthma, Pneumonia Cardiovascular History of Cardiac Disorders: Yes Cardiac Disorders: High Cholesterol Neurological History of Neurological Disord: No Reproductive System Hx Reproductive Disorders: Yes (RETAINED IUD, hemorrhagic ovarian cysts) Sexually Transmitted Disease: No HIV/AIDS: No Female Reproductive Disorders: Menstrual Problems, Ovarian Cyst, Polycystic Ovarian Dis 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 Genitourinary History of Genitourinary Disor: Yes Genitourinary Disorders: Bladder Infection, Kidney Stones, UTI-Chronic Gastrointestinal History of Gastrointestinal Di: Yes Gastrointestinal Disorders: Gastroesophageal Reflux, Chronic Diarrhea, Irritable Bowel Musculoskeletal History of Musculoskeletal Dis: Yes Musculoskeletal Disorders: Fibromyalgia Endocrine History of Endocrine Disorders: Yes (VITAMIN D DEFICIENCY; OBESITY) HEENT History of HEENT Disorders: Yes Loss of Vision: Bilateral Hearing Impairment: Denies Cancer History of Cancer: No Psychosocial History of Psychiatric Problem: Yes (EXTENSIVE PSYCH ISSUES-PT STABLE ) Behavioral Health Disorders: ADD/ADHD, Sleep Difficulties, Anxiety, PTSD, Bipolar, Personality Disorder, Depression Integumentary History of Skin or Integumenta: No Blood Transfusions History of Blood Disorders: No Adverse Reaction to a Blood Tr: No Family Medical History Significant Family History: Asthma, Hypertension, Seizures, Stroke Family Medial History: Alcoholism 19 FATHER Asthma 19 MOTHER Completed stroke 19 FATHER DVT 19 FATHER Dementia 19 FATHER Diabetes mellitus 19 MOTHER FH: multiple sclerosis G8 SISTER Headache disorder G8 BROTHER Hypertension 19 FATHER 19 MOTHER Myocardial infarction 19 FATHER Seizure disorder 19 FATHER Review of Systems-General Constitutional: malaise, weakness EENTM: No blurred vision, No double vision, No mouth pain, No mouth swelling, No epistaxis Respiratory: No cough, No dyspnea on exertion; short of breath (with asthma attacks) Cardiovascular: No chest pain, No palpitations Gastrointestinal: No abdominal pain, No constipation, No melena, No nausea Genitourinary: No dysuria, No frequency, No hematuria Musculoskeletal: joint swelling, muscle pain, muscle stiffness Skin: change in color; No change in hair/nails, No other (abscess gluteal area, low back) Psychiatric/Neurological: Anxiety, Depressed; Denies Seizure, Denies Tremors Other pt denies any hx of abnormal bleeding or bruising Physical Exam-General Problems Physical Exam Vital Signs Vital Signs - First Documented 03/10/19 09:22 Temp 97.6 Pulse 96 Resp 18 B/P (MAP) 126/78 (94) Pulse Ox 97 O2 Delivery Room Air Capillary Refill : Less Than 3 Seconds General Appearance: moderate distress, obese Eyes: Bilateral Eye PERRL, Bilateral Eye EOMI HEENT: pharynx normal; No scleral icterus (R), No scleral icterus (L) Neck: non-tender, full range of motion, supple, normal inspection Respiratory: chest non-tender, lungs clear, normal breath sounds, no respiratory distress, no accessory muscle use Cardiovascular: regular rate, rhythm, no murmur Gastrointestinal: normal bowel sounds, non tender, soft, no organomegaly, no pulsatile mass Rectal: other (exam with nurse in the room, appears to have yani-rectal abscess, fluctuant area with erythema and very tender, around area of pilonidal cyst and previous attempted drainage) Back: no CVA tenderness, no vertebral tenderness Extremities: no pedal edema, no calf tenderness, normal capillary refill Neurologic/Psychiatric: hack driver II-XII nml as tested, alert, normal mood/affect, oriented x 3 Skin: normal color, warm/dry Lymphatic: no adenopathy (neck, axilla or groin) Assessment/Plan Assessment/Plan Assessment/Plan Pilonidal cyst with abscess Yani-rectal abscess Asthma Pt already had attempted drainage in the ER last week with PO ABX; unfortunately that has failed and she appears to have a new abscess. It is way too tender to attempt to drain in the ER. I explained to the pt that unless we get the purulent fluid out; the anti-biotics will not work. It would be best to do this in the OR for pain control; hopefully will be able to go home after procedure. Will get consent for Incision and drainage of yani-rectal abscess with debridement and possible packing. Went over risks and complications; not limited to pain, bleeding, infection and scar. We need to clear up the abscess and infection and in a few weeks can hopefully plan definitive excision/treatment of the area. All questions answered to pt's satisfaction. PEDRO IRWIN DO Mar 10, 2019 12:41
[2019-03-10] MEDS ORDERED: fentaNYL INJECTION 100 MCG/2 ML AMP ONE (13:19)
[2019-03-10] MEDS ORDERED: MIDAZOLAM 2 MG/2 ML (VERSED) VIAL ONE (13:20)
[2019-03-10] MEDS ORDERED: ceFAZolin 2 GM/50 ML NS 50 ML ONE (13:28)
[2019-03-10] MEDS ORDERED: LIDOCAINE PF 2% 5 ML (XYLOCAINE) VIAL ONE (13:59)
[2019-03-10] MEDS ORDERED: EPINEPHrine INJECTION 1 MG/ML AMP ONE ×2 (13:59→14:41)
[2019-03-10] MEDS ORDERED: proPOfol 200 MG/20 ML (DIPRIVAN) VIAL IV ONE (13:59)
[2019-03-10] MEDS ORDERED: SEVOFLURANE (ULTANE) 15 ML INHAL SOLN ONE ×3 (13:59→14:00)
[2019-03-10] MEDS ORDERED: ROCURONIUM 10 MG/ML 5 ML SYRINGE IV ONE (13:59)
[2019-03-10] MEDS ORDERED: ONDANSETRON 4 MG/2 ML (SDV) Z0FRAN ONE (13:59)
[2019-03-10] MEDS ORDERED: PROPOFOL INJECTION 0 ML IV ONE (13:59)
--- NOTE | 2019-03-10 14:13 | Progress Note-Post Operative ---
Post-Operative Progess Note Surgeon (s)/Senior Controls Analyst (s) Surgeon PEDRO IRWIN DO Senior Controls Analyst: NONE Pre-Operative Diagnosis Pilonidal Abscess Post-Operative Diagnosis Same Procedure & Operative Findings Date of Procedure 03/10/19 Procedure Performed/Findings I&D with debridement and packing Anesthesia Type GET Estimated Blood Loss Estimated blood loss (mL): scant Specimens/Packing Specimens Removed culture of abscess Packin/2" iodophor packing PEDRO IRWIN DO Mar 10, 2019 14:13
[2019-03-10] MEDS ORDERED: ACHD5005 PO (14:15)
--- NOTE | 2019-03-10 14:17 | Discharge Inst-Surgical ---
Discharge Inst-Surgical Depart Medication/Instructions New, Converted or Re-Newed RX: RX Given to Pt/Family Patient Instructions Follow up Appt: Make appointment for . [phone] Instructions: No strenuous activity. May shower in 24 hours, no tub bath or soaking. Use incentive spirometer at home as directed. No Smoking Skin/Wound Care: May remove bandages in am. You need to come in to office to have packing changed daily. Symptoms to Report: Appetite Changes, Extremity Discoloration, Numbness/Tingling, Swelling Increased, Bleeding Excessive, Eyesight Changes, Pain Increased, Urine Color Change, Constipation(Persistent), Fever over 101 degree F, Pain/Pressure in chest, Urinating Difficulty, Cough Up/Vomit Blood, Heart Beat Irreg/Pounding, Pain/Pressure in jaw, Cramps in feet or legs, Lightheadedness, Pain/Pressure in shoulder, Diarrhea(Persistent), Memory Changes Suddenly, Questions/Concerns, Weight gain consecutive days, Dizziness/Fainting, Nausea/Vomiting, Shortness of Breath, Weight gain over 2 pounds If questions or concerns contact your physician Or seek help at emergency department. Activity Activity as Tolerated: Yes Driving Instructions: No Driving/Refer to Dr. Addison Discharge Diet: No Restrictions Diet After 24 Hours: Clear Liquid if Nauseous If Any Problems/Questions/Issu: Contact Your Physician, Go to Emergency Room Skin/Wound Care Infection Signs and Symptoms: Increased Redness, Foul Odor of Wound, Increased Drainage, Skin Itchy or Has a Rash, Increased Swelling, Temperature Above 101 F Wound Care Comment: Iodophor packing Bathing Instructions: PEDRO Gan DO Mar 10, 2019 14:17
[2019-03-10] MEDS ORDERED: RT-ALBUTEROL SULF 2.5 MG/3 ML PRE-MIX VIAL ONE (14:21)
[2019-03-10] MEDS ORDERED: ceFAZolin 2 GM/50 ML NS 50 ML IV ONE (14:30)
[2019-03-10] MEDS ORDERED: morphine INJ 10 MG/ML 1ML (SYR OR VIAL) ONE (15:05)
[2019-03-10] MEDS ORDERED: MEPERIDINE (DEMEROL) INJ 50 MG/ML IVP ONE (15:30)
[2019-03-10] MEDS ORDERED: RT-ALBUTEROL SULF 2.5 MG/3 ML PRE-MIX VIAL INH ONE (15:30)
[2019-03-10] MEDS ORDERED: morphine INJ 10 MG/ML 1ML (SYR OR VIAL) IVP ONE (15:30)
[2019-03-10] MEDS ORDERED: ONDANSETRON 4 MG/2 ML (SDV) Z0FRAN IVP PRN (15:30)
[2019-03-10] MEDS ORDERED: HYDROcodone/APAP 5 MG/325 MG (LORTAB) TAB ONE (16:16)
[2019-03-10] MEDS ORDERED: HYDROcodone/APAP 5 MG/325 MG (LORTAB) TAB PO ONE (16:30)
--- NOTE | 2019-03-11 23:00 | OPERATIVE REPORT ---
DATE OF SERVICE: 03/10/2019 PREOPERATIVE DIAGNOSIS: Perirectal abscess, pilonidal cyst. POSTOPERATIVE DIAGNOSIS: Perirectal abscess, pilonidal cyst. PROCEDURE: Incision and drainage with debridement and packing of this gluteal abscess. SURGEON: Kimo Lind DO THIN FILM TECHNICIAN: None. ANESTHESIA: General endotracheal tube. SPECIMEN: Fluid culture. BLOOD LOSS: Scant. FLUIDS: Per anesthesia. POSTOPERATIVE CONDITION: Stable. INDICATION FOR PROCEDURE: The patient is a 28-year-old female who had a pilonidal cyst. Attempted drainage by the ER, but it came back and got worse and needed to go to the OR to get this I and D. FINDINGS: The patient had a large cavity, probably about 4 cm deep x about 2 cm wide and about 4 to 5 cm long filled with pus. Cultures obtained and sent to pathology. PROCEDURE NOTE: After informed consent was obtained, the patient was brought to the operating room, placed on table in the right lateral decubitus position. She was sterilely prepped and draped in normal fashion. I made the incision with #11 blade right through the area of fluctuance. Immediately got out purulent fluid as well as some bleeding. Extended this incision to the previous stab incision done by the ER and then roughly debrided the necrotic tissue with lap sponges as well as then used Bovie electrocautery to cut out any necrotic. Again measured, it was about 4 cm deep, about 4.5 to 5 cm long and then about 2 cm wide flushed this out copiously irrigated with sterile saline and then packed with half inch iodoform packing. The patient was then transferred to recovery room in stable condition. Sponge, instrument and needle counts correct at the end of the case. Job ID: [id number] DocumentID: [id number] Dictated Date: 03/11/2019 17:22:28 Lime Kiln Tender Date: 03/11/2019 22:58:52 Dictated By: KIMO LIND DO [facility]
== END 2019-03-10 16:48 | disposition home or self-care (01) ==
LOC: EDUNIT# 09:11 → ER 09:12 → SDC 11:40
PROVIDERS: ATTEND Surgery
DX: L05.01 Pilonidal cyst with abscess (principal); F17.210 Nicotine dependence, cigarettes, uncomplicated; Z79.899 Other long term (current) drug therapy; J45.909 Unspecified asthma, uncomplicated; E78.00 Pure hypercholesterolemia, unspecified; Z87.440 Personal history of urinary (tract) infections; Z87.442 Personal history of urinary calculi; K21.9 Gastro-esophageal reflux disease without esophagitis; K58.0 Irritable bowel syndrome with diarrhea; E55.9 Vitamin D deficiency, unspecified; M79.7 Fibromyalgia; E66.9 Obesity, unspecified; F90.9 Attention-deficit hyperactivity disorder, unspecified type; F41.9 Anxiety disorder, unspecified; F31.9 Bipolar disorder, unspecified; F43.10 Post-traumatic stress disorder, unspecified; F60.9 Personality disorder, unspecified
CPT/HCPCS: 84703; 87070; 87075; 87077; 87081; 87185; 87205; 96374; 96375

== ENCOUNTER 2019-03-21 17:12 | Emergency (ER) | payer SELFPAY ==
[~2019-03-21] VITALS: Ht 152.4 cm; Wt 106.6 kg
--- NOTE | 2019-03-21 17:23 | NUR ---
pt here with " ". pt alert gcs 15. pt s/p pylenidal cyst surgery 11 days ago.
--- NOTE | 2019-03-21 17:23 | NUR ---
pt been doing wound care and packing at home. pt relates she thinks wound is infected starting 2 days ago and today pt c/o increased pain. pt also ran out of pain meds and surgeon told them pt has another 1 under the 1st one and needs another surgery. pt surgeon on vacation. pain rating 8. on exam wound does not appear to be infected. just slight redness at edges and wound is packed w/o drainage noted. done yuan rucker at 1730.
[2019-03-21] MEDS ORDERED: ACHD5005 PO (18:19)
--- NOTE | 2019-03-21 18:20 | ED General ---
General Chief Complaint: Skin/Wound Problems Stated Complaint: POST CYST REMOVAL/OPEN WOUND/PAIN Nursing Triage Note: s/p pylenidal cyst surgery Nursing Sepsis Screen: No Definite Risk (YENNIFER HAMLIN) History of Present Illness Date Seen by Provider: Mar 21, 2019 Time Seen by Provider: 17:50 Initial Comments Patient presents to ER by private conveyance with her significant other that she's having some increased drainage from her pilonidal cyst surgery from [address] Irwin. She's had no fevers nausea vomiting chills. Aseptic vital signs per nursing. She's been packing it daily with her mother and and she cannot see it. She's had multiple bilateral cysts incision and drainages. She says she's also recently ran out of pain medicine. She tried to go to Dr. Irwin's office today but he is not in the office on Sunday. (GARY LIMON) Allergies and Home Medications Allergies Coded Allergies: prochlorperazine (Unverified Adverse Reaction, Unknown, 08/24/17) tramadol (Unverified Adverse Reaction, Unknown, 08/24/17) Home Medications Albuterol Sulfate 18 Gm Hfa.aer.ad, 1-2 PUFF IH Q4H PRN for SHORTNESS OF BREATH Prescribed by: HERON JOE on 07/08/18 1134 Albuterol/Ipratropium 4 Gm Aero, 1 PUFF IH DAILY, (Reported) Amoxicillin 500 Mg Capsule, 1,000 MG PO BID Prescribed by: MARIA C SWARTZ on 08/10/18 132 Atorvastatin Calcium 20 Mg Tablet, 20 MG PO DAILY, (Reported) Baclofen 10 Mg Tablet, 10 MG PO BID, (Reported) Benzonatate 100 Mg Capsule, 1-2 TAB PO TID Prescribed by: THOMPSON FITCH on 07/16/182052 Benzonatate 100 Mg Capsule, 1-2 CAP PO HS PRN for COUGH do NOT use during the daytime. you need the cough to keep the lungs open during the daytime. Prescribed by: MARIA C SWARTZ on 08/10/18 132 Budesonide 1 Mg/2 Ml Ampul.neb, 1 MG IH BID Prescribed by: THOMPSON FITCH on 07/16/182052 Buspirone HCl 15 Mg Tablet, 15 MG PO TID, (Reported) Cholecalciferol (Vitamin D3) 1,000 Unit Capsule, 1,000 UNIT PO BID, (Reported) Ciprofloxacin HCl 500 Mg Tablet, 500 MG PO BID Prescribed by: MARIA C SWARTZ on 08/10/18 1322 Clindamycin HCl 300 Mg Capsule, 300 MG PO TID Prescribed by: ABRAHAM KIRAN on 03/07/19 1402 Cranberry Extract 500 Mg Tablet, 1,000 MG PO BID, (Reported) Dextroamphetamine/Amphetamine 10 Mg Tablet, 10 MG PO BID, (Reported) Dicyclomine HCl 20 Mg Tablet, 20 MG PO QID, (Reported) Diphenhydramine HCl 25 Mg Tablet, 25 MG PO BID, (Reported) Docusate Sodium 100 Mg Capsule, 100 MG PO BID PRN for CONSTIPATION Prescribed by: AILYN VERGARA on 10/23/16 0735 Doxycycline Monohydrate 100 Mg Capsule, 100 MG PO BID Prescribed by: THOMPSON FITCH on 07/16/182052 Famotidine 20 Mg Tablet, 20 MG PO BID, (Reported) Fluticasone Propionate 16 Gm [place].susp, 1 SPRAY NSEACH HS, (Reported) Guaifenesin/Dextromethorphan 1 Each Tbmp.12hr, 1 EACH PO BID Prescribed by: THOMPSON FITCH on 07/16/182052 Hydrocodone Bit/Acetaminophen 1 Tab Tab, 1 TAB PO Q6H PRN for PAIN-MODERATE Prescribed by: PEDRO IRWIN on 03/10/19 1415 Hydrocodone Bit/Acetaminophen 1 Tab Tab, 1 EACH PO Q8H PRN for PAIN-MODERATE Prescribed by: YENNIFER HAMLIN on 03/21/19 1819 Ibuprofen 600 Mg Tablet, 600 MG PO Q6H PRN for PAIN, (Reported) Ipratropium/Albuterol Sulfate 3 Ml Ampul.neb, 3 ML INH Q6H PRN for DYSPNEA Prescribed by: HERON JOE on 07/08/18 1134 Methylprednisolone 4 Mg Tab.ds.pk, 4 MG PO UD Prescribed by: THOMPSON FITCH on 07/16/182052 Mv,Ca,Min/Iron Fum/FA/Vit K 1 Each Tablet, 1 EACH PO DAILY, (Reported) Nitrofurantoin Monohyd/M-Cryst 100 Mg Capsule, 1 TAB PO BID Prescribed by: JUDY LEO on 11/30/181919 Ondansetron 4 Mg Tab.rapdis, 4 MG SL Q4H PRN for NAUSEA/VOMITING-1ST LINE Prescribed by: ANGY MARTINS on 03/01/18 0208 Ondansetron HCl 4 Mg Tab, 4 MG PO Q4H PRN for NAUSEA/VOMITING Prescribed by: JUDY LEO on 11/30/181919 Prazosin HCl 2 Mg Capsule, 6 MG PO HS, (Reported) Prednisone 10 Mg Tab, 20 MG PO DAILY, (Reported) FILLED 07/01/18 PATIENT STATES SHE STILL HAS TWO MORE DOSES Prednisone 20 Mg Tab, 2 TAB PO DAILY Prescribed by: MARIA C SWARTZ on 08/10/18 1322 Quetiapine Fumarate 200 Mg Tablet, 200 MG PO HS, (Reported) Patient Home Medication List Home Medication List Reviewed: Yes (GARY LIMON) Review of Systems Review of Systems Constitutional: No chills, No diaphoresis EENTM: No ear discharge, No ear pain Respiratory: No cough, No phlegm Cardiovascular: No chest pain, No edema Gastrointestinal: No abdominal pain, No nausea Genitourinary: No discharge, No dysuria (GARY LIMON) Past Pvzdlko-Djvlav-Wndtau Hx Patient Social History Alcohol Use: Denies Use Recreational Drug Use: No Smoking Status: Current Everyday Smoker Type Used: Cigarettes 2nd Hand Smoke Exposure: Yes Recent Foreign Travel: No Contact w/Someone Who Travel: No Recent Infectious Disease Expo: No Recent Hopitalizations: No Physical Abuse: No Sexual Abuse: No (YENNIFER HAMLIN) Immunizations Up To Date Tetanus Booster (TDap): Unknown PED Vaccines UTD: No Date of Influenza Vaccine: Apr 20, 2018 (YENNIFER HAMLIN) Seasonal Allergies Seasonal Allergies: Yes (YENNIFER HAMLIN) Past Medical History Surgeries: Yes ( X 1 --07/2013, WISDOM TEETH; REMOVAL OF RETAINED IUD) Section, Tonsillectomy Respiratory: Yes (Tobaccoism) Asthma, Pneumonia Cardiac: Yes High Cholesterol Neurological: No Reproductive Disorders: Yes (RETAINED IUD, hemorrhagic ovarian cysts) Female Reproductive Disorders: Menstrual Problems, Ovarian Cyst, 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 Sexually Transmitted Disease: No HIV/AIDS: No Genitourinary: Yes Bladder Infection, Kidney Stones, UTI-Chronic Gastrointestinal: Yes Gastroesophageal Reflux, Chronic Diarrhea, Irritable Bowel Musculoskeletal: Yes Fibromyalgia Endocrine: Yes (VITAMIN D DEFICIENCY; OBESITY) HEENT: Yes Loss of Vision: Bilateral Hearing Impairment: Denies Cancer: No Psychosocial: Yes (EXTENSIVE PSYCH ISSUES-PT STABLE ) ADD/ADHD, Sleep Difficulties, Anxiety, PTSD, Bipolar, Personality Disorder, Depression Integumentary: No Blood Disorders: No Adverse Reaction/Blood Tranf: No (YENNIFER HAMLIN) Family Medical History Alcoholism 19 FATHER Asthma 19 MOTHER Completed stroke 19 FATHER DVT 19 FATHER Dementia 19 FATHER Diabetes mellitus 19 MOTHER FH: multiple sclerosis G8 SISTER Headache disorder G8 BROTHER Hypertension 19 FATHER 19 MOTHER Myocardial infarction 19 FATHER Seizure disorder 19 FATHER Asthma, Hypertension, Seizures, Stroke (YENNIFER HAMLIN) Physical Exam Vital Signs Vital Signs - First Documented 03/21/19 17:23 Temp 97.8 Pulse 80 Resp 16 B/P (MAP) 140/107 (118) Pulse Ox 94 O2 Delivery Room Air (GARY LIMON) Vital Signs Capillary Refill : Less Than 3 Seconds (YENNIFER HAMLIN) Height, Weight, BMI Height: 5'0" Weight: 235lbs. 0.0oz. 106.816864gx; 45.9 BMI Method:Stated (YENNIFER HAMLIN) General Appearance: No Apparent Distress, WD/WN, Obese Eyes: Bilateral Eye Normal Inspection, Bilateral Eye PERRL, Bilateral Eye EOMI HEENT: PERRL/EOMI, Pharynx Normal, Moist Mucous Membranes Neck: Full Range of Motion, Normal Inspection Respiratory: No Accessory Muscle Use, No Respiratory Distress Extremity: Normal Capillary Refill, Normal Inspection Neurologic/Psychiatric: Alert, Oriented x3 Skin: Other (there is an open wound approximately 1 cm wide by 3.5 cm long and 1.25 cm deep with good healthy, beefy red granulation tissue without clinically significant or surrounding erythema, fluctuance or tension of the skin.) (GARY LIMON) Progress/Results/Core Measures Suspected Sepsis Recent Fever Within 48 Hours: No Infection Criteria Present: None New/Unexplained Altered Menta: No Sepsis Screen: No Definite Risk SIRS Temperature:97.8 Pulse: 80 Respiratory Rate: 16 Blood Pressure 140 /107 Mean: 118 (YENNIFER HAMLIN) Results/Orders Vital Signs/I&O 03/21/19 17:23 Temp 97.8 Pulse 80 Resp 16 B/P (MAP) 140/107 (118) Pulse Ox 94 O2 Delivery Room Air (GARY LIMON) Vital Signs/I&O Capillary Refill : Less Than 3 Seconds (YENNIFER HAMLIN) Blood Pressure Mean: 118 Progress Note : Time: 18:23 Progress Note Remove the packing probed the wound using a sterile cotton tipped applicator and did not find any evidence of any other tracts. There are some old scars below this that are evidence of previous fistula tracks that they do not appear active. There is no evidence of fluctuance or other abscess. Flush the wound with sterile saline. We repacked the wound with half-inch iodoform and gauze. Pain medicine to get through the weekend and follow up with Dr. Irwin Sunday. (GARY LIMON) Departure Impression Primary Impression: Pilonidal cyst Disposition: 01 HOME, SELF-CARE Condition: Stable Departure-Patient Inst. Decision time for Depature: 18:10 (GARY LIMON) Referrals: [facility] (PCP/Family) Primary Care Physician Patient Instructions: Pilonidal Cyst (DC) Add. Discharge Instructions: Take your pain medication as directed. Follow-up with Dr. Irwin Sunday morning. Return to emergency department for fever greater than 101 not relieved by Tylenol or ibuprofen, increased pain or swelling, or new concerns. All discharge instructions reviewed with patient and/or family. Voiced understanding. Scripts Hydrocodone Bit/Acetaminophen (Hydrocodone/Acetaminophen 5/325mg Tablet) 1 Tab Tab 1 EACH PO Q8H PRN for PAIN-MODERATE MDD 10, #15 TAB 0 Refills Prov: YENNIFER HAMLIN 03/21/19 Copy Copies To 1: PEDRO IRWIN AMY ARNP Mar 21, 2019 18:20 GARY LIMON Mar 21, 2019 18:25
[2019-03-21 18:28] VITALS: BP 123/86
--- NOTE | 2019-03-21 18:28 | NUR ---
d/c instrcutions to pt. told to read all papers. script paper only. pt left ambulatory with . pt knows f/u. i went over the handtyped by information on the chart. pt had no iv.
== END 2019-03-21 18:28 | disposition home or self-care (01) ==
LOC: EDUNIT# 17:12 → ER 17:13
DX: L05.91 Pilonidal cyst without abscess (principal); J45.909 Unspecified asthma, uncomplicated; E78.00 Pure hypercholesterolemia, unspecified; K21.9 Gastro-esophageal reflux disease without esophagitis; K58.9 Irritable bowel syndrome, unspecified; M79.7 Fibromyalgia; E66.9 Obesity, unspecified; F41.9 Anxiety disorder, unspecified; F60.9 Personality disorder, unspecified; F31.9 Bipolar disorder, unspecified; F43.10 Post-traumatic stress disorder, unspecified; H54.7 Unspecified visual loss; F90.9 Attention-deficit hyperactivity disorder, unspecified type; F17.210 Nicotine dependence, cigarettes, uncomplicated; Z87.442 Personal history of urinary calculi; Z87.440 Personal history of urinary (tract) infections; Z90.89 Acquired absence of other organs; Z88.5 Allergy status to narcotic agent; Z79.51 Long term (current) use of inhaled steroids; Z79.52 Long term (current) use of systemic steroids; Z82.49 Family history of ischemic heart disease and other diseases of the circulatory system
CPT/HCPCS: 99282

== ENCOUNTER 2019-06-08 21:42 | Emergency (ER) | payer SELFPAY ==
[~2019-06-08] VITALS: Ht 152 cm; Wt 103.6 kg
[2019-06-08] MEDS ORDERED: HYDROcodone/APAP 5 MG/325 MG (LORTAB) TAB PO ONE (22:45)
--- NOTE | 2019-06-08 23:14 | ED Upper Extremity ---
General Chief Complaint: Upper Extremity Stated Complaint: SWOLLEN RT HAND Nursing Triage Note: AMBULATORY TO ED FT1 WITH C/O PAIN TO RIGHT HAND THAT STARTED AT 0800 YESTERDAY. STATES SHE TOOK 4 IBUPROFEN, BUT PAIN IS WORSE AND NOW RIGHT HAND IS SWELLING AND SHE STATES SHE CAN'T MOVE IT. Nursing Sepsis Screen: No Definite Risk Source: patient Exam Limitations: no limitations History of Present Illness Date Seen by Provider: Jun 08, 2019 Time Seen by Provider: 22:30 Initial Comments 28-year-old female patient presents with right thumb pain, right wrist pain radiating up the right forearm. Reports pain started yesterday at 0800 when she was lifting an object. Reports taking 4 ibuprofen 200 mg just prior to arrival. Reports pain is worse today. Onset: yesterday Pain/Injury Location: right forearm, right wrist, right thumb Method of Injury: other (patient reports lifting an object when the pain started.) Modifying Factors: Improves With Immobilization; Worse With Movement, Worse With Pain Medication (no improvement with ibuprofen) Allergies and Home Medications Allergies Coded Allergies: prochlorperazine (Unverified Adverse Reaction, Unknown, 08/24/17) tramadol (Unverified Adverse Reaction, Unknown, 08/24/17) Home Medications Albuterol Sulfate 18 Gm Hfa.aer.ad, 1-2 PUFF IH Q4H PRN for SHORTNESS OF BREATH Prescribed by: HERON JOE on 07/08/18 1134 Albuterol/Ipratropium 4 Gm Aero, 1 PUFF IH DAILY, (Reported) Amoxicillin 500 Mg Capsule, 1,000 MG PO BID Prescribed by: MARIA C SWARTZ on 08/10/18 132 Atorvastatin Calcium 20 Mg Tablet, 20 MG PO DAILY, (Reported) Baclofen 10 Mg Tablet, 10 MG PO BID, (Reported) Benzonatate 100 Mg Capsule, 1-2 TAB PO TID Prescribed by: THOMPSON FITCH on 07/16/182052 Benzonatate 100 Mg Capsule, 1-2 CAP PO HS PRN for COUGH do NOT use during the daytime. you need the cough to keep the lungs open during the daytime. Prescribed by: MARIA C SWARTZ on 08/10/18 132 Budesonide 1 Mg/2 Ml Ampul.neb, 1 MG IH BID Prescribed by: THOMPSON FITCH on 07/16/182052 Buspirone HCl 15 Mg Tablet, 15 MG PO TID, (Reported) Cholecalciferol (Vitamin D3) 1,000 Unit Capsule, 1,000 UNIT PO BID, (Reported) Ciprofloxacin HCl 500 Mg Tablet, 500 MG PO BID Prescribed by: MARIA C SWARTZ on 08/10/18 1322 Clindamycin HCl 300 Mg Capsule, 300 MG PO TID Prescribed by: ABRAHAM KIRAN on 03/07/19 1402 Cranberry Extract 500 Mg Tablet, 1,000 MG PO BID, (Reported) Dextroamphetamine/Amphetamine 10 Mg Tablet, 10 MG PO BID, (Reported) Dicyclomine HCl 20 Mg Tablet, 20 MG PO QID, (Reported) Diphenhydramine HCl 25 Mg Tablet, 25 MG PO BID, (Reported) Docusate Sodium 100 Mg Capsule, 100 MG PO BID PRN for CONSTIPATION Prescribed by: AILYN VERGARA on 10/23/16 0735 Doxycycline Monohydrate 100 Mg Capsule, 100 MG PO BID Prescribed by: THOMPSON FITCH on 07/16/182052 Famotidine 20 Mg Tablet, 20 MG PO BID, (Reported) Fluticasone Propionate 16 Gm [place].susp, 1 SPRAY NSEACH HS, (Reported) Guaifenesin/Dextromethorphan 1 Each Tbmp.12hr, 1 EACH PO BID Prescribed by: THOMPSON FITCH on 07/16/182052 Hydrocodone Bit/Acetaminophen 1 Tab Tab, 1 TAB PO Q6H PRN for PAIN-MODERATE Prescribed by: PEDRO IRWIN on 03/10/19 1415 Hydrocodone Bit/Acetaminophen 1 Tab Tab, 1 EACH PO Q8H PRN for PAIN-MODERATE Prescribed by: YENNIFER HAMLIN on 03/21/19 1819 Ibuprofen 600 Mg Tablet, 600 MG PO Q6H PRN for PAIN, (Reported) Ipratropium/Albuterol Sulfate 3 Ml Ampul.neb, 3 ML INH Q6H PRN for DYSPNEA Prescribed by: HERON JOE on 07/08/18 1134 Methylprednisolone 4 Mg Tab.ds.pk, 4 MG PO UD Prescribed by: THOMPSON FITCH on 07/16/182052 Mv,Ca,Min/Iron Fum/FA/Vit K 1 Each Tablet, 1 EACH PO DAILY, (Reported) Nitrofurantoin Monohyd/M-Cryst 100 Mg Capsule, 1 TAB PO BID Prescribed by: JUDY LEO on 11/30/181919 Ondansetron 4 Mg Tab.rapdis, 4 MG SL Q4H PRN for NAUSEA/VOMITING-1ST LINE Prescribed by: ANGY MARTINS on 03/01/18 020 Ondansetron HCl 4 Mg Tab, 4 MG PO Q4H PRN for NAUSEA/VOMITING Prescribed by: JUDY LEO on 11/30/181919 Prazosin HCl 2 Mg Capsule, 6 MG PO HS, (Reported) Prednisone 10 Mg Tab, 20 MG PO DAILY, (Reported) FILLED 07/01/18 PATIENT STATES SHE STILL HAS TWO MORE DOSES Prednisone 20 Mg Tab, 2 TAB PO DAILY Prescribed by: MARIA C SWARTZ on 08/10/18 1322 Prednisone 20 Mg Tab, 40 MG PO DAILY Prescribed by: MARIA C SWARTZ on 06/08/19 2330 Quetiapine Fumarate 200 Mg Tablet, 200 MG PO HS, (Reported) Patient Home Medication List Home Medication List Reviewed: Yes Review of Systems Constitutional: No chills, No fever, No malaise Respiratory: no symptoms reported Cardiovascular: no symptoms reported Musculoskeletal: see HPI, joint pain, joint swelling Skin: no symptoms reported Psychiatric/Neurological: Denies Numbness, Denies Paresthesia, Denies Tingling, Denies Tremors, Denies Weakness All Other Systems Reviewed Negative Unless Noted: Yes (Negative excepted noted.) Past Qchvenf-Xqvnxx-Jklbsd Hx Past Med/Social Hx: Reviewed Nursing Past Med/Soc Hx Patient Social History Alcohol Use: Occasionally Uses Recreational Drug Use: No Type Used: Cigarettes 2nd Hand Smoke Exposure: Yes Recent Foreign Travel: No Contact w/Someone Who Travel: No Recent Infectious Disease Expo: No Recent Hopitalizations: No Physical Abuse: No Sexual Abuse: No Mistreated: No Fear: No Immunizations Up To Date Tetanus Booster (TDap): Unknown Date of Influenza Vaccine: Apr 20, 2018 Seasonal Allergies Seasonal Allergies: Yes Past Medical History Surgeries: Yes ( X 1 --07/2013, WISDOM TEETH; REMOVAL OF RETAINED IUD) Section, Tonsillectomy Respiratory: Yes (Tobaccoism) Asthma, Pneumonia Cardiac: Yes High Cholesterol Neurological: No Reproductive Disorders: Yes (RETAINED IUD, hemorrhagic ovarian cysts) Female Reproductive Disorders: Menstrual Problems, Ovarian Cyst, 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 Sexually Transmitted Disease: No HIV/AIDS: No Genitourinary: Yes Bladder Infection, Kidney Stones, UTI-Chronic Gastrointestinal: Yes Gastroesophageal Reflux, Chronic Diarrhea, Irritable Bowel Musculoskeletal: Yes Fibromyalgia Endocrine: Yes (VITAMIN D DEFICIENCY; OBESITY) HEENT: Yes Loss of Vision: Bilateral Hearing Impairment: Denies Cancer: No Psychosocial: Yes ADD/ADHD, Sleep Difficulties, Anxiety, PTSD, Bipolar, Personality Disorder, Depression Integumentary: No Blood Disorders: No Adverse Reaction/Blood Tranf: No Family Medical History Reviewed Nursing Family Hx Alcoholism 19 FATHER Asthma 19 MOTHER Completed stroke 19 FATHER DVT 19 FATHER Dementia 19 FATHER Diabetes mellitus 19 MOTHER FH: multiple sclerosis G8 SISTER Headache disorder G8 BROTHER Hypertension 19 FATHER 19 MOTHER Myocardial infarction 19 FATHER Seizure disorder 19 FATHER Asthma, Hypertension, Seizures, Stroke Physical Exam Vital Signs Vital Signs - First Documented 06/08/19 06/08/19 21:56 23:40 Temp 36.6 Pulse 101 Resp 20 B/P (MAP) 107/82 (90) Pulse Ox 98 O2 Delivery Room Air Capillary Refill : Less Than 3 Seconds Height, Weight, BMI Height: 5'0" Weight: 235lbs. 0.0oz. 106.546459tg; 44.00 BMI Method:Stated General Appearance: WD/WN, no apparent distress Cardiovascular: normal peripheral pulses, regular rate, rhythm, no edema, no murmur Respiratory: lungs clear, normal breath sounds, no respiratory distress, no accessory muscle use Shoulder: normal inspection, non-tender, no evidence of injury, normal ROM Elbow/Forearm: normal inspection, Right, bone tenderness (mid to distal lateral forearm), limited ROM, pain, soft tissue tenderness (lateral mid to distal forearm) Wrist: Yes bone tenderness (lateral right wrist), Yes limited ROM, Yes pain, Yes soft tissue tenderness (lateral right wrist) Hand: Right, bone tenderness, limited ROM, soft tissue tenderness, swelling (mild swelling right thumb and lateral hand) Neurologic/Tendon: normal sensation, normal motor functions, normal tendon functions, responds to pain, no evidence tendon injury Neurologic/Psychiatric: no motor/sensory deficits, alert, normal mood/affect, oriented x 3 Skin: normal color, warm/dry; No cyanosis, No cool, No ecchymosis, No other (no erythema or warmth.) Progress/Results/Core Measures Results/Orders My Orders Orders - MARIA C SWARTZ Forearm, Right, 2 Views (06/08/19 22:38) Hand, Right, 3 Views (06/08/19 22:38) Hydrocodone/Apap 5/325 Tablet (Lortab 5 (06/08/19 22:45) Wrist-[place] (06/08/19 23:40) Medications Given in ED Current Medications Medications Dose Ordered Sig/Hina Route Start Time Stop Time Status Last Admin Dose Admin Acetaminophen/ Hydrocodone Bitart 1 tab ONCE ONCE PO 06/08/19 22:45 06/08/19 22:46 DC 06/08/19 23:24 1 TAB Vital Signs/I&O 06/08/19 06/08/19 21:56 23:40 Temp 36.6 36.6 Pulse 101 98 Resp 20 20 B/P (MAP) 107/82 (90) 110/80 (90) Pulse Ox 98 O2 Delivery Room Air Blood Pressure Mean: 90 Diagnostic Imaging Diagonstic Imaging: Xray Plain Films/CT/US/NM/MRI: hand (right) Comments no acute bony abnormality Reviewed: Reviewed by Me Diagonstic Imaging: Xray Plain Films/CT/US/NM/MRI: forearm Comments no acute bony abnormality. Reviewed: Reviewed by Me Departure Communication (Admissions) Patient seen and evaluated. X-ray of the right forearm and right hand obtained. Diagnostic findings discussed with the patient. Patient was placed in a universal thumb spica wrist brace and discharged to home. Impression Primary Impression: Sprain of hand, right Qualified Codes: S63.91XA - Sprain of unspecified part of right wrist and hand, initial encounter Additional Impression: Sprain of wrist, right Qualified Codes: S63.501A - Unspecified sprain of right wrist, initial encounter Disposition: HOME, SELF-CARE Condition: Improved Departure-Patient Inst. Decision time for Depature: 23:21 Referrals: HERON JOE MD (PCP/Family) Primary Care Physician Patient Instructions: Common Wrist Injuries (DC) Add. Discharge Instructions: All discharge instructions reviewed with patient and/or family. Voiced understanding. Tylenol over the counter as directed for pain. Motrin 800mg by mouth every 8 hours as needed for pain. Elevate the right hand/wrist on pillows and use an ice pack as needed for pain. Wrist brace as instructed. Follow-up with your family practitioner for recheck if no improvement in symptoms. Return to the emergency department for worsened symptoms or any other concerns. Scripts Prednisone (Prednisone) 20 Mg Tab 40 MG PO DAILY, #10 TAB 0 Refills Prov: MARIA C SWARTZ 06/08/19 MARIA C SWARTZ Jun 08, 2019 23:14
[2019-06-08] MEDS ORDERED: PRD20T PO (23:30)
[2019-06-08 23:40] VITALS: BP 110/80
--- NOTE | 2019-06-09 08:05 | Diagnostic Imaging Report ---
HAND, RIGHT, 3 VIEWS COMPARISON: None available. INDICATION: Right hand pain. No known injury. TECHNIQUE: PA, oblique and lateral views of the hand. FINDINGS: No fracture or traumatic malalignment. No radiopaque foreign body. Joint spaces are well-maintained. IMPRESSION: 1. No acute fracture or malalignment. Dictated by: Dictated on workstation # [id number]
--- NOTE | 2019-06-09 08:11 | Diagnostic Imaging Report ---
INDICATION: Right arm pain. COMPARISON: Right hand radiographs performed concurrently. TECHNIQUE: 2 views of the right forearm were obtained. FINDINGS: No fracture, periosteal reaction or concerning focal osseous lesion. No discrete soft tissue swelling or radiopaque foreign body. Elbow and wrist are grossly normal in alignment. IMPRESSION: Normal right forearm radiograph. Dictated by: Dictated on workstation # [id number]
== END 2019-06-08 23:40 | disposition home or self-care (01) ==
LOC: EDUNIT# 21:42 → ER 21:45
DX: S63.91XA Sprain of unspecified part of right wrist and hand, initial encounter (principal); S63.501A Unspecified sprain of right wrist, initial encounter; F90.9 Attention-deficit hyperactivity disorder, unspecified type; F43.10 Post-traumatic stress disorder, unspecified; F31.9 Bipolar disorder, unspecified; F60.9 Personality disorder, unspecified; F41.9 Anxiety disorder, unspecified; E78.00 Pure hypercholesterolemia, unspecified; E66.9 Obesity, unspecified; K21.9 Gastro-esophageal reflux disease without esophagitis; K58.9 Irritable bowel syndrome, unspecified; M79.7 Fibromyalgia; Z88.5 Allergy status to narcotic agent; Z87.440 Personal history of urinary (tract) infections; Z87.442 Personal history of urinary calculi; Z68.41 Body mass index [BMI] 40.0-44.9, adult; Z88.8 Allergy status to other drugs, medicaments and biological substances; Z79.51 Long term (current) use of inhaled steroids; Z79.52 Long term (current) use of systemic steroids; Z77.22 Contact with and (suspected) exposure to environmental tobacco smoke (acute) (chronic); Z90.89 Acquired absence of other organs; Z82.49 Family history of ischemic heart disease and other diseases of the circulatory system; X50.0XXA Overexertion from strenuous movement or load, initial encounter
CPT/HCPCS: 73090; 73130

== ENCOUNTER 2019-06-28 12:25 | Emergency (ER) | payer SELFPAY ==
[~2019-06-28] VITALS: Ht 152.4 cm; Wt 101.8 kg
--- NOTE | 2019-06-28 12:54 | ED Back Pain ---
General Source of Information: Patient Exam Limitations: No Limitations History of Present Illness Date Seen by Provider: Jun 28, 2019 Time Seen by Provider: 12:52 Initial Comments To ER per private vehicle with reports of pain upon urination on the right side of her lower abdomen for the past few days. Today the pain persisted even after urination in the right lower abdomen wrapping around to the right back. She's had nausea. No fever no chills area she was at work when the sent her home due to the pain. Location: Lumbar Spine Timing/Duration: 1-2 Days Severity: Moderate Pain/Injury Location: Back Associated Symptoms: denies symptoms, lower back pain Allergies and Home Medications Allergies Coded Allergies: prochlorperazine (Unverified Adverse Reaction, Unknown, 08/24/17) tramadol (Unverified Adverse Reaction, Unknown, 08/24/17) Home Medications Albuterol Sulfate 18 Gm Hfa.aer.ad, 1-2 PUFF IH Q4H PRN for SHORTNESS OF BREATH Prescribed by: HERON JOE on 07/08/18 1134 Albuterol/Ipratropium 4 Gm Aero, 1 PUFF IH DAILY, (Reported) Amoxicillin 500 Mg Capsule, 1,000 MG PO BID Prescribed by: MARIA C SWARTZ on 08/10/18 132 Atorvastatin Calcium 20 Mg Tablet, 20 MG PO DAILY, (Reported) Baclofen 10 Mg Tablet, 10 MG PO BID, (Reported) Benzonatate 100 Mg Capsule, 1-2 TAB PO TID Prescribed by: THOMPSON FITCH on 07/16/182052 Benzonatate 100 Mg Capsule, 1-2 CAP PO HS PRN for COUGH do NOT use during the daytime. you need the cough to keep the lungs open during the daytime. Prescribed by: MARIA C SWARTZ on 08/10/18 132 Budesonide 1 Mg/2 Ml Ampul.neb, 1 MG IH BID Prescribed by: THOMPSON FITCH on 07/16/182052 Buspirone HCl 15 Mg Tablet, 15 MG PO TID, (Reported) Cholecalciferol (Vitamin D3) 1,000 Unit Capsule, 1,000 UNIT PO BID, (Reported) Ciprofloxacin HCl 500 Mg Tablet, 500 MG PO BID Prescribed by: MARIA C SWARTZ on 08/10/18 132 Clindamycin HCl 300 Mg Capsule, 300 MG PO TID Prescribed by: ABRAHAM KIRAN on 03/07/19 1402 Cranberry Extract 500 Mg Tablet, 1,000 MG PO BID, (Reported) Dextroamphetamine/Amphetamine 10 Mg Tablet, 10 MG PO BID, (Reported) Dicyclomine HCl 20 Mg Tablet, 20 MG PO QID, (Reported) Diphenhydramine HCl 25 Mg Tablet, 25 MG PO BID, (Reported) Docusate Sodium 100 Mg Capsule, 100 MG PO BID PRN for CONSTIPATION Prescribed by: AILYN VERGARA on 10/23/16 0735 Doxycycline Monohydrate 100 Mg Capsule, 100 MG PO BID Prescribed by: THOMPSON FITCH on 07/16/182052 Famotidine 20 Mg Tablet, 20 MG PO BID, (Reported) Fluticasone Propionate 16 Gm [place].susp, 1 SPRAY NSEACH HS, (Reported) Guaifenesin/Dextromethorphan 1 Each Tbmp.12hr, 1 EACH PO BID Prescribed by: THOMPSON FITCH on 07/16/182052 Hydrocodone Bit/Acetaminophen 1 Tab Tab, 1 TAB PO Q6H PRN for PAIN-MODERATE Prescribed by: PEDRO IRWIN on 03/10/19 1415 Hydrocodone Bit/Acetaminophen 1 Tab Tab, 1 EACH PO Q8H PRN for PAIN-MODERATE Prescribed by: YENNIFER HAMLIN on 03/21/19 181 Ibuprofen 600 Mg Tablet, 600 MG PO Q6H PRN for PAIN, (Reported) Ipratropium/Albuterol Sulfate 3 Ml Ampul.neb, 3 ML INH Q6H PRN for DYSPNEA Prescribed by: HERON JOE on 07/08/18 1134 Methylprednisolone 4 Mg Tab.ds.pk, 4 MG PO UD Prescribed by: THOMPSON FITCH on 07/16/182052 Mv,Ca,Min/Iron Fum/FA/Vit K 1 Each Tablet, 1 EACH PO DAILY, (Reported) Nitrofurantoin Monohyd/M-Cryst 100 Mg Capsule, 1 TAB PO BID Prescribed by: JUDY LEO on 11/30/181919 Ondansetron 4 Mg Tab.rapdis, 4 MG SL Q4H PRN for NAUSEA/VOMITING-1ST LINE Prescribed by: ANGY MARTINS on 03/01/18 0208 Ondansetron HCl 4 Mg Tab, 4 MG PO Q4H PRN for NAUSEA/VOMITING Prescribed by: JUDY LEO on 11/30/18 1920 Prazosin HCl 2 Mg Capsule, 6 MG PO HS, (Reported) Prednisone 10 Mg Tab, 20 MG PO DAILY, (Reported) FILLED 07/01/18 PATIENT STATES SHE STILL HAS TWO MORE DOSES Prednisone 20 Mg Tab, 2 TAB PO DAILY Prescribed by: MARIA C SWARTZ on 08/10/18 1322 Prednisone 20 Mg Tab, 40 MG PO DAILY Prescribed by: MARIA C SWARTZ on 06/08/19 2330 Quetiapine Fumarate 200 Mg Tablet, 200 MG PO HS, (Reported) Patient Home Medication List Home Medication List Reviewed: Yes Review of Systems Constitutional: see HPI EENTM: see HPI Respiratory: no symptoms reported Cardiovascular: no symptoms reported Genitourinary: no symptoms reported Musculoskeletal: see HPI, back pain Skin: no symptoms reported Psychiatric/Neurological: No Symptoms Reported Past Ccwyqdn-Wkromq-Yfaday Hx Patient Social History Type Used: Cigarettes 2nd Hand Smoke Exposure: Yes Recent Foreign Travel: No Contact w/Someone Who Travel: No Recent Hopitalizations: No Immunizations Up To Date Tetanus Booster (TDap): Unknown Date of Influenza Vaccine: Apr 20, 2018 Seasonal Allergies Seasonal Allergies: Yes Past Medical History Surgeries: Yes ( X --07/2013, WISDOM TEETH; REMOVAL OF RETAINED IUD) Section, Tonsillectomy Respiratory: Yes (Tobaccoism) Asthma, Pneumonia Cardiac: Yes High Cholesterol Neurological: No Reproductive Disorders: Yes (RETAINED IUD, hemorrhagic ovarian cysts) Female Reproductive Disorders: Menstrual Problems, Ovarian Cyst, Polycystic Ovarian Dis 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 Sexually Transmitted Disease: No HIV/AIDS: No Genitourinary: Yes Bladder Infection, Kidney Stones, UTI-Chronic Gastrointestinal: Yes Gastroesophageal Reflux, Chronic Diarrhea, Irritable Bowel Musculoskeletal: Yes Fibromyalgia Endocrine: Yes (VITAMIN D DEFICIENCY; OBESITY) HEENT: Yes Loss of Vision: Bilateral Hearing Impairment: Denies Cancer: No Psychosocial: Yes ADD/ADHD, Sleep Difficulties, Anxiety, PTSD, Bipolar, Personality Disorder, Depression Integumentary: No Blood Disorders: No Adverse Reaction/Blood Tranf: No Family Medical History Alcoholism 19 FATHER Asthma 19 MOTHER Completed stroke 19 FATHER DVT 19 FATHER Dementia 19 FATHER Diabetes mellitus 19 MOTHER FH: multiple sclerosis G8 SISTER Headache disorder G8 BROTHER Hypertension 19 FATHER 19 MOTHER Myocardial infarction 19 FATHER Seizure disorder 19 FATHER Asthma, Hypertension, Seizures, Stroke Physical Exam Vital Signs Vital Signs - First Documented 06/28/19 12:45 Temp 36.5 Pulse 90 Resp 16 B/P (MAP) 133/88 (103) Pulse Ox 98 O2 Delivery Room Air Capillary Refill : Height, Weight, BMI Height: 5'0" Weight: 235lbs. 0.0oz. 106.490787yb; 44.00 BMI Method:Stated General Appearance: No Apparent Distress, WD/WN Neck: Full Range of Motion, Normal Inspection Respiratory: No Accessory Muscle Use, No Respiratory Distress Gastrointestinal: Normal Bowel Sounds, Non Tender, Soft Neurologic/Psychiatric: Alert, Oriented x3 Skin: Normal Color, Warm/Dry Progress/Results/Core Measures Results/Orders Lab Results Laboratory Tests Test 06/28/19 12:56 Range/Units Urine Color YELLOW Urine Clarity CLOUDY Urine pH 6.5 5-9 Urine Specific [place] 1.020 1.016-1.022 Urine Protein 1+ H NEGATIVE Urine Glucose (UA) NEGATIVE NEGATIVE Urine Ketones NEGATIVE NEGATIVE Urine Nitrite NEGATIVE NEGATIVE Urine Bilirubin NEGATIVE NEGATIVE Urine Urobilinogen 0.2 < = 1.0 MG/DL Urine Leukocyte Esterase 2+ H NEGATIVE Urine RBC (Auto) 2+ H NEGATIVE Urine RBC NONE /HPF Urine WBC TNTC H /HPF Urine Squamous Epithelial Cells NONE /HPF Urine Crystals NONE /LPF Urine Bacteria TRACE /HPF Urine Casts NONE /LPF Urine Mucus NEGATIVE /LPF Urine Culture Indicated YES Urine Test NEGATIVE NEGATIVE My Orders Orders - ABRAHAM KIARN APRN Ua Culture If Indicated (06/28/19 12:51) Hcg,Qualitative Urine (06/28/19 12:57) Urine Culture (06/28/19 12:56) Vital Signs/I&O 06/28/19 12:45 Temp 36.5 Pulse 90 Resp 16 B/P (MAP) 133/88 (103) Pulse Ox 98 O2 Delivery Room Air Departure Impression Primary Impression: Urinary tract infection Qualified Codes: N30.00 - Acute cystitis without hematuria Disposition: HOME, SELF-CARE Condition: Stable Departure-Patient Inst. Decision time for Depature: 13:25 Referrals: HERON JOE MD (PCP/Family) Primary Care Physician Patient Instructions: Urinary Tract Infection, Adult (DC) Add. Discharge Instructions: 1. Medication as directed 2. Return to ER for any concerns 3. Follow-up with your doctor next week Scripts Phenazopyridine HCl (Pyridium) 100 Mg Tablet 100 MG PO TID, #6 TAB Prov: ABRAHAM KIRAN APRN 06/28/19 Cefdinir (Cefdinir) 300 Mg Capsule 300 MG PO BID, #10 CAP Prov: ABRAHAM KIRAN APRN 06/28/19 Work/School Note: Work Release Form Date Seen in the Emergency Department: Jun 28, 2019 Return to Work: Jun 30, 2019 ABRAHAM KIRAN APRN Jun 28, 2019 12:54 POS
[2019-06-28 13:04] LABS: BILIRUBIN,URINE NEGATIVE (NEGATIVE); CLARITY,URINE CLOUDY; COLOR,URINE YELLOW; GLUCOSE, URINE (UA) NEGATIVE (NEGATIVE); KETONES,URINE NEGATIVE (NEGATIVE); LEUKOCYTE ESTERASE ,URINE 2+ (NEGATIVE); NITRITE,URINE NEGATIVE (NEGATIVE); PH,URINE 6.5 (5-9); PROTEIN,URINE 1+ (NEGATIVE)
[2019-06-28 13:15] LABS: BACTERIA,URINE TRACE /HPF; WBC,URINE TNTC /HPF
[2019-06-28] MEDS ORDERED: PHEN-639 PO (13:26)
[2019-06-28] MEDS ORDERED: CEFD300C3 PO (13:26)
[2019-06-28] MEDS ORDERED: CEFDINIR 300 MG (OMNICEF) CAP PO ONE (13:30)
[2019-06-28] MEDS ORDERED: PHENAZOPYRIDINE 100 MG (PYRIDIUM) TABLET PO ONE (13:30)
[2019-06-28 13:39] VITALS: BP 143/90
== END 2019-06-28 13:40 | disposition home or self-care (01) ==
LOC: EDUNIT# 12:25 → ER 12:25
DX: N39.0 Urinary tract infection, site not specified (principal); J45.909 Unspecified asthma, uncomplicated; E78.00 Pure hypercholesterolemia, unspecified; K21.9 Gastro-esophageal reflux disease without esophagitis; K58.9 Irritable bowel syndrome, unspecified; M79.7 Fibromyalgia; E66.9 Obesity, unspecified; F90.9 Attention-deficit hyperactivity disorder, unspecified type; F41.9 Anxiety disorder, unspecified; F43.10 Post-traumatic stress disorder, unspecified; F31.9 Bipolar disorder, unspecified; F60.9 Personality disorder, unspecified; Z87.442 Personal history of urinary calculi; Z87.440 Personal history of urinary (tract) infections; Z90.89 Acquired absence of other organs; Z88.5 Allergy status to narcotic agent; Z88.8 Allergy status to other drugs, medicaments and biological substances; Z79.51 Long term (current) use of inhaled steroids; Z79.52 Long term (current) use of systemic steroids; Z77.22 Contact with and (suspected) exposure to environmental tobacco smoke (acute) (chronic); Z82.49 Family history of ischemic heart disease and other diseases of the circulatory system
CPT/HCPCS: 81000; 84703; 87088; 99283

== ENCOUNTER 2019-08-08 00:46 | Emergency (ER) | payer OTHER ==
[~2019-08-08] VITALS: Ht 152.4 cm; Wt 109.0 kg
[~2019-08-08 00:46] MED LIST changes: +CEFD300C3 PO; +PHEN-639 PO
[2019-08-08 01:16] LABS: BILIRUBIN,URINE NEGATIVE (NEGATIVE); CLARITY,URINE CLEAR; COLOR,URINE YELLOW; GLUCOSE, URINE (UA) NEGATIVE (NEGATIVE); KETONES,URINE NEGATIVE (NEGATIVE); LEUKOCYTE ESTERASE ,URINE NEGATIVE (NEGATIVE); NITRITE,URINE NEGATIVE (NEGATIVE); PROTEIN,URINE NEGATIVE (NEGATIVE)
[2019-08-08 01:26] LABS: BACTERIA,URINE MODERATE /HPF; RBC,URINE RARE /HPF
[2019-08-08] MEDS ORDERED: LACTATED RINGERS 1,000 ML IV ONE (01:35)
[2019-08-08 01:39] LABS: AMPHETAMINE SCREEN, URINE POSITIVE (NEGATIVE); BARBITURATE SCREEN URINE NEGATIVE (NEGATIVE); BENZODIAZEPINES SCREEN URINE NEGATIVE (NEGATIVE); CANNABINOID SCREEN, URINE NEGATIVE (NEGATIVE); COCAINE SCREEN URINE NEGATIVE (NEGATIVE); METHADONE STAT NEGATIVE (NEGATIVE); METHAMPHETAMINE SCREEN URINE S NEGATIVE (NEGATIVE); OPIATE SCREEN URINE NEGATIVE (NEGATIVE); OXYCODONE STAT NEGATIVE (NEGATIVE); PROPOXYPHENE STAT NEGATIVE (NEGATIVE); TRICYCLIC ANTIDEPRESSANTS SCRE NEGATIVE (NEGATIVE)
[2019-08-08] MEDS ORDERED: ONDANSETRON 4 MG/2 ML (SDV) Z0FRAN IVP ONE (01:45)
[2019-08-08 01:48] LABS: BASOPHILS % (AUTO) 0 % (0-10); EOSINOPHILS # (AUTO) 0.3 10^3/uL (0.0-0.3); EOSINOPHILS % (AUTO) 2 % (0-10); HEMATOCRIT 44 % (35-52); HEMOGLOBIN 15.2 G/DL (11.5-16.0); LYMPHOCYTES # (AUTO) 2.7 X 10^3 (1.0-4.0); LYMPHOCYTES % (AUTO) 21 % (12-44); MEAN CORPUSCULAR HEMOGLOBIN 32 PG (25-34); MEAN CORPUSCULAR HGB CONC 35 G/DL (32-36); MEAN CORPUSCULAR VOLUME 94 FL (80-99); MEAN PLATELET VOLUME 9.9 FL (7.4-10.4); MONOCYTES # (AUTO) 0.8 X 10^3 (0.0-1.0); MONOCYTES % (AUTO) 6 % (0-12); NEUTROPHILS # (AUTO) 9.4 X 10^3 (1.8-7.8); NEUTROPHILS % (AUTO) 71 % (42-75); PLATELET COUNT 289 10^3/uL (130-400); RED CELL DISTRIBUTION WIDTH 13.5 % (10.0-14.5); WHITE BLOOD COUNT 13.3 10^3/uL (4.3-11.0)
--- NOTE | 2019-08-08 02:04 | ED Abdominal Pain ---
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 NO PAIN MEDICATIONS TAKEN SINCE PAIN STARTED. Sepsis Screen: No Definite Risk Source of Information: Patient, Old Records History of Present Illness Date Seen by Provider: Aug 08, 2019 Time Seen by Provider: 01:08 Initial Comments PT ARRIVES VIA POV C/O RLQ PAIN RADIATING TO RIGHT FLANK PAIN BEGAN "A COUPLE OF HOURS AGO" WHILE STANDING AT WORK AT [employer] NOTHING WORSENS OR IMPROVES PAIN --TOOK IBUPROFEN AN HOUR PRIOR TO ONSET OF PAIN, HAS NOT TAKEN ANYTHING ELSE FOR PAIN + NAUSEA, NO VOMITING. NORMAL BM TODAY NO URINARY SYMPTOMS NO FEVER LMP 1-2 MONTHS AGO. HAS IUD IN PLACE. PERIODS ALWAYS IRREGULAR. THIS IS A CHRONIC COMPLAINT OF PT FOR YEARS PT WITH MULTITUDE OF VISITS SINCE SHE MOVED HERE --28 VISITS, WITH 9 VISITS IN 2019. WITH NEARLY HALF OF ALL PREVIOUS VISITS WERE FOR THIS EXACT SAME COMPLAINT HAS HAD 6 CT SCANS HERE, WITH LAST ONE BEING 12/17/18 PT HAS HISTORY OF UTI'S, OVARIAN CYST, AND KIDNEY STONE. 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 TATYANA VELAZQUEZ Allergies and Home Medications Allergies Coded Allergies: prochlorperazine (Unverified Adverse Reaction, Unknown, 08/24/17) tramadol (Unverified Adverse Reaction, Unknown, 08/24/17) Home Medications Albuterol Sulfate 18 Gm Hfa.aer.ad, 1-2 PUFF IH Q4H PRN for SHORTNESS OF BREATH Prescribed by: HERON JOE on 07/08/18 1134 Albuterol/Ipratropium 4 Gm Aero, 1 PUFF IH DAILY, (Reported) Amoxicillin 500 Mg Capsule, 1,000 MG PO BID Prescribed by: MARIA C SWARTZ on 08/10/18 1322 Atorvastatin Calcium 20 Mg Tablet, 20 MG PO DAILY, (Reported) Baclofen 10 Mg Tablet, 10 MG PO BID, (Reported) Benzonatate 100 Mg Capsule, 1-2 TAB PO TID Prescribed by: THOMPSON FITCH on 07/16/182052 Benzonatate 100 Mg Capsule, 1-2 CAP PO HS PRN for COUGH do NOT use during the daytime. you need the cough to keep the lungs open during the daytime. Prescribed by: MARIA C SWARTZ on 08/10/18 132 Budesonide 1 Mg/2 Ml Ampul.neb, 1 MG IH BID Prescribed by: THOMPSON FITCH on 07/16/182052 Buspirone HCl 15 Mg Tablet, 15 MG PO TID, (Reported) Cefdinir 300 Mg Capsule, 300 MG PO BID Prescribed by: ABRAHAM KIRAN on 06/28/19 132 Cholecalciferol (Vitamin D3) 1,000 Unit Capsule, 1,000 UNIT PO BID, (Reported) Ciprofloxacin HCl 500 Mg Tablet, 500 MG PO BID Prescribed by: MARIA C SWARTZ on 08/10/181321 Clindamycin HCl 300 Mg Capsule, 300 MG PO TID Prescribed by: ABRAHAM KIRAN on 03/07/19 1402 Cranberry Extract 500 Mg Tablet, 1,000 MG PO BID, (Reported) Dextroamphetamine/Amphetamine 10 Mg Tablet, 10 MG PO BID, (Reported) Dicyclomine HCl 20 Mg Tablet, 20 MG PO QID, (Reported) Diphenhydramine HCl 25 Mg Tablet, 25 MG PO BID, (Reported) Docusate Sodium 100 Mg Capsule, 100 MG PO BID PRN for CONSTIPATION Prescribed by: AILYN VERGARA on 10/23/16 0735 Doxycycline Monohydrate 100 Mg Capsule, 100 MG PO BID Prescribed by: THOMPSON FITCH on 07/16/182052 Famotidine 20 Mg Tablet, 20 MG PO BID, (Reported) Fluticasone Propionate 16 Gm [place].susp, 1 SPRAY NSEACH HS, (Reported) Guaifenesin/Dextromethorphan 1 Each Tbmp.12hr, 1 EACH PO BID Prescribed by: THOMPSON FITCH on 07/16/182052 Hydrocodone Bit/Acetaminophen 1 Tab Tab, 1 TAB PO Q6H PRN for PAIN-MODERATE Prescribed by: PEDRO IRWIN on 03/10/19 1415 Hydrocodone Bit/Acetaminophen 1 Tab Tab, 1 EACH PO Q8H PRN for PAIN-MODERATE Prescribed by: YENNIFER HAMLIN on 03/21/19 181 Ibuprofen 600 Mg Tablet, 600 MG PO Q6H PRN for PAIN, (Reported) Ipratropium/Albuterol Sulfate 3 Ml Ampul.neb, 3 ML INH Q6H PRN for DYSPNEA Prescribed by: HERON JOE on 07/08/18 1134 Methylprednisolone 4 Mg Tab.ds.pk, 4 MG PO UD Prescribed by: THOMPSON FITCH on 07/16/182052 Mv,Ca,Min/Iron Fum/FA/Vit K 1 Each Tablet, 1 EACH PO DAILY, (Reported) Nitrofurantoin Monohyd/M-Cryst 100 Mg Capsule, 1 TAB PO BID Prescribed by: JUDY LEO on 11/30/181919 Nitrofurantoin Monohyd/M-Cryst 100 Mg Capsule, 100 MG PO BID Prescribed by: THOMPSON FITCH on 08/08/19 0315 Ondansetron 4 Mg Tab.rapdis, 4 MG SL Q4H PRN for NAUSEA/VOMITING-1ST LINE Prescribed by: ANGY MARTINS on 03/01/18 020 Ondansetron HCl 4 Mg Tab, 4 MG PO Q4H PRN for NAUSEA/VOMITING Prescribed by: JUDY LEO on 11/30/181919 Phenazopyridine HCl 100 Mg Tablet, 100 MG PO TID Prescribed by: ABRAHAM KIRAN on 06/28/19 1326 Prazosin HCl 2 Mg Capsule, 6 MG PO HS, (Reported) Prednisone 10 Mg Tab, 20 MG PO DAILY, (Reported) FILLED 07/01/18 PATIENT STATES SHE STILL HAS TWO MORE DOSES Prednisone 20 Mg Tab, 2 TAB PO DAILY Prescribed by: MARIA C SWARTZ on 08/10/18 1322 Prednisone 20 Mg Tab, 40 MG PO DAILY Prescribed by: MARIA C SWARTZ on 06/08/19 2330 Quetiapine Fumarate 200 Mg Tablet, 200 MG PO HS, (Reported) Patient Home Medication List Home Medication List Reviewed: Yes Review of Systems Review of Systems Constitutional: no symptoms reported; No dizziness, No fever Respiratory: No Symptoms Reported Cardiovascular: No Symptoms Reported Gastrointestinal: See HPI, Abdominal Pain; Denies Constipated, Denies Diarrhea; Nausea; Denies Vomiting Genitourinary: See HPI; Denies Burning, Denies Discharge, Denies Frequency; Flank Pain; Denies Hematuria, Denies Pain, Denies Urgency Musculoskeletal: see HPI, back pain Skin: no symptoms reported Psychiatric/Neurological: No Symptoms Reported Endocrine: No Symptoms Reported Hematologic/Lymphatic: No Symptoms Reported Past Pvjuigv-Ksromm-Gepjss Hx Past Med/Social Hx: Reviewed and Corrections made Patient Social History Alcohol Use: Occasionally Uses Recreational Drug Use: Yes (THC) Drug of Choice: MARIJUANA Smoking Status: Current Everyday Smoker Type Used: Cigarettes 2nd Hand Smoke Exposure: Yes Recent Foreign Travel: No Contact w/Someone Who Travel: No Recent Infectious Disease Expo: No Recent Hopitalizations: No Physical Abuse: No Sexual Abuse: No Mistreated: No Fear: No Immunizations Up To Date Tetanus Booster (TDap): Unknown PED Vaccines UTD: No Date of Influenza Vaccine: May 20, 2019 Seasonal Allergies Seasonal Allergies: Yes Past Medical History Surgeries: Yes ( X1-08/07/2013;WISDOM TEETH;REMOVAL OF RETAINED IUD;PILONIDAL ABSC) Section, Tonsillectomy Respiratory: Yes (Tobaccoism) Asthma, Pneumonia Cardiac: Yes High Cholesterol Neurological: No : No Hx : 1 Hx Para: 1 ( 08/07/13CHILD ADOPTED OUT. 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 Sexually Transmitted Disease: No HIV/AIDS: No Genitourinary: Yes Bladder Infection, Kidney Stones, UTI-Chronic Gastrointestinal: Yes Gastroesophageal Reflux, Chronic Diarrhea, Irritable Bowel Musculoskeletal: Yes Fibromyalgia Endocrine: Yes (VITAMIN D DEFICIENCY; OBESITY) HEENT: Yes Loss of Vision: Bilateral Hearing Impairment: Denies Cancer: No Psychosocial: Yes (EXTENSIVE PSYCH ISSUES) ADD/ADHD, Sleep Difficulties, Anxiety, PTSD, Bipolar, Personality Disorder, Depression Integumentary: Yes (PILONIDAL CYST/ABSCESS REMOVED 03/11/19) Blood Disorders: No Adverse Reaction/Blood Tranf: No Family Medical History Alcoholism 19 FATHER Asthma 19 MOTHER Completed stroke 19 FATHER DVT 19 FATHER Dementia 19 FATHER Diabetes mellitus 19 MOTHER FH: multiple sclerosis G8 SISTER Headache disorder G8 BROTHER Hypertension 19 FATHER 19 MOTHER Myocardial infarction 19 FATHER Seizure disorder 19 FATHER Asthma, Hypertension, Seizures, Stroke Physical Exam Vital Signs Vital Signs - First Documented 08/08/19 08/08/19 01:10 03:21 Temp 36.7 Pulse 91 Resp 18 B/P (MAP) 133/91 (105) Pulse Ox 99 O2 Delivery Room Air Capillary Refill : Less Than 3 Seconds Height/Weight/BMI Height: 5'0" Weight: 235lbs. 0.0oz. 106.449179cq; 46.00 BMI Method:Stated General Appearance: no apparent distress, obese, other (LAT AFFECT. WALKS UPRIGHT AND MOVES WITHOUT DIFFICULTY. SITTING [place]ER-STYLE. DOES NOT APPEAR TO BE IN ANY DISCOMFORT OR DISTRESS. 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 ) Progress/Results/Core Measures Results/Orders Lab Results Laboratory Tests Test 08/08/19 01:08 08/08/19 01:42 Range/Units Urine Color YELLOW Urine Clarity CLEAR Urine pH 6.0 5-9 Urine Specific [place] >=1.030 1.016-1.022 Urine Protein NEGATIVE NEGATIVE Urine Glucose (UA) NEGATIVE NEGATIVE Urine Ketones NEGATIVE NEGATIVE Urine Nitrite NEGATIVE NEGATIVE Urine Bilirubin NEGATIVE NEGATIVE Urine Urobilinogen 0.2 < = 1.0 MG/DL Urine Leukocyte Esterase NEGATIVE NEGATIVE Urine RBC (Auto) TRACE-I NEGATIVE Urine RBC RARE /HPF Urine WBC NONE /HPF Urine Squamous Epithelial Cells 5-10 /HPF Urine Crystals NONE /LPF Urine Bacteria MODERATE H /HPF Urine Casts NONE /LPF Urine Mucus NEGATIVE /LPF Urine Culture Indicated NO Urine Opiates Screen NEGATIVE NEGATIVE Urine Oxycodone Screen NEGATIVE NEGATIVE Urine Methadone Screen NEGATIVE NEGATIVE Urine Propoxyphene Screen NEGATIVE NEGATIVE Urine Barbiturates Screen NEGATIVE NEGATIVE Ur Tricyclic Antidepressants Screen NEGATIVE NEGATIVE Urine Phencyclidine Screen NEGATIVE NEGATIVE Urine Amphetamines Screen POSITIVE H NEGATIVE Urine Methamphetamines Screen NEGATIVE NEGATIVE Urine Benzodiazepines Screen NEGATIVE NEGATIVE Urine Cocaine Screen NEGATIVE NEGATIVE Urine Cannabinoids Screen NEGATIVE NEGATIVE White Blood Count 13.3 H 4.3-11.0 10^3/uL Red Blood Count 4.70 4.35-5.85 10^6/uL Hemoglobin 15.2 11.5-16.0 G/DL Hematocrit 44 35-52 % Mean Corpuscular Volume 94 80-99 FL Mean Corpuscular Hemoglobin 32 25-34 PG Mean Corpuscular Hemoglobin Concent 35 32-36 G/DL Red Cell Distribution Width 13.5 10.0-14.5 % Platelet Count 289 130-400 10^3/uL Mean Platelet Volume 9.9 7.4-10.4 FL Neutrophils (%) (Auto) 71 42-75 % Lymphocytes (%) (Auto) 21 12-44 % Monocytes (%) (Auto) 6 0-12 % Eosinophils (%) (Auto) 2 0-10 % Basophils (%) (Auto) 0 0-10 % Neutrophils # (Auto) 9.4 H 1.8-7.8 X 10^3 Lymphocytes # (Auto) 2.7 1.0-4.0 X 10^3 Monocytes # (Auto) 0.8 0.0-1.0 X 10^3 Eosinophils # (Auto) 0.3 0.0-0.3 10^3/uL Basophils # (Auto) 0.0 0.0-0.1 10^3/uL Sodium Level 139 135-145 MMOL/L Potassium Level 4.0 3.6-5.0 MMOL/L Chloride Level 106 98-107 MMOL/L Carbon Dioxide Level 23 21-32 MMOL/L Anion Gap 10 5-14 MMOL/L Blood Urea Nitrogen 13 7-18 MG/DL Creatinine 0.76 0.60-1.30 MG/DL Estimat Glomerular Filtration Rate > 60 BUN/Creatinine Ratio 17 Glucose Level 101 70-105 MG/DL Calcium Level 9.6 8.5-10.1 MG/DL Corrected Calcium 9.4 8.5-10.1 MG/DL Total Bilirubin 0.2 0.1-1.0 MG/DL Aspartate Amino Transf (AST/SGOT) 15 5-34 U/L Alanine Aminotransferase (ALT/SGPT) 20 0-55 U/L Alkaline Phosphatase 75 40-136 U/L Total Protein 6.8 6.4-8.2 GM/DL Albumin 4.2 3.2-4.5 GM/DL Amylase Level 39 25-125 U/L Lipase 26 8-78 U/L Serum Alcohol < 10 <10 MG/DL My Orders Orders - THOMPSON FITCH DO Urine Bedside (08/08/19 01:07) Ua Culture If Indicated (08/08/19 01:07) Drug Screen Stat (Urine) (08/08/19 01:24) Ed Iv/Invasive Line Start (08/08/19 01:35) Ct Abd/Pelvis Wo(Kidney Stone) (08/08/19 01:35) Acute Abd Series (08/08/19 01:35) Alcohol (08/08/19 01:35) Amylase (08/08/19 01:35) Cbc With Automated Diff (08/08/19 01:35) Comprehensive Metabolic Panel (08/08/19 01:35) Lipase (08/08/19 01:35) Ed Iv/Invasive Line Start (08/08/19 01:35) Lactated Ringers (Lr 1000 Ml Iv Solution (08/08/19 01:35) Ondansetron Injection (Zofran Injectio (08/08/19 01:45) Medications Given in ED Current Medications Medications Dose Ordered Sig/Hina Route Start Time Stop Time Status Last Admin Dose Admin Lactated Ringer's 1,000 ml @ 0 mls/hr Q0M ONCE IV 08/08/19 01:35 08/08/19 01:37 DC 08/08/19 01:43 999 MLS/HR Ondansetron HCl 4 mg ONCE ONCE IVP 08/08/19 01:45 08/08/19 01:46 DC 08/08/19 01:43 4 MG Vital Signs/I&O 08/08/19 08/08/19 01:10 03:21 Temp 36.7 36.7 Pulse 91 91 Resp 18 18 B/P (MAP) 133/91 (105) 133/91 (105) Pulse Ox 99 O2 Delivery Room Air Blood Pressure Mean: 105 Progress Progress Note : Progress Note WALKS UPRIGHT AND MOVES QUICKLY WITHOUT DIFFICULTY PT HAD NO COMPLAINTS DURING ER STAY--RESTED QUIETLY FOR ENTIRE ER STAY, WITH MALE S.O. IN ROOM. PT STORMED OUT OF ER CURSING THE WHOLE WAY. Diagnostic Imaging Comments ABDOMEN XRAYS--NO ACUTE PROCESS, IUD IN PLACE, METALLIC-APPEARING FB IN RIGHT MID ABDOMEN--PENDING RADIOLOGIST REVIEW CT ABDOMEN/PELVIS--NO ACUTE PROCESS, PER [facility] VIA FAX AT 1210 Reviewed: Reviewed by Me Departure Impression Primary Impression: Chronic right lower quadrant pain Additional Impression: Bacteriuria Disposition: HOME, SELF-CARE Condition: Stable Departure-Patient Inst. Referrals: HERON JOE MD (PCP/Family) Primary Care Physician Patient Instructions: Chronic Pain, Acute Abdomen (Belly Pain), Adult (DC), Urinary Tract Infection, Adult (DC) Add. Discharge Instructions: TYLENOL AND MOTRIN NEEDED FOR PAIN LOTS OF WATER, NO COFFEE, POP OR TEA FOLLOW UP WITH [facility] IN 3-4 DAYS IF NO BETTER All discharge instructions reviewed with patient and/or family. Voiced understa nding. Scripts Nitrofurantoin Monohyd/M-Cryst (Macrobid 100 mg Capsule) 100 Mg Capsule 100 MG PO BID, #20 CAP Prov: THOMPSON FITCH DO 08/08/19 THOMPSON FITCH DO Aug 08, 2019 02:04
[2019-08-08 02:08] LABS: ALANINE AMINOTRANSFERASE 20 U/L (0-55); ALBUMIN 4.2 GM/DL (3.2-4.5); ALKALINE PHOSPHATASE 75 U/L (40-136); AMYLASE 39 U/L (25-125); BILIRUBIN,TOTAL 0.2 MG/DL (0.1-1.0); BUN/CREATININE RATIO 17; CALCIUM 9.6 MG/DL (8.5-10.1); CARBON DIOXIDE 23 MMOL/L (21-32); CHLORIDE 106 MMOL/L (98-107); CREATININE SERUM 0.76 MG/DL (0.60-1.30); GFR ESTIMATED > 60; GLUCOSE 101 MG/DL (70-105); LIPASE 26 U/L (8-78); SODIUM 139 MMOL/L (135-145); TOTAL PROTEIN 6.8 GM/DL (6.4-8.2)
[2019-08-08] MEDS ORDERED: NITR-65 PO (03:15)
[2019-08-08 03:21] VITALS: BP 133/91
--- NOTE | 2019-08-08 06:53 | Diagnostic Imaging Report ---
INDICATION: Right flank pain PA chest, supine and upright abdominal images are obtained. Lungs are clear. There is no intraperitoneal free air. There is a round metallic object projecting over the right lower quadrant. This measures 5 mm in diameter. Patient has an IUD. Bowel gas pattern is normal. There are no pathologic masses or calcifications. IMPRESSION: No acute abnormality seen. There is a small round metallic object projecting over the right lower quadrant of the abdomen. Dictated by: Dictated on workstation # [id number]
--- NOTE | 2019-08-08 06:54 | Diagnostic Imaging Report ---
PROCEDURE: CT urinary tract, rule out kidney stone. TECHNIQUE: Multiple contiguous axial images were obtained through the abdomen and pelvis without the use of intravenous contrast. Auto Exposure Controls were utilized during the CT exam to meet ALARA standards for radiation dose reduction. INDICATION: Right flank pain x2 hours Lung bases are clear. Liver appears normal. Gallbladder is decompressed. There is moderate amount of food residue in the stomach. Pancreas is unremarkable. Spleen is not enlarged. Kidneys and adrenals appear normal. Large and small bowel appear normal. There is a metallic bead in the hepatic flexure of the colon. There is an IUD in the uterus. There is no intraperitoneal free air or free fluid. Appendix is normal. Small bowel is nondilated. IMPRESSION: No acute abnormality seen in the abdomen or pelvis. I agree with preliminary interpretation. Dictated by: Dictated on workstation # [id number]
== END 2019-08-08 03:21 | disposition home or self-care (01) ==
LOC: EDUNIT# 00:46 → ER 00:49
DX: G89.29 Other chronic pain (principal); R10.31 Right lower quadrant pain; R82.71 Bacteriuria; E78.00 Pure hypercholesterolemia, unspecified; J45.909 Unspecified asthma, uncomplicated; F90.9 Attention-deficit hyperactivity disorder, unspecified type; F41.9 Anxiety disorder, unspecified; F43.10 Post-traumatic stress disorder, unspecified; F31.9 Bipolar disorder, unspecified; F60.9 Personality disorder, unspecified; E66.9 Obesity, unspecified; K21.9 Gastro-esophageal reflux disease without esophagitis; M79.7 Fibromyalgia; K58.9 Irritable bowel syndrome, unspecified; F17.210 Nicotine dependence, cigarettes, uncomplicated; Z87.442 Personal history of urinary calculi; Z87.440 Personal history of urinary (tract) infections; Z90.89 Acquired absence of other organs; Z88.5 Allergy status to narcotic agent; Z88.8 Allergy status to other drugs, medicaments and biological substances; Z79.51 Long term (current) use of inhaled steroids; Z79.52 Long term (current) use of systemic steroids; Z68.42 Body mass index [BMI] 45.0-49.9, adult; Z82.49 Family history of ischemic heart disease and other diseases of the circulatory system
CPT/HCPCS: 36415; 74022; 74176; 80053; 80306; 80320; 81000; 82150; 83690; 84703; 85025; 96361; 96374

== ENCOUNTER 2019-08-11 19:48 | Emergency (ER) | payer SELFPAY ==
[~2019-08-11] VITALS: Ht 152.4 cm; Wt 109.0 kg
[2019-08-11] MEDS ORDERED: DEXAMETHASONE 10 MG/ML (DECADRON) 1 ML VIAL IM ONE (20:15)
[2019-08-11] MEDS ORDERED: TRIAMCINOLONE ACET (KENALOG-40) 40 MG/ML 1 ML VIAL IM ONE (20:15)
[2019-08-11] MEDS ORDERED: KETOROLAC 60 MG/2 ML VIAL IM ONE (20:45)
--- NOTE | 2019-08-11 20:47 | ED Upper Extremity ---
General Chief Complaint: Upper Extremity Stated Complaint: SLAMMED L HAND IN CAR DOOR Nursing Triage Note: Pt reports slamming L hand in the car door approximately 45 mins ago. Pt reports pain and numbness in fingers just above the knuckles. Pt has feeling in the fingers, but reports not being able to move fingers. Nursing Sepsis Screen: No Definite Risk Source: patient Exam Limitations: no limitations History of Present Illness Date Seen by Provider: Aug 11, 2019 Time Seen by Provider: 20:45 Initial Comments To ER with pain across the second through fifth MCP joints left hand after accidentally shutting as part of her hand in the car door. Onset: just prior to arrival Severity: moderate Pain/Injury Location: left 2nd finger, left 3rd finger, left 4th finger, left 5th finger Method of Injury: direct blow Modifying Factors: Worse With Movement Allergies and Home Medications Allergies Coded Allergies: prochlorperazine (Unverified Adverse Reaction, Unknown, 08/24/17) tramadol (Unverified Adverse Reaction, Unknown, 08/24/17) Home Medications Albuterol Sulfate 18 Gm Hfa.aer.ad, 1-2 PUFF IH Q4H PRN for SHORTNESS OF BREATH Prescribed by: HERON JOE on 07/08/18 1134 Albuterol/Ipratropium 4 Gm Aero, 1 PUFF IH DAILY, (Reported) Amoxicillin 500 Mg Capsule, 1,000 MG PO BID Prescribed by: MARIA C SWARTZ on 08/10/18 132 Atorvastatin Calcium 20 Mg Tablet, 20 MG PO DAILY, (Reported) Baclofen 10 Mg Tablet, 10 MG PO BID, (Reported) Benzonatate 100 Mg Capsule, 1-2 TAB PO TID Prescribed by: THOMPSON FITCH on 07/16/182052 Benzonatate 100 Mg Capsule, 1-2 CAP PO HS PRN for COUGH do NOT use during the daytime. you need the cough to keep the lungs open during the daytime. Prescribed by: MARIA C SWARTZ on 08/10/18 132 Budesonide 1 Mg/2 Ml Ampul.neb, 1 MG IH BID Prescribed by: THOMPSON FITCH on 07/16/182052 Buspirone HCl 15 Mg Tablet, 15 MG PO TID, (Reported) Cefdinir 300 Mg Capsule, 300 MG PO BID Prescribed by: ABRAHAM KIRAN on 06/28/19 1326 Cholecalciferol (Vitamin D3) 1,000 Unit Capsule, 1,000 UNIT PO BID, (Reported) Ciprofloxacin HCl 500 Mg Tablet, 500 MG PO BID Prescribed by: MARIA C SWARTZ on 08/10/18 1322 Clindamycin HCl 300 Mg Capsule, 300 MG PO TID Prescribed by: ABRAHAM KIRAN on 03/07/19 1402 Cranberry Extract 500 Mg Tablet, 1,000 MG PO BID, (Reported) Dextroamphetamine/Amphetamine 10 Mg Tablet, 10 MG PO BID, (Reported) Dicyclomine HCl 20 Mg Tablet, 20 MG PO QID, (Reported) Diphenhydramine HCl 25 Mg Tablet, 25 MG PO BID, (Reported) Docusate Sodium 100 Mg Capsule, 100 MG PO BID PRN for CONSTIPATION Prescribed by: AILYN VERGARA on 10/23/16 0735 Doxycycline Monohydrate 100 Mg Capsule, 100 MG PO BID Prescribed by: THOMPSON FITCH on 07/16/182052 Famotidine 20 Mg Tablet, 20 MG PO BID, (Reported) Fluticasone Propionate 16 Gm [place].susp, 1 SPRAY NSEACH HS, (Reported) Guaifenesin/Dextromethorphan 1 Each Tbmp.12hr, 1 EACH PO BID Prescribed by: THOMPSON FITCH on 07/16/182052 Hydrocodone Bit/Acetaminophen 1 Tab Tab, 1 TAB PO Q6H PRN for PAIN-MODERATE Prescribed by: PEDRO IRWIN on 03/10/19 1415 Hydrocodone Bit/Acetaminophen 1 Tab Tab, 1 EACH PO Q8H PRN for PAIN-MODERATE Prescribed by: YENNIFER HAMLIN on 03/21/19 1819 Ibuprofen 600 Mg Tablet, 600 MG PO Q6H PRN for PAIN, (Reported) Ipratropium/Albuterol Sulfate 3 Ml Ampul.neb, 3 ML INH Q6H PRN for DYSPNEA Prescribed by: HERON JOE on 07/08/18 1134 Methylprednisolone 4 Mg Tab.ds.pk, 4 MG PO UD Prescribed by: THOMPSON FITCH on 07/16/182052 Mv,Ca,Min/Iron Fum/FA/Vit K 1 Each Tablet, 1 EACH PO DAILY, (Reported) Nitrofurantoin Monohyd/M-Cryst 100 Mg Capsule, 1 TAB PO BID Prescribed by: JUDY LEO on 11/30/18 1920 Nitrofurantoin Monohyd/M-Cryst 100 Mg Capsule, 100 MG PO BID Prescribed by: THOMPSON FITCH on 08/08/19 0315 Ondansetron 4 Mg Tab.rapdis, 4 MG SL Q4H PRN for NAUSEA/VOMITING-1ST LINE Prescribed by: ANGY MARTINS on 03/01/18 0208 Ondansetron HCl 4 Mg Tab, 4 MG PO Q4H PRN for NAUSEA/VOMITING Prescribed by: JUDY LEO on 11/30/18 192 Phenazopyridine HCl 100 Mg Tablet, 100 MG PO TID Prescribed by: ABRAHAM KIRAN on 06/28/19 1326 Prazosin HCl 2 Mg Capsule, 6 MG PO HS, (Reported) Prednisone 10 Mg Tab, 20 MG PO DAILY, (Reported) FILLED 07/01/18 PATIENT STATES SHE STILL HAS TWO MORE DOSES Prednisone 20 Mg Tab, 2 TAB PO DAILY Prescribed by: MARIA C SWARTZ on 08/10/18 1322 Prednisone 20 Mg Tab, 40 MG PO DAILY Prescribed by: MARIA C SWARTZ on 06/08/19 2330 Quetiapine Fumarate 200 Mg Tablet, 200 MG PO HS, (Reported) Patient Home Medication List Home Medication List Reviewed: Yes Review of Systems Constitutional: see HPI EENTM: see HPI Respiratory: no symptoms reported Cardiovascular: no symptoms reported Genitourinary: no symptoms reported Musculoskeletal: no symptoms reported Skin: see HPI Psychiatric/Neurological: No Symptoms Reported Past Bhsvany-Yjnbcv-Cpreaw Hx Patient Social History Alcohol Use: Denies Use Recreational Drug Use: No Drug of Choice: MARIJUANA Smoking Status: Current Everyday Smoker Type Used: Cigarettes 2nd Hand Smoke Exposure: Yes Recent Foreign Travel: No Contact w/Someone Who Travel: No Recent Infectious Disease Expo: No Recent Hopitalizations: No Immunizations Up To Date Tetanus Booster (TDap): Unknown PED Vaccines UTD: No Date of Influenza Vaccine: May 20, 2019 Seasonal Allergies Seasonal Allergies: Yes Past Medical History Surgeries: Yes ( X1-08/07/2013;WISDOM TEETH;REMOVAL OF RETAINED IUD;PILONIDAL ABSC) Section, Tonsillectomy Respiratory: Yes (Tobaccoism) Asthma, Pneumonia Cardiac: Yes High Cholesterol Neurological: No Reproductive Disorders: Yes (RETAINED IUD, hemorrhagic ovarian cysts) Female Reproductive Disorders: Menstrual Problems, Ovarian Cyst, 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 Sexually Transmitted Disease: No HIV/AIDS: No Genitourinary: Yes Bladder Infection, Kidney Stones, UTI-Chronic Gastrointestinal: Yes Gastroesophageal Reflux, Chronic Diarrhea, Irritable Bowel Musculoskeletal: Yes Fibromyalgia Endocrine: Yes (VITAMIN D DEFICIENCY; OBESITY) HEENT: Yes Loss of Vision: Bilateral Hearing Impairment: Denies Cancer: No Psychosocial: Yes (EXTENSIVE PSYCH ISSUES) ADD/ADHD, Sleep Difficulties, Anxiety, PTSD, Bipolar, Personality Disorder, Depression Integumentary: Yes (PILONIDAL CYST/ABSCESS REMOVED 03/11/19) Blood Disorders: No Adverse Reaction/Blood Tranf: No Family Medical History Alcoholism 19 FATHER Asthma 19 MOTHER Completed stroke 19 FATHER DVT 19 FATHER Dementia 19 FATHER Diabetes mellitus 19 MOTHER FH: multiple sclerosis G8 SISTER Headache disorder G8 BROTHER Hypertension 19 FATHER 19 MOTHER Myocardial infarction 19 FATHER Seizure disorder 19 FATHER Asthma, Hypertension, Seizures, Stroke Physical Exam Vital Signs Vital Signs - First Documented 08/11/19 20:24 Temp 36.9 Pulse 88 Resp 18 B/P (MAP) 130/92 (105) Pulse Ox 95 O2 Delivery Room Air Capillary Refill : Less Than 3 Seconds Height, Weight, BMI Height: 5'0" Weight: 235lbs. 0.0oz. 106.061526mw; 46.00 BMI Method:Stated General Appearance: WD/WN, no apparent distress HEENT: PERRL/EOMI, normal ENT inspection Neck: non-tender, full range of motion Respiratory: no respiratory distress, no accessory muscle use Gastrointestinal: normal bowel sounds, non tender, soft Shoulder: normal inspection, non-tender, no evidence of injury Elbow/Forearm: normal inspection, non-tender Wrist: Yes normal inspection, Yes non-tender Hand: normal inspection, non-tender, Left Neurologic/Tendon: normal sensation, normal motor functions, normal tendon functions, other (limited flexion and extension of the fingers due to pain at the MCP joints but there is no bruising no erythema and no swelling.) Neurologic/Psychiatric: alert, normal mood/affect, oriented x 3 Skin: normal color, warm/dry Progress/Results/Core Measures Results/Orders My Orders Orders - ABRAHAM KIRAN APRN Dexamethasone Injection (Decadron Inject (08/11/19 20:15) Triamcinolone Acetonide Im (Kenalog-40) (08/11/19 20:15) Ketorolac Injection (Toradol Injection) (08/11/19 20:45) Hand, Left, 3 Views (08/11/19 20:43) Vital Signs/I&O 08/11/19 20:24 Temp 36.9 Pulse 88 Resp 18 B/P (MAP) 130/92 (105) Pulse Ox 95 O2 Delivery Room Air Blood Pressure Mean: 105 Departure Impression Primary Impression: Contusion of left hand Qualified Codes: S60.222A - Contusion of left hand, initial encounter Disposition: HOME, SELF-CARE Condition: Stable Departure-Patient Inst. Decision time for Depature: 20:46 Referrals: HERON JOE MD (PCP/Family) Primary Care Physician Patient Instructions: Contusion (DC) Add. Discharge Instructions: 1. Tylenol and ibuprofen for pain control 2. Return to ER for any concerns. Follow-up with your doctor next week. All discharge instructions reviewed with patient and/or family. Voiced understanding. ABRAHAM KIRAN APRN Aug 11, 2019 20:47
--- NOTE | 2019-08-11 21:01 | Diagnostic Imaging Report ---
INDICATION: Crush injury, pain and swelling. FINDINGS: No fracture, dislocation or retained opaque foreign body. IMPRESSION: No acute appearing abnormality. Dictated by: Dictated on workstation # [id number]
[2019-08-11 21:04] VITALS: BP 130/92
== END 2019-08-11 21:05 | disposition home or self-care (01) ==
LOC: EDUNIT# 19:48 → ER 19:49
DX: S60.222A Contusion of left hand, initial encounter (principal); J45.909 Unspecified asthma, uncomplicated; E78.00 Pure hypercholesterolemia, unspecified; K21.9 Gastro-esophageal reflux disease without esophagitis; K58.9 Irritable bowel syndrome, unspecified; M79.7 Fibromyalgia; E66.9 Obesity, unspecified; F90.9 Attention-deficit hyperactivity disorder, unspecified type; F41.9 Anxiety disorder, unspecified; F43.10 Post-traumatic stress disorder, unspecified; F31.9 Bipolar disorder, unspecified; F60.9 Personality disorder, unspecified; F17.210 Nicotine dependence, cigarettes, uncomplicated; Z87.440 Personal history of urinary (tract) infections; Z87.442 Personal history of urinary calculi; Z90.89 Acquired absence of other organs; Z88.5 Allergy status to narcotic agent; Z88.8 Allergy status to other drugs, medicaments and biological substances; Z79.51 Long term (current) use of inhaled steroids; Z79.52 Long term (current) use of systemic steroids; Z68.42 Body mass index [BMI] 45.0-49.9, adult; Z82.49 Family history of ischemic heart disease and other diseases of the circulatory system; W22.8XXA Striking against or struck by other objects, initial encounter
CPT/HCPCS: 73130; 96372

== ENCOUNTER 2019-09-06 21:14 | Emergency (ER) | payer OTHER ==
[~2019-09-06] VITALS: Ht 165 cm; Wt 109.0 kg
--- NOTE | 2019-09-06 21:35 | ED Cough/URI ---
General Chief Complaint: Cough/Cold/Flu Symptoms Stated Complaint: DIFF BREATHING, CHEST CONGESTION Source: patient Exam Limitations: no limitations History of Present Illness Date Seen by Provider: Sep 06, 2019 Time Seen by Provider: 21:33 Initial Comments To ER per private vehicle with reports of difficult breathing cough shortness of breath runny nose sore throat and body aches and fever that began yesterday. Timing/Duration: just prior to arrival Severity/Quality: productive cough Associated Symptoms: cough, shortness of breath, sore throat Allergies and Home Medications Allergies Coded Allergies: prochlorperazine (Unverified Adverse Reaction, Unknown, 08/24/17) tramadol (Unverified Adverse Reaction, Unknown, 08/24/17) Home Medications Albuterol Sulfate 18 Gm Hfa.aer.ad, 1-2 PUFF IH Q4H PRN for SHORTNESS OF BREATH Prescribed by: HERON JOE on 07/08/18 1134 Albuterol/Ipratropium 4 Gm Aero, 1 PUFF IH DAILY, (Reported) Amoxicillin 500 Mg Capsule, 1,000 MG PO BID Prescribed by: MARIA C SWARTZ on 08/10/18 132 Atorvastatin Calcium 20 Mg Tablet, 20 MG PO DAILY, (Reported) Baclofen 10 Mg Tablet, 10 MG PO BID, (Reported) Benzonatate 100 Mg Capsule, 1-2 TAB PO TID Prescribed by: THOMPSON FITCH on 07/16/182052 Benzonatate 100 Mg Capsule, 1-2 CAP PO HS PRN for COUGH do NOT use during the daytime. you need the cough to keep the lungs open during the daytime. Prescribed by: MARIA C SWARTZ on 08/10/18 132 Budesonide 1 Mg/2 Ml Ampul.neb, 1 MG IH BID Prescribed by: THOMPSON FITCH on 07/16/182052 Buspirone HCl 15 Mg Tablet, 15 MG PO TID, (Reported) Cefdinir 300 Mg Capsule, 300 MG PO BID Prescribed by: ABRAHAM KIRAN on 06/28/19 132 Cholecalciferol (Vitamin D3) 1,000 Unit Capsule, 1,000 UNIT PO BID, (Reported) Ciprofloxacin HCl 500 Mg Tablet, 500 MG PO BID Prescribed by: MARIA C SWARTZ on 08/10/18 132 Clindamycin HCl 300 Mg Capsule, 300 MG PO TID Prescribed by: ABRAHAM KIRAN on 03/07/19 1402 Cranberry Extract 500 Mg Tablet, 1,000 MG PO BID, (Reported) Dextroamphetamine/Amphetamine 10 Mg Tablet, 10 MG PO BID, (Reported) Dicyclomine HCl 20 Mg Tablet, 20 MG PO QID, (Reported) Diphenhydramine HCl 25 Mg Tablet, 25 MG PO BID, (Reported) Docusate Sodium 100 Mg Capsule, 100 MG PO BID PRN for CONSTIPATION Prescribed by: AILYN VERGARA on 10/23/16 0735 Doxycycline Monohydrate 100 Mg Capsule, 100 MG PO BID Prescribed by: THOMPSON FITCH on 07/16/182052 Famotidine 20 Mg Tablet, 20 MG PO BID, (Reported) Fluticasone Propionate 16 Gm [place].susp, 1 SPRAY NSEACH HS, (Reported) Guaifenesin/Dextromethorphan 1 Each Tbmp.12hr, 1 EACH PO BID Prescribed by: THOMPSON FITCH on 07/16/182052 Hydrocodone Bit/Acetaminophen 1 Tab Tab, 1 TAB PO Q6H PRN for PAIN-MODERATE Prescribed by: PEDRO IRWIN on 03/10/19 1415 Hydrocodone Bit/Acetaminophen 1 Tab Tab, 1 EACH PO Q8H PRN for PAIN-MODERATE Prescribed by: YENNIFER HAMLIN on 03/21/191818 Ibuprofen 600 Mg Tablet, 600 MG PO Q6H PRN for PAIN, (Reported) Ipratropium/Albuterol Sulfate 3 Ml Ampul.neb, 3 ML INH Q6H PRN for DYSPNEA Prescribed by: HERON JOE on 07/08/18 1134 Methylprednisolone 4 Mg Tab.ds.pk, 4 MG PO UD Prescribed by: THOMPSON FITCH on 07/16/182052 Mv,Ca,Min/Iron Fum/FA/Vit K 1 Each Tablet, 1 EACH PO DAILY, (Reported) Nitrofurantoin Monohyd/M-Cryst 100 Mg Capsule, 1 TAB PO BID Prescribed by: JUDY LEO on 11/30/18 192 Nitrofurantoin Monohyd/M-Cryst 100 Mg Capsule, 100 MG PO BID Prescribed by: THOMPSON FITCH on 08/08/19 0315 Ondansetron 4 Mg Tab.rapdis, 4 MG SL Q4H PRN for NAUSEA/VOMITING-1ST LINE Prescribed by: ANGY MARTINS on 03/01/18 0208 Ondansetron HCl 4 Mg Tab, 4 MG PO Q4H PRN for NAUSEA/VOMITING Prescribed by: JUDY LEO on 11/30/18 1920 Phenazopyridine HCl 100 Mg Tablet, 100 MG PO TID Prescribed by: ABRAHAM KIRAN on 06/28/19 1326 Prazosin HCl 2 Mg Capsule, 6 MG PO HS, (Reported) Prednisone 10 Mg Tab, 20 MG PO DAILY, (Reported) FILLED 07/01/18 PATIENT STATES SHE STILL HAS TWO MORE DOSES Prednisone 20 Mg Tab, 2 TAB PO DAILY Prescribed by: MARIA C SWARTZ on 08/10/18 1322 Prednisone 20 Mg Tab, 40 MG PO DAILY Prescribed by: MARIA C SWARTZ on 06/08/19 2330 Quetiapine Fumarate 200 Mg Tablet, 200 MG PO HS, (Reported) Patient Home Medication List Home Medication List Reviewed: Yes Review of Systems Review of Systems Constitutional: see HPI, chills EENTM: see HPI, nose congestion Respiratory: see HPI, cough, short of breath Cardiovascular: no symptoms reported Genitourinary: no symptoms reported Musculoskeletal: no symptoms reported Skin: no symptoms reported Psychiatric/Neurological: No Symptoms Reported Hematologic/Lymphatic: No Symptoms Reported Past Kmeyaut-Wgoroj-Govfdt Hx Patient Social History Drug of Choice: MARIJUANA Type Used: Cigarettes 2nd Hand Smoke Exposure: Yes Recent Foreign Travel: No Contact w/Someone Who Travel: No Recent Hopitalizations: No Immunizations Up To Date Tetanus Booster (TDap): Unknown PED Vaccines UTD: No Date of Influenza Vaccine: May 20, 2019 Seasonal Allergies Seasonal Allergies: Yes Past Medical History Surgeries: Yes ( X1-08/07/2013;WISDOM TEETH;REMOVAL OF RETAINED IUD;PILONIDAL ABSC) Section, Tonsillectomy Respiratory: Yes (Tobaccoism) Asthma, Pneumonia Cardiac: Yes High Cholesterol Neurological: No Reproductive Disorders: Yes (RETAINED IUD, hemorrhagic ovarian cysts) Female Reproductive Disorders: Menstrual Problems, Ovarian Cyst, Polycystic Ovarian Dis [employer] History: IUD Sexually Transmitted Disease: No HIV/AIDS: No Genitourinary: Yes Bladder Infection, Kidney Stones, UTI-Chronic Gastrointestinal: Yes Gastroesophageal Reflux, Chronic Diarrhea, Irritable Bowel Musculoskeletal: Yes Fibromyalgia Endocrine: Yes (VITAMIN D DEFICIENCY; OBESITY) HEENT: Yes Loss of Vision: Bilateral Hearing Impairment: Denies Cancer: No Psychosocial: Yes (EXTENSIVE PSYCH ISSUES) ADD/ADHD, Sleep Difficulties, Anxiety, PTSD, Bipolar, Personality Disorder, Depression Integumentary: Yes (PILONIDAL CYST/ABSCESS REMOVED 03/11/19) Blood Disorders: No Adverse Reaction/Blood Tranf: No Family Medical History Alcoholism 19 FATHER Asthma 19 MOTHER Completed stroke 19 FATHER DVT 19 FATHER Dementia 19 FATHER Diabetes mellitus 19 MOTHER FH: multiple sclerosis G8 SISTER Headache disorder G8 BROTHER Hypertension 19 FATHER 19 MOTHER Myocardial infarction 19 FATHER Seizure disorder 19 FATHER Asthma, Hypertension, Seizures, Stroke Physical Exam Vital Signs - First Documented 09/06/19 21:30 Temp 38.1 Pulse 116 Resp 20 B/P (MAP) 140/72 (94) Pulse Ox 97 O2 Delivery Room Air Capillary Refill : Height: 5'0" Weight: 235lbs. 0.0oz. 106.745823rj; 46.00 BMI Method:Stated General Appearance: WD/WN, no apparent distress Eyes: Bilateral Eye Normal Inspection, Bilateral Eye PERRL, Bilateral Eye EOMI HEENT: PERRL/EOMI, normal ENT inspection Neck: non-tender, full range of motion Respiratory: no respiratory distress, no accessory muscle use, other (she is tachypneic but with good air movement, no wheezing.) Cardiovascular: tachycardia (110) Gastrointestinal: normal bowel sounds, non tender, soft Extremities: normal range of motion, non-tender Neurologic/Psychiatric: alert, normal mood/affect, oriented x 3 Skin: normal color, warm/dry Progress/Results/Core Measures Suspected Sepsis SIRS Temperature: Pulse: Respiratory Rate: Laboratory Tests 09/06/19 21:35: White Blood Count 7.5 Blood Pressure / Mean: Laboratory Tests 09/06/19 21:35: Platelet Count 231 Results/Orders Lab Results Laboratory Tests Test 09/06/19 21:35 09/06/19 21:44 Range/Units White Blood Count 7.5 4.3-11.0 10^3/uL Red Blood Count 4.48 4.35-5.85 10^6/uL Hemoglobin 14.4 11.5-16.0 G/DL Hematocrit 42 35-52 % Mean Corpuscular Volume 95 80-99 FL Mean Corpuscular Hemoglobin 32 25-34 PG Mean Corpuscular Hemoglobin Concent 34 32-36 G/DL Red Cell Distribution Width 13.3 10.0-14.5 % Platelet Count 231 130-400 10^3/uL Mean Platelet Volume 10.6 H 7.4-10.4 FL Neutrophils (%) (Auto) 85 H 42-75 % Lymphocytes (%) (Auto) 8 L 12-44 % Monocytes (%) (Auto) 7 0-12 % Eosinophils (%) (Auto) 0 0-10 % Basophils (%) (Auto) 0 0-10 % Neutrophils # (Auto) 6.3 1.8-7.8 X 10^3 Lymphocytes # (Auto) 0.6 L 1.0-4.0 X 10^3 Monocytes # (Auto) 0.5 0.0-1.0 X 10^3 Eosinophils # (Auto) 0.0 0.0-0.3 10^3/uL Basophils # (Auto) 0.0 0.0-0.1 10^3/uL Neutrophils % (Manual) 78 % Lymphocytes % (Manual) 9 % Monocytes % (Manual) 4 % Eosinophils % (Manual) 0 % Basophils % (Manual) 0 % Band Neutrophils 6 % Reactive Lymphocytes 3 % Blood Morphology Comment NORMAL Serum Test, Qualitative NEGATIVE NEGATIVE Micro Results Microbiology 09/06/19 Influenza Types A,B Antigen (GAL[facility]) - Final, Complete My Orders Orders - ABRAHAM KIRAN [employer] Fibrin Degradation Products (09/06/19 21:31) Influenza A And B Antigens (09/06/19 21:31) Chest 1 View, Ap/Pa Only (09/06/19 21:31) Cbc With Automated Diff (09/06/19 21:31) Basic Metabolic Panel (09/06/19 21:31) Hcg,Qualitative Serum (09/06/19 21:31) Ed Iv/Invasive Line Start (09/06/19 21:31) Ketorolac Injection (Toradol Injection) (09/06/19 21:45) Albuterol/Ipra Inhalation Soln (Duoneb I (09/06/19 21:45) Svn Small Volume Nebulizer (09/06/19 21:35) Manual Differential (09/06/19 21:35) Oseltamivir 75 Mg Capsule (Tamiflu 75 (09/06/19 22:00) Medications Given in ED Current Medications Medications Dose Ordered Sig/Hina Route Start Time Stop Time Status Last Admin Dose Admin Ketorolac Tromethamine 15 mg ONCE ONCE IVP 09/06/19 21:45 09/06/19 21:46 DC 09/06/19 21:37 15 MG Vital Signs/I&O 09/06/19 21:30 Temp 38.1 Pulse 116 Resp 20 B/P (MAP) 140/72 (94) Pulse Ox 97 O2 Delivery Room Air Capillary Refill : Departure Impression Primary Impression: Influenza B Disposition: HOME, SELF-CARE Condition: Stable Departure-Patient Inst. Decision time for Depature: 21:59 Referrals: HERON JOE MD (PCP/Family) Primary Care Physician Patient Instructions: Flu, Adult (DC) Add. Discharge Instructions: 1. Return to ER for any concerns 2. Use your inhaler/nebulizer as needed at home. Tylenol and ibuprofen for pain control. Expect to feel poorly for the next 5-7 days. All discharge instructions reviewed with patient and/or family. Voiced understanding. Scripts Oseltamivir Phosphate (Tamiflu) 75 Mg Cap 75 MG PO BID, #10 CAP Prov: ABRAHAM KIRAN APRN 09/06/19 Work/School Note: Work Release Form Date Seen in the Emergency Department: Sep 06, 2019 Return to Work: Sep 12, 2019 ABRAHAM KIRAN APRN Sep 06, 2019 21:35
[2019-09-06 21:45] LABS: BASOPHILS % (AUTO) 0 % (0-10); EOSINOPHILS % (AUTO) 0 % (0-10); HEMATOCRIT 42 % (35-52); HEMOGLOBIN 14.4 G/DL (11.5-16.0); LYMPHOCYTES # (AUTO) 0.6 X 10^3 (1.0-4.0); LYMPHOCYTES % (AUTO) 8 % (12-44); MEAN CORPUSCULAR HEMOGLOBIN 32 PG (25-34); MEAN CORPUSCULAR HGB CONC 34 G/DL (32-36); MEAN CORPUSCULAR VOLUME 95 FL (80-99); MEAN PLATELET VOLUME 10.6 FL (7.4-10.4); MONOCYTES # (AUTO) 0.5 X 10^3 (0.0-1.0); MONOCYTES % (AUTO) 7 % (0-12); NEUTROPHILS # (AUTO) 6.3 X 10^3 (1.8-7.8); NEUTROPHILS % (AUTO) 85 % (42-75); PLATELET COUNT 231 10^3/uL (130-400); RED CELL DISTRIBUTION WIDTH 13.3 % (10.0-14.5); WHITE BLOOD COUNT 7.5 10^3/uL (4.3-11.0)
[2019-09-06] MEDS ORDERED: RT-ALBUTEROL/IPRATROPIUM 3 ML (DUONEB) VIAL INH ONE (21:45)
[2019-09-06] MEDS ORDERED: KETOROLAC 30 MG/ML VIAL IVP ONE (21:45)
[2019-09-06 21:57] LABS: BAND NEUTROPHILS 6 %; BASOPHILS % (MANUAL) 0 %; EOSINOPHILS % (MANUAL) 0 %; LYMPHOCYTES % (MANUAL) 9 %; MONOCYTES % (MANUAL) 4 %; NEUTROPHILS % (MANUAL) 78 %; RBC MORPH NORMAL; REACTIVE LYMPHOCYTES 3 %
[2019-09-06] MEDS ORDERED: OSLT75C PO (21:59)
[2019-09-06] MEDS ORDERED: OSELTAMIVIR 75 MG (TAMIFLU) CAPSULE PO ONE (22:00)
[2019-09-06 22:01] LABS: BUN/CREATININE RATIO 11; CARBON DIOXIDE 18 MMOL/L (21-32); CHLORIDE 106 MMOL/L (98-107); CREATININE SERUM 0.81 MG/DL (0.60-1.30); GFR ESTIMATED > 60; GLUCOSE 147 MG/DL (70-105); POTASSIUM 3.5 MMOL/L (3.6-5.0); SODIUM 137 MMOL/L (135-145)
[2019-09-06 22:13] VITALS: BP 140/89
--- NOTE | 2019-09-07 07:25 | Diagnostic Imaging Report ---
Indication: Dyspnea and generalized malaise. Comparison: 08/10/2018. Discussion: Single portable upright view of the chest was obtained. Elevated right hemidiaphragm is stable. Stable normal heart size. No focal consolidation, pleural fluid, or pneumothorax. No osseous abnormality. Impression: 1. Negative portable chest. Dictated by: Dictated on workstation # [id number]
== END 2019-09-06 22:18 | disposition home or self-care (01) ==
LOC: EDUNIT# 21:14 → ER 21:15
DX: J10.1 Influenza due to other identified influenza virus with other respiratory manifestations (principal); E78.00 Pure hypercholesterolemia, unspecified; K21.9 Gastro-esophageal reflux disease without esophagitis; K58.9 Irritable bowel syndrome, unspecified; M79.7 Fibromyalgia; E66.9 Obesity, unspecified; F90.9 Attention-deficit hyperactivity disorder, unspecified type; F41.9 Anxiety disorder, unspecified; F43.10 Post-traumatic stress disorder, unspecified; F60.9 Personality disorder, unspecified; F31.9 Bipolar disorder, unspecified; Z87.442 Personal history of urinary calculi; Z87.440 Personal history of urinary (tract) infections; Z88.5 Allergy status to narcotic agent; Z88.8 Allergy status to other drugs, medicaments and biological substances; Z79.51 Long term (current) use of inhaled steroids; Z68.41 Body mass index [BMI] 40.0-44.9, adult; Z79.52 Long term (current) use of systemic steroids; Z77.22 Contact with and (suspected) exposure to environmental tobacco smoke (acute) (chronic); Z90.89 Acquired absence of other organs; Z82.49 Family history of ischemic heart disease and other diseases of the circulatory system
CPT/HCPCS: 36415; 71045; 80048; 84703; 85007; 85027; 85379; 87804; 94640; 96374

== ENCOUNTER 2019-12-11 13:55 | Emergency (ER) | payer SELFPAY ==
[~2019-12-11] VITALS: Ht 152 cm; Wt 108.8 kg
[~2019-12-11 13:55] MED LIST changes: +ACHYD1T PO; -HYDR-3820 PO; +OSLT75C PO
--- NOTE | 2019-12-11 14:20 | ED Headache ---
General Stated Complaint: HEADACHE Source: patient Exam Limitations: no limitations History of Present Illness Date Seen by Provider: Dec 11, 2019 Time Seen by Provider: 14:19 Initial Comments To ER with a midline headache associated with nausea and insomnia since 9 AM yesterday morning. Timing/Duration: 24 hours Severity/Quality: moderate Location: global Prior Headaches/Recent Trauma: occasional headaches Modifying Factors: worse with exposure to light Associated Symptoms: nausea/vomiting Allergies and Home Medications Allergies Coded Allergies: prochlorperazine (Unverified Adverse Reaction, Unknown, 08/24/17) tramadol (Unverified Adverse Reaction, Unknown, 08/24/17) Home Medications Albuterol Sulfate 18 Gm Hfa.aer.ad, 1-2 PUFF IH Q4H PRN for SHORTNESS OF BREATH Prescribed by: HERON JOE on 07/08/18 1134 Albuterol/Ipratropium 4 Gm Aero, 1 PUFF IH DAILY, (Reported) Amoxicillin 500 Mg Capsule, 1,000 MG PO BID Prescribed by: MARIA C SWARTZ on 08/10/18 132 Atorvastatin Calcium 20 Mg Tablet, 20 MG PO DAILY, (Reported) Baclofen 10 Mg Tablet, 10 MG PO BID, (Reported) Benzonatate 100 Mg Capsule, 1-2 TAB PO TID Prescribed by: THOMPSON FITCH on 07/16/182052 Benzonatate 100 Mg Capsule, 1-2 CAP PO HS PRN for COUGH do NOT use during the daytime. you need the cough to keep the lungs open during the daytime. Prescribed by: MARIA C SWARTZ on 08/10/18 132 Budesonide 1 Mg/2 Ml Ampul.neb, 1 MG IH BID Prescribed by: THOMPSON FITCH on 07/16/182052 Buspirone HCl 15 Mg Tablet, 15 MG PO TID, (Reported) Cefdinir 300 Mg Capsule, 300 MG PO BID Prescribed by: ABRAHAM KIRAN on 06/28/19 1326 Cholecalciferol (Vitamin D3) 1,000 Unit Capsule, 1,000 UNIT PO BID, (Reported) Ciprofloxacin HCl 500 Mg Tablet, 500 MG PO BID Prescribed by: MARIA C SWARTZ on 08/10/18 132 Clindamycin HCl 300 Mg Capsule, 300 MG PO TID Prescribed by: ABRAHAM KIRAN on 03/07/19 1402 Cranberry Extract 500 Mg Tablet, 1,000 MG PO BID, (Reported) Dextroamphetamine/Amphetamine 10 Mg Tablet, 10 MG PO BID, (Reported) Dicyclomine HCl 20 Mg Tablet, 20 MG PO QID, (Reported) Diphenhydramine HCl 25 Mg Tablet, 25 MG PO BID, (Reported) Docusate Sodium 100 Mg Capsule, 100 MG PO BID PRN for CONSTIPATION Prescribed by: AILYN VERGARA on 10/23/16 0735 Doxycycline Monohydrate 100 Mg Capsule, 100 MG PO BID Prescribed by: THOMPSON FITCH on 07/16/182052 Famotidine 20 Mg Tablet, 20 MG PO BID, (Reported) Fluticasone Propionate 16 Gm [place].susp, 1 SPRAY NSEACH HS, (Reported) Guaifenesin/Dextromethorphan 1 Each Tbmp.12hr, 1 EACH PO BID Prescribed by: THOMPSON FITCH on 07/16/182052 Hydrocodone Bit/Acetaminophen 1 Tab Tab, 1 TAB PO Q6H PRN for PAIN-MODERATE Prescribed by: PEDRO IRWIN on 03/10/19 1415 Hydrocodone Bit/Acetaminophen 1 Tab Tab, 1 EACH PO Q8H PRN for PAIN-MODERATE Prescribed by: YENNIFER HAMLIN on 03/21/19 181 Ibuprofen 600 Mg Tablet, 600 MG PO Q6H PRN for PAIN, (Reported) Ipratropium/Albuterol Sulfate 3 Ml Ampul.neb, 3 ML INH Q6H PRN for DYSPNEA Prescribed by: HERON JOE on 07/08/18 1134 Methylprednisolone 4 Mg Tab.ds.pk, 4 MG PO UD Prescribed by: THOMPSON FITCH on 07/16/182052 Mv,Ca,Min/Iron Fum/FA/Vit K 1 Each Tablet, 1 EACH PO DAILY, (Reported) Nitrofurantoin Monohyd/M-Cryst 100 Mg Capsule, 1 TAB PO BID Prescribed by: JUDY LEO on 11/30/181919 Nitrofurantoin Monohyd/M-Cryst 100 Mg Capsule, 100 MG PO BID Prescribed by: THOMPSON FITCH on 08/08/19314 Ondansetron 4 Mg Tab.rapdis, 4 MG SL Q4H PRN for NAUSEA/VOMITING-1ST LINE Prescribed by: ANGY MARTINS on 03/01/18 0208 Ondansetron HCl 4 Mg Tab, 4 MG PO Q4H PRN for NAUSEA/VOMITING Prescribed by: JUDY LEO on 11/30/18 1920 Oseltamivir Phosphate 75 Mg Cap, 75 MG PO BID Prescribed by: ABRAHAM KIRAN on 09/06/19 215 Phenazopyridine HCl 100 Mg Tablet, 100 MG PO TID Prescribed by: ABRAHAM KIRAN on 06/28/19 1326 Prazosin HCl 2 Mg Capsule, 6 MG PO HS, (Reported) Prednisone 10 Mg Tab, 20 MG PO DAILY, (Reported) FILLED 07/01/18 PATIENT STATES SHE STILL HAS TWO MORE DOSES Prednisone 20 Mg Tab, 2 TAB PO DAILY Prescribed by: MARIA C SWARTZ on 08/10/18 1322 Prednisone 20 Mg Tab, 40 MG PO DAILY Prescribed by: MARIA C SWARTZ on 06/08/19 2330 Quetiapine Fumarate 200 Mg Tablet, 200 MG PO HS, (Reported) Patient Home Medication List Home Medication List Reviewed: Yes Review of Systems Review of Systems Constitutional: see HPI Eyes: No Symptoms Reported Ears, Nose, Mouth, Throat: no symptoms reported Respiratory: no symptoms reported Cardiovascular: no symptoms reported Gastrointestinal: nausea Genitourinary: no symptoms reported Musculoskeletal: no symptoms reported Skin: no symptoms reported Psychiatric/Neurological: See HPI Past Fschxef-Cilepu-Mrktio Hx Patient Social History Drug of Choice: MARIJUANA Type Used: Cigarettes 2nd Hand Smoke Exposure: Yes Recent Foreign Travel: No Contact w/Someone Who Travel: No Recent Hopitalizations: No Immunizations Up To Date Tetanus Booster (TDap): Unknown PED Vaccines UTD: No Date of Influenza Vaccine: May 20, 2019 Seasonal Allergies Seasonal Allergies: Yes Past Medical History Surgeries: Yes ( X1-08/07/2013;WISDOM TEETH;REMOVAL OF RETAINED IUD;PILONIDAL ABSC) Section, Tonsillectomy Respiratory: Yes (Tobaccoism) Asthma, Pneumonia Cardiac: Yes High Cholesterol Neurological: No Reproductive Disorders: Yes (RETAINED IUD, hemorrhagic ovarian cysts) Female Reproductive Disorders: Menstrual Problems, Ovarian Cyst, Polycystic Ovarian Dis DRAG DOWN History: IUD Sexually Transmitted Disease: No HIV/AIDS: No Genitourinary: Yes Bladder Infection, Kidney Stones, UTI-Chronic Gastrointestinal: Yes Gastroesophageal Reflux, Chronic Diarrhea, Irritable Bowel Musculoskeletal: Yes Fibromyalgia Endocrine: Yes (VITAMIN D DEFICIENCY; OBESITY) HEENT: Yes Loss of Vision: Bilateral Hearing Impairment: Denies Cancer: No Psychosocial: Yes (EXTENSIVE PSYCH ISSUES) ADD/ADHD, Sleep Difficulties, Anxiety, PTSD, Bipolar, Personality Disorder, Depression Integumentary: Yes (PILONIDAL CYST/ABSCESS REMOVED 03/11/19) Blood Disorders: No Adverse Reaction/Blood Tranf: No Family Medical History Alcoholism 19 FATHER Asthma 19 MOTHER Completed stroke 19 FATHER DVT 19 FATHER Dementia 19 FATHER Diabetes mellitus 19 MOTHER FH: multiple sclerosis G8 SISTER Headache disorder G8 BROTHER Hypertension 19 FATHER 19 MOTHER Myocardial infarction 19 FATHER Seizure disorder 19 FATHER Asthma, Hypertension, Seizures, Stroke Physical Exam Vital Signs Capillary Refill : Height, Weight, BMI Height: 5'0" Weight: 235lbs. 0.0oz. [id number]; 40.00 BMI Method:Stated General Appearance: WD/WN, no apparent distress HEENT: PERRL/EOMI, normal ENT inspection, TMs normal Neck: non-tender, full range of motion Respiratory: normal breath sounds, no respiratory distress, no accessory muscle use Extremities: normal range of motion, non-tender Psychiatric: alert, oriented x 3 Crainal Nerves: normal hearing, normal speech, PERRL Skin: normal color, warm/dry Progress/Results/Core Measures Results/Orders My Orders Orders - ABRAHAM KIRAN APRN Ketorolac Injection (Toradol Injection) (12/11/19 14:30) Diphenhydramine Injection (Benadryl Inje (12/11/19 14:30) Promethazine Injection (Phenergan Injec (12/11/19 14:30) Departure Impression Primary Impression: Headache Qualified Codes: R51 - Headache Disposition: 01 HOME, SELF-CARE Condition: Stable Departure-Patient Inst. Decision time for Depature: 14:20 Referrals: HERON JOE MD (PCP/Family) Primary Care Physician Patient Instructions: Headache, Adult ABRAHAM KIRAN APRN Dec 11, 2019 14:20
[2019-12-11] MEDS ORDERED: KETOROLAC 60 MG/2 ML VIAL IM ONE (14:30)
[2019-12-11] MEDS ORDERED: diphenhydrAMINE 50 MG/ML INJ (BENADRYL) IM ONE (14:30)
[2019-12-11] MEDS ORDERED: PROMETHAZINE INJ 25 MG/ML (PHENERGAN) AMP IM ONE (14:30)
--- NOTE | 2019-12-11 14:53 | Diagnostic Imaging Report ---
INDICATION: Persistent headache x 2 days. TECHNIQUE: Multiple contiguous axial images were obtained through the brain without the use of intravenous contrast. Auto Exposure Controls were utilized during the CT exam to meet ALARA standards for radiation dose reduction. COMPARISON: There is no prior study for comparison. FINDINGS: There are no extra-axial fluid collections. No intracranial hemorrhage. No intracranial mass or mass effect. No midline shift. The ventricles are normal in size and position. There is no focal parenchymal abnormality in the brain. Calvarial windows appear unremarkable. Visualized portions of the sinuses and orbits are normal. IMPRESSION: Unremarkable noncontrast brain CT. Dictated by: Dictated on workstation # [id number]
--- NOTE | 2019-12-11 14:53 | NUR ---
UPDATE GIVEN TO PT'S .
[2019-12-11 15:09] VITALS: BP 140/102
== END 2019-12-11 15:09 | disposition home or self-care (01) ==
LOC: EDUNIT# 13:55 → ER 13:57
DX: R51 Headache (principal); R11.0 Nausea; G47.00 Insomnia, unspecified; Z79.899 Other long term (current) drug therapy; Z88.5 Allergy status to narcotic agent; E78.00 Pure hypercholesterolemia, unspecified; K21.9 Gastro-esophageal reflux disease without esophagitis; K58.0 Irritable bowel syndrome with diarrhea; E55.9 Vitamin D deficiency, unspecified; M79.7 Fibromyalgia; E66.9 Obesity, unspecified; F90.9 Attention-deficit hyperactivity disorder, unspecified type; F43.10 Post-traumatic stress disorder, unspecified; F31.9 Bipolar disorder, unspecified; F41.9 Anxiety disorder, unspecified; F60.9 Personality disorder, unspecified
CPT/HCPCS: 70450

== ENCOUNTER 2020-06-14 23:30 | Emergency (ER) | payer SELFPAY ==
[~2020-06-14] VITALS: Ht 152 cm; Wt 108.8 kg
[2020-06-14] MEDS ORDERED: RT-ALBUTEROL INHALER HFA (VENTOLIN HFA) 18 GM IH STA (23:50)
[2020-06-14] MEDS ORDERED: RT-ALBUTEROL INHALER HFA (VENTOLIN HFA) 18 GM IH ONE (23:55)
[2020-06-15 00:01] LABS: BASOPHILS # (AUTO) 0.1 10^3/uL (0.0-0.1); BASOPHILS % (AUTO) 1 % (0-10); EOSINOPHILS # (AUTO) 0.2 10^3/uL (0.0-0.3); EOSINOPHILS % (AUTO) 2 % (0-10); HEMATOCRIT 46 % (35-52); HEMOGLOBIN 15.6 g/dL (11.5-16.0); LYMPHOCYTES # (AUTO) 3.8 10^3/uL (1.0-4.0); LYMPHOCYTES % (AUTO) 33 % (12-44); MEAN CORPUSCULAR HEMOGLOBIN 32 pg (25-34); MEAN CORPUSCULAR HGB CONC 34 g/dL (32-36); MEAN CORPUSCULAR VOLUME 94 fL (80-99); MEAN PLATELET VOLUME 10.2 fL (9.0-12.2); MONOCYTES # (AUTO) 0.6 10^3/uL (0.0-1.0); MONOCYTES % (AUTO) 5 % (0-12); NEUTROPHILS # (AUTO) 6.8 10^3/uL (1.8-7.8); NEUTROPHILS % (AUTO) 59 % (42-75); PLATELET COUNT 337 10^3/uL (130-400); WHITE BLOOD COUNT 11.5 10^3/uL (4.3-11.0)
--- NOTE | 2020-06-15 00:04 | ED Respiratory ---
General Chief Complaint: Respiratory Problems Stated Complaint: SOA,ASTHMA,COUGHING, NO FEVER Source: patient Exam Limitations: no limitations (DARBY NIXON,MED STUDENT) History of Present Illness Date Seen by Provider: Jun 14, 2020 Time Seen by Provider: 23:41 Initial Comments 29yo female presents to the ED with cough and shortness of air that woke her from sleep. She reports feeling SOA most of the day and has used her inhalers and nebulizers multiples but they don't seem to help she reports. She reports having chills, nausea, SOA, productive cough with yellow sputum, and central non-radiating chest pain. She says that her only recent sick contact was her grandmother who had pneumonia and was COVD negative and was treated in [place]. She reports having a history of asthma and being hospitalized in the past for an asthma exacerbation. She reports smoking 1/2ppd currently. Timing/Duration: this morning, constant Severity: mild Prior Episodes/Possible Cause: smoke exposure, other (history of asthma excerebation ) Modifying Factors: Improves With Albuterol Inhaler, Improves With Coughing Associated Symptoms: chest pain/soreness, cough; No headache, No lightheadedness; nasal congestion; No nasal drainage; shortness of breath; No sinus infection, No sore throat (DARBY NIXON,MED STUDENT) Allergies and Home Medications Allergies Coded Allergies: prochlorperazine (Unverified Adverse Reaction, Unknown, 08/24/17) tramadol (Unverified Adverse Reaction, Unknown, 08/24/17) Home Medications Albuterol Sulfate 18 Gm Hfa.aer.ad, 1-2 PUFF IH Q4H PRN for SHORTNESS OF BREATH Prescribed by: HERON JOE on 07/08/18 1134 Albuterol/Ipratropium 4 Gm Aero, 1 PUFF IH DAILY, (Reported) Amoxicillin 500 Mg Capsule, 1,000 MG PO BID Prescribed by: MARIA C SWARTZ on 08/10/18 1322 Atorvastatin Calcium 20 Mg Tablet, 20 MG PO DAILY, (Reported) Baclofen 10 Mg Tablet, 10 MG PO BID, (Reported) Benzonatate 100 Mg Capsule, 1-2 TAB PO TID Prescribed by: THOMPSON FITCH on 07/16/182052 Benzonatate 100 Mg Capsule, 1-2 CAP PO HS PRN for COUGH do NOT use during the daytime. you need the cough to keep the lungs open during the daytime. Prescribed by: MARIA C SWARTZ on 08/10/18 132 Budesonide 1 Mg/2 Ml Ampul.neb, 1 MG IH BID Prescribed by: THOMPSON FITCH on 07/16/182052 Buspirone HCl 15 Mg Tablet, 15 MG PO TID, (Reported) Cefdinir 300 Mg Capsule, 300 MG PO BID Prescribed by: ABRAHAM KIRAN on 06/28/19 1326 Cholecalciferol (Vitamin D3) 1,000 Unit Capsule, 1,000 UNIT PO BID, (Reported) Ciprofloxacin HCl 500 Mg Tablet, 500 MG PO BID Prescribed by: MARIA C SWARTZ on 08/10/18 132 Clindamycin HCl 300 Mg Capsule, 300 MG PO TID Prescribed by: ABRAHAM KIRAN on 03/07/19 1402 Cranberry Extract 500 Mg Tablet, 1,000 MG PO BID, (Reported) Dextroamphetamine/Amphetamine 10 Mg Tablet, 10 MG PO BID, (Reported) Dicyclomine HCl 20 Mg Tablet, 20 MG PO QID, (Reported) Diphenhydramine HCl 25 Mg Tablet, 25 MG PO BID, (Reported) Docusate Sodium 100 Mg Capsule, 100 MG PO BID PRN for CONSTIPATION Prescribed by: AILYN VERGARA on 10/23/16 0735 Doxycycline Monohydrate 100 Mg Capsule, 100 MG PO BID Prescribed by: THOMPSON FITCH on 07/16/182052 Famotidine 20 Mg Tablet, 20 MG PO BID, (Reported) Fluticasone Propionate 16 Gm [place].susp, 1 SPRAY NSEACH HS, (Reported) Guaifenesin/Dextromethorphan 1 Each Tbmp.12hr, 1 EACH PO BID Prescribed by: THOMPSON FITCH on 07/16/182052 Hydrocodone Bit/Acetaminophen 1 Tab Tab, 1 TAB PO Q6H PRN for PAIN-MODERATE Prescribed by: PEDRO IRWIN on 03/10/19 1415 Hydrocodone Bit/Acetaminophen 1 Tab Tab, 1 EACH PO Q8H PRN for PAIN-MODERATE Prescribed by: YENNIFER HAMLIN on 03/21/19 181 Ibuprofen 600 Mg Tablet, 600 MG PO Q6H PRN for PAIN, (Reported) Ipratropium/Albuterol Sulfate 3 Ml Ampul.neb, 3 ML INH Q6H PRN for DYSPNEA Prescribed by: HERON JOE on 07/08/18 1134 Methylprednisolone 4 Mg Tab.ds.pk, 4 MG PO UD Prescribed by: THOMPSON FITCH on 07/16/182052 Mv,Ca,Min/Iron Fum/FA/Vit K 1 Each Tablet, 1 EACH PO DAILY, (Reported) Nitrofurantoin Monohyd/M-Cryst 100 Mg Capsule, 1 TAB PO BID Prescribed by: JUDY LEO on 11/30/181919 Nitrofurantoin Monohyd/M-Cryst 100 Mg Capsule, 100 MG PO BID Prescribed by: THOMPSON FITCH on 08/08/19 0315 Ondansetron 4 Mg Tab.rapdis, 4 MG SL Q4H PRN for NAUSEA/VOMITING-1ST LINE Prescribed by: ANGY MARTINS on 03/01/18 020 Ondansetron HCl 4 Mg Tab, 4 MG PO Q4H PRN for NAUSEA/VOMITING Prescribed by: JUDY LEO on 11/30/181919 Oseltamivir Phosphate 75 Mg Cap, 75 MG PO BID Prescribed by: ABRAHAM KIRAN on 09/06/19 215 Phenazopyridine HCl 100 Mg Tablet, 100 MG PO TID Prescribed by: ABRAHAM KIRAN on 06/28/19 1326 Prazosin HCl 2 Mg Capsule, 6 MG PO HS, (Reported) Prednisone 10 Mg Tab, 20 MG PO DAILY, (Reported) FILLED 07/01/18 PATIENT STATES SHE STILL HAS TWO MORE DOSES Prednisone 20 Mg Tab, 2 TAB PO DAILY Prescribed by: MARIA C SWARTZ on 08/10/18 1322 Prednisone 20 Mg Tab, 40 MG PO DAILY Prescribed by: MARIA C SWARTZ on 06/08/19 2330 Quetiapine Fumarate 200 Mg Tablet, 200 MG PO HS, (Reported) Patient Home Medication List Home Medication List Reviewed: Yes (MAKAYLA POLO MD) Review of Systems Review of Systems Constitutional: see HPI, chills, diaphoresis; No dizziness, No fever, No malaise, No weakness EENTM: nose congestion; No blurred vision, No double vision Respiratory: cough, dyspnea on exertion, phlegm (yellow ), short of breath Cardiovascular: chest pain (central and non-radiating ); No Hx of Intervention, No palpitations Gastrointestinal: abdominal pain (reported as chronic becaue of history of GERD and IBS-D ), diarrhea (reports hx of IBS-D ) Genitourinary: No decreased output, No dysuria, No frequency (DARBY NIXON MED STUDENT) Constitutional: No fever, No weakness Respiratory: cough, wheezing Gastrointestinal: abdominal pain (reported as chronic becaue of history of GERD and IBS-D ), nausea (MAKAYLA POLO MD) Past Futbnfm-Vxbdvy-Hmsjxn Hx Past Med/Social Hx: Reviewed Nursing Past Med/Soc Hx (MAKAYLA POLO MD) Patient Social History Drug of Choice: MARIJUANA Smoking Status: Current Everyday Smoker (12ppd) Type Used: Cigarettes 2nd Hand Smoke Exposure: Yes Recent Foreign Travel: No Contact w/Someone Who Travel: No Recent Hopitalizations: No (DARBY NIXON MED STUDENT) Immunizations Up To Date Tetanus Booster (TDap): Unknown PED Vaccines UTD: No Date of Influenza Vaccine: May 20, 2019 (DARBY NIXON MED STUDENT) Seasonal Allergies Seasonal Allergies: Yes (DARBY NIXON MED STUDENT) Past Medical History Surgeries: Yes ( X1-08/07/2013;WISDOM TEETH;REMOVAL OF RETAINED IUD;PILONIDAL ABSC) Section, Tonsillectomy Respiratory: Yes (Tobaccoism) Asthma, Pneumonia Cardiac: Yes High Cholesterol Neurological: No Reproductive Disorders: Yes (RETAINED IUD, hemorrhagic ovarian cysts) Female Reproductive Disorders: Menstrual Problems, Ovarian Cyst, Polycystic Ovarian Dis 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 Sexually Transmitted Disease: No HIV/AIDS: No Genitourinary: Yes Bladder Infection, Kidney Stones, UTI-Chronic Gastrointestinal: Yes Gastroesophageal Reflux, Chronic Diarrhea, Irritable Bowel Musculoskeletal: Yes Fibromyalgia Endocrine: Yes (VITAMIN D DEFICIENCY; OBESITY) HEENT: Yes Loss of Vision: Bilateral Hearing Impairment: Denies Cancer: No Psychosocial: Yes (EXTENSIVE PSYCH ISSUES) ADD/ADHD, Sleep Difficulties, Anxiety, PTSD, Bipolar, Personality Disorder, Depression Integumentary: Yes (PILONIDAL CYST/ABSCESS REMOVED 03/11/19) Blood Disorders: No Adverse Reaction/Blood Tranf: No (DARBY NIXON MED STUDENT) Family Medical History Reviewed Nursing Family Hx (MAKAYLA POLO MD) Alcoholism 19 FATHER Asthma 19 MOTHER Completed stroke 19 FATHER DVT 19 FATHER Dementia 19 FATHER Diabetes mellitus 19 MOTHER FH: multiple sclerosis G8 SISTER Headache disorder G8 BROTHER Hypertension 19 FATHER 19 MOTHER Myocardial infarction 19 FATHER Seizure disorder 19 FATHER Asthma, Hypertension, Seizures, Stroke (DARBY NIXON MED STUDENT) Physical Exam Vital Signs - First Documented 06/14/20 23:34 Temp 36.2 Pulse 92 Resp 18 B/P (MAP) 137/108 (118) Pulse Ox 95 O2 Delivery Room Air (MAKAYLA POLO MD) Capillary Refill : (DARBY NIXON MED STUDENT) Height: 5'0" Weight: 235lbs. 0.0oz. 106.660778kt; 47.00 BMI Method:Stated General Appearance: WD/WN, mild distress Eyes: Bilateral Eye PERRL, Bilateral Eye EOMI HEENT: No scleral icterus (R), No scleral icterus (L), No pale conjunctivae (R), No pale conjunctivae (L) Respiratory: no respiratory distress, no accessory muscle use, decreased breath sounds, wheezing, inspiration, plerual rub Cardiovascular: regular rate, rhythm, no edema, no gallop, no JVD, no murmur Extremities: normal range of motion, non-tender, normal inspection, no pedal edema, no calf tenderness, normal capillary refill Neurologic/Psychiatric: alert, normal mood/affect, oriented x 3 Skin: normal color, warm/dry (DARBY NIXON MED STUDENT) General Appearance: WD/WN, no apparent distress, obese Respiratory: no accessory muscle use, wheezing (few trace bilateral) Cardiovascular: regular rate, rhythm, no murmur Gastrointestinal: non tender, soft Neurologic/Psychiatric: alert, oriented x 3 Skin: normal color, warm/dry (MAKAYLA POLO MD) Progress/Results/Core Measures Suspected Sepsis SIRS Temperature: Pulse: Respiratory Rate: Laboratory Tests 06/14/20 23:35: Blood Pressure / Mean: Laboratory Tests 06/14/20 23:35: (DARBY NIXON MED STUDENT) Results/Orders Lab Results Laboratory Tests Test 06/14/20 23:35 06/15/20 00:03 Range/Units White Blood Count 11.5 H 4.3-11.0 10^3/uL Red Blood Count 4.93 3.80-5.11 10^6/uL Hemoglobin 15.6 11.5-16.0 g/dL Hematocrit 46 35-52 % Mean Corpuscular Volume 94 80-99 fL Mean Corpuscular Hemoglobin 32 25-34 pg Mean Corpuscular Hemoglobin Concent 34 32-36 g/dL Red Cell Distribution Width 12.6 10.0-14.5 % Platelet Count 337 130-400 10^3/uL Mean Platelet Volume 10.2 9.0-12.2 fL Immature Granulocyte % (Auto) 0 % Neutrophils (%) (Auto) 59 42-75 % Lymphocytes (%) (Auto) 33 12-44 % Monocytes (%) (Auto) 5 0-12 % Eosinophils (%) (Auto) 2 0-10 % Basophils (%) (Auto) 1 0-10 % Neutrophils # (Auto) 6.8 1.8-7.8 10^3/uL Lymphocytes # (Auto) 3.8 1.0-4.0 10^3/uL Monocytes # (Auto) 0.6 0.0-1.0 10^3/uL Eosinophils # (Auto) 0.2 0.0-0.3 10^3/uL Basophils # (Auto) 0.1 0.0-0.1 10^3/uL Immature Granulocyte # (Auto) 0.0 0.0-0.1 10^3/uL D-Dimer 0.29 0.00-0.49 UG/ML Sodium Level 139 135-145 MMOL/L Potassium Level 4.0 3.6-5.0 MMOL/L Chloride Level 106 98-107 MMOL/L Carbon Dioxide Level 22 21-32 MMOL/L Anion Gap 11 5-14 MMOL/L Blood Urea Nitrogen 12 7-18 MG/DL Creatinine 0.78 0.60-1.30 MG/DL Estimat Glomerular Filtration Rate > 60 BUN/Creatinine Ratio 15 Glucose Level 109 H 70-105 MG/DL Calcium Level 9.0 8.5-10.1 MG/DL Troponin I < 0.028 <0.028 NG/ML C-Reactive Protein High Sensitivity 0.13 0.00-0.50 MG/DL Urine Color DARK YELLOW Urine Clarity SL CLOUDY Urine pH 5.5 5-9 Urine Specific [place] >=1.030 1.016-1.022 Urine Protein 1+ H NEGATIVE Urine Glucose (UA) NEGATIVE NEGATIVE Urine Ketones TRACE H NEGATIVE Urine Nitrite NEGATIVE NEGATIVE Urine Bilirubin NEGATIVE NEGATIVE Urine Urobilinogen 0.2 < = 1.0 MG/DL Urine Leukocyte Esterase NEGATIVE NEGATIVE Urine RBC (Auto) NEGATIVE NEGATIVE Urine RBC 2-5 H /HPF Urine WBC 0-2 /HPF Urine Squamous Epithelial Cells 0-2 /HPF Urine Crystals PRESENT H /LPF Urine Calcium Oxalate Crystals MODERATE H /LPF Urine Amorphous Sediment FEW TURNER URATES H /LPF Urine Bacteria NEGATIVE /HPF Urine Casts NONE /LPF Urine Mucus NEGATIVE /LPF Urine Culture Indicated NO (MAKAYLA POLO MD) My Orders Orders - MAKAYLA POLO MD Basic Metabolic Panel (06/14/20 23:50) Cbc With Automated Diff (06/14/20 23:50) Hs C Reactive Protein (06/14/20 23:50) Fibrin Degradation Products (06/14/20 23:50) Troponin I (06/14/20 23:50) Ed Iv/Invasive Line Start (06/14/20 23:50) Urine Bedside (06/14/20 23:50) Albuterol Inhaler (Ventolin Hfa) (06/14/20 23:50) Albuterol Inhaler (Ventolin Hfa) (06/14/20 23:55) Chest Pa/Lat (2 View) (06/15/20 00:01) Ketorolac Injection (Toradol Injection) (06/15/20 00:10) Ua Culture If Indicated (06/15/20 00:21) Prednisone Tablet (Deltasone Tablet) (06/15/20 01:00) (MAKAYLA POLO MD) Vital Signs/I&O 06/14/20 06/15/20 23:34 00:18 Temp 36.2 Pulse 92 Resp 18 B/P (MAP) 137/108 (118) 125/82 Pulse Ox 95 O2 Delivery Room Air (MAKAYLA POLO MD) Vital Signs/I&O Capillary Refill : (DARBY NIXON,MED STUDENT) Progress Note : Progress Note I have seen and examined this 29yo female that presents to the ED with cough and SOA that woke her from sleep. Working up for asthma excerebation but ruling out PE, infection, and cardiac etiology. Labs: CBC, BMP D-dimer, CRP, urine test. imagin: CXR at this time. Patient is stable and has O2 stats >95 on room air. Have given albuterol 4puffs and toradol. (DARBY NIXON,MED STUDENT) Progress Note : Progress Note I have seen and evaluated the patient and agree with above except as indicated. I have directed the plan of care. She is here with cough and shortness of air and thought that this might be her asthma but is concerned about pneumonia given contact with her grandmother. Her grandmother was covered negative and she has not had any other contact with anyone else has been sick. She did try her treatment tonight but that did not help and so she presented here. Apparently woke up with central chest tightness and discomfort that is in the low chest/epigastric region. Evaluation as above. Plan as above. We did review chest x-ray which does not show any acute findings and give albuterol 4 puffs via MDI and spacer. Improved after Toradol. Prednisone 40 mg by mouth prior to discharge. No indication of pulmonary embolism or pneumonia. Discharged home with return precautions. Patient verbalize understanding instructions and agreement with plan. (MAKAYLA POLO MD) ECG Initial ECG Impression Date: Jun 14, 2020 Initial ECG Impression Time: 23:40 Initial ECG Rhythm: Normal Sinus Initial ECG Impression: Normal Initial ECG Comparisson: No Previous ECG Available Comment Sinus rhythm with normal axis. No evidence of ST elevation [place]. Interpreted by me. (MAKAYLA POLO MD) Diagnostic Imaging Diagonstic Imaging: Xray Plain Films/CT/US/NM/MRI: chest Comments No obvious infiltrate (MAKAYLA POLO MD) Departure Impression Primary Impression: Acute bronchitis Qualified Codes: J20.9 - Acute bronchitis, unspecified Disposition: 01 HOME, SELF-CARE Condition: Improved Departure-Patient Inst. Decision time for Depature: 01:02 (MAKAYLA POLO MD) Referrals: HERON JOE MD (PCP/Family) Primary Care Physician Patient Instructions: Acute Bronchitis, Adult (DC) Add. Discharge Instructions: All discharge instructions reviewed with patient and/or family. Voiced understanding. Take medications as directed. Use inhaler with spacer 2 puffs every 4 hours as needed for wheezing or shortness of breath. You may take ibuprofen and/or Tylenol as needed for fever or pain per package directions. Drink plenty of fluids. Return for worse pain, weakness, breathing problems, fever or other con cerns as needed. Follow-up with your Neena in a few days for recheck as needed. Scripts Prednisone (Prednisone) 20 Mg Tab 40 MG PO DAILY, #8 TAB 0 Refills Prov: MAKAYLA POLO MD 06/15/20 DARBY NIXON,MED STUDENT Jun 15, 2020 00:04 MAKAYLA POLO MD Jun 15, 2020 01:03
[2020-06-15 00:08] LABS: CHLORIDE 106 MMOL/L (98-107); SODIUM 139 MMOL/L (135-145)
[2020-06-15 00:09] LABS: GLUCOSE 109 MG/DL (70-105)
[2020-06-15] MEDS ORDERED: KETOROLAC 30 MG/ML VIAL IVP STA (00:10)
[2020-06-15 00:11] LABS: CARBON DIOXIDE 22 MMOL/L (21-32)
[2020-06-15 00:13] LABS: CREATININE SERUM 0.78 MG/DL (0.60-1.30); GFR ESTIMATED > 60
[2020-06-15 00:14] LABS: BUN/CREATININE RATIO 15
[2020-06-15 00:34] LABS: BILIRUBIN,URINE NEGATIVE (NEGATIVE); CLARITY,URINE SL CLOUDY; COLOR,URINE DARK YELLOW; GLUCOSE, URINE (UA) NEGATIVE (NEGATIVE); KETONES,URINE TRACE (NEGATIVE); LEUKOCYTE ESTERASE ,URINE NEGATIVE (NEGATIVE); NITRITE,URINE NEGATIVE (NEGATIVE); PH,URINE 5.5 (5-9); PROTEIN,URINE 1+ (NEGATIVE)
[2020-06-15 00:53] LABS: BACTERIA,URINE NEGATIVE /HPF; SQUAMOUS EPITHELIAL CELL,UR 0-2 /HPF; WBC,URINE 0-2 /HPF
[2020-06-15 00:54] LABS: AMORPHOUS SEDIMENT,UR FEW AMOR URATES /LPF; CALCIUM OXALATE CRYSTALS,UR MODERATE /LPF
[2020-06-15] MEDS ORDERED: predniSONE 20 MG TAB PO ONE (01:00)
[2020-06-15] MEDS ORDERED: PRD20T PO (01:04)
[2020-06-15 01:08] VITALS: BP 105/72
--- NOTE | 2020-06-15 06:57 | Diagnostic Imaging Report ---
INDICATION: cough. TECHNIQUE: Two view chest 12:24 AM CORRELATION STUDY: 09/06/2019 FINDINGS: The heart size, mediastinal configuration and pulmonary vasculature are within normal limits. The lungs are clear with no consolidating infiltrate. There is no significant pleural effusion or pneumothorax. Visualized osseous structures are unremarkable. IMPRESSION: 1. Negative for acute abnormality of the chest. Dictated by: Dictated on workstation # [id number]
== END 2020-06-15 01:10 | disposition home or self-care (01) ==
LOC: EDUNIT# 23:30 → ER 23:31
DX: J20.9 Acute bronchitis, unspecified (principal); E66.9 Obesity, unspecified; E78.00 Pure hypercholesterolemia, unspecified; F31.9 Bipolar disorder, unspecified; F41.9 Anxiety disorder, unspecified; K21.9 Gastro-esophageal reflux disease without esophagitis; F17.210 Nicotine dependence, cigarettes, uncomplicated; Z82.49 Family history of ischemic heart disease and other diseases of the circulatory system; Z83.3 Family history of diabetes mellitus; Z88.5 Allergy status to narcotic agent; Z88.8 Allergy status to other drugs, medicaments and biological substances; Z68.42 Body mass index [BMI] 45.0-49.9, adult; Z20.828 Contact with and (suspected) exposure to other viral communicable diseases; Z79.52 Long term (current) use of systemic steroids
CPT/HCPCS: 36415; 71046; 80048; 81000; 84484; 84703; 85025; 85379; 86141; 93041

== ENCOUNTER 2020-08-09 19:25 | Emergency (ER) | payer SELFPAY ==
[~2020-08-09] VITALS: Ht 152.4 cm; Wt 113.3 kg
[~2020-08-09 19:25] MED LIST changes: -CLIN300C11 PO; +CLIN300C12 PO
[2020-08-09 19:29] VITALS: BP 153/108
--- NOTE | 2020-08-09 19:35 | ED Upper Extremity ---
General Chief Complaint: Upper Extremity Stated Complaint: L WRIST PAIN;FALL Source: patient Exam Limitations: no limitations History of Present Illness Date Seen by Provider: Aug 09, 2020 Time Seen by Provider: 19:32 Initial Comments Patient is a 29-year-old female who presents to the emergency room with a chief complaint of left wrist pain. Patient states she was walking in her home and tripped over her cat went down on an extended left arm. Patient denies any elbow pain shoulder pain. She denies hitting her head or loss of consciousness. She denies any neck pain or back pain. Patient states that she has some tingling in her third and fourth fingers but otherwise sensation is intact. Patient has limited range of motion as far as flexion at the fingers as well as flexion and extension at the left wrist. Patient is right-hand dominant. She has never injured this wrist before. All other review of systems reviewed and negative except as stated. Onset: this afternoon (Injury occurred approximately 4 hours prior to arrival. Patient has been using ice and Tylenol for relief of symptoms and this is been minimal.) Severity: moderate Pain/Injury Location: left wrist Method of Injury: fell Modifying Factors: Worse With Movement Allergies and Home Medications Allergies Coded Allergies: prochlorperazine (Unverified Adverse Reaction, Unknown, 08/24/17) tramadol (Unverified Adverse Reaction, Unknown, 08/24/17) Home Medications Albuterol Sulfate 18 Gm Hfa.aer.ad, 1-2 PUFF IH Q4H PRN for SHORTNESS OF BREATH Prescribed by: HERON JOE on 07/08/18 1134 Albuterol/Ipratropium 4 Gm Aero, 1 PUFF IH DAILY, (Reported) Amoxicillin 500 Mg Capsule, 1,000 MG PO BID Prescribed by: MARIA C SWARTZ on 08/10/18 1322 Atorvastatin Calcium 20 Mg Tablet, 20 MG PO DAILY, (Reported) Baclofen 10 Mg Tablet, 10 MG PO BID, (Reported) Benzonatate 100 Mg Capsule, 1-2 TAB PO TID Prescribed by: THOMPSON FITCH on 07/16/182052 Benzonatate 100 Mg Capsule, 1-2 CAP PO HS PRN for COUGH do NOT use during the daytime. you need the cough to keep the lungs open during the daytime. Prescribed by: MARIA C SWARTZ on 08/10/18 1322 Budesonide 1 Mg/2 Ml Ampul.neb, 1 MG IH BID Prescribed by: THOMPSON FITCH on 07/16/182052 Buspirone HCl 15 Mg Tablet, 15 MG PO TID, (Reported) Cefdinir 300 Mg Capsule, 300 MG PO BID Prescribed by: ABRAHAM KIRAN on 06/28/19 1326 Cholecalciferol (Vitamin D3) 1,000 Unit Capsule, 1,000 UNIT PO BID, (Reported) Ciprofloxacin HCl 500 Mg Tablet, 500 MG PO BID Prescribed by: MARIA C SWARTZ on 08/10/18 1322 Clindamycin HCl 300 Mg Capsule, 300 MG PO TID Prescribed by: ABRAHAM KIRAN on 03/07/19 1402 Cranberry Extract 500 Mg Tablet, 1,000 MG PO BID, (Reported) Dextroamphetamine/Amphetamine 10 Mg Tablet, 10 MG PO BID, (Reported) Dicyclomine HCl 20 Mg Tablet, 20 MG PO QID, (Reported) Diphenhydramine HCl 25 Mg Tablet, 25 MG PO BID, (Reported) Docusate Sodium 100 Mg Capsule, 100 MG PO BID PRN for CONSTIPATION Prescribed by: AILYN VERGARA on 10/23/16 0735 Doxycycline Monohydrate 100 Mg Capsule, 100 MG PO BID Prescribed by: THOMPSON FITCH on 07/16/182052 Famotidine 20 Mg Tablet, 20 MG PO BID, (Reported) Fluticasone Propionate 16 Gm Alleman.susp, 1 SPRAY NSEACH HS, (Reported) Guaifenesin/Dextromethorphan 1 Each Tbmp.12hr, 1 EACH PO BID Prescribed by: THOMPSON FITCH on 07/16/182052 Hydrocodone Bit/Acetaminophen 1 Tab Tab, 1 TAB PO Q6H PRN for PAIN-MODERATE Prescribed by: PEDRO IRWIN on 03/10/19 1415 Hydrocodone Bit/Acetaminophen 1 Tab Tab, 1 EACH PO Q8H PRN for PAIN-MODERATE Prescribed by: YENNIFER HAMLIN on 03/21/19 181 Ibuprofen 600 Mg Tablet, 600 MG PO Q6H PRN for PAIN, (Reported) Ipratropium/Albuterol Sulfate 3 Ml Ampul.neb, 3 ML INH Q6H PRN for DYSPNEA Prescribed by: HERON JOE on 07/08/18 1134 Methylprednisolone 4 Mg Tab.ds.pk, 4 MG PO UD Prescribed by: THOMPSON FITCH on 07/16/182052 Mv,Ca,Min/Iron Fum/FA/Vit K 1 Each Tablet, 1 EACH PO DAILY, (Reported) Nitrofurantoin Monohyd/M-Cryst 100 Mg Capsule, 1 TAB PO BID Prescribed by: JUDY LEO on 11/30/181919 Nitrofurantoin Monohyd/M-Cryst 100 Mg Capsule, 100 MG PO BID Prescribed by: THOMPSON FITCH on 08/08/19314 Ondansetron 4 Mg Tab.rapdis, 4 MG SL Q4H PRN for NAUSEA/VOMITING-1ST LINE Prescribed by: ANGY MARTINS on 03/01/18 020 Ondansetron HCl 4 Mg Tab, 4 MG PO Q4H PRN for NAUSEA/VOMITING Prescribed by: JUDY LEO on 11/30/181919 Oseltamivir Phosphate 75 Mg Cap, 75 MG PO BID Prescribed by: ABRAHAM KIRAN on 09/06/192158 Phenazopyridine HCl 100 Mg Tablet, 100 MG PO TID Prescribed by: ABRAHAM KIRAN on 06/28/19 1326 Prazosin HCl 2 Mg Capsule, 6 MG PO HS, (Reported) Prednisone 10 Mg Tab, 20 MG PO DAILY, (Reported) FILLED 07/01/18 PATIENT STATES SHE STILL HAS TWO MORE DOSES Prednisone 20 Mg Tab, 2 TAB PO DAILY Prescribed by: MARIA C SWARTZ on 08/10/18 1322 Prednisone 20 Mg Tab, 40 MG PO DAILY Prescribed by: MARIA C SWARTZ on 06/08/19 2330 Prednisone 20 Mg Tab, 40 MG PO DAILY Prescribed by: MAKAYLA POLO on 06/15/20 0104 Quetiapine Fumarate 200 Mg Tablet, 200 MG PO HS, (Reported) Patient Home Medication List Home Medication List Reviewed: Yes Review of Systems Constitutional: no symptoms reported EENTM: no symptoms reported Respiratory: no symptoms reported Cardiovascular: no symptoms reported Gastrointestinal: no symptoms reported Genitourinary: no symptoms reported : No Control/STD Prophylaxis: IUD Musculoskeletal: joint pain, joint swelling Skin: no symptoms reported All Other Systems Reviewed Negative Unless Noted: Yes Past Vlxwrzl-Lhefac-Dnkwej Hx Patient Social History Drug of Choice: MARIJUANA Type Used: Cigarettes 2nd Hand Smoke Exposure: Yes Recent Foreign Travel: No Contact w/Someone Who Travel: No Recent Hopitalizations: No Immunizations Up To Date Tetanus Booster (TDap): Unknown PED Vaccines UTD: No Date of Influenza Vaccine: May 20, 2020 Seasonal Allergies Seasonal Allergies: Yes Past Medical History Surgeries: Yes ( X1-08/07/2013;WISDOM TEETH;REMOVAL OF RETAINED IUD;PILONIDAL ABSC) Section, Tonsillectomy Respiratory: Yes (Tobaccoism) Asthma, Pneumonia Cardiac: Yes High Cholesterol Neurological: No Reproductive Disorders: Yes (RETAINED IUD, hemorrhagic ovarian cysts) Female Reproductive Disorders: Menstrual Problems, Ovarian Cyst, Polycystic Ovarian Dis [employer] History: IUD Sexually Transmitted Disease: No HIV/AIDS: No Genitourinary: Yes Bladder Infection, Kidney Stones, UTI-Chronic Gastrointestinal: Yes Gastroesophageal Reflux, Chronic Diarrhea, Irritable Bowel Musculoskeletal: Yes Fibromyalgia Endocrine: Yes (VITAMIN D DEFICIENCY; OBESITY) HEENT: Yes Loss of Vision: Bilateral Hearing Impairment: Denies Cancer: No Psychosocial: Yes (EXTENSIVE PSYCH ISSUES) ADD/ADHD, Sleep Difficulties, Anxiety, PTSD, Bipolar, Personality Disorder, Depression Integumentary: Yes (PILONIDAL CYST/ABSCESS REMOVED 03/11/19) Blood Disorders: No Adverse Reaction/Blood Tranf: No Family Medical History Alcoholism 19 FATHER Asthma 19 MOTHER Completed stroke 19 FATHER DVT 19 FATHER Dementia 19 FATHER Diabetes mellitus 19 MOTHER FH: multiple sclerosis G8 SISTER Headache disorder G8 BROTHER Hypertension 19 FATHER 19 MOTHER Myocardial infarction 19 FATHER Seizure disorder 19 FATHER Asthma, Hypertension, Seizures, Stroke Physical Exam Vital Signs Vital Signs - First Documented 08/09/20 19:29 Temp 35.5 Pulse 104 Resp 18 B/P (MAP) 153/108 (123) Pulse Ox 98 Capillary Refill : Height, Weight, BMI Height: 5'0" Weight: 235lbs. 0.0oz. 106.481337iv; 47.00 BMI Method:Stated General Appearance: WD/WN, no apparent distress HEENT: PERRL/EOMI Cardiovascular: regular rate, rhythm Respiratory: no respiratory distress Gastrointestinal: non tender, soft Shoulder: normal inspection, non-tender, no evidence of injury, normal ROM Elbow/Forearm: normal inspection, non-tender, no evidence of injury, normal ROM Wrist: Yes bone tenderness, Yes limited ROM Hand: normal inspection, normal ROM (Painful range of motion of the fingers of the left hand) Neurologic/Tendon: normal motor functions, normal tendon functions Neurologic/Psychiatric: alert, normal mood/affect, oriented x 3 Skin: normal color, warm/dry Progress/Results/Core Measures Results/Orders My Orders Orders - SAMIA FELTON MD Ketorolac Injection (Toradol Injection) (08/09/20 20:30) Medications Given in ED Current Medications Medications Dose Ordered Sig/Hina Route Start Time Stop Time Status Last Admin Dose Admin Ketorolac Tromethamine 30 mg ONCE ONCE IM 08/09/20 20:30 08/09/20 20:27 DC 08/09/20 20:24 30 MG Vital Signs/I&O 08/09/20 19:29 Temp 35.5 Pulse 104 Resp 18 B/P (MAP) 153/108 (123) Pulse Ox 98 Progress Progress Note : Progress Note 2004 Patient's x-ray was reviewed and negative for fractures. Patient was placed in a Velcro wrist splint for comfort. She is advised to ice the wrist for the next 24 to 48 hours and use NSAIDs as needed for pain. She verbalizes understanding is comfortable with plan of care. All questions are sought and answered and she is stable for discharge. Diagnostic Imaging Diagonstic Imaging: Xray Plain Films/CT/US/NM/MRI: forearm (wrist) Comments No evidence of acute fracture or subluxation. [facility] [place], [place] NAME: ARVIND BOWIE [facility] REC#: [id number] PT STATUS: REG ER : 1990 PHYSICIAN: ABRAHAM KIRAN APRN ADMIT DATE: 08/09/20/ER Signed Date of Exam:08/09/20 WRIST, LEFT, 3 VIEWS OR MORE INDICATION: Wrist pain after fall. 3 views were obtained FINDINGS: The alignment is normal. There is no fracture or dislocation. Soft tissues are unremarkable. IMPRESSION: No acute fracture or dislocation. Dictated by: Dictated on workstation # [id number] Dict: 08/09/202001 Trans: 08/09/202007 [facility] [id number] Interpreted by: BIJAL MUNROE MD Electronically signed by: BIJAL MUNROE MD 08/09/202007 Departure Impression Primary Impression: Sprain of left wrist Qualified Codes: S63.502A - Unspecified sprain of left wrist, initial encounter Disposition: HOME, SELF-CARE Condition: Stable Departure-Patient Inst. Decision time for Depature: 20:10 Referrals: HERON JOE MD (PCP/Family) Primary Care Physician Patient Instructions: Wrist Sprain (DC) Add. Discharge Instructions: Continue to use ice to the sore part of your wrist for the next 24 to 48 hours. Take [id number] Aleve, 2 pills in the morning with food and 2 pills in the evening with food. Wear the Velcro wrist splint as needed for comfort for the next 2 to 3 days. Please follow-up with your primary care physician. Copy Copies To 1: HERON JOE MD, KATHRYN M MD Aug 09, 2020 19:35
--- NOTE | 2020-08-09 20:05 | Diagnostic Imaging Report ---
INDICATION: Wrist pain after fall. 3 views were obtained FINDINGS: The alignment is normal. There is no fracture or dislocation. Soft tissues are unremarkable. IMPRESSION: No acute fracture or dislocation. Dictated by: Dictated on workstation # [id number]
[2020-08-09] MEDS ORDERED: KETOROLAC 30 MG/ML VIAL IVP ONE (20:15)
[2020-08-09] MEDS ORDERED: KETOROLAC 30 MG/ML VIAL IM ONE (20:30)
== END 2020-08-09 20:27 | disposition home or self-care (01) ==
LOC: EDUNIT# 19:25 → ER 19:26
DX: S63.502A Unspecified sprain of left wrist, initial encounter (principal); F31.9 Bipolar disorder, unspecified; F41.9 Anxiety disorder, unspecified; K21.9 Gastro-esophageal reflux disease without esophagitis; J45.909 Unspecified asthma, uncomplicated; E78.00 Pure hypercholesterolemia, unspecified; E66.9 Obesity, unspecified; Z83.3 Family history of diabetes mellitus; Z82.49 Family history of ischemic heart disease and other diseases of the circulatory system; Z88.5 Allergy status to narcotic agent; Z88.8 Allergy status to other drugs, medicaments and biological substances; Z77.22 Contact with and (suspected) exposure to environmental tobacco smoke (acute) (chronic); Z68.42 Body mass index [BMI] 45.0-49.9, adult; Z79.52 Long term (current) use of systemic steroids; W01.0XXA Fall on same level from slipping, tripping and stumbling without subsequent striking against object, initial encounter; Y92.009 Unspecified place in unspecified non-institutional (private) residence as the place of occurrence of the external cause
CPT/HCPCS: 73110; 84703

== ENCOUNTER 2020-12-22 01:35 | Emergency (ER) | payer SELFPAY ==
[~2020-12-22] VITALS: Ht 152.4 cm; Wt 121.6 kg
[~2020-12-22 01:35] MED LIST changes: -CIPR500T4 PO; +CIPR500T5 PO
[2020-12-22 01:58] LABS: BILIRUBIN,URINE NEGATIVE (NEGATIVE); CLARITY,URINE CLEAR; COLOR,URINE YELLOW; GLUCOSE, URINE (UA) NEGATIVE (NEGATIVE); KETONES,URINE NEGATIVE (NEGATIVE); LEUKOCYTE ESTERASE ,URINE NEGATIVE (NEGATIVE); NITRITE,URINE NEGATIVE (NEGATIVE); PROTEIN,URINE 1+ (NEGATIVE)
[2020-12-22 02:09] LABS: BACTERIA,URINE TRACE /HPF; SQUAMOUS EPITHELIAL CELL,UR 25-50 /HPF
[2020-12-22] MEDS ORDERED: ONDANSETRON 4 MG/2 ML (SDV) Z0FRAN IVP ONE (02:30)
[2020-12-22] MEDS ORDERED: LACTATED RINGERS 1,000 ML IV ONE (02:30)
--- NOTE | 2020-12-22 02:46 | ED Abdominal Pain ---
General Chief Complaint: Abdominal/GI Problems Stated Complaint: RT SIDE LOWER ABD PAIN, NAUSEA Nursing Triage Note: PT AMB TO ROOM 6 W/ CO RLQ ABD PAIN THAT STARTED AT 1500 YESTERDAY. PT STATES THAT THE PAIN RADIATES TO THE RIGHT LOWER BACK. PT COMPLAINS OF DYSURIA, HEMATURIA, AND INCREASED FREQUENCY OF URINATION. Sepsis Screen: No Definite Risk Source of Information: Patient Exam Limitations: No Limitations (JOHN GAYTAN MED STUDENT) History of Present Illness Date Seen by Provider: December 22, 2020 Time Seen by Provider: 02:20 Initial Comments 30 y/o female with PMHx of PCOS, ovarian torsion and renal stones presents with RLQ pain onset ~11 hours ago. Patient reports pain suddenly onset as a stabbing/throbbing with radiation to R back that has been worsening since onset. Pain is exacerbated by movement as well as sudden jerking motions (i.e. driving over train tracks on the way here). Pain is associated with nausea that has been preventing her from eating. She last took Ibuprofin and Tyelenol approximately 5 hours ago with no relief from her 03/29 pain. She also reports an episode of hematuria 10 hours ago with subsequent dysuria but no further blood in urine. She reports a hx of renal stones 1 year ago and ovarian torsion which spontaneously resolved 2 years ago (confirmed before and after by US). Patient denies diarrhea, constipation, vomiting, chest pain, SOB, palpitations and wheezing. Timing/Duration: 12 Hours, Getting Worse Severity/Quality: Stabbing, Throbbing, Other (810) Location: RLQ Radiation: Back Activities at Onset: None Modifying Factors: Improves With Exercise, Improves With Movement, Improves With Palpation Associated Symptoms: Back Pain, Nausea/Vomiting (JOHN GAYTAN MED STUDENT) Allergies and Home Medications Allergies Coded Allergies: prochlorperazine (Unverified Adverse Reaction, Unknown, 08/24/17) tramadol (Unverified Adverse Reaction, Unknown, 08/24/17) Home Medications Albuterol Sulfate 18 Gm Hfa.aer.ad, 1-2 PUFF IH Q4H PRN for SHORTNESS OF BREATH Prescribed by: HERON JOE on 07/08/18 1134 Albuterol/Ipratropium 4 Gm Aero, 1 PUFF IH DAILY, (Reported) Amoxicillin 500 Mg Capsule, 1,000 MG PO BID Prescribed by: MARIA C SWARTZ on 08/10/18 132 Atorvastatin Calcium 20 Mg Tablet, 20 MG PO DAILY, (Reported) Baclofen 10 Mg Tablet, 10 MG PO BID, (Reported) Benzonatate 100 Mg Capsule, 1-2 TAB PO TID Prescribed by: THOMPSON FITCH on 07/16/182052 Benzonatate 100 Mg Capsule, 1-2 CAP PO HS PRN for COUGH do NOT use during the daytime. you need the cough to keep the lungs open during the daytime. Prescribed by: MARIA C SWRATZ on 08/10/18 132 Budesonide 1 Mg/2 Ml Ampul.neb, 1 MG IH BID Prescribed by: THOMPSON FITCH on 07/16/182052 Buspirone HCl 15 Mg Tablet, 15 MG PO TID, (Reported) Cefdinir 300 Mg Capsule, 300 MG PO BID Prescribed by: ABRAHAM KIRAN on 06/28/19 132 Cholecalciferol (Vitamin D3) 1,000 Unit Capsule, 1,000 UNIT PO BID, (Reported) Ciprofloxacin HCl 500 Mg Tablet, 500 MG PO BID Prescribed by: MARIA C SWARTZ on 08/10/18 132 Clindamycin HCl 300 Mg Capsule, 300 MG PO TID Prescribed by: ABRAHAM KIRAN on 03/07/19 1402 Cranberry Extract 500 Mg Tablet, 1,000 MG PO BID, (Reported) Dextroamphetamine/Amphetamine 10 Mg Tablet, 10 MG PO BID, (Reported) Dicyclomine HCl 20 Mg Tablet, 20 MG PO QID, (Reported) Diphenhydramine HCl 25 Mg Tablet, 25 MG PO BID, (Reported) Docusate Sodium 100 Mg Capsule, 100 MG PO BID PRN for CONSTIPATION Prescribed by: AILYN VERGARA on 10/23/16 0735 Doxycycline Monohydrate 100 Mg Capsule, 100 MG PO BID Prescribed by: THOMPSON FITCH on 07/16/182052 Famotidine 20 Mg Tablet, 20 MG PO BID, (Reported) Fluticasone Propionate 16 Gm Carter.susp, 1 SPRAY NSEACH HS, (Reported) Guaifenesin/Dextromethorphan 1 Each Tbmp.12hr, 1 EACH PO BID Prescribed by: THOMPSON FITCH on 07/16/182052 Hydrocodone Bit/Acetaminophen 1 Tab Tab, 1 TAB PO Q6H PRN for PAIN-MODERATE Prescribed by: PEDRO IRWIN on 03/10/19 1415 Hydrocodone Bit/Acetaminophen 1 Tab Tab, 1 EACH PO Q8H PRN for PAIN-MODERATE Prescribed by: YENNIFER HAMLIN on 03/21/19 1819 Ibuprofen 600 Mg Tablet, 600 MG PO Q6H PRN for PAIN, (Reported) Ipratropium/Albuterol Sulfate 3 Ml Ampul.neb, 3 ML INH Q6H PRN for DYSPNEA Prescribed by: HERON JOE on 07/08/18 1134 Methylprednisolone 4 Mg Tab.ds.pk, 4 MG PO UD Prescribed by: THOMPSON FITCH on 07/16/182052 Mv,Ca,Min/Iron Fum/FA/Vit K 1 Each Tablet, 1 EACH PO DAILY, (Reported) Nitrofurantoin Monohyd/M-Cryst 100 Mg Capsule, 1 TAB PO BID Prescribed by: JUDY LEO on 11/30/181919 Nitrofurantoin Monohyd/M-Cryst 100 Mg Capsule, 100 MG PO BID Prescribed by: THOMPSON FITCH on 08/08/19 0315 Ondansetron 4 Mg Tab.rapdis, 4 MG SL Q4H PRN for NAUSEA/VOMITING-1ST LINE Prescribed by: ANGY MARTINS on 03/01/18 0208 Ondansetron HCl 4 Mg Tab, 4 MG PO Q4H PRN for NAUSEA/VOMITING Prescribed by: JUDY LEO on 11/30/181919 Oseltamivir Phosphate 75 Mg Cap, 75 MG PO BID Prescribed by: ABRAHAM KIRAN on 09/06/19 215 Phenazopyridine HCl 100 Mg Tablet, 100 MG PO TID Prescribed by: ABRAHAM KIRAN on 06/28/19 1326 Prazosin HCl 2 Mg Capsule, 6 MG PO HS, (Reported) Prednisone 10 Mg Tab, 20 MG PO DAILY, (Reported) FILLED 07/01/18 PATIENT STATES SHE STILL HAS TWO MORE DOSES Prednisone 20 Mg Tab, 2 TAB PO DAILY Prescribed by: MARIA C SWARTZ on 08/10/18 1322 Prednisone 20 Mg Tab, 40 MG PO DAILY Prescribed by: MARIA C SWARTZ on 06/08/19 2330 Prednisone 20 Mg Tab, 40 MG PO DAILY Prescribed by: MAKAYLA POLO on 06/15/20 0104 Quetiapine Fumarate 200 Mg Tablet, 200 MG PO HS, (Reported) Patient Home Medication List Home Medication List Reviewed: Yes (ANGY WOLF MD) Review of Systems Review of Systems Constitutional: No weight gain, No weight loss EENTM: No Double Vision, No Throat Pain, No Throat Swelling Respiratory: Denies Cough, Denies Shortness of Air, Denies Wheezing Cardiovascular: Denies Chest Pain, Denies Lightheadedness Gastrointestinal: Abdominal Pain; Denies Constipated, Denies Diarrhea; Nausea, Poor Appetite; Denies Rectal Bleeding, Denies Vomiting Genitourinary: Frequency, Hematuria (1x episode); Denies Incontinence Musculoskeletal: back pain; No neck pain Skin: No change in color, No lesions, No rash Psychiatric/Neurological: Denies Headache, Denies Paresthesia, Denies Tingling Endocrine: Denies Excessive Sweating; Increased Urine Hematologic/Lymphatic: Denies Easy Bleeding, Denies Easy Bruising (JOHN GAYTAN) Past Bzsmvpm-Yadhsb-Swoyhd Hx Patient Social History Alcohol Use: Denies Use Drug of Choice: MARIJUANA Smoking Status: Current Everyday Smoker Type Used: Cigarettes 2nd Hand Smoke Exposure: Yes Recent Infectious Disease Expo: No Recent Hopitalizations: No Alcohol Use?: No (JOHN GAYTAN) Immunizations Up To Date Tetanus Booster (TDap): Unknown PED Vaccines UTD: No Date of Influenza Vaccine: May 20, 2020 (JOHN GAYTAN) Seasonal Allergies Seasonal Allergies: Yes (JOHN GAYTAN) Past Medical History Surgeries: Yes ( X1-08/07/2013;WISDOM TEETH;REMOVAL OF RETAINED IUD;PILONIDAL ABSC) Section, Tonsillectomy Respiratory: Yes (Tobaccoism) Asthma, Pneumonia Cardiac: Yes High Cholesterol Neurological: No Reproductive Disorders: Yes (RETAINED IUD, hemorrhagic ovarian cysts) Female Reproductive Disorders: Menstrual Problems, Ovarian Cyst, Polycystic Ovarian Dis [employer] History: IUD Sexually Transmitted Disease: No HIV/AIDS: No Genitourinary: Yes Bladder Infection, Kidney Stones, UTI-Chronic Gastrointestinal: Yes Gastroesophageal Reflux, Chronic Diarrhea, Irritable Bowel Musculoskeletal: Yes Fibromyalgia Endocrine: Yes (VITAMIN D DEFICIENCY; OBESITY) HEENT: Yes Loss of Vision: Bilateral Hearing Impairment: Denies Cancer: No Psychosocial: Yes (EXTENSIVE PSYCH ISSUES) ADD/ADHD, Sleep Difficulties, Anxiety, PTSD, Bipolar, Personality Disorder, Depression Integumentary: Yes (PILONIDAL CYST/ABSCESS REMOVED 03/11/19) Blood Disorders: No Adverse Reaction/Blood Tranf: No (JOHN GAYTAN STUDENT) Family Medical History Alcoholism 19 FATHER Asthma 19 MOTHER Completed stroke 19 FATHER DVT 19 FATHER Dementia 19 FATHER Diabetes mellitus 19 MOTHER FH: multiple sclerosis G8 SISTER Headache disorder G8 BROTHER Hypertension 19 FATHER 19 MOTHER Myocardial infarction 19 FATHER Seizure disorder 19 FATHER Asthma, Hypertension, Seizures, Stroke (JOHN GAYTAN STUDENT) Physical Exam Vital Signs Vital Signs - First Documented 12/22/20 01:50 Temp 36.2 Pulse 98 Resp 18 B/P (MAP) 180/124 (142) Pulse Ox 97 O2 Delivery Room Air (ANGY WOLF MD) Vital Signs Capillary Refill : Less Than 3 Seconds (JOHN GAYTAN STUDENT) Height/Weight/BMI Height: 5'0" Weight: 235lbs. 0.0oz. 106.699904sq; 52.00 BMI Method:Stated General Appearance: mild distress, obese HEENT: No scleral icterus (R), No scleral icterus (L), No pale conjunctivae (R), No pale conjunctivae (L), No photophobia Neck: non-tender, normal inspection Respiratory: chest non-tender, lungs clear, normal breath sounds, no res piratory distress Cardiovascular: normal peripheral pulses, no edema, no murmur Peripheral Pulses: 2+ Dorsalis Pedis (R), 2+ Left Dors-Pedis (L), 2+ Radial Pulses (R), 2+ Radial Pulses (L) Gastrointestinal: normal bowel sounds, no pulsatile mass, tenderness Extremities: normal range of motion, normal inspection, no calf tenderness Back: no CVA tenderness; No vertebral tenderness Neurologic/Psychiatric: alert; No aphasia, No motor weakness Skin: normal color; No rash; tattoos/piercings Lymphatic: No no adenopathy (JOHN GAYTAN STUDENT) Progress/Results/Core Measures Results/Orders Lab Results Laboratory Tests Test 12/22/20 01:55 12/22/20 03:00 Range/Units Urine Color YELLOW Urine Clarity CLEAR Urine pH 6.0 5-9 Urine Specific Taberg 1.025 H 1.016-1.022 Urine Protein 1+ H NEGATIVE Urine Glucose (UA) NEGATIVE NEGATIVE Urine Ketones NEGATIVE NEGATIVE Urine Nitrite NEGATIVE NEGATIVE Urine Bilirubin NEGATIVE NEGATIVE Urine Urobilinogen 0.2 < = 1.0 MG/DL Urine Leukocyte Esterase NEGATIVE NEGATIVE Urine RBC (Auto) NEGATIVE NEGATIVE Urine RBC NONE /HPF Urine WBC NONE /HPF Urine Squamous Epithelial Cells 25-50 H /HPF Urine Crystals NONE /LPF Urine Bacteria TRACE /HPF Urine Casts NONE /LPF Urine Mucus LARGE H /LPF Urine Culture Indicated NO White Blood Count 10.2 4.3-11.0 10^3/uL Red Blood Count 4.80 3.80-5.11 10^6/uL Hemoglobin 15.5 11.5-16.0 g/dL Hematocrit 46 35-52 % Mean Corpuscular Volume 95 80-99 fL Mean Corpuscular Hemoglobin 32 25-34 pg Mean Corpuscular Hemoglobin Concent 34 32-36 g/dL Red Cell Distribution Width 12.7 10.0-14.5 % Platelet Count 321 130-400 10^3/uL Mean Platelet Volume 10.1 9.0-12.2 fL Immature Granulocyte % (Auto) 0 % Neutrophils (%) (Auto) 57 42-75 % Lymphocytes (%) (Auto) 33 12-44 % Monocytes (%) (Auto) 6 0-12 % Eosinophils (%) (Auto) 3 0-10 % Basophils (%) (Auto) 1 0-10 % Neutrophils # (Auto) 5.8 1.8-7.8 10^3/uL Lymphocytes # (Auto) 3.4 1.0-4.0 10^3/uL Monocytes # (Auto) 0.6 0.0-1.0 10^3/uL Eosinophils # (Auto) 0.3 0.0-0.3 10^3/uL Basophils # (Auto) 0.1 0.0-0.1 10^3/uL Immature Granulocyte # (Auto) 0.0 0.0-0.1 10^3/uL Sodium Level 141 135-145 MMOL/L Potassium Level 4.1 3.6-5.0 MMOL/L Chloride Level 104 98-107 MMOL/L Carbon Dioxide Level 27 21-32 MMOL/L Anion Gap 10 5-14 MMOL/L Blood Urea Nitrogen 11 7-18 MG/DL Creatinine 0.80 0.60-1.30 MG/DL Estimat Glomerular Filtration Rate > 60 BUN/Creatinine Ratio 14 Glucose Level 104 70-105 MG/DL Calcium Level 9.0 8.5-10.1 MG/DL Corrected Calcium 8.9 8.5-10.1 MG/DL Total Bilirubin 0.3 0.1-1.0 MG/DL Aspartate Amino Transf (AST/SGOT) 16 5-34 U/L Alanine Aminotransferase (ALT/SGPT) 24 0-55 U/L Alkaline Phosphatase 68 40-136 U/L C-Reactive Protein High Sensitivity 0.29 0.00-0.50 MG/DL Total Protein 6.9 6.4-8.2 GM/DL Albumin 4.1 3.2-4.5 GM/DL (ANGY WOLF MD) My Orders Orders - ANGY WOLF MD Ua Culture If Indicated (12/22/20 01:54) Cbc With Automated Diff (12/22/20 02:17) Comprehensive Metabolic Panel (12/22/20 02:17) Hs C Reactive Protein (12/22/20 02:17) Ed Iv/Invasive Line Start (12/22/20 02:17) Lactated Ringers (Lr 1000 Ml Iv Solution (12/22/20 02:30) Ondansetron Injection (Zofran Injectio (12/22/20 02:30) Fentanyl Inj (Sublimaze Injection) (12/22/20 03:00) Ct Abd/Pelv W (Appendicitis) (12/22/20 02:49) Ketorolac Injection (Toradol Injection) (12/22/20 06:00) (ANGY WOLF MD) Medications Given in ED Current Medications Medications Dose Ordered Sig/Hina Route Start Time Stop Time Status Last Admin Dose Admin Ketorolac Tromethamine 15 mg ONCE ONCE IVP 12/22/20 06:00 12/22/20 06:01 DC 12/22/20 06:10 15 MG (ANGY WOLF MD) Vital Signs/I&O 12/22/20 12/22/20 01:50 06:30 Temp 36.2 36.2 Pulse 98 89 Resp 18 18 B/P (MAP) 180/124 (142) 138/87 (142) Pulse Ox 97 98 O2 Delivery Room Air Room Air (ANGY WOLF MD) Blood Pressure Mean: 142 Progress Progress Note : Time: 04:[address] Abdomen/Pelvis w/ contrast read by Statread: non-obstructing stone in L kidney, otherwise unremarkable. (JOHN GAYTAN MED STUDENT) Progress Note : Progress Note Patient was seen and examined. She is exhibiting peritoneal signs with tenderness to percussion in the right lower quadrant. She has history of ovarian torsion previously and she retains her appendix. We discussed risks and benefits of further evaluation with CT imaging. Patient decided to proceed with CT imaging. No pathologies in the right abdomen were identified to explain her pain. There is no evidence for ovarian torsion. This was discussed with the radiologist. Appendix was normal. Perhaps patient had passed a ureteral stone earlier in the night when she had hematuria. Patient was initially treated with Zofran, Pepcid, and LR. Toradol was added prior to discharge. (ANGY WOLF MD) Diagnostic Imaging Diagonstic Imaging: CT Plain Films/CT/US/NM/MRI: abdomen, pelvis Comments CT abdomen and pelvis was viewed by me and stat rad report reviewed. There were no acute pathologies identified to explain her right lower quadrant pain. I discussed the potential of ovarian torsion with the radiologist. He stated since the ovaries were symmetrical in size, position, and density, ovarian torsion was very unlikely. (ANGY WOLF MD) Departure Impression Primary Impression: Right lower quadrant abdominal pain Disposition: 01 HOME, SELF-CARE Condition: Improved Departure-Patient Inst. Decision time for Depature: 06:19 (ANGY WOLF MD) Referrals: HERON JOE MD (PCP/Family) Primary Care Physician Patient Instructions: Severe Abdominal Pain, Adult (DC) Add. Discharge Instructions: You may take Tylenol and/or ibuprofen for pain. Drink plenty of clear liquids. Return to care if symptoms worsen. Call with questions or concerns. All discharge instructions reviewed with patient and/or family. Voiced understanding. Medical Student Attestation and Attending Note: I have personally interviewed and examined this patient along with John Gaytan, MS 3. I have reviewed student documentation including history, physical, and assessments. I agree with the documentation except where otherwise noted. Exam: General: Alert, oriented, I will distress, well developed HEENT: Normocephalic and atraumatic Heart: Regular rate and rhythm without murmur Lungs: Clear to auscultation bilaterally with normal effort Abdomen: Soft, tenderness in the right lower quadrant, tenderness to percussion, positive heel strike, positive obturator, nondistended, normal bowel sounds Neuropsych: Alert, oriented, no focal deficits Skin: Warm and dry without rashes (ANGY WOLF MD) Copy Copies To 1: HERON JOE MD, MATTHEW MED STUDENT December 22, 2020 02:45 ANGY WOLF MD December 22, 2020 06:23
[2020-12-22] MEDS ORDERED: fentaNYL INJ 100 MCG/2 ML AMP IVP ONE (03:00)
[2020-12-22 03:07] LABS: BASOPHILS # (AUTO) 0.1 10^3/uL (0.0-0.1); BASOPHILS % (AUTO) 1 % (0-10); EOSINOPHILS # (AUTO) 0.3 10^3/uL (0.0-0.3); EOSINOPHILS % (AUTO) 3 % (0-10); HEMATOCRIT 46 % (35-52); HEMOGLOBIN 15.5 g/dL (11.5-16.0); LYMPHOCYTES # (AUTO) 3.4 10^3/uL (1.0-4.0); LYMPHOCYTES % (AUTO) 33 % (12-44); MEAN CORPUSCULAR HEMOGLOBIN 32 pg (25-34); MEAN CORPUSCULAR HGB CONC 34 g/dL (32-36); MEAN CORPUSCULAR VOLUME 95 fL (80-99); MEAN PLATELET VOLUME 10.1 fL (9.0-12.2); MONOCYTES # (AUTO) 0.6 10^3/uL (0.0-1.0); MONOCYTES % (AUTO) 6 % (0-12); NEUTROPHILS # (AUTO) 5.8 10^3/uL (1.8-7.8); NEUTROPHILS % (AUTO) 57 % (42-75); PLATELET COUNT 321 10^3/uL (130-400); WHITE BLOOD COUNT 10.2 10^3/uL (4.3-11.0)
[2020-12-22 03:14] LABS: ALBUMIN 4.1 GM/DL (3.2-4.5); CHLORIDE 104 MMOL/L (98-107); POTASSIUM 4.1 MMOL/L (3.6-5.0); SODIUM 141 MMOL/L (135-145)
[2020-12-22 03:17] LABS: GLUCOSE 104 MG/DL (70-105); TOTAL PROTEIN 6.9 GM/DL (6.4-8.2)
[2020-12-22 03:18] LABS: CARBON DIOXIDE 27 MMOL/L (21-32)
[2020-12-22 03:19] LABS: BILIRUBIN,TOTAL 0.3 MG/DL (0.1-1.0)
[2020-12-22 03:20] LABS: ALKALINE PHOSPHATASE 68 U/L (40-136); GFR ESTIMATED > 60
[2020-12-22 03:22] LABS: BUN/CREATININE RATIO 14
[2020-12-22 03:23] LABS: ALANINE AMINOTRANSFERASE 24 U/L (0-55)
[2020-12-22] MEDS ORDERED: KETOROLAC 30 MG/ML VIAL IVP ONE (06:00)
[2020-12-22 06:30] VITALS: BP 138/87
--- NOTE | 2020-12-22 07:11 | Diagnostic Imaging Report ---
PROCEDURE: CT abdomen and pelvis with contrast, rule out appendicitis. TECHNIQUE: Multiple contiguous axial images were obtained through the abdomen and pelvis after the administration of intravenous contrast. All CT scans use one or more of the following dose optimizing techniques: automated exposure control, MA and/or KvP adjustment based on patient size and exam type or iterative reconstruction. INDICATION: Right lower quadrant pain. COMPARISON: 08/08/2019. FINDINGS: There is a 2 mm calculus mid calyx left kidney without obstruction. Kidneys otherwise appear normal. Normal enhancement following IV contrast. Ureters and bladder are normal. Liver shows fatty changes. Gallbladder and bile duct are normal. Pancreas and spleen are normal. Adrenal glands are normal. Bowel gas pattern is normal throughout. The appendix is visualized and normal. No pelvic masses. There is an IUD in the uterine cavity in normal position. IMPRESSION: 2 mm nonobstructing calculus left kidney. Findings are concordant with the preliminary report. Dictated by: Dictated on workstation # [id number]
== END 2020-12-22 06:30 | disposition home or self-care (01) ==
LOC: EDUNIT# 01:35 → ER 01:39
DX: R10.31 Right lower quadrant pain (principal); E66.9 Obesity, unspecified; F41.9 Anxiety disorder, unspecified; F31.9 Bipolar disorder, unspecified; E78.00 Pure hypercholesterolemia, unspecified; J45.909 Unspecified asthma, uncomplicated; K21.9 Gastro-esophageal reflux disease without esophagitis; F17.210 Nicotine dependence, cigarettes, uncomplicated; Z68.43 Body mass index [BMI] 50.0-59.9, adult; Z88.5 Allergy status to narcotic agent; Z88.8 Allergy status to other drugs, medicaments and biological substances; Z79.899 Other long term (current) drug therapy; Z79.52 Long term (current) use of systemic steroids
CPT/HCPCS: 36415; 74177; 80053; 81000; 84703; 85025; 86141

== ENCOUNTER 2021-12-31 18:08 | Emergency (ER) | payer OTHER ==
[~2021-12-31] VITALS: Ht 152.4 cm; Wt 113.4 kg
[~2021-12-31 18:08] MED LIST changes: +CLIN-144 PO; -CLIN300C12 PO; -CRAN500T2 PO; +CRAN500T3 PO; +DICY20TA PO; -DICY20TA10 PO; +DOXY-311 PO; -DOXY100C42 PO
[2021-12-31] MEDS ORDERED: NS IV 1000 ML 1,000 ML IV STA (18:41)
[2021-12-31] MEDS ORDERED: KETOROLAC 30 MG/ML VIAL IVP ONE (18:45)
[2021-12-31] MEDS ORDERED: ONDANSETRON 4 MG/2 ML (SDV) Z0FRAN IVP ONE (18:45)
--- NOTE | 2021-12-31 18:46 | ED Back Pain ---
General Chief Complaint: Back Problems Stated Complaint: LOWER BACK PAIN Nursing Triage Note: PT AMB TO TRIAGE WITH COMPLAINT OF LOW BACK PAIN FOR A COUPLE DAYS. STATES FEELS LIKE WHEN SHE HAD A KIDNEY STONE. Source of Information: Patient Exam Limitations: No Limitations (LYDIA CURRY) History of Present Illness Date Seen by Provider: December 31, 2021 Time Seen by Provider: 18:43 Initial Comments Patient is a 31-year-old female who presents ED with right flank pain with radiation to right lateral abdomen. Started 3 days ago described as sharp and intermittent. Reports dark urine without burning with urination, frequent urination, fever, chills. Nausea without vomiting or diarrhea. History of kidney stones states this feels very similar. No radiating pain into the lower extremity, bowel or urine incontinence, saddle paresthesia. Has been taken Tylenol ibuprofen and topical ointment without much improvement. Denies chest pain, shortness of breath, injury, fever, abdominal pain, headache (LYDIA CURRY) Allergies and Home Medications Allergies Coded Allergies: prochlorperazine (Unverified Adverse Reaction, Unknown, 08/24/17) tramadol (Unverified Adverse Reaction, Unknown, 08/24/17) Patient Home Medication List Home Medication List Reviewed: No (THOMPSON FITCH DO) Albuterol Sulfate (Ventolin Hfa) 18 Gm Hfa.aer.ad, 1-2 PUFF IH Q4H PRN for SHORTNESS OF BREATH Prescribed by: HERON JOE on 07/08/18 1134 Albuterol/Ipratropium (Combivent Respimat Inhal [place]) 4 Gm Aero, 1 PUFF IH DAILY, (Reported) Entered as Reported by: JENNY RAMIREZ on 07/06/18 1054 Amoxicillin (Amoxicillin) 500 Mg Capsule, 1,000 MG PO BID Prescribed by: MARIA C SWARTZ on 08/10/18 1322 Atorvastatin Calcium (Lipitor) 20 Mg Tablet, 20 MG PO DAILY, (Reported) Entered as Reported by: FERNANDO ALEJANDRO on 07/06/18 1009 Baclofen (Baclofen) 10 Mg Tablet, 10 MG PO BID, (Reported) Entered as Reported by: FERNANDO ALEJANDRO on 07/06/18 1009 Benzonatate (Tessalon Perles) 100 Mg Capsule, 1-2 TAB PO TID Prescribed by: THOMPSON FITCH on 07/16/182052 Benzonatate (Tessalon Perle) 100 Mg Capsule, 1-2 CAP PO HS PRN for COUGH Prescribed by: MARIA C SWARTZ on 08/10/18 132 Budesonide (Pulmicort) 1 Mg/2 Ml Ampul.neb, 1 MG IH BID Prescribed by: THOMPSON FITCH on 07/16/182052 Buspirone HCl (Buspirone HCl) 15 Mg Tablet, 15 MG PO TID, (Reported) Entered as Reported by: YENNIFER WICK on 07/31/161899 Cefdinir (Cefdinir) 300 Mg Capsule, 300 MG PO BID Prescribed by: ABRAHAM KIRAN on 06/28/19 132 Cephalexin (Cephalexin) 500 Mg Tablet, 500 MG PO BID Prescribed by: MARCIAL ALBERTS on 12/31/212006 Cholecalciferol (Vitamin D3) (Vitamin D3) 1,000 Unit Capsule, 1,000 UNIT PO BID, (Reported) Entered as Reported by: YENNIFER WICK on 07/31/161899 Ciprofloxacin HCl (Ciprofloxacin HCl) 500 Mg Tablet, 500 MG PO BID Prescribed by: MARIA C SWARTZ on 08/10/18 132 Clindamycin HCl (Clindamycin HCl) 300 Mg Capsule, 300 MG PO TID Prescribed by: ABRAHAM KIRAN on 03/07/19 1402 Cranberry Extract (Cranberry) 500 Mg Tablet, 1,000 MG PO BID, (Reported) Entered as Reported by: LISA MCKINLEY on 10/11/16 1444 Dextroamphetamine/Amphetamine (Adderall 10 mg Tablet) 10 Mg Tablet, 10 MG PO BID, (Reported) Entered as Reported by: FERNANDO ALEJANDRO on 07/06/18 1009 Dicyclomine HCl (Dicyclomine HCl) 20 Mg Tablet, 20 MG PO QID, (Reported) Entered as Reported by: FERNANDO ALEJANDRO on 07/06/18 1009 Diphenhydramine HCl (Diphenhydramine HCl) 25 Mg Tablet, 25 MG PO BID, (Reported) Entered as Reported by: JENNY ARMIREZ on 07/06/18 1052 Docusate Sodium (Colace) 100 Mg Capsule, 100 MG PO BID PRN for CONSTIPATION Prescribed by: AILYN VERGARA on 10/23/16 0735 Doxycycline Monohydrate (Doxycycline Monohydrate) 100 Mg Capsule, 100 MG PO BID Prescribed by: THOMPSON FITCH on 07/16/182052 Famotidine (Acid Learning Developer (FAMOTIDINE)) 20 Mg Tablet, 20 MG PO BID, (Reported) Entered as Reported by: JENNY RAMIREZ on 07/06/18 105 Fluticasone Propionate (Fluticasone Propionate) 16 Gm [place].susp, 1 SPRAY NSEACH HS, (Reported) Entered as Reported by: FERNANDO ALEJANDRO on 07/06/18 100 Guaifenesin/Dextromethorphan (Mucinex Dm ER 1,200-60 mg Tab) 1 Each Tbmp.12hr, 1 EACH PO BID Prescribed by: THOMPSON FITCH on 07/16/182052 Hydrocodone Bit/Acetaminophen (Lortab 5 Mg Tablet) 1 Tab Tab, 1 TAB PO Q6H PRN for PAIN-MODERATE Prescribed by: PEDRO IRWIN on 03/10/19 1415 Hydrocodone Bit/Acetaminophen (Lortab 5 Mg Tablet) 1 Tab Tab, 1 EACH PO Q8H PRN for PAIN-MODERATE Prescribed by: YENNIFER HAMLIN on 03/21/19 1819 Hydrocodone/Acetaminophen (Hydrocodone-Acetamin 5-325 mg) 5 Mg-325 Mg Tablet, 1 TAB PO Q4H PRN for PAIN-MODERATE (5-7) Prescribed by: MARCIAL ALBERTS on 12/31/212007 Ibuprofen (Ibuprofen) 600 Mg Tablet, 600 MG PO Q6H PRN for PAIN, (Reported) Entered as Reported by: JENNY RAMIREZ on 07/06/18 105 Ipratropium/Albuterol Sulfate (Iprat-Albut 0.5-3(2.5) mg/3 ml) 3 Ml Ampul.neb, 3 ML INH Q6H PRN for DYSPNEA Prescribed by: HERON JOE on 07/08/18 1134 Methylprednisolone (Medrol) 4 Mg Tab.ds.pk, 4 MG PO UD Prescribed by: THOMPSON FITCH on 07/16/182052 Mv,Ca,Min/Iron Fum/FA/Vit K (Multi For Her Tablet) 1 Each Tablet, 1 EACH PO DAILY, (Reported) Entered as Reported by: FERNANDO ALEJADNRO on 07/06/18 1009 Naproxen (Naproxen) 500 Mg Tablet.dr, 500 MG PO BID Prescribed by: MARCIAL ALBERTS on 12/31/212006 Nitrofurantoin Monohyd/M-Cryst (Macrobid 100 mg Capsule) 100 Mg Capsule, 1 TAB PO BID Prescribed by: JUDY LEO on 11/30/181919 Nitrofurantoin Monohyd/M-Cryst (Macrobid 100 mg Capsule) 100 Mg Capsule, 100 MG PO BID Prescribed by: THOMPSON FITCH on 08/08/19 031 Ondansetron (Zofran Odt) 4 Mg Tab.rapdis, 4 MG SL Q4H PRN for NAUSEA/VOMITING- 1ST LINE Prescribed by: ANGY MARTINS on 03/01/18 0208 Ondansetron HCl (Zofran) 4 Mg Tab, 4 MG PO Q4H PRN for NAUSEA/VOMITING Prescribed by: JUDY LEO on 11/30/181919 Oseltamivir Phosphate (Tamiflu) 75 Mg Cap, 75 MG PO BID Prescribed by: ABRAHAM KIRAN on 09/06/192158 Phenazopyridine HCl (Pyridium) 100 Mg Tablet, 100 MG PO TID Prescribed by: ABRAHAM KIRAN on 06/28/19 1326 Prazosin HCl (Prazosin HCl) 2 Mg Capsule, 6 MG PO HS, (Reported) Entered as Reported by: JENNY RAMIREZ on 07/06/18 1043 Prednisone (Prednisone) 10 Mg Tab, 20 MG PO DAILY, (Reported) Entered as Reported by: JENNY RAMIREZ on 07/06/18 1058 Prednisone (Prednisone) 20 Mg Tab, 2 TAB PO DAILY Prescribed by: MARIA C SWARTZ on 08/10/18 1322 Prednisone (Prednisone) 20 Mg Tab, 40 MG PO DAILY Prescribed by: MARIA C SWARTZ on 06/08/19 2330 Prednisone (Prednisone) 20 Mg Tab, 40 MG PO DAILY Prescribed by: MAKAYLA POLO on 06/15/20 0104 Quetiapine Fumarate (Seroquel) 200 Mg Tablet, 200 MG PO HS, (Reported) Entered as Reported by: JENNY RAMIREZ on 07/06/18 1044 Review of Systems Constitutional: No chills, No diaphoresis EENTM: No blurred vision, No double vision, No dental problems, No mouth pain, No mouth swelling, No throat pain, No throat swelling Respiratory: No cough, No dyspnea on exertion Cardiovascular: No chest pain Gastrointestinal: abdominal pain; No diarrhea; nausea; No vomiting Genitourinary: No decreased output, No discharge; hematuria Musculoskeletal: back pain; No joint pain Skin: No change in color, No change in hair/nails (LYDIA CURRY) All Other Systems Reviewed Negative Unless Noted: Yes (LYDIA CURRY) Past Rifsefj-Yrddfd-Ogxtzl Hx Patient Social History Tobacco Use?: Yes Smoking Status: Current Everyday Smoker Use of E-Cig and/or Vaping dev: No Substance use?: No Alcohol Use?: No Pt feels they are or have been: No (LYDIA CURRY) Immunizations Up To Date Tetanus Booster (TDap): Unknown PED Vaccines UTD: No Influenza Vaccine Up-to-Date: Yes; Up-to-Date First/Initial COVID19 Vaccinat: 2020 Second COVID19 Vaccination [place]: 2020 Third COVID19 Vaccination Date: 2020 (LYDIA CURRY) Seasonal Allergies Seasonal Allergies: Yes (LYDIA CURRY) Past Medical History Surgeries: Yes ( X1-08/07/2013;WISDOM TEETH;REMOVAL OF RETAINED IUD;PILONIDAL ABSC) Section, Tonsillectomy Respiratory: Yes (Tobaccoism) Asthma, Pneumonia Cardiac: Yes High Cholesterol Neurological: No Reproductive Disorders: Yes (RETAINED IUD, hemorrhagic ovarian cysts) Female Reproductive Disorders: Menstrual Problems, Ovarian Cyst, Polycystic Ovarian Dis 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 Sexually Transmitted Disease: No HIV/AIDS: No Genitourinary: Yes Bladder Infection, Kidney Stones, UTI-Chronic Gastrointestinal: Yes Gastroesophageal Reflux, Chronic Diarrhea, Irritable Bowel Musculoskeletal: Yes Fibromyalgia Endocrine: Yes (VITAMIN D DEFICIENCY; OBESITY) HEENT: Yes Loss of Vision: Bilateral Hearing Impairment: Denies Cancer: No Psychosocial: Yes (EXTENSIVE PSYCH ISSUES) ADD/ADHD, Sleep Difficulties, Anxiety, PTSD, Bipolar, Personality Disorder, Depression Integumentary: Yes (PILDORISDAL CYST/ABSCESS REMOVED 03/11/19) Blood Disorders: No Adverse Reaction/Blood Tranf: No (LYDIA CURRY) Family Medical History Alcoholism 19 FATHER Asthma 19 MOTHER Completed stroke 19 FATHER DVT 19 FATHER Dementia 19 FATHER Diabetes mellitus 19 MOTHER FH: multiple sclerosis G8 SISTER Headache disorder G8 BROTHER Hypertension 19 FATHER 19 MOTHER Myocardial infarction 19 FATHER Seizure disorder 19 FATHER Asthma, Hypertension, Seizures, Stroke (LYDIA CURRY) Physical Exam Vital Signs Vital Signs - First Documented 12/31/21 18:21 Temp 36.8 Pulse 105 Resp 20 B/P (MAP) 142/101 (115) Pulse Ox 96 O2 Delivery Room Air (DEANNA FITCHA Robert STATON) Vital Signs Capillary Refill : Less Than 3 Seconds (LYDIA CURRY) Height, Weight, BMI Height: 5'0" Weight: 235lbs. 0.0oz. 106.986832ho; 48.00 BMI Method:Stated General Appearance: No Apparent Distress, WD/WN HEENT: PERRL/EOMI, TMs Normal, Normal ENT Inspection, Pharynx Normal Neck: Full Range of Motion, Normal Inspection, Non Tender, Supple Cardiovascular: Regular Rate, Rhythm, No Edema, No Gallop, No JVD, No Murmur Respiratory: Chest Non Tender, Lungs Clear, Normal Breath Sounds, No Accessory Muscle Use, No Respiratory Distress Gastrointestinal: Normal Bowel Sounds, No Organomegaly, No Pulsatile Mass, Non Tender Back: No Vertebral Tenderness, CVA Tenderness (R) Extremity: Normal Capillary Refill, Normal Inspection, Normal Range of Motion Skin: Normal Color, Warm/Dry (LYDIA CURRY) Progress/Results/Core Measures Results/Orders Lab Results Laboratory Tests Test 12/31/21 18:48 12/31/21 19:10 Range/Units White Blood Count 12.2 H 4.3-11.0 10^3/uL Red Blood Count 4.85 3.80-5.11 10^6/uL Hemoglobin 15.3 11.5-16.0 g/dL Hematocrit 45 35-52 % Mean Corpuscular Volume 93 80-99 fL Mean Corpuscular Hemoglobin 32 25-34 pg Mean Corpuscular Hemoglobin Concent 34 32-36 g/dL Red Cell Distribution Width 12.9 10.0-14.5 % Platelet Count 350 130-400 10^3/uL Mean Platelet Volume 9.9 9.0-12.2 fL Immature Granulocyte % (Auto) 0 % Neutrophils (%) (Auto) 53 42-75 % Lymphocytes (%) (Auto) 38 12-44 % Monocytes (%) (Auto) 6 0-12 % Eosinophils (%) (Auto) 2 0-10 % Basophils (%) (Auto) 1 0-10 % Neutrophils # (Auto) 6.5 1.8-7.8 10^3/uL Lymphocytes # (Auto) 4.6 H 1.0-4.0 10^3/uL Monocytes # (Auto) 0.8 0.0-1.0 10^3/uL Eosinophils # (Auto) 0.2 0.0-0.3 10^3/uL Basophils # (Auto) 0.1 0.0-0.1 10^3/uL Immature Granulocyte # (Auto) 0.1 0.0-0.1 10^3/uL Sodium Level 139 135-145 MMOL/L Potassium Level 3.6 3.6-5.0 MMOL/L Chloride Level 106 98-107 MMOL/L Carbon Dioxide Level 21 21-32 MMOL/L Anion Gap 12 5-14 MMOL/L Blood Urea Nitrogen 16 7-18 MG/DL Creatinine 0.76 0.60-1.30 MG/DL Estimat Glomerular Filtration Rate 107 BUN/Creatinine Ratio 21 Glucose Level 107 H 70-105 MG/DL Calcium Level 8.9 8.5-10.1 MG/DL Corrected Calcium 9.1 8.5-10.1 MG/DL Total Bilirubin 0.1 0.1-1.0 MG/DL Aspartate Amino Transf (AST/SGOT) 9 5-34 U/L Alanine Aminotransferase (ALT/SGPT) 16 0-55 U/L Alkaline Phosphatase 66 40-136 U/L Total Protein 6.4 6.4-8.2 GM/DL Albumin 3.8 3.2-4.5 GM/DL Lipase 39 8-78 U/L Urine Color YELLOW Urine Clarity CLEAR Urine pH 6.0 5-9 Urine Specific [place] >=1.030 1.016-1.022 Urine Protein 2+ H NEGATIVE Urine Glucose (UA) NEGATIVE NEGATIVE Urine Ketones NEGATIVE NEGATIVE Urine Nitrite NEGATIVE NEGATIVE Urine Bilirubin NEGATIVE NEGATIVE Urine Urobilinogen 0.2 < = 1.0 MG/DL Urine Leukocyte Esterase NEGATIVE NEGATIVE Urine RBC (Auto) NEGATIVE NEGATIVE Urine RBC NONE /HPF Urine WBC 5-10 H /HPF Urine Squamous Epithelial Cells 5-10 /HPF Urine Crystals NONE /LPF Urine Bacteria LARGE H /HPF Urine Casts NONE /LPF Urine Mucus MODERATE H /LPF Urine Culture Indicated YES (THOMPSON FITCH DO) Medications Given in ED Current Medications Medications Dose Ordered Sig/Hina Route Start Time Stop Time Status Last Admin Dose Admin Ketorolac Tromethamine 30 mg ONCE ONCE IVP 12/31/21 18:45 12/31/21 18:46 DC 12/31/21 18:54 30 MG Morphine Sulfate 4 mg ONCE ONCE IVP 12/31/21 19:30 12/31/21 19:31 DC 12/31/21 19:39 4 MG Ondansetron HCl 4 mg ONCE ONCE IVP 12/31/21 18:45 12/31/21 18:46 DC 12/31/21 18:55 4 MG (THOMPSON FITCH DO) Vital Signs/I&O 12/31/21 12/31/21 18:21 20:15 Temp 36.8 36.8 Pulse 105 97 Resp 20 18 B/P (MAP) 142/101 (115) 138/97 Pulse Ox 96 97 O2 Delivery Room Air Room Air (THOMPSON FITCH DO) Blood Pressure Mean: 115 Departure Communication (PCP) Patient with right flank pain with radiation to right sided abdomen. Urinalysis with white blood cell. Possible contamination but with her current symptoms may be secondary to UTI. Cultures pending. Lab work shows slightly elevated white blood count. No significant hematuria. History of kidney stones which she thinks that this feels like as she noticed her urine was dark. Denies any vaginal discharge. CT scan of the abdomen pelvis shows a 5 mm left renal stone. No hydronephrosis. No other acute abnormality in the abdomen or pelvis. Focal right lower lobe bronchiectasis with hyperlucency at this location nodular opacification with a dilated right lower lobe bronchus measuring 6 mm in size. Patient with a history of smoking. Strongly recommend repeat follow-up with CT scan of the chest in 3 to 6 months for stability of the nodular opacification. Patient was given pain medication with improvement. Possible more muscular pain. Will treat with Keflex for potential UTI. If negative culture recommend stopping the medication. Discharged with pain medication for pain. Recommend rest, stretching. If any worsening symptoms return back to ED for further evaluation. She has no neurological red flag findings such as bowel or urine incontinence, saddle paresthesia, lower extremity weakness. Follow-up with your PCP in 2 to 3 days for reevaluation (LYDIA CURRY) Impression Primary Impression: Back pain Disposition: HOME, SELF-CARE Condition: Stable Departure-Patient Inst. Decision time for Depature: 20:06 (LYDIA CURRY) Referrals: HERON JOE MD (PCP/Family) Primary Care Physician FROYLAN SHAHID MD Patient Instructions: Low Back Pain (DC) Scripts Hydrocodone/Acetaminophen (Hydrocodone-Acetamin 5-325 mg) 5 Mg-325 Mg Tablet 1 TAB PO Q4H PRN for PAIN-MODERATE (5-7), #6 TAB Prov: LYDIA CURRY 12/31/21 Naproxen (Naproxen) 500 Mg Tablet.dr 500 MG PO BID for 10 Days, #20 TAB Prov: LYDIA CURRY 12/31/21 Cephalexin (Cephalexin) 500 Mg Tablet 500 MG PO BID for 7 Days, #14 TAB Prov: LYDIA CURRY 12/31/21 ATTENDING PHYSICIAN NOTE: I WAS PHYSICALLY PRESENT ER PHYSICIAN, BUT I WAS NOT INVOLVED IN ANY DECISION MAKING OR ANY CARE OF THIS PATIENT. (THOMPSON FITCH DO) LYDIA CURRY December 31, 2021 18:45 THOMPSON FITCH DO January 01, 2022 01:07
[2021-12-31 18:54] LABS: BASOPHILS # (AUTO) 0.1 10^3/uL (0.0-0.1); BASOPHILS % (AUTO) 1 % (0-10); EOSINOPHILS # (AUTO) 0.2 10^3/uL (0.0-0.3); EOSINOPHILS % (AUTO) 2 % (0-10); HEMATOCRIT 45 % (35-52); HEMOGLOBIN 15.3 g/dL (11.5-16.0); LYMPHOCYTES # (AUTO) 4.6 10^3/uL (1.0-4.0); LYMPHOCYTES % (AUTO) 38 % (12-44); MEAN CORPUSCULAR HEMOGLOBIN 32 pg (25-34); MEAN CORPUSCULAR HGB CONC 34 g/dL (32-36); MEAN CORPUSCULAR VOLUME 93 fL (80-99); MEAN PLATELET VOLUME 9.9 fL (9.0-12.2); MONOCYTES # (AUTO) 0.8 10^3/uL (0.0-1.0); MONOCYTES % (AUTO) 6 % (0-12); NEUTROPHILS # (AUTO) 6.5 10^3/uL (1.8-7.8); NEUTROPHILS % (AUTO) 53 % (42-75); PLATELET COUNT 350 10^3/uL (130-400); WHITE BLOOD COUNT 12.2 10^3/uL (4.3-11.0)
[2021-12-31 19:14] LABS: BILIRUBIN,URINE NEGATIVE (NEGATIVE); CLARITY,URINE CLEAR; COLOR,URINE YELLOW; GLUCOSE, URINE (UA) NEGATIVE (NEGATIVE); KETONES,URINE NEGATIVE (NEGATIVE); LEUKOCYTE ESTERASE ,URINE NEGATIVE (NEGATIVE); NITRITE,URINE NEGATIVE (NEGATIVE); PROTEIN,URINE 2+ (NEGATIVE)
[2021-12-31 19:15] LABS: ALBUMIN 3.8 GM/DL (3.2-4.5); POTASSIUM 3.6 MMOL/L (3.6-5.0)
[2021-12-31 19:16] LABS: CALCIUM 8.9 MG/DL (8.5-10.1)
[2021-12-31 19:17] LABS: TOTAL PROTEIN 6.4 GM/DL (6.4-8.2)
[2021-12-31 19:19] LABS: BILIRUBIN,TOTAL 0.1 MG/DL (0.1-1.0)
[2021-12-31 19:21] LABS: CREATININE SERUM 0.76 MG/DL (0.60-1.30)
[2021-12-31 19:22] LABS: BACTERIA,URINE LARGE /HPF
[2021-12-31] MEDS ORDERED: morphine INJ 10 MG/ML 1ML (SYR OR VIAL) IVP ONE (19:30)
--- NOTE | 2021-12-31 19:44 | Diagnostic Imaging Report ---
PROCEDURE: CT urinary tract, rule out kidney stone. TECHNIQUE: Multiple contiguous axial images were obtained through the abdomen and pelvis without the use of intravenous contrast. Auto Exposure Controls were utilized during the CT exam to meet ALARA standards for radiation dose reduction. DATE: December 31, 2021. COMPARISON: CT abdomen and pelvis December 22, 2020. INDICATION: 31-year-old female, low back pain. FINDINGS: There are limitations for evaluation of the abdominal organs, neoplastic processes, abscess and limited evaluation of the vasculature relating to the lack of intravenous contrast. There is focal right lower lobe bronchiectasis with lucency in this location as well as a 6 mm nodule within a dilated right lower lobe bronchus which is an interval change since December 22, 2020. The bronchiectasis and lucency is previously present. Heart is not enlarged. There is no pericardial effusion. The liver is unremarkable in size and contour. The gallbladder is contracted. There is no identified intrahepatic or extrahepatic bile duct dilation. The main pancreatic duct is not grossly dilated. Limited noncontrast assessment of the pancreatic parenchyma is unremarkable. The spleen is normal in size. The adrenal glands are unremarkable. There is a 5 mm nonobstructing left renal stone on axial image 71. The urinary collecting systems are not distended. There is no identified ureteral stone. The urinary bladder is unremarkable. There is a intrauterine contraceptive device in the midline uterus likely within the endometrial cavity. The intestinal tract is not distended. The appendix is unremarkable and well seen on axial image 136 and adjacent sequential images. There is no free intraperitoneal air. There is no drainable fluid collection. There is no free pelvic fluid. There is no identified abnormally enlarged lymph node in the abdomen or pelvis meeting CT size criteria for adenopathy. There is no identified acute bony abnormality. IMPRESSION: CT abdomen and pelvis: 1. 5 mm left renal stone. No identified ureteral stone or hydronephrosis. 2. No identified acute abnormality in the abdomen or pelvis. 3. Focal right lower lobe bronchiectasis with hyperlucency at this location and nodular opacification within a dilated right lower lobe bronchus measuring 6 mm in size. Consider follow-up CT chest in 3-6 months to evaluate for stability of the nodular opacification. Dictated by: Dictated on workstation # [id number]
[2021-12-31] MEDS ORDERED: CEPH500T PO (20:07)
[2021-12-31] MEDS ORDERED: NAPR500T8 PO (20:07)
[2021-12-31] MEDS ORDERED: ACHD5005 PO (20:07)
[2021-12-31 20:15] VITALS: BP 138/97
== END 2021-12-31 20:14 | disposition home or self-care (01) ==
LOC: EDUNIT# 18:08 → ER 18:09
DX: M54.50 Low back pain, unspecified (principal); N20.0 Calculus of kidney; D72.829 Elevated white blood cell count, unspecified; J47.0 Bronchiectasis with acute lower respiratory infection; J22 Unspecified acute lower respiratory infection; E66.9 Obesity, unspecified; F17.210 Nicotine dependence, cigarettes, uncomplicated; Z87.442 Personal history of urinary calculi; Z97.5 Presence of (intrauterine) contraceptive device
CPT/HCPCS: 36415; 74176; 80053; 81000; 83690; 84703; 85025; 87088

== ENCOUNTER 2022-06-19 20:04 | Emergency (ER) | payer OTHER ==
[~2022-06-19 20:04] MED LIST changes: -CRAN500T3 PO; +CRAN500T4 PO; +HYDR-4085; +HYDR-4085 PO; -HYDR-87; -HYDR-87 PO; +NAPR500T8 PO
[2022-06-19] MEDS ORDERED: ONDANSETRON 4 MG/2 ML (SDV) Z0FRAN IVP ONE (20:30)
[2022-06-19] MEDS ORDERED: KETOROLAC 30 MG/ML VIAL IVP ONE (20:30)
--- NOTE | 2022-06-19 20:36 | ED Abdominal Pain ---
General Chief Complaint: Abdominal/GI Problems Stated Complaint: BLOOD IN URINE/LEFT SIDE ABD PAIN Nursing Triage Note: PT ARRIVAL TO ER VIA PRIVATE VEHICLE FROM HOME WITH COMPLAINTS OF LEFT SIDE/FLANK PAIN X2 DAYS, BLOOD IN URINE. PATIENT STATES THAT SHE HAS HISTORY OF KIDNEY STONES AND FEELS LIKE THAT IS PROBABLY THE ISSUE TONIGHT. PATIENT HAS HAD SOME NAUSEA WITH PAIN, BUT NO VOMITING. PAIN IS SHARP ACHE RATED AT 8/10. Source of Information: Patient Exam Limitations: No Limitations History of Present Illness Date Seen by Provider: Jun 19, 2022 Time Seen by Provider: 20:25 Initial Comments Patient is a 31-year-old female who presents to the emergency department with left flank pain and some blood in her urine that began yesterday. Patient states she has had a history of kidney stones once in the past. She states she spontaneously passed that stone and has never seen a urologist. She denies any fever. She states the pain does radiate into her anterior left lower abdomen with the majority of the pain is in the left flank. Patient has not taken anything today for the symptoms. She endorses nausea without any emesis. Allergies and Home Medications Allergies Coded Allergies: prochlorperazine (Unverified Adverse Reaction, Unknown, 08/24/17) tramadol (Unverified Adverse Reaction, Unknown, 08/24/17) Patient Home Medication List Home Medication List Reviewed: Yes Albuterol Sulfate (Ventolin Hfa) 18 Gm Hfa.aer.ad, 1-2 PUFF IH Q4H PRN for SHORTNESS OF BREATH Prescribed by: HERON JOE on 07/08/18 1134 Albuterol/Ipratropium (Combivent Respimat Inhal [place]) 4 Gm Aero, 1 PUFF IH DAILY, (Reported) Entered as Reported by: JENNY RAMIREZ on 07/06/18 1054 Amoxicillin (Amoxicillin) 500 Mg Capsule, 1,000 MG PO BID Prescribed by: MARIA C SWARTZ on 08/10/18 1322 Atorvastatin Calcium (Lipitor) 20 Mg Tablet, 20 MG PO DAILY, (Reported) Entered as Reported by: FERNANDO ALEJANDRO on 07/06/18 1009 Baclofen (Baclofen) 10 Mg Tablet, 10 MG PO BID, (Reported) Entered as Reported by: FERNANDO ALEJANDRO on 07/06/18 1009 Benzonatate (Tessalon Perles) 100 Mg Capsule, 1-2 TAB PO TID Prescribed by: THOMPSON FITCH on 07/16/182052 Benzonatate (Tessalon Perle) 100 Mg Capsule, 1-2 CAP PO HS PRN for COUGH Prescribed by: MARIA C SWARTZ on 08/10/18 132 Budesonide (Pulmicort) 1 Mg/2 Ml Ampul.neb, 1 MG IH BID Prescribed by: THOMPSON FITCH on 07/16/182052 Buspirone HCl (Buspirone HCl) 15 Mg Tablet, 15 MG PO TID, (Reported) Entered as Reported by: YENNIFER WICK on 07/31/16 190 Cefdinir (Cefdinir) 300 Mg Capsule, 300 MG PO BID Prescribed by: ABRAHAM KIRAN on 06/28/19 132 Cephalexin (Cephalexin) 500 Mg Tablet, 500 MG PO BID Prescribed by: MARCIAL ALBERTS on 12/31/212006 Cholecalciferol (Vitamin D3) (Vitamin D3) 1,000 Unit Capsule, 1,000 UNIT PO BID, (Reported) Entered as Reported by: YENNIFER WICK on 07/31/16 190 Ciprofloxacin HCl (Ciprofloxacin HCl) 500 Mg Tablet, 500 MG PO BID Prescribed by: MARIA C SWARTZ on 08/10/18 132 Clindamycin HCl (Clindamycin HCl) 300 Mg Capsule, 300 MG PO TID Prescribed by: ABRAHAM KIRAN on 03/07/19 1402 Cranberry Extract (Cranberry) 500 Mg Tablet, 1,000 MG PO BID, (Reported) Entered as Reported by: LISA MCKINLEY on 10/11/16 1444 Dextroamphetamine/Amphetamine (Adderall 10 mg Tablet) 10 Mg Tablet, 10 MG PO BID, (Reported) Entered as Reported by: FERNANDO ALEJANDRO on 07/06/18 1009 Dicyclomine HCl (Dicyclomine HCl) 20 Mg Tablet, 20 MG PO QID, (Reported) Entered as Reported by: FERNANDO ALEJANDRO on 07/06/18 1009 Diphenhydramine HCl (Diphenhydramine HCl) 25 Mg Tablet, 25 MG PO BID, (Reported) Entered as Reported by: JENNY RAMIREZ on 07/06/18 1052 Docusate Sodium (Colace) 100 Mg Capsule, 100 MG PO BID PRN for CONSTIPATION Prescribed by: AILYN VERGARA on 10/23/16 0735 Doxycycline Monohydrate (Doxycycline Monohydrate) 100 Mg Capsule, 100 MG PO BID Prescribed by: THOMPSON FITCH on 07/16/182052 Famotidine (Acid Vertical Lathe Operator (FAMOTIDINE)) 20 Mg Tablet, 20 MG PO BID, (Reported) Entered as Reported by: JENNY RAMIREZ on 07/06/18 105 Fluticasone Propionate (Fluticasone Propionate) 16 Gm [place].susp, 1 SPRAY NSEACH HS, (Reported) Entered as Reported by: FERNANDO ALEJANDRO on 07/06/18 1006 Guaifenesin/Dextromethorphan (Mucinex Dm ER 1,200-60 mg Tab) 1 Each Tbmp.12hr, 1 EACH PO BID Prescribed by: THOMPSON FITCH on 07/16/182052 Hydrocodone Bit/Acetaminophen (Lortab 5 Mg Tablet) 1 Tab Tab, 1 TAB PO Q6H PRN for PAIN-MODERATE Prescribed by: PEDRO IRWIN on 03/10/19 1415 Hydrocodone Bit/Acetaminophen (Lortab 5 Mg Tablet) 1 Tab Tab, 1 EACH PO Q8H PRN for PAIN-MODERATE Prescribed by: YENNIFER HAMLIN on 03/21/19 1819 Hydrocodone/Acetaminophen (Hydrocodone-Acetamin 5-325 mg) 5 Mg-325 Mg Tablet, 1 TAB PO Q4H PRN for PAIN-MODERATE (5-7) Prescribed by: MARCIAL ALBERTS on 12/31/212007 Ibuprofen (Ibuprofen) 600 Mg Tablet, 600 MG PO Q6H PRN for PAIN, (Reported) Entered as Reported by: JENNY RAMIREZ on 07/06/18 105 Ipratropium/Albuterol Sulfate (Iprat-Albut 0.5-3(2.5) mg/3 ml) 3 Ml Ampul.neb, 3 ML INH Q6H PRN for DYSPNEA Prescribed by: HERON JOE on 07/08/18 1134 Ketorolac Tromethamine (Ketorolac Tromethamine) 10 Mg Tablet, 10 MG PO Q6H PRN for PAIN-SEE DOSE INSTRUCTIONS Prescribed by: Ziggy Liz on 06/19/222124 Methylprednisolone (Medrol) 4 Mg Tab.ds.pk, 4 MG PO UD Prescribed by: THOMPSON FITCH on 07/16/182052 Mv,Ca,Min/Iron Fum/FA/Vit K (Multi For Her Tablet) 1 Each Tablet, 1 EACH PO DAILY, (Reported) Entered as Reported by: FERNANDO ALEJANDRO on 07/06/18 100 Naproxen (Naproxen) 500 Mg Tablet.dr, 500 MG PO BID Prescribed by: MARCIAL ALBERTS on 12/31/212006 Nitrofurantoin Monohyd/M-Cryst (Macrobid 100 mg Capsule) 100 Mg Capsule, 1 TAB PO BID Prescribed by: JUDY LEO on 11/30/181919 Nitrofurantoin Monohyd/M-Cryst (Macrobid 100 mg Capsule) 100 Mg Capsule, 100 MG PO BID Prescribed by: THOMPSON FITCH on 08/08/19314 Ondansetron (Zofran Odt) 4 Mg Tab.rapdis, 4 MG SL Q4H PRN for NAUSEA/VOMITING- 1ST LINE Prescribed by: ANGY MARTINS on 03/01/18 0208 Ondansetron (Ondansetron Odt) 4 Mg Tab.rapdis, 4 MG SL Q4H PRN for NAUSEA/VOMITING Prescribed by: Ziggy Liz on 06/19/222124 Ondansetron HCl (Zofran) 4 Mg Tab, 4 MG PO Q4H PRN for NAUSEA/VOMITING Prescribed by: JUDY LEO on 11/30/181919 Oseltamivir Phosphate (Tamiflu) 75 Mg Cap, 75 MG PO BID Prescribed by: ABRAHAM KIRAN on 09/06/19 215 Phenazopyridine HCl (Pyridium) 100 Mg Tablet, 100 MG PO TID Prescribed by: ABRAHAM KIRAN on 06/28/19 1326 Prazosin HCl (Prazosin HCl) 2 Mg Capsule, 6 MG PO HS, (Reported) Entered as Reported by: JENNY RAMIREZ on 07/06/18 1043 Prednisone (Prednisone) 10 Mg Tab, 20 MG PO DAILY, (Reported) Entered as Reported by: JENNY RAMIREZ on 07/06/18 1058 Prednisone (Prednisone) 20 Mg Tab, 2 TAB PO DAILY Prescribed by: MARIA C SWARTZ on 08/10/18 1322 Prednisone (Prednisone) 20 Mg Tab, 40 MG PO DAILY Prescribed by: MARIA C SWARTZ on 06/08/19 2330 Prednisone (Prednisone) 20 Mg Tab, 40 MG PO DAILY Prescribed by: MAKAYLA POLO on 06/15/20 0104 Quetiapine Fumarate (Seroquel) 200 Mg Tablet, 200 MG PO HS, (Reported) Entered as Reported by: JENNY RAMIREZ on 07/06/18 1044 Tamsulosin HCl (Flomax) 0.4 Mg Cap, 0.4 MG PO DAILY Prescribed by: Ziggy Liz on 06/19/222124 Review of Systems Review of Systems Constitutional: no symptoms reported EENTM: No Symptoms Reported Respiratory: No Symptoms Reported Cardiovascular: No Symptoms Reported Gastrointestinal: See HPI Genitourinary: See HPI Psychiatric/Neurological: No Symptoms Reported Past Pghgpbe-Wotddq-Mounno Hx Patient Social History Tobacco Use?: Yes Tobacco type used: Cigarettes Smoking Status: Current Everyday Smoker Use of E-Cig and/or Vaping dev: No Substance use?: No Alcohol Use?: No Pt feels they are or have been: No Immunizations Up To Date Tetanus Booster (TDap): Unknown PED Vaccines UTD: No Influenza Vaccine Up-to-Date: Yes; Up-to-Date First/Initial COVID19 Vaccinat: 2020 Second COVID19 Vaccination [place]: 2020 Third COVID19 Vaccination Date: 2020 COVID19 Vaccine Teamsite Developer: HASEEB Seasonal Allergies Seasonal Allergies: Yes Past Medical History Surgeries: Yes ( X1-08/07/2013;WISDOM TEETH;REMOVAL OF RETAINED IUD;PILONIDAL ABSC) Section, Tonsillectomy Respiratory: Yes (Tobaccoism) Asthma, Pneumonia Cardiac: Yes High Cholesterol Neurological: No Last Menstrual Period: Aug 20, 2017 Reproductive Disorders: Yes (RETAINED IUD, hemorrhagic ovarian cysts) Female Reproductive Disorders: Menstrual Problems, Ovarian Cyst, Polycystic Ovarian 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 Sexually Transmitted Disease: No HIV/AIDS: No Genitourinary: Yes Bladder Infection, Kidney Stones, UTI-Chronic Gastrointestinal: Yes Gastroesophageal Reflux, Chronic Diarrhea, Irritable Bowel Musculoskeletal: Yes Fibromyalgia Endocrine: Yes (VITAMIN D DEFICIENCY; OBESITY) HEENT: Yes Loss of Vision: Bilateral Hearing Impairment: Denies Cancer: No Psychosocial: Yes (EXTENSIVE PSYCH ISSUES) ADD/ADHD, Sleep Difficulties, Anxiety, PTSD, Bipolar, Personality Disorder, Depression Integumentary: Yes (PILONIDAL CYST/ABSCESS REMOVED 03/11/19) Blood Disorders: No Adverse Reaction/Blood Tranf: No Family Medical History Alcoholism 19 FATHER Asthma 19 MOTHER Completed stroke 19 FATHER DVT 19 FATHER Dementia 19 FATHER Diabetes mellitus 19 MOTHER FH: multiple sclerosis G8 SISTER Headache disorder G8 BROTHER Hypertension 19 FATHER 19 MOTHER Myocardial infarction 19 FATHER Seizure disorder 19 FATHER Asthma, Hypertension, Seizures, Stroke Physical Exam Vital Signs Vital Signs - First Documented 06/19/22 20:20 Temp 36.9 Pulse 93 Resp 22 B/P (MAP) 170/122 (138) Pulse Ox 96 O2 Delivery Room Air Capillary Refill : Less Than 3 Seconds Height/Weight/BMI Height: 5'0" Weight: 235lbs. 0.0oz. 106.005551mj; 48.00 BMI Method:Stated General Appearance: WD/WN, no apparent distress HEENT: PERRL/EOMI, normal ENT inspection, TMs normal, pharynx normal Neck: non-tender, full range of motion, supple, normal inspection Respiratory: chest non-tender, lungs clear, normal breath sounds, no respiratory distress Cardiovascular: regular rate, rhythm Gastrointestinal: normal bowel sounds, non tender, soft, tenderness Extremities: normal range of motion, non-tender Back: normal inspection Neurologic/Psychiatric: no motor/sensory deficits, alert, normal mood/affect, oriented x 3 Exam Comments Left flank tenderness to palpation Progress/Results/Core Measures Results/Orders Lab Results Laboratory Tests Test 06/19/22 20:22 06/19/22 20:48 Range/Units Urine Color YELLOW Urine Clarity CLEAR Urine pH 5.5 5-9 Urine Specific [place] 1.025 H 1.016-1.022 Urine Protein 1+ H NEGATIVE Urine Glucose (UA) NEGATIVE NEGATIVE Urine Ketones NEGATIVE NEGATIVE Urine Nitrite NEGATIVE NEGATIVE Urine Bilirubin NEGATIVE NEGATIVE Urine Urobilinogen 0.2 < = 1.0 MG/DL Urine Leukocyte Esterase NEGATIVE NEGATIVE Urine RBC (Auto) TRACE-I H NEGATIVE Urine RBC 2-5 H /HPF Urine WBC 5-10 H /HPF Urine Squamous Epithelial Cells 25-50 H /HPF Urine Crystals PRESENT H /LPF Urine Amorphous Sediment FEW TURNER URATES H /LPF Urine Bacteria LARGE H /HPF Urine Casts NONE /LPF Urine Mucus SMALL H /LPF Urine Culture Indicated YES Urine Test NEGATIVE NEGATIVE White Blood Count 14.0 H 4.3-11.0 10^3/uL Red Blood Count 4.87 3.80-5.11 10^6/uL Hemoglobin 15.5 11.5-16.0 g/dL Hematocrit 46 35-52 % Mean Corpuscular Volume 93 80-99 fL Mean Corpuscular Hemoglobin 32 25-34 pg Mean Corpuscular Hemoglobin Concent 34 32-36 g/dL Red Cell Distribution Width 12.2 10.0-14.5 % Platelet Count 328 130-400 10^3/uL Mean Platelet Volume 10.2 9.0-12.2 fL Immature Granulocyte % (Auto) 0 % Neutrophils (%) (Auto) 59 42-75 % Lymphocytes (%) (Auto) 31 12-44 % Monocytes (%) (Auto) 7 0-12 % Eosinophils (%) (Auto) 3 0-10 % Basophils (%) (Auto) 1 0-10 % Neutrophils # (Auto) 8.2 H 1.8-7.8 10^3/uL Lymphocytes # (Auto) 4.4 H 1.0-4.0 10^3/uL Monocytes # (Auto) 0.9 0.0-1.0 10^3/uL Eosinophils # (Auto) 0.4 H 0.0-0.3 10^3/uL Basophils # (Auto) 0.1 0.0-0.1 10^3/uL Immature Granulocyte # (Auto) 0.0 0.0-0.1 10^3/uL Sodium Level 142 135-145 MMOL/L Potassium Level 4.3 3.6-5.0 MMOL/L Chloride Level 104 98-107 MMOL/L Carbon Dioxide Level 25 21-32 MMOL/L Anion Gap 13 5-14 MMOL/L Blood Urea Nitrogen 14 7-18 MG/DL Creatinine 0.78 0.60-1.30 MG/DL Estimat Glomerular Filtration Rate 103 BUN/Creatinine Ratio 18 Glucose Level 97 70-105 MG/DL Calcium Level 9.7 8.5-10.1 MG/DL Corrected Calcium 9.9 8.5-10.1 MG/DL Total Bilirubin 0.2 0.1-1.0 MG/DL Aspartate Amino Transf (AST/SGOT) 17 5-34 U/L Alanine Aminotransferase (ALT/SGPT) 22 0-55 U/L Alkaline Phosphatase 65 40-136 U/L Total Protein 6.6 6.4-8.2 GM/DL Albumin 3.8 3.2-4.5 GM/DL Micro Results Microbiology 06/19/22 Urine Culture - Final, Complete >=3 Gram Positive Isolates My Orders Orders - 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 Cbc With Automated Diff (06/19/22 20:28) Comprehensive Metabolic Panel (06/19/22 20:28) Ua Culture If Indicated (06/19/22 20:28) Ct Abdomen/Pelvis Wo (06/19/22 20:28) Iv/Invasive Line Insertion .IV INSERT (06/19/22 20:) Hcg,Qualitative Urine (06/19/22 20:) Ketorolac Injection (Toradol Injection) (06/19/22 20:30) Ondansetron Injection (Zofran Injectio (06/19/22 20:30) Urine Culture (06/19/22 20:22) Medications Given in ED Vital Signs/I&O 06/19/22 06/19/22 20:20 21:41 Temp 36.9 36.9 Pulse 93 84 Resp 22 16 B/P (MAP) 170/122 (138) 137/98 Pulse Ox 96 97 O2 Delivery Room Air Room Air Blood Pressure Mean: 138 Progress Progress Note : Progress Note Patient is nontoxic and well-hydrated on exam. Vital signs are reassuring. Left flank tenderness to palpation appreciated on exam. Laboratory evaluation largely reassuring. Urinalysis notable for hematuria. CT of the abdomen and pelvis notable for left ureteral calculi measuring approximately 5 mm. The stone is at the UPJ at this time. Patient will be discharged home with prescriptions for analgesia, antiemetics, and tamsulosin. Discussed importance of frequent fluids and follow-up with PCP. Return precautions for symptomology discussed. Patient verbalized understanding. Departure Impression Primary Impression: Left ureteral calculus Disposition: HOME, SELF-CARE Condition: Stable Departure-Patient Inst. Decision time for Depature: 21:20 Referrals: HERON JOE MD (PCP/Family) Primary Care Physician Patient Instructions: Kidney Stones (DC) Scripts Ondansetron (Ondansetron Odt) 4 Mg Tab.rapdis 4 MG SL Q4H PRN for NAUSEA/VOMITING for 5 Days, #20 TAB 0 Refills Prov: ZIGGY LIZ APRN 06/19/22 Tamsulosin HCl (Flomax) 0.4 Mg Cap 0.4 MG PO DAILY for 7 Days, #7 CAP 0 Refills Prov: ZIGGY LIZ APRN 06/19/22 Ketorolac Tromethamine (Ketorolac Tromethamine) 10 Mg Tablet 10 MG PO Q6H PRN for PAIN-SEE DOSE INSTRUCTIONS for 5 Days, #20 TAB 0 Refills Prov: ZIGGY LIZ APRN 06/19/22 ZIGGY LIZ APRN Jun 19, 2022 20:36
[2022-06-19 20:37] LABS: BILIRUBIN,URINE NEGATIVE (NEGATIVE); CLARITY,URINE CLEAR; COLOR,URINE YELLOW; GLUCOSE, URINE (UA) NEGATIVE (NEGATIVE); KETONES,URINE NEGATIVE (NEGATIVE); LEUKOCYTE ESTERASE ,URINE NEGATIVE (NEGATIVE); NITRITE,URINE NEGATIVE (NEGATIVE); PH,URINE 5.5 (5-9); PROTEIN,URINE 1+ (NEGATIVE)
[2022-06-19 20:47] LABS: BACTERIA,URINE LARGE /HPF; SQUAMOUS EPITHELIAL CELL,UR 25-50 /HPF
[2022-06-19 20:48] LABS: AMORPHOUS SEDIMENT,UR FEW AMOR URATES /LPF
[2022-06-19 20:54] LABS: BASOPHILS # (AUTO) 0.1 10^3/uL (0.0-0.1); BASOPHILS % (AUTO) 1 % (0-10); EOSINOPHILS # (AUTO) 0.4 10^3/uL (0.0-0.3); EOSINOPHILS % (AUTO) 3 % (0-10); HEMATOCRIT 46 % (35-52); HEMOGLOBIN 15.5 g/dL (11.5-16.0); LYMPHOCYTES # (AUTO) 4.4 10^3/uL (1.0-4.0); LYMPHOCYTES % (AUTO) 31 % (12-44); MEAN CORPUSCULAR HEMOGLOBIN 32 pg (25-34); MEAN CORPUSCULAR HGB CONC 34 g/dL (32-36); MEAN CORPUSCULAR VOLUME 93 fL (80-99); MEAN PLATELET VOLUME 10.2 fL (9.0-12.2); MONOCYTES # (AUTO) 0.9 10^3/uL (0.0-1.0); MONOCYTES % (AUTO) 7 % (0-12); NEUTROPHILS # (AUTO) 8.2 10^3/uL (1.8-7.8); NEUTROPHILS % (AUTO) 59 % (42-75); PLATELET COUNT 328 10^3/uL (130-400)
[2022-06-19 21:14] LABS: ALBUMIN 3.8 GM/DL (3.2-4.5); BILIRUBIN,TOTAL 0.2 MG/DL (0.1-1.0); CALCIUM 9.7 MG/DL (8.5-10.1); CREATININE SERUM 0.78 MG/DL (0.60-1.30); POTASSIUM 4.3 MMOL/L (3.6-5.0); TOTAL PROTEIN 6.6 GM/DL (6.4-8.2)
--- NOTE | 2022-06-19 21:15 | Diagnostic Imaging Report ---
PROCEDURE: CT abdomen and pelvis without contrast. TECHNIQUE: Multiple contiguous axial images were obtained through the abdomen and pelvis without the use of intravenous contrast. Auto Exposure Controls were utilized during the CT exam to meet ALARA standards for radiation dose reduction. INDICATION: Left-sided abdominal pain. COMPARISON: 12/31/2021 FINDINGS: Normal appendix is identified. Small bowel loops are nondistended. CT ABDOMEN: A 5 mm calculus is identified at the left UPJ. As a result, there is mild proximal hydronephrosis. No other renal or ureteral calculi are seen on either side. Additionally, there is no hydroureteronephrosis or other evidence of obstruction on the left. No focal renal lesions are seen on this noncontrast study. The adrenal glands, spleen, pancreas, and liver have an unremarkable noncontrast CT appearance. There is no loculated fluid collection, free fluid or free air within the abdomen. No abnormal mesenteric or retroperitoneal adenopathy is seen. Osseous structures show no acute abnormalities. CT PELVIS: The urinary bladder is unopacified. No calculi are seen within the urinary bladder. There is no loculated fluid collection, free fluid or free air within the pelvis. No abnormal lymph nodes are seen. Osseous structures show no acute abnormalities. IMPRESSION: 1. A 5 mm calculus at the left UPJ resulting in mild proximal hydronephrosis. Dictated by: Dictated on workstation # [id number]
[2022-06-19] MEDS ORDERED: ONDA4TAB11 SL (21:25)
[2022-06-19] MEDS ORDERED: TMSL.4C PO (21:25)
[2022-06-19] MEDS ORDERED: KETO10TA PO (21:25)
[2022-06-19] MEDS ORDERED: NS IV 1000 ML 1,000 ML IV SCH (21:30)
[2022-06-19 21:41] VITALS: BP 137/98
== END 2022-06-19 21:41 | disposition home or self-care (01) ==
LOC: EDUNIT# 20:04 → ER 20:06
DX: N13.2 Hydronephrosis with renal and ureteral calculous obstruction (principal); F17.210 Nicotine dependence, cigarettes, uncomplicated; Z87.440 Personal history of urinary (tract) infections; Z88.5 Allergy status to narcotic agent
CPT/HCPCS: 36415; 74176; 80053; 81000; 84703; 85025; 87088

== ENCOUNTER 2022-11-05 20:03 | Emergency (ER) | payer SELFPAY ==
[~2022-11-05] VITALS: Ht 152 cm; Wt 120.0 kg
[~2022-11-05 20:03] MED LIST changes: -DOXY-311 PO; +DOXY-444 PO; +KETO10TA PO; +ONDA4TAB11 SL; +TMSL.4C PO
[2022-11-05 20:42] LABS: BILIRUBIN,URINE NEGATIVE (NEGATIVE); CLARITY,URINE CLEAR; COLOR,URINE YELLOW; GLUCOSE, URINE (UA) NEGATIVE (NEGATIVE); KETONES,URINE NEGATIVE (NEGATIVE); LEUKOCYTE ESTERASE ,URINE NEGATIVE (NEGATIVE); NITRITE,URINE NEGATIVE (NEGATIVE); PROTEIN,URINE 2+ (NEGATIVE)
[2022-11-05 20:52] LABS: BACTERIA,URINE MODERATE /HPF; RBC,URINE 0-2 /HPF
[2022-11-05] MEDS ORDERED: NS IV 1000 ML 1,000 ML IV STA (20:54)
--- NOTE | 2022-11-05 20:56 | ED GU-Female ---
General Chief Complaint: - Reproductive Stated Complaint: L SIDE PAIN Nursing Triage Note: C/O SHARP LEFT FLANK PAIN TODAY. REPORTS SIMILAR TO PREVIOUS RENAL STONE. APAP TAKEN APPROX. 1930 Source: patient Exam Limitations: no limitations (LYDIA CURRY) History of Present Illness Date Seen by Provider: Nov 05, 2022 Time Seen by Provider: 20:55 Initial Comments Patient is a 32-year-old female with a history of kidney stones presents ED with left flank pain. Cute onset this morning. Pain is described as sharp with radiation to the left lower groin. Pain appears to be intermittent. Nausea without vomiting or diarrhea. Has been taking Tylenol without much improvement. This feels very similar to her previous kidney stone. Denies of any vaginal bleeding, chest pain, cough, fever, chills, body aches. She states she is able to urinate with some mild pain and discomfort (LYDIA CURRY) Allergies and Home Medications Allergies Coded Allergies: prochlorperazine (Unverified Adverse Reaction, Unknown, 08/24/17) tramadol (Unverified Adverse Reaction, Unknown, 08/24/17) Patient Home Medication List Home Medication List Reviewed: Yes (LYDIA CURRY) Albuterol Sulfate (Ventolin Hfa) 18 Gm Hfa.aer.ad, 1-2 PUFF IH Q4H PRN for SHORTNESS OF BREATH Prescribed by: HERON JOE on 07/08/18 1134 Last Action: Last Taken Edited Cephalexin (Cephalexin) 500 Mg Tablet, 500 MG PO BID Prescribed by: MARCIAL ALBERTS on 11/05/22 2313 Dextroamphetamine/Amphetamine (Adderall 10 mg Tablet) 10 Mg Tablet, 10 MG PO BID, (Reported) Entered as Reported by: FERNANDO ALEJANDRO on 07/06/18 1009 Last Action: Last Taken Edited Dicyclomine HCl (Dicyclomine HCl) 20 Mg Tablet, 20 MG PO QID, (Reported) Entered as Reported by: FERNANDO ALEJANDRO on 07/06/18 1009 Last Action: Last Taken Edited Famotidine (Acid Extracorporeal Technician (FAMOTIDINE)) 20 Mg Tablet, 20 MG PO BID, (Reported) Entered as Reported by: JENNY RAMIREZ on 11/17/18 1053 Last Action: Last Taken Edited Hydrocodone/Acetaminophen (Hydrocodone-Acetamin 5-325 mg) 5 Mg-325 Mg Tablet, 1 TAB PO Q4H PRN for PAIN-MODERATE (5-7) Prescribed by: MARCIAL ALBERTS on 11/05/222213 Ondansetron (Ondansetron Odt) 4 Mg Tab.rapdis, 4 MG SL Q4H PRN for NAUSEA/VOMITING Prescribed by: MARCIAL ALBERTS on 11/05/222212 Tamsulosin HCl (Flomax) 0.4 Mg Cap, 0.4 MG PO DAILY Prescribed by: MARCIAL ALBERTS on 11/05/222212 Discontinued Medications Albuterol/Ipratropium (Combivent Respimat Inhal [place]) 4 Gm [place], 1 PUFF IH DAILY, (Reported) Discontinued Reason: No Longer Taking Entered as Reported by: JENNY RAMIREZ on 07/06/181053 Last Action: Discontinued Amoxicillin (Amoxicillin) 500 Mg Capsule, 1,000 MG PO BID Discontinued Reason: No Longer Taking Prescribed by: MARIA C SWARTZ on 08/10/181321 Last Action: Discontinued Atorvastatin Calcium (Lipitor) 20 Mg Tablet, 20 MG PO DAILY, (Reported) Discontinued Reason: No Longer Taking Entered as Reported by: FERNANDO ALEJANDRO on 07/06/18 100 Last Action: Discontinued Baclofen (Baclofen) 10 Mg Tablet, 10 MG PO BID, (Reported) Discontinued Reason: No Longer Taking Entered as Reported by: FERNANDO ALEJANDRO on 07/06/18 100 Last Action: Discontinued Benzonatate (Tessalon Perles) 100 Mg Capsule, 1-2 TAB PO TID Discontinued Reason: No Longer Taking Prescribed by: THOMPSON FITCH on 07/16/182052 Last Action: Discontinued Benzonatate (Tessalon Perle) 100 Mg Capsule, 1-2 CAP PO HS PRN for COUGH Discontinued Reason: No Longer Taking Prescribed by: MARIA C SWARTZ on 08/10/181321 Last Action: Discontinued Budesonide (Pulmicort) 1 Mg/2 Ml Ampul.neb, 1 MG IH BID Discontinued Reason: No Longer Taking Prescribed by: THOMPSON FITCH on 07/16/182052 Last Action: Discontinued Buspirone HCl (Buspirone HCl) 15 Mg Tablet, 15 MG PO TID, (Reported) Discontinued Reason: No Longer Taking Entered as Reported by: YENNIFER WICK on 07/31/161899 Last Action: Discontinued Cefdinir (Cefdinir) 300 Mg Capsule, 300 MG PO BID Discontinued Reason: No Longer Taking Prescribed by: ABRAHAM KIRAN on 06/28/19 1326 Last Action: Discontinued Cephalexin (Cephalexin) 500 Mg Tablet, 500 MG PO BID Discontinued Reason: No Longer Taking Prescribed by: MARCIAL ALBERTS on 12/31/212006 Last Action: Discontinued Cholecalciferol (Vitamin D3) (Vitamin D3) 1,000 Unit Capsule, 1,000 UNIT PO BID, (Reported) Discontinued Reason: No Longer Taking Entered as Reported by: YENNIFER WICK on 07/31/161899 Last Action: Discontinued Ciprofloxacin HCl (Ciprofloxacin HCl) 500 Mg Tablet, 500 MG PO BID Discontinued Reason: No Longer Taking Prescribed by: MARIA C SWARTZ on 08/10/18 1322 Last Action: Discontinued Clindamycin HCl (Clindamycin HCl) 300 Mg Capsule, 300 MG PO TID Discontinued Reason: No Longer Taking Prescribed by: ABRAHAM KIRAN on 03/07/19 1402 Last Action: Discontinued Cranberry Extract (Cranberry) 500 Mg Tablet, 1,000 MG PO BID, (Reported) Discontinued Reason: No Longer Taking Entered as Reported by: LISA MCKINLEY on 10/11/16 1444 Last Action: Discontinued Diphenhydramine HCl (Diphenhydramine HCl) 25 Mg Tablet, 25 MG PO BID, (Reported) Discontinued Reason: No Longer Taking Entered as Reported by: JENNY RAMIREZ on 07/06/18 1052 Last Action: Discontinued Docusate Sodium (Colace) 100 Mg Capsule, 100 MG PO BID PRN for CONSTIPATION Discontinued Reason: No Longer Taking Prescribed by: AILYN VERGARA on 10/23/16 0735 Last Action: Discontinued Doxycycline Monohydrate (Doxycycline Monohydrate) 100 Mg Capsule, 100 MG PO BID Discontinued Reason: No Longer Taking Prescribed by: THOMPSON FITCH on 07/16/18 205 Last Action: Discontinued Fluticasone Propionate (Fluticasone Propionate) 16 Gm [place].susp, 1 SPRAY NSEACH HS, (Reported) Discontinued Reason: No Longer Taking Entered as Reported by: FERNANDO ALEJANDRO on 07/06/18 1006 Last Action: Discontinued Guaifenesin/Dextromethorphan (Mucinex Dm ER 1,200-60 mg Tab) 1 Each Tbmp.12hr, 1 EACH PO BID Discontinued Reason: No Longer Taking Prescribed by: THOMPSON FITCH on 07/16/182052 Last Action: Discontinued Hydrocodone Bit/Acetaminophen (Lortab 5 Mg Tablet) 1 Tab Tab, 1 TAB PO Q6H PRN for PAIN-MODERATE Discontinued Reason: No Longer Taking Prescribed by: PEDRO IRWIN on 03/10/19 1415 Last Action: Discontinued Hydrocodone Bit/Acetaminophen (Lortab 5 Mg Tablet) 1 Tab Tab, 1 EACH PO Q8H PRN for PAIN-MODERATE Discontinued Reason: No Longer Taking Prescribed by: YENNFIER HAMLIN on 03/21/19 181 Last Action: Discontinued Hydrocodone/Acetaminophen (Hydrocodone-Acetamin 5-325 mg) 5 Mg-325 Mg Tablet, 1 TAB PO Q4H PRN for PAIN-MODERATE (5-7) Discontinued Reason: No Longer Taking Prescribed by: MARCIAL ALBERTS on 12/31/212007 Last Action: Discontinued Ibuprofen (Ibuprofen) 600 Mg Tablet, 600 MG PO Q6H PRN for PAIN, (Reported) Discontinued Reason: No Longer Taking Entered as Reported by: JENNY RAMIREZ on 07/06/18 1050 Last Action: Discontinued Ipratropium/Albuterol Sulfate (Iprat-Albut 0.5-3(2.5) mg/3 ml) 3 Ml Ampul.neb, 3 ML INH Q6H PRN for DYSPNEA Discontinued Reason: No Longer Taking Prescribed by: HERON JOE on 07/08/18 1134 Last Action: Discontinued Ketorolac Tromethamine (Ketorolac Tromethamine) 10 Mg Tablet, 10 MG PO Q6H PRN for PAIN-SEE DOSE INSTRUCTIONS Discontinued Reason: No Longer Taking Prescribed by: Ziggy Liz on 06/19/222124 Last Action: Discontinued Methylprednisolone (Medrol) 4 Mg Tab.ds.pk, 4 MG PO UD Discontinued Reason: No Longer Taking Prescribed by: THOMPSON FITCH on 07/16/182052 Last Action: Discontinued Mv,Ca,Min/Iron Fum/FA/Vit K (Multi For Her Tablet) 1 Each Tablet, 1 EACH PO D AILY, (Reported) Discontinued Reason: No Longer Taking Entered as Reported by: FERNANDO ALEJANDRO on 07/06/18 1009 Last Action: Discontinued Naproxen (Naproxen) 500 Mg Tablet.dr, 500 MG PO BID Discontinued Reason: No Longer Taking Prescribed by: MARCIAL ALBERTS on 12/31/212006 Last Action: Discontinued Nitrofurantoin Monohyd/M-Cryst (Macrobid 100 mg Capsule) 100 Mg Capsule, 1 TAB PO BID Discontinued Reason: No Longer Taking Prescribed by: JUDY LEO on 11/30/181919 Last Action: Discontinued Nitrofurantoin Monohyd/M-Cryst (Macrobid 100 mg Capsule) 100 Mg Capsule, 100 MG PO BID Discontinued Reason: No Longer Taking Prescribed by: THOMPSON FITCH on 08/08/19 0315 Last Action: Discontinued Ondansetron (Zofran Odt) 4 Mg Tab.rapdis, 4 MG SL Q4H PRN for NAUSEA/VOMITING- 1ST LINE Discontinued Reason: No Longer Taking Prescribed by: ANGY MARTINS on 03/01/18 0208 Last Action: Discontinued Ondansetron (Ondansetron Odt) 4 Mg Tab.rapdis, 4 MG SL Q4H PRN for NAUSEA/VOMITING Discontinued Reason: No Longer Taking Prescribed by: Ziggy Liz on 06/19/222124 Last Action: Discontinued Ondansetron HCl (Zofran) 4 Mg Tab, 4 MG PO Q4H PRN for NAUSEA/VOMITING Discontinued Reason: No Longer Taking Prescribed by: JUDY LEO on 11/30/181919 Last Action: Discontinued Oseltamivir Phosphate (Tamiflu) 75 Mg Cap, 75 MG PO BID Discontinued Reason: No Longer Taking Prescribed by: ABRAHAM KIRAN on 09/06/19 215 Last Action: Discontinued Phenazopyridine HCl (Pyridium) 100 Mg Tablet, 100 MG PO TID Discontinued Reason: No Longer Taking Prescribed by: ABRAHAM KIRAN on 06/28/19 1326 Last Action: Discontinued Prazosin HCl (Prazosin HCl) 2 Mg Capsule, 6 MG PO HS, (Reported) Discontinued Reason: No Longer Taking Entered as Reported by: JENNY RAMIREZ on 07/06/18 1043 Last Action: Discontinued Prednisone (Prednisone) 10 Mg Tab, 20 MG PO DAILY, (Reported) Discontinued Reason: No Longer Taking Entered as Reported by: JENNY RAMIREZ on 07/06/18 1058 Last Action: Discontinued Prednisone (Prednisone) 20 Mg Tab, 2 TAB PO DAILY Discontinued Reason: No Longer Taking Prescribed by: MARIA C SWARTZ on 08/10/18 1322 Last Action: Discontinued Prednisone (Prednisone) 20 Mg Tab, 40 MG PO DAILY Discontinued Reason: No Longer Taking Prescribed by: MARIA C SWARTZ on 06/08/19 2330 Last Action: Discontinued Prednisone (Prednisone) 20 Mg Tab, 40 MG PO DAILY Discontinued Reason: No Longer Taking Prescribed by: MAKAYLA POLO on 06/15/20 0104 Last Action: Discontinued Quetiapine Fumarate (Seroquel) 200 Mg Tablet, 200 MG PO HS, (Reported) Discontinued Reason: No Longer Taking Entered as Reported by: JENNY RAMIREZ on 07/06/18 1044 Last Action: Discontinued Tamsulosin HCl (Flomax) 0.4 Mg Cap, 0.4 MG PO DAILY Discontinued Reason: No Longer Taking Prescribed by: Ziggy Liz on 06/19/222124 Last Action: Discontinued Review of Systems Review of Systems Constitutional: No chills, No diaphoresis, No malaise, No weakness EENTM: No hearing loss, No blurred vision, No double vision Respiratory: No cough Cardiovascular: No chest pain Gastrointestinal: abdominal pain; No diarrhea; nausea; No vomiting Genitourinary: denies burning, denies discharge Musculoskeletal: back pain; No joint pain Skin: No change in color, No change in hair/nails (LYDIA CURRY) All Other Systemes Reviewed Negative Unless Noted: Yes (LYDIA CURRY) Past Jewszxa-Rqkzdt-Jblaqg Hx Patient Social History Tobacco Use?: Yes Substance use?: Yes Substance type: Amphetamines Alcohol Use?: Yes Alcohol Frequency: Once in a while Pt feels they are or have been: No (LYDIA CURRY) Immunizations Up To Date Tetanus Booster (TDap): Unknown PED Vaccines UTD: No First/Initial COVID19 Vaccinat: 2020 Second COVID19 Vaccination [place]el[place]: 2020 Third COVID19 Vaccination Date: 2020 (LYDIA CURRY) Seasonal Allergies Seasonal Allergies: Yes (LYDIA CURRY) Past Medical History Surgery/Hospitalization HX: T/A, DENTAL, RENAL STONES, ASTHMA, ADHD, BIPOLAR, DEPRESSION Surgeries: Yes ( X1-08/07/2013;WISDOM TEETH;REMOVAL OF RETAINED IUD;PILONIDAL ABSC) Section, Tonsillectomy Respiratory: Yes (Tobaccoism) Asthma, Pneumonia Cardiac: Yes High Cholesterol Neurological: No Reproductive Disorders: Yes (RETAINED IUD, hemorrhagic ovarian cysts) Female Reproductive Disorders: Menstrual Problems, Ovarian Cyst, Polycystic Ovarian Dis 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 Sexually Transmitted Disease: No HIV/AIDS: No Genitourinary: Yes Bladder Infection, Kidney Stones, UTI-Chronic Gastrointestinal: Yes Gastroesophageal Reflux, Chronic Diarrhea, Irritable Bowel Musculoskeletal: Yes Fibromyalgia Endocrine: Yes (VITAMIN D DEFICIENCY; OBESITY) HEENT: Yes Loss of Vision: Bilateral Hearing Impairment: Denies Cancer: No Psychosocial: Yes (EXTENSIVE PSYCH ISSUES) ADD/ADHD, Sleep Difficulties, Anxiety, PTSD, Bipolar, Personality Disorder, Depression Integumentary: Yes (PILONIDAL CYST/ABSCESS REMOVED 03/11/19) Blood Disorders: No Adverse Reaction/Blood Tranf: No (LYDIA CURRY) Family Medical History Alcoholism 19 FATHER Asthma 19 MOTHER Completed stroke 19 FATHER DVT 19 FATHER Dementia 19 FATHER Diabetes mellitus 19 MOTHER FH: multiple sclerosis G8 SISTER Headache disorder G8 BROTHER Hypertension 19 FATHER 19 MOTHER Myocardial infarction 19 FATHER Seizure disorder 19 FATHER Asthma, Hypertension, Seizures, Stroke (LYDIA CURRY) Physical Exam Vital Signs Vital Signs - First Documented 11/05/22 20:07 Temp 36.5 Pulse 110 Resp 16 B/P (MAP) 150/106 (121) Pulse Ox 94 O2 Delivery Room Air (ANGY WOLF MD) Vital Signs Capillary Refill : Less Than 3 Seconds (LYDIA CURRY) Height, Weight, BMI Height: 5'0" Weight: 235lbs. 0.0oz. [id number]; 51.00 BMI Method:Stated General Appearance: WD/WN, no apparent distress HEENT: PERRL/EOMI, normal ENT inspection, TMs normal, pharynx normal Neck: non-tender, full range of motion, supple, normal inspection Cardiovascular: regular rate, rhythm, no edema, no gallop, no JVD Respiratory: chest non-tender, lungs clear, normal breath sounds, no accessory muscle use Gastrointestinal: normal bowel sounds, non tender, soft, no organomegaly Pelvic: normal external exam Back: CVA tenderness (L) Extremities: normal range of motion, non-tender, normal inspection Neurologic/Psychiatric: glass inserter II-XII nml as tested, no motor/sensory deficits, alert, normal mood/affect Skin: normal color (LYDIA CURRY) Progress/Results/Core Measures Suspected Sepsis SIRS Temperature: Pulse: 110 Respiratory Rate: 16 Laboratory Tests 11/05/22 20:14: White Blood Count 12.6H Blood Pressure 150 /106 Mean: 121 Laboratory Tests 11/05/22 20:14: Creatinine 0.73, Platelet Count 339, Total Bilirubin 0.2 (LYDIA CURRY) Results/Orders Lab Results Laboratory Tests Test 11/05/22 20:11 11/05/22 20:14 Range/Units Urine Color YELLOW Urine Clarity CLEAR Urine pH 6.0 5-9 Urine Specific [place] >=1.030 1.016-1.022 Urine Protein 2+ H NEGATIVE Urine Glucose (UA) NEGATIVE NEGATIVE Urine Ketones NEGATIVE NEGATIVE Urine Nitrite NEGATIVE NEGATIVE Urine Bilirubin NEGATIVE NEGATIVE Urine Urobilinogen 0.2 < = 1.0 MG/DL Urine Leukocyte Esterase NEGATIVE NEGATIVE Urine RBC (Auto) TRACE-I H NEGATIVE Urine RBC 0-2 /HPF Urine WBC 2-5 /HPF Urine Squamous Epithelial Cells 10-25 H /HPF Urine Crystals NONE /LPF Urine Bacteria MODERATE H /HPF Urine Casts NONE /LPF Urine Mucus SMALL H /LPF Urine Culture Indicated NO White Blood Count 12.6 H 4.3-11.0 10^3/uL Red Blood Count 5.07 3.80-5.11 10^6/uL Hemoglobin 16.3 H 11.5-16.0 g/dL Hematocrit 47 35-52 % Mean Corpuscular Volume 93 80-99 fL Mean Corpuscular Hemoglobin 32 25-34 pg Mean Corpuscular Hemoglobin Concent 35 32-36 g/dL Red Cell Distribution Width 12.9 10.0-14.5 % Platelet Count 339 130-400 10^3/uL Mean Platelet Volume 9.8 9.0-12.2 fL Immature Granulocyte % (Auto) 0 % Neutrophils (%) (Auto) 57 42-75 % Lymphocytes (%) (Auto) 33 12-44 % Monocytes (%) (Auto) 6 0-12 % Eosinophils (%) (Auto) 2 0-10 % Basophils (%) (Auto) 1 0-10 % Neutrophils # (Auto) 7.2 1.8-7.8 10^3/uL Lymphocytes # (Auto) 4.2 H 1.0-4.0 10^3/uL Monocytes # (Auto) 0.8 0.0-1.0 10^3/uL Eosinophils # (Auto) 0.3 0.0-0.3 10^3/uL Basophils # (Auto) 0.1 0.0-0.1 10^3/uL Immature Granulocyte # (Auto) 0.0 0.0-0.1 10^3/uL Sodium Level 139 135-145 MMOL/L Potassium Level 4.0 3.6-5.0 MMOL/L Chloride Level 103 98-107 MMOL/L Carbon Dioxide Level 24 21-32 MMOL/L Anion Gap 12 5-14 MMOL/L Blood Urea Nitrogen 12 7-18 MG/DL Creatinine 0.73 0.60-1.30 MG/DL Estimat Glomerular Filtration Rate 111 BUN/Creatinine Ratio 16 Glucose Level 98 70-105 MG/DL Calcium Level 9.7 8.5-10.1 MG/DL Corrected Calcium 9.8 8.5-10.1 MG/DL Total Bilirubin 0.2 0.1-1.0 MG/DL Aspartate Amino Transf (AST/SGOT) 11 5-34 U/L Alanine Aminotransferase (ALT/SGPT) 15 0-55 U/L Alkaline Phosphatase 66 40-136 U/L Total Protein 6.7 6.4-8.2 GM/DL Albumin 3.9 3.2-4.5 GM/DL Lipase 39 8-78 U/L (ANGY WOLF MD) My Orders Orders - ANGY WOLF MD Ua Culture If Indicated (11/05/22 20:08) (ANGY WOLF MD) Medications Given in ED Current Medications Medications Dose Ordered Sig/Hina Route Start Time Stop Time Status Last Admin Dose Admin Ketorolac Tromethamine 30 mg ONCE ONCE IVP 11/05/22 21:00 11/05/22 21:01 DC 11/05/22 21:16 30 MG Ondansetron HCl 4 mg ONCE ONCE IVP 11/05/22 21:00 11/05/22 21:01 DC 11/05/22 21:16 4 MG (ANGY WOLF MD) Vital Signs/I&O 11/05/22 11/05/22 20:07 22:16 Temp 36.5 36.4 Pulse 110 89 Resp 16 16 B/P (MAP) 150/106 (121) 135/79 Pulse Ox 94 99 O2 Delivery Room Air Room Air 11/06/22 00:00 Intake Total 1000 ml Balance 1000 ml (ANGY WOLF MD) Vital Signs/I&O Capillary Refill : Less Than 3 Seconds (LYDIA CURRY) Blood Pressure Mean: 121 Departure Communication (PCP) Reviewed previous ER visits, H&P's, lab testing, imaging. Patient was diagnosed with a 5 mm calculus at the left UPJ resulting in mid proximal hydronephrosis in May 2022. Patient with acute pain to her left flank with rating to the left lower abdomen. Similar type pain. Nausea without vomiting or diarrhea. Able to produce urine without passing large clot. Due to patient's current presentation, CBC, CMP, urinalysis, CT abdomen and pelvis without contrast was ordered. She was given a dose of Toradol and fentanyl with near resolution of her pain. She was started on a liter of fluid and Zofran for nausea. CBC showed a white blood count of 12. Chemistry was unremarkable. Urinalysis positive for hematuria. CT abdomen and pelvis shows a mild left obstructive uropathy improved since the prior exam however there is a persistent 5 mm stone in the left ureter just distal to the left ureterovesical junction. Very similar to her previous presentation in May 2022. 3.4 cm right adnexal cyst. No tenderness to the right lower quadrant or pain to this location. Discussed all results with patient. Provided urology outpatient follow-up. Patient is currently pain-free. Discussed return precautions such as decreased urine output, passing of blood clots, worsening pain, fever. Urinalysis without strong evidence of infection but did note bacteria. Keflex prophylactically. she will be discharged with Flomax, Zofran and pain medication. Provided urology outpatient follow-up. (LYDIA CURRY) Impression Primary Impression: Ureterolithiasis Disposition: 01 HOME, SELF-CARE Condition: Stable Departure-Patient Inst. Decision time for Depature: 22:12 (LYDIA CURRY) Referrals: HERON JOE MD (PCP/Family) Primary Care Physician Patient Instructions: Kidney Stone Diet Scripts Cephalexin (Cephalexin) 500 Mg Tablet 500 MG PO BID for 7 Days, #14 TAB Prov: LYDIA CURRY 11/05/22 Tamsulosin HCl (Flomax) 0.4 Mg Cap 0.4 MG PO DAILY, #14 CAP Prov: LYDIA CURRY 11/05/22 Hydrocodone/Acetaminophen (Hydrocodone-Acetamin 5-325 mg) 5 Mg-325 Mg Tablet 1 TAB PO Q4H PRN for PAIN-MODERATE (5-7), #10 TAB Prov: LYDIA CURRY 11/05/22 Ondansetron (Ondansetron Odt) 4 Mg Tab.rapdis 4 MG SL Q4H PRN for NAUSEA/VOMITING, #8 TAB Prov: LYDIA CURRY 11/05/22 Work/School Note: Work Release Form Date Seen in the Emergency Department: Nov 05, 2022 Return to Work: Nov 08, 2022 ATTENDING PHYSICIAN NOTE: I was physically present as attending physician in the emergency department during the care of this patient, but I was not directly involved in the decision making or delivery of care for this patient. (ANGY WOLF MD) LYDIA CURRY Nov 05, 2022 20:56 ANGY WOLF MD Nov 06, 2022 06:01
[2022-11-05] MEDS ORDERED: KETOROLAC 30 MG/ML VIAL IVP ONE (21:00)
[2022-11-05] MEDS ORDERED: ONDANSETRON 4 MG/2 ML (SDV) Z0FRAN IVP ONE (21:00)
[2022-11-05 21:23] LABS: BASOPHILS # (AUTO) 0.1 10^3/uL (0.0-0.1); BASOPHILS % (AUTO) 1 % (0-10); EOSINOPHILS # (AUTO) 0.3 10^3/uL (0.0-0.3); EOSINOPHILS % (AUTO) 2 % (0-10); HEMATOCRIT 47 % (35-52); HEMOGLOBIN 16.3 g/dL (11.5-16.0); LYMPHOCYTES # (AUTO) 4.2 10^3/uL (1.0-4.0); LYMPHOCYTES % (AUTO) 33 % (12-44); MEAN CORPUSCULAR HEMOGLOBIN 32 pg (25-34); MEAN CORPUSCULAR HGB CONC 35 g/dL (32-36); MEAN CORPUSCULAR VOLUME 93 fL (80-99); MEAN PLATELET VOLUME 9.8 fL (9.0-12.2); MONOCYTES # (AUTO) 0.8 10^3/uL (0.0-1.0); MONOCYTES % (AUTO) 6 % (0-12); NEUTROPHILS # (AUTO) 7.2 10^3/uL (1.8-7.8); NEUTROPHILS % (AUTO) 57 % (42-75); PLATELET COUNT 339 10^3/uL (130-400); WHITE BLOOD COUNT 12.6 10^3/uL (4.3-11.0)
[2022-11-05 21:47] LABS: ALBUMIN 3.9 GM/DL (3.2-4.5); BILIRUBIN,TOTAL 0.2 MG/DL (0.1-1.0); CALCIUM 9.7 MG/DL (8.5-10.1); CREATININE SERUM 0.73 MG/DL (0.60-1.30); TOTAL PROTEIN 6.7 GM/DL (6.4-8.2)
[2022-11-05] MEDS ORDERED: fentaNYL INJ 100 MCG/2 ML AMP IVP STA (21:51)
--- NOTE | 2022-11-05 22:03 | Diagnostic Imaging Report ---
PROCEDURE: CT urinary tract, rule out kidney stone. TECHNIQUE: Multiple contiguous axial images were obtained through the abdomen and pelvis without the use of intravenous contrast. Auto Exposure Controls were utilized during the CT exam to meet ALARA standards for radiation dose reduction. INDICATION: 32-year-old female with sharp left flank pain, history of renal calculi. COMPARISONS: 06/19/2022. FINDINGS: Lung bases are clear. Cardiac contour is normal. Liver shows uniform attenuation. Gallbladder, spleen, GE junction, stomach and pancreas are normal. There is some very mild left hydronephrosis. There is left obstructive uropathy secondary to a 5 mm stone in the left ureter just distal to the left UPJ. This is similar to the previous study. Both distal ureters are normal in caliber. An IUD is in place. Bladder is nondistended. Nonopacified loops of small bowel are normal. Large bowel contains fecal material and gas. Appendix is unremarkable. A 3.4 cm right adnexal cyst is most likely an ovarian cyst. IMPRESSION: 1. Mild left obstructive uropathy improved since the prior exam. However, there is a persistent 5 mm stone in the left ureter just distal to the left ureterovesical junction. This is very similar in location to the previous stone described on 06/19/2022. 2. There is no evidence of cholecystitis or appendicitis. No area of peritoneal inflammation seen. 3. 3.4 cm right adnexal cyst, most likely an ovarian cyst. Dictated by: Dictated on workstation # [id number]
[2022-11-05] MEDS ORDERED: TMSL.4C PO (22:13)
[2022-11-05] MEDS ORDERED: ACHD5005 PO (22:13)
[2022-11-05] MEDS ORDERED: ONDA4TAB11 SL (22:13)
[2022-11-05 22:16] VITALS: BP 135/79
[2022-11-05] MEDS ORDERED: CEPH500T PO (23:13)
== END 2022-11-05 22:17 | disposition home or self-care (01) ==
LOC: EDUNIT# 20:03 → ER 20:04
DX: N13.2 Hydronephrosis with renal and ureteral calculous obstruction (principal); E66.9 Obesity, unspecified; Z87.442 Personal history of urinary calculi; Z68.43 Body mass index [BMI] 50.0-59.9, adult
CPT/HCPCS: 36415; 74176; 80053; 81000; 83690; 85025